=== PATIENT | female | born 1955 | race Caucasian/White ===

== ENCOUNTER 2024-01-22 11:35 | Outpatient (AMB) | payer MEDICARE, SELFPAY ==
--- NOTE | 2024-01-22 11:39 | A.OFFPC_ITS ---
Vital Signs 01/22/24 11:46 Height 5 ft 6.5 in Weight 260 lb BMI 41.3 BP 134/74 Blood Pressure Location Lt brachial Position Sitting Pulse 76 Pulse Source Pulse Oximeter Pulse Oximetry (%) 98 Oxygen Delivery Method Room Air Intake Visit Reasons: EST Care Depression Intake Note: pt is here est care, depression concerns Personnel Scheduler Required: No Accompanied by: Spouse Allergies esomeprazole [From Vimovo] Allergy (Mild, Verified 01/22/24 12:00) Headache naproxen [From Vimovo] Allergy (Mild, Verified 01/22/24 12:00) Headache codeine Adverse Reaction (Mild, Verified 01/22/24 12:00) Unknown phenobarbital Adverse Reaction (Mild, Verified 01/22/24 12:00) Unknown Medication List - Last Reconciled 01/22/24 by MADDY Schmid allopurinol 300 mg PO DAILY aspirin 81 mg PO DAILY calcium carbonate-vitamin D3 600 mg-12.5 mcg (500 unit) (Calcium 600 with Vitamin D3) caps PO CPAP As directed duloxetine (Cymbalta) 60 mg PO DAILY ferrous sulfate 325 mg PO DAILY gabapentin 300 mg PO DAILY nystatin 1 appl topical DAILY olmesartan 20 mg PO DAILY Tobacco use date assessed: 01/22/24 Fall risk assessment: No Falls in past year Last assessed Fall Risk: 01/22/24 Dental Screening Dental Screen Date: 01/22/24 Did you have a dental visit in the last 12 months?: Yes Did you have a dental problem in the last 6 months where you did not have access to dental care?: No Was dental information given to patient?: Patient has dentist HPI HPI Comments History of Present Illness Details Patient is a 68-year-old female here to establish care. Patient has a past medical history significant for anxiety and depression. She recently reached out to our community navigator to find assistance with finding a psychiatric provider in therapist. She states that she had been off her medications for several weeks and was starting to experience severe rebound anxiety and depression with vague SI/HI symptoms. The patient's is at the appointment with her today. Patient admitted at this appointment that she does have a distant history of SI attempt 50 years prior to this appointment. Patient will be sent to the emergency room for evaluation. Patient's will be driving her to the emergency room immediately. The patient is agreeable to this plan. [facility] Medical History (Updated 01/22/24 @ 12:31 by MADDY Schmid) FH: total knee replacement Chronic kidney disease Seizure Family History Father Cirrhosis Lung cancer Mother Lung cancer Social History Housing: House Alcohol intake: current Alcohol intake frequency: holidays/special occasions only Alcohol type: wine Patient Tobacco Use Status: Never used Tobacco e-Cigarette/Vaping Use: Never Used Cognitive needs: No Hearing needs: No Vision needs: No Questionnaire PHQ-9 Over the last 2 weeks, how often have you been bothered by any of the following problems? 1. Little interest or pleasure in doing things: nearly every day 2. Feeling down, depressed, or hopeless: nearly every day 3. Trouble falling or staying asleep, or sleeping too much: nearly every day 4. Feeling tired or having little energy: nearly every day 5. Poor appetite or overeating: nearly every day 6. Feeling bad about yourself - or that you are a failure or have let yourself or your family down: nearly every day 7. Trouble concentrating on things, such as reading the newspaper or watching television: more than half the days 8. Moving or speaking so slowly that other people could have noticed. Or the opposite - being so fidgety or restless that you have been moving around a lot more than usual: more than half the days 9. Thoughts that you would be better off or of hurting yourself in some wa y: nearly every day Total score: 25 Depression Screening Interpretation: Positive Depression Screening Done: Yes 41830 - PHQ-9 Billing: Yes Source: Developed by Drs. Maico Zuleta, Gertrude Titus, Hood Medrano and colleagues, with an educational jose g from [facility]. Thrive Questionnaire Date Thrive assessed: 01/22/24 I am a: Patient What is your living situation today?: I have a steady place to live Within the past 12 months, did the food you bought not last and you didn't have the money to get more?: Never true Within the past 12 months, did you worry whether your food would run out before you got money to buy more?: Never true Do you have trouble paying for medicines?: No Do you have trouble getting transportation to medical appointments?: No Do you have trouble paying your heating and electricity bill?: No Do you have trouble taking care of your child, family member or friend?: No Do you have trouble with day-to-day activities such as bathing, preparing meals, shopping, managing finances, etc.?: No Are you currently unemployed and looking for a job?: No Are you interested in more education?: No Please select the resources that you would like help with: None Currently or been in a relationship where the following occur: no concerns reported THRIVE Score: 0 JOSE-7 AMB Questionnaire JOSE-7 Date JOSE - 7 assessed: 01/22/24 Feeling nervous, anxious, or on edge: 3 = Nearly every day Not being able to stop or control worryin = Nearly every day Worrying too much about different things: 3 = Nearly every day Trouble relaxin = Nearly every day Being so restless that it is hard to sit still: 2 = More than half the days Becoming easily annoyed or irritable: 3 = Nearly every day Feeling afraid as if something awful might happen: 2 = More than half the days Total JOSE-7 score (0-4 normal; 5-9 mild; 10-14 moderate; 15-21 severe): 19 Source: Developed by Drs. Maico Zuleta, Gerturde Titus, Hood Medrano and colleagues, with an educational jose g from [facility]. JOSE-7 Assessment Billing JOSE-7 Assessment Tool: JOSE-7 Assessment 03495 Physical exam (Primary Care) Vital Signs: Last Vital Signs Pulse 76 01/22/24 11:46 BP 134/74 01/22/24 11:46 Pulse Ox 98 01/22/24 11:46 Oxygen Delivery Method Room Air 01/22/24 11:46 BMI result Body Mass Index 41.3 Tobacco/Smoking Status: Tobacco use Status Tobacco use date assessed 01/22/24 01/22/24 11:53 Patient Tobacco Use Status Never used Tobacco 01/22/24 11:54 e-Cigarette/Vaping Use Never Used 01/22/24 11:54 Depression Screening Interpretation: Positive Currently or been in a relationship where the following occur: no concerns reported Assessment and Plan Assessment & Plan (1) Persistent depressive disorder with anxious distress, currently severe: Comment: Patient is being sent [facility] Emergency Room for evaluation. And expect has been called. Patient is agreeable to this plan. will be driving via private vehicle. Code(s): F34.1 - Dysthymic disorder Plan: Will follow-up after ER evaluation. Orders: Orders Complete Blood Count Auto Diff Today Z13.0 - Encounter for screening for diseases of the blood and blood-forming organs and certain disorders involving the immune mechanism Vitamin D 25-OH (D2 and D3) Today Z13.21 - Encounter for screening for nu tritional disorder Vitamin B6 Today Z13.21 - Encounter for screening for nutritional disorder Vitamin B12 Today Z13.21 - Encounter for screening for nutritional disorder TSH reflex Free T4 Today Z13.29 - Encounter for screening for other suspected endocrine disorder MM tomosynthesis screening BI Today Z12.31 - Encounter for screening mammogram for malignant neoplasm of breast XR DEXA axial skeleton Today Z78.0 - Asymptomatic menopausal state Comprehensive Met. Panel Today Z91.89 - Other specified personal risk factors, not elsewhere classified Lipid Panel Today Z13.220 - Encounter for screening for lipoid disorders UA CC w/rflx Micro + Cult Today Z13.89 - Encounter for screening for other disorder Coding Level of Care Code New Pt Level 3 (48724) Diagnoses Persistent depressive disorder with anxious distress, currently severe F34.1 Additional Codes JOSE-7 Assessment Billing - JOSE-7 Assessment Tool: JOSE-7 Assessment 95273 ([id number]) Time Spent (min) 25
[2024-01-22 11:46] VITALS: BP 134/74; PULSE 76; O2SAT 98; BMI 41.3
== END 2024-01-22 13:34 | disposition home or self-care (01) ==
LOC: HO.HMGC 11:37
PROVIDERS: PCP Nurse Practitioner Primary Care; Visit Provider Nurse Practitioner Primary Care
DX: F34.1 Dysthymic disorder (principal)
CPT/HCPCS: 96127; 99203

== ENCOUNTER 2024-01-22 12:39 | Emergency (ER) | payer MEDICARE, SELFPAY ==
[2024-01-22 12:48] VITALS: BP 151/79; PULSE 76; RESP 18; TEMP 36.4; O2SAT 97; BMI 41.5
--- NOTE | 2024-01-22 12:50 | ED.PSYCH ---
HPI - Psych General Chief Complaint: Psychiatric Symptoms Stated Complaint: Crisis Time Seen by Provider: 01/22/24 13:34 Source: patient and family Mode of arrival: ambulatory Limitations: no limitations History of Present Illness HPI Narrative: 68 yo female with PMH of depression no prior inpatient stays [place] in [place] and didn't have a doctor or prescriber here ran out of her cymbalta and trazodone cold turkey about a month ago and then developed worsening depression and SI but no plan. She is here as her new doctor sent her given the SI MD complaint: suicidal ideation and feels depressed Onset (ago): week(s) Duration: getting worse History of same: Yes Relieving factors: none Exacerbating factors: other Context: not taking psychiatric medications and significant life stressor Associated psychiatric symptoms: depression and suicidal ideation Associated symptoms: denies other symptoms Treatments prior to arrival: none If self harm: admits thoughts of self harm Related Data Home Medications Medication Instructions Recorded Confirmed gabapentin 300 mg capsule 300 mg PO BID 01/22/24 01/22/24 nystatin 100,000 unit/gram topical topical BID-TID 01/22/24 powder olmesartan 20 mg tablet 20 mg DAILY 01/22/24 01/22/24 Allergies Allergy/AdvReac Type Severity Reaction Status Date / Time esomeprazole [From Vimovo] Allergy Mild Headache Verified 01/22/24 12:00 naproxen [From Vimovo] Allergy Mild Headache Verified 01/22/24 12:00 codeine AdvReac Mild Unknown Verified 01/22/24 12:00 phenobarbital AdvReac Mild Unknown Verified 01/22/24 12:00 Review of Systems Review of Systems: Constitutional : No Fever, No Chills ENT/Mouth : No Ear Pain, No Nasal Congestion, No sore throat Eyes: No Eye Pain, No Swelling, No Redness Cardiovascular : No Chest Pain, No SOB Respiratory : No Cough, No Sputum, No Dyspnea Gastrointestinal : No Nausea, No Vomiting, No Diarrhea, No Hematochezia, No Melena Genitourinary : No Dysuria, No Urinary Frequency, No Hematuria Musculoskeletal : No Myalgias Skin : No Skin Lesions, No rash Neuro : No Weakness, No Numbness, No Paresthesias, No Dizziness, No Headache Psych : positive Anxiety, positive Depression, positive SI no HI Heme/Lymph: No Lymphadenopathy Endocrine : No Polyuria, No Polydipsia All other systems reviewed and are negative [facility] Past Medical History Medical History FH: total knee replacement Chronic kidney disease Seizure Family History Family History Father Cirrhosis Lung cancer Mother Lung cancer Social History Social History Housing: House Alcohol intake: current Alcohol intake frequency: holidays/special occasions only Alcohol type: wine Patient Tobacco Use Status: Never used Tobacco Smoked in Last 30 Days: No e-Cigarette/Vaping Use: Never Used Use of substances other than those prescribed or required for medical reasons: No Advance Directives: No Advance Directives Information Provided: No Cognitive needs: No Hearing needs: No Vision needs: No Physical Exam Vital Signs: Vital Signs: Last Vital Signs Temp 98.2 F 01/22/24 13:36 Pulse 78 01/22/24 13:36 Resp 18 01/22/24 13:36 BP 140/80 H 01/22/24 13:36 Pulse Ox 98 01/22/24 13:36 O2 Del Method Room Air 01/22/24 13:36 BMI result Body Mass Index 41.5 Appearance: Alert. Oriented X3. No acute distress. Eyes: Pupils equal, round and reactive to light. ENT: Pharynx normal. Neck: Normal inspection. Neck supple. CVS: Normal heart rate and rhythm. Pulses normal. Respiratory: No respiratory distress. Breath sounds normal. Abdomen: Soft and nontender. Skin: Skin warm and dry. Normal skin color. Normal skin turgor. Extremities: No lower extremity edema. No calf ttp Neuro: Oriented X 3. No motor deficit. No sensory deficit. CN2-12 intact Course Course Course Narrative: This is a rapid medical exam: Additional HPI, ROS, PE not included below will be deferred to primary provider. Patient is a 68-year-old female presenting to the ED from PCP office for depression and vague suicidal statements after abruptly discontinuing her Cymbalta. Also reports episodes of angry outbursts but denies homicidal ideation. Patient admits to not taking her medications as prescribed. Plan: med clearance, CARE eval Reevaluation(s) Reevaluation #1: Physician observation started at 203pm Patient placed in physician observation because the patient needed more time for CARE team to asses the need for psych admission. At the time observation was started the patient's vitals were stable, patient is alert and oriented Neuro: nonfocal, CV RRR, Lungs clear Medical Decision Making Medical Decision Making [facility] Narrative: 68 yo female with PMH of depression off of medications for a month now with c/o depression and vague SI but no plan at this time will need basic labs and CARE team consult. Differential Diagnosis Differential Diagnoses: The differential diagnosis associated with the presentation includes depression, med issue Admission/Observation Consideration of admission/observation: Escalation of care including admission/observation considered observe until seen by CARE team Consult Healthcare Provider Management of the patient was discussed with: Behavioral Health Provider Lab Data [facility] Lab Attestation statement: I reviewed the patient's lab results. 01/22/24 13:22 01/22/24 13:22 Labs: Lab Results 01/22/24 Range/Units 13:22 WBC 12.2 H (4.8-10.8) X10*3/uL RBC 5.21 (4.20-5.50) X10*6/uL Hgb 14.3 (12.0-16.0) g/dl Hct 44.8 (37.0-47.0) % MCV 86.0 (80.0-98.0) fL MCH 27.4 (27.0-33.0) pg MCHC 31.9 (31.0-35.0) g/dl RDW 14.9 (11.0-16.0) % Plt Count 222 (160-400) X10*3/uL MPV 10.8 (9.4-12.3) fL Immature Gran % (Auto) 0.3 (0.0-0.4) % Neut % (Auto) 55.5 (45-73) % Lymph % (Auto) 34.7 (20-40) % [place] % (Auto) 6.7 (2-11) % Eos % (Auto) 2.3 (0-4) % Baso % (Auto) 0.5 (0-2) % Lymph # (Auto) 4.2 (1.2-4.9) X10*3/uL [place] # (Auto) 0.8 (0.1-1.2) X10*3/uL Eos # (Auto) 0.3 (0.0-0.4) X10*3/uL Baso # (Auto) 0.1 (0.0-0.2) X10*3/uL Abs Immat Gran (auto) 0.04 H (0.00-0.03) X10*3/uL Absolute Neuts (auto) 6.8 (2.0-8.3) x10*3/uL Absolute Nucleated RBC 0.000 (0.0-0.012) X10*3/uL Nucleated RBC % (auto) 0.0 (0.0-0.2) /100WBC Sodium 142 (135-145) mmol/L Potassium 3.8 (3.3-5.1) mmol/L Chloride 106 (96-108) mmol/L Carbon Dioxide 23 (22-29) mmol/L Anion Gap 17 (12-20) BUN 22 H (9-16) mg/dL Creatinine 1.33 (0.5-1.4) mg/dL Estim Creat Clear Calc 52.2 Estimated GFR 40 Random Glucose 115 (60-115) mg/dL Calcium 9.1 (8.4-10.2) mg/dL Total Bilirubin 0.4 (0.0-1.0) mg/dL AST 55 H (5-31) U/L ALT 30 (0-31) U/L Alkaline Phosphatase 76 (39-117) U/L Total Protein 7.9 (6.5-8.0) g/dL Albumin 4.2 (3.5-5.0) g/dL Urine Color Yellow Urine Appearance Clear Urine pH 5.0 (5.0-9.0) Ur Specific [place] 1.015 (1.005-1.025) Urine Protein Trace (Neg-Trace) mg/dL Urine Glucose (UA) Negative (Negative) mg/dL Urine Ketones Negative (Negative) mg/dL Urine Blood Negative (Negative) Urine Nitrite Negative (Negative) Ur Leukocyte Esterase Negative (Negative) Urine Opiates Screen Not Detected (Not Detect) Urine Fentanyl Screen Not Detected (Not Detect) Ur Barbiturates Screen Not Detected (Not Detect) Ur Phencyclidine Scrn Not Detected (Not Detect) Ur Amphetamines Screen Not Detected (Not Detect) U Benzodiazepines Scrn Not Detected (Not Detect) Urine Cocaine Screen Not Detected (Not Detect) U Marijuana (THC) Screen Not Detected (Not Detect) Ethyl Alcohol < 10 mg/dL COVID-19 (HONEY) Negative (Negative) COVID-19 Clin Com See Note Independent Interpretation I performed an independent interpretation of an: EKG Interpretation: Rate: 76 Rhythm: NSR [place]: left Normal P waves. Normal JOSE. Normal QRS complex. ST T wave : inverted V1-V2, no FILIBERTO qTC: normal prior studies: no acute ischemia The study has been interpreted contemporaneously by me. . Independent Historian Clinical information obtained from an independent historian. History obtained from or confirmed by: Spouse External Record Review External record reviewed: Office record Discharge Plan Discharge Clinical Impression: Depression Qualifiers: Depression Type: unspecified Qualified Code(s): F32.A - Depression, unspecified Patient Disposition: Still a Patient Prescriptions: No Action gabapentin 300 mg capsule 300 mg PO BID Rx Instructions: 1 capsule in morning 2 capsules at night nystatin 100,000 unit/gram powder TOPICAL BID-TID olmesartan 20 mg tablet 20 mg DAILY Interventions: [place]-Suicide Risk Severity Scale Last Done: 01/22/24 13:36
--- NOTE | 2024-01-22 12:53 | ECG_ITS ---
Test Reason : med clearance Blood Pressure : / mmHG Vent. Rate : 076 BPM Atrial Rate : 076 BPM P-R Int : 184 ms QRS Dur : 078 ms QT Int : 404 ms P-R-T Axes : 055 -34 049 degrees QTc Int : 454 ms Normal sinus rhythm Left axis deviation Abnormal ECG No previous ECGs available Referred By: Sonja Clark Electronically Signed By:ANTONIO RODRIGUEZ
[2024-01-22 13:36] VITALS: BP 140/80; PULSE 78; RESP 18; TEMP 36.8; O2SAT 98
[2024-01-22 13:37] LABS: MANUAL DIFF FLAG NO
[2024-01-22 13:38] LABS: Basophils Absolute Auto 0.1 X10*3/uL (0.0-0.2); Basophils Percent Auto 0.5 % (0-2); Eosinophils Absolute Auto 0.3 X10*3/uL (0.0-0.4); Eosinophils Percent Auto 2.3 % (0-4); Hematocrit 44.8 % (37.0-47.0); Hemoglobin 14.3 g/dl (12.0-16.0); Imm Gran Abs Auto 0.04 X10*3/uL (0.00-0.03); Imm Gran Pct Auto 0.3 % (0.0-0.4); Lymphocytes Absolute Auto 4.2 X10*3/uL (1.2-4.9); Lymphocytes Percent Auto 34.7 % (20-40); Mean Corpuscular HGB Conc 31.9 g/dl (31.0-35.0); Mean Corpuscular Hemoglobin 27.4 pg (27.0-33.0); Mean Platelet Volume 10.8 fL (9.4-12.3); Monocytes Absolute Auto 0.8 X10*3/uL (0.1-1.2); Monocytes Percent Auto 6.7 % (2-11); Neutrophils Absolute Auto 6.8 x10*3/uL (2.0-8.3); Neutrophils Percent Auto 55.5 % (45-73); Platelet Count 222 X10*3/uL (160-400); Red Blood Count 5.21 X10*6/uL (4.20-5.50); Red Cell Distribution Width 14.9 % (11.0-16.0); White Blood Count 12.2 X10*3/uL (4.8-10.8)
--- NOTE | 2024-01-22 13:38 | PC.NURSE ---
a&ox4. vss and up to date. pt presents to the ED w/ increased depression x 1 month. pt denies SI/HI at this time. pt also verbalizes not being able to take psychiatric medications d/t insurance purposes which has made her sx increase. pt denies pain. has no complaints. no sob/wob noted. respirations even and unlabored. labs/urine obtained/sent to lab. ekg performed by tech. pt resting comfortably in the hallway in no apparent distress. 1:1 sitter present. pt aware that the plan is to move her to the pod once medically cleared. plan of care ongoing.
[2024-01-22 13:41] LABS: Appearance Urine Clear; Color Urine Yellow; Glucose Urine UA Negative (Negative); Leukocyte Esterase Urine Negative (Negative); Nitrite Urine Negative (Negative); Specific Gravity - Urine 1.015 (1.005-1.025); Urine Blood Negative (Negative); Urine Ketones Negative (Negative); Urine Protein Trace mg/dL (Neg-Trace)
[2024-01-22 13:46] LABS: Amphetamine Screen Urine Not Detected (Not Detect); Barbiturates, Urine Not Detected (Not Detect); Benzodiazepines Screen Urine Not Detected (Not Detect); Cannabinoid Screen Urine Not Detected (Not Detect); Cocaine Screen Urine Not Detected (Not Detect); Fentanyl, urine Not Detected (Not Detect); Opiate Screen Urine Not Detected (Not Detect); Phencyclidine Screen Urine Not Detected (Not Detect)
[2024-01-22 13:51] LABS: COVID-19 Test Negative (Negative); IDNOW Serial# 08D9AD1C
[2024-01-22 13:52] LABS: Alanine Aminotransferase 30 U/L (0-31); Albumin Level 4.2 g/dL (3.5-5.0); Alkaline Phosphatase 76 U/L (39-117); Anion Gap 17 (12-20); Aspartate Amino Transferase 55 U/L (5-31); Bilirubin Total 0.4 mg/dL (0.0-1.0); Blood Urea Nitrogen 22 mg/dL (9-16); Calcium 9.1 mg/dL (8.4-10.2); Carbon Dioxide 23 mmol/L (22-29); Chloride 106 mmol/L (96-108); Creatinine Clr Calc Pharmacy 52.2; Estimated Glomerular Filt Rate 40; Ethanol < 10 mg/dL; Glucose Random 115 mg/dL (60-115); Potassium 3.8 mmol/L (3.3-5.1); Sodium 142 mmol/L (135-145); Total Protein 7.9 g/dL (6.5-8.0)
--- NOTE | 2024-01-22 17:03 | MHC.CARE ---
Patient evaluated by the CARE Team and does not require an inpatient hospitalization for symptom management, written assessment to follow. ED provider, Dr. Person, updated and in agreement with plan to discharge.
== END 2024-01-22 18:24 | disposition home or self-care (01) ==
PROVIDERS: Registered Nurse Emergency; Emergency Provider Emergency Medicine Emergency Medical Services
DX: F32.A Depression, unspecified (principal); R45.851 Suicidal ideations; F41.9 Anxiety disorder, unspecified; G47.00 Insomnia, unspecified; Z11.52 Encounter for screening for COVID-19; Z79.899 Other long term (current) drug therapy
CPT/HCPCS: 80053; 80307; 81003; 85025; 87635; 93005; 99285; S9485

== ENCOUNTER → 2024-01-22 12:53 | Outpatient (BNV) | payer MEDICARE, SELFPAY | PROVIDERS: Emergency Provider Emergency Medicine; Visit Provider Internal Medicine | DX: R94.31 Abnormal electrocardiogram [ECG] [EKG] (principal) | CPT/HCPCS: 93010 ==

== ENCOUNTER 2024-01-29 14:05 | Outpatient (AMB) | payer MEDICARE, SELFPAY ==
[2024-01-29 14:10] VITALS: BP 110/74; PULSE 82; O2SAT 99; BMI 42.0
--- NOTE | 2024-01-29 14:10 | MHC.PC.OV ---
Vital Signs 01/29/24 14:10 Height 5 ft 6.5 in Weight 264 lb BMI 42.0 BP 110/74 Blood Pressure Location Lt brachial Position Sitting Pulse 82 Pulse Source Pulse Oximeter Pulse Oximetry (%) 99 Oxygen Delivery Method Room Air Intake Visit Reasons: Mental Health/back pain Intake Note: Pt is here to follow up from the ER and also has back pain Allergies esomeprazole [From Vimovo] Allergy (Mild, Verified 01/29/24 14:43) Headache naproxen [From Vimovo] Allergy (Mild, Verified 01/29/24 14:43) Headache codeine Adverse Reaction (Mild, Verified 01/29/24 14:43) Unknown phenobarbital Adverse Reaction (Mild, Verified 01/29/24 14:43) Unknown Medication List - Last Reconciled 01/29/24 by MADDY Schmid celecoxib (Celebrex) 100 mg PO DAILY PRN duloxetine 60 mg PO DAILY gabapentin 300 mg PO BID lidocaine 4% (Salonpas (lidocaine)) 1 patch topical DAILY PRN nystatin topical BID-TID olmesartan 20 mg DAILY trazodone 50 mg PO BEDTIME PRN Tobacco use date assessed: 01/29/24 Fall risk assessment: No Falls in past year Last assessed Fall Risk: 01/29/24 Dental Screening Dental Screen Date: 01/29/24 Did you have a dental visit in the last 12 months?: No Did you have a dental problem in the last 6 months where you did not have access to dental care?: No Was dental information given to patient?: No HPI HPI Comments History of Present Illness Details Patient is a 68-year-old female in today for emergency room follow-up. She was seen in the emergency room 7 days prior due to symptoms of SI related to sudden discontinuation of her Cymbalta. Patient was evaluated by the care team and deemed not needing hospitalization. She was restarted on the Cymbalta 50 mg, and given trazodone for sleep. At today's appointment the patient does not express any SI or HI. Patient understands that it may take another 3-4 weeks for the medication to take effect. PFSH Medical History (Updated 01/29/24 @ 14:48 by MADDY Schmid) FH: total knee replacement Chronic kidney disease Seizure Family History Father Cirrhosis Lung cancer Mother Lung cancer Social History Housing: House Alcohol intake: current Alcohol intake frequency: holidays/special occasions only Alcohol type: wine Patient Tobacco Use Status: Never used Tobacco e-Cigarette/Vaping Use: Never Used Current occupational status: retired Cognitive needs: No Hearing needs: No Vision needs: No Questionnaire PHQ-9 Over the last 2 weeks, how often have you been bothered by any of the following problems? 1. Little interest or pleasure in doing things: more than half the days 2. Feeling down, depressed, or hopeless: more than half the days 3. Trouble falling or staying asleep, or sleeping too much: several days 4. Feeling tired or having little energy: several days 5. Poor appetite or overeating: more than half the days 6. Feeling bad about yourself - or that you are a failure or have let yourself or your family down: more than half the days 7. Trouble concentrating on things, such as reading the newspaper or watching television: several days 8. Moving or speaking so slowly that other people could have noticed. Or the opposite - being so fidgety or restless that you have been moving around a lot more than usual: not at all 9. Thoughts that you would be better off or of hurting yourself in some way: more than half the days Total score: 13 Depression Screening Interpretation: Positive Depression Screening Done: Yes 70485 - PHQ-9 Billing: Yes Source: Developed by Drs. Maico Zuleta, Gertrude Titus, Hood Medrano and colleagues, with an educational jose g from [employer]. Thrive Questionnaire Date Thrive assessed: 01/22/24 JOSE-7 AMB Questionnaire JOSE-7 Date JOSE - 7 assessed: 01/29/24 Feeling nervous, anxious, or on edge: 3 = Nearly every day Not being able to stop or control worryin = More than half the days Worrying too much about different things: 2 = More than half the days Trouble relaxin = More than half the days Being so restless that it is hard to sit still: 0 = Not at all Becoming easily annoyed or irritable: 2 = More than half the days Feeling afraid as if something awful might happen: 2 = More than half the days Total JOSE-7 score (0-4 normal; 5-9 mild; 10-14 moderate; 15-21 severe): 13 Source: Developed by Drs. Maico Zuleta, Gertrude Titus, Hood Medrano and colleagues, with an educational jose g from [employer]. JOSE-7 Assessment Billing JOSE-7 Assessment Tool: JOSE-7 Assessment 17740 Review of Systems Const Details: Constitutional : No Weight loss, No Fever, No Chills, Admits Fatigue, No Malaise Cardiovascular : No Chest Pain, No SOB, No Dyspnea on Exertion, No Orthopnea, No Edema, No Palpitations Respiratory : No Cough, No Sputum, No Wheezing Gastrointestinal : No Nausea, No Vomiting, No Diarrhea, No Constipation, No abdominal Pain, No Hematochezia, No Melena Genitourinary : No Dysuria, No Urinary Frequency, No Hematuria, Musculoskeletal : Admits lower back and left flank pain. Neuro : No Weakness, No Numbness, No Dizziness, No Headache Psych : Admits some Anxiety/Panic, Admits some Depression, Denies SI/HI. All other systems reviewed and are negative Physical exam (Primary Care) Vital Signs: Last Vital Signs Pulse 82 01/29/24 14:10 BP 110/74 01/29/24 14:10 Pulse Ox 99 01/29/24 14:10 Oxygen Delivery Method Room Air 01/29/24 14:10 Care Plan Goal for BP management: Patient's vital signs have been reviewed stable. BMI result Body Mass Index 42.0 Tobacco/Smoking Status: Tobacco use Status Tobacco use date assessed 01/29/24 01/29/24 14:16 Patient Tobacco Use Status Never used Tobacco 01/29/24 14:16 e-Cigarette/Vaping Use Never Used 01/29/24 14:16 Depression Screening Interpretation: Positive Thrive Assessment: Date of Thrive Assessment Date Thrive assessed 01/22/24 01/29/24 14:16 Const Other: Appearance: Alert.? Oriented X3.? No acute distress.? Head: Normocephalic, atraumatic. Neck: Normal inspection.? Neck supple.? CVS: Normal heart rate and rhythm.? Pulses normal.? Respiratory: No respiratory distress.? Breath sounds normal.? Back: No midline tenderness, no C-spine tenderness, full range of motion, + CVA tenderness left flank Neuro: Oriented X 3. CN 2-12 intact Assessment and Plan Assessment & Plan (1) Lower back pain: Comment: Will order a lumbar x-ray. Patient will be given Celebrex a reduce dosage due to creatinine clearance. Patient will be given limited amount. Patient has been instructed on the side effects of these medications. Patient will also be given Salonpas to be taken as directed. Code(s): M54.50 - Low back pain, unspecified Qualifiers: Chronicity: unspecified Back pain laterality: unspecified Sciatica presence: without sciatica Qualified Code(s): M54.50 - Low back pain, unspecified (2) Obstructive sleep apnea: Comment: Patient has previous diagnosis of obstructive sleep apnea and states that she does not have CPAP machine at home. Will refer to Sleep Medicine. Code(s): G47.33 - Obstructive sleep apnea (adult) (pediatric) (3) Left flank pain: Comment: Patient also has developed left flank pain. On physical exam patient positive for left CVA tenderness. Will order left renal ultrasound Code(s): R10.9 - Unspecified abdominal pain (4) Anxiety and depression: Comment: Patient was restarted on Cymbalta while at the emergency room. She states that she feels much better since she started taking it. Denies SI/HI. Patient instructed medication may take another 3 weeks before takes full effect. Patient also has referral out for psychiatric provider. Code(s): F41.9 - Anxiety disorder, unspecified; F32.A - Depression, unspecified Plan: Take your medications as prescribed. If you were prescribed antibiotics today, it is important that you take your medication to their entirety, do not skip any doses, do not finish them early. Follow-up with your primary care provider this week. Return to the emergency department with new or worsening symptoms. Such as fevers, chills, chest pain, shortness of breath, nausea, vomiting, dizziness, headache, vision changes, lethargy In case of emergency call 911 Plan Patient will follow-up in 4 weeks. Orders: Orders US renal LT Today R10.9 - Unspecified abdominal pain XR lumbar spine 2-3V Today M54.50 - Low back pain, unspecified Referrals Sleep Medicine Referral G47.33 - Obstructive sleep apnea (adult) (pediatric) Nephrology Referral N18.9 - Chronic kidney disease, unspecified Medications: New lidocaine 4% (Salonpas (lidocaine)) 1 patch topical DAILY PRN 15 ea 0RF pain celecoxib (Celebrex) 100 mg PO DAILY PRN 14 caps 0RF pain Coding Level of Care Code Est Pt Level 3 (15075) Diagnoses Low back pain without sciatica, unspecified back pain laterality, unspecified chronicity M54.50 Chronicity: unspecified Back pain laterality: unspecified Sciatica presence: without sciatica Obstructive sleep apnea G47.33 Left flank pain R10.9 Anxiety and depression F41.9; F32.A Additional Codes JOSE-7 Assessment Billing - JOSE-7 Assessment Tool: JOSE-7 Assessment [id number] ([id number]) Time Spent (min) 30
== END 2024-01-29 15:56 | disposition home or self-care (01) ==
PROVIDERS: Visit Provider Nurse Practitioner Primary Care
DX: M54.50 Low back pain, unspecified (principal); G47.33 Obstructive sleep apnea (adult) (pediatric); R10.9 Unspecified abdominal pain; F41.9 Anxiety disorder, unspecified; F32.A Depression, unspecified
CPT/HCPCS: 96127; 99213

== ENCOUNTER 2024-01-29 14:46 | Outpatient (REF) | payer MEDICARE, SELFPAY ==
--- NOTE | ~2024-01-29 | XR_ITS ---
EXAMINATION: XR LUMBOSACRAL SPINE CLINICAL INFORMATION: Low back pain unspecified. COMPARISON: None available. TECHNIQUE: Three views of the lumbosacral spine. FINDINGS: Mild leftward curvature of the lumbar spine. U-shaped radiopaque wire-like device just to the right of the thoracolumbar junction. Surgical clip in the pelvis. Small rounded pelvic calcifications are likely vascular. Moderate degenerative changes in the bilateral sacroiliac joints. Straightening of the normal lumbar lordosis. The bones are diffusely demineralized. Facet arthritis in the imaged lower lumbar spine. There is a possible compression deformity in a partially imaged lower thoracic vertebral body which should be evaluated with dedicated views of the thoracic spine. Moderate multilevel lumbar spondylosis with loss of disc space height at L5-S1. XR/XR lumbar spine 2-3V IMPRESSION: 1. Moderate multilevel lumbar spondylosis with loss of disc space height at L5-S1. 2. Facet arthritis in the imaged lower lumbar spine. 3. There is a possible compression deformity in a partially imaged lower thoracic vertebral body which should be evaluated with dedicated views of the thoracic spine. This study was presented today February 03, 2024 for interpretation. PSA staff will provide results to referring provider at this time.
== END 2024-01-29 14:47 | disposition home or self-care (01) ==
LOC: HO.HMGCX 14:46
PROVIDERS: PCP Nurse Practitioner Primary Care; Visit Provider Nurse Practitioner Primary Care
DX: M54.50 Low back pain, unspecified (principal)
CPT/HCPCS: 72100

== ENCOUNTER 2024-02-06 10:56 | Outpatient (AMB) | payer MEDICARE, SELFPAY ==
--- NOTE | 2024-02-06 11:07 | A.OFFVIS_ITS ---
Intake Vital Signs 02/06/24 11:16 Height 5 ft 6.5 in Weight 265 lb 6 oz BMI 42.2 BP 134/80 Blood Pressure Location Lt brachial Position Sitting Pulse 75 Pulse Source Pulse Oximeter Pulse Oximetry (%) 96 Oxygen Delivery Method Room Air Intake Visit Reasons: [id number] Intake Note: Patient presents for CECI. Allergies esomeprazole [From Vimovo] Allergy (Mild, Verified 02/06/24 11:12) Headache naproxen [From Vimovo] Allergy (Mild, Verified 02/06/24 11:12) Headache codeine Adverse Reaction (Mild, Verified 02/06/24 11:12) Unknown phenobarbital Adverse Reaction (Mild, Verified 02/06/24 11:12) Unknown HPI HPI Comments History of Present Illness Details 68 y/o female patient presents for new i n-person visit to manage sleep apnea. Pt was was diagnosed with CECI last year and tried CPAP. She used nasal mask, but she is a mouth breather, can't use it, and returned the CPAP. The PSG sleep study result reviewed. The result was significant for a moderate degree of sleep apnea with increased severity in REM sleep. The AHI was 28/hr, REM AHI was 80/hr and oxygen eleuterio was 71%. Pt continue to experiences snoring, non refreshing sleep with daytime sleepiness. Sleep questionnaire: Have you ever been diagnosed with a sleep disorder? Yes. Have you ever had a sleep study in the past? Yes. Have you ever been treated for a sleep disorder? Do you take medications for a sleep disorder? Trazodone. Do you snore? Yes. Do you wake up gasping at night? Yes. Do you have episodes of apneas? Yes. If yes, are they witnessed? Yes. Do you have episodes of nocturnal chest pain or dyspnea? No. Do you have difficulty initiating sleep? Yes. Do you have difficulty maintaining sleep? Yes, 4-5 times. Do you wake up tired? Yes. Do you have headaches upon awakening? Not usually. Do you wake up with dry mouth or throat? Yes. Do you have GERD? No. Do you have nocturia? Not usually. Do you have nocturnal leg cramps? No. Do you have symptoms of restless legs? No. Do you act out your dreams? No. Sleep hygiene questionnaire: What is your usual sleep routine? Usual bedtime is at 11 pm; Usual wake up time is at 10 am. Do you take naps? Yes, couple of hours daily. Is your sleep environment cool, dark, and quiet? Yes. Do you exercise? No. Do you take caffeine or other stimulants? Coke daily. Do you use electronics in bed? Yes. What is your work schedule? N/A. Hypersomnolence questionnaire: Do you have daytime tiredness or fatigue? Yes. Do you easily fall asleep when inactive? Yes. Have you ever had episodes of sudden weakness? No. Have you ever had episodes of sudden weakness associated with strong emotions? No. PFSH Medical History FH: total knee replacement Chronic kidney disease Seizure Family History Father Cirrhosis Lung cancer Mother Lung cancer Social History (Updated 02/06/24 @ 11:16 by Marlena Tsai CMA) Household Members: Spouse Housing: Apartment Alcohol intake: current Alcohol intake frequency: holidays/special occasions only Alcohol type: wine Patient Tobacco Use Status: Never used Tobacco e-Cigarette/Vaping Use: Never Used Current occupational status: retired Cognitive needs: No Hearing needs: No Vision needs: No Review of Systems Const All systems reviewed & are unremarkable except as noted in HPI and below Physical Exam Vital Signs: Last Vital Signs Pulse 75 02/06/24 11:16 BP 134/80 02/06/24 11:16 Pulse Ox 96 02/06/24 11:16 Oxygen Delivery Method Room Air 02/06/24 11:16 BMI result Body Mass Index 42.2 Const General: cooperative and tired appearing Nutritional Appearance: obese Orientation/consciousness: patient oriented x3 Resp Effort & Inspection: normal respiratory effort and able to speak in complete sentences Neuro General: patient oriented x3 and gait normal Cranial nerves: Yes CN's II-XII intact bilaterally Cognition (Neuro): normal cognition Gait exam (Neuro): Normal gait present Motor exam (neuro): 5/5 motor strength present throughout Psych Appearance: grossly normal Mental Status: mental status grossly normal Speech and movement: Normal speech and movement present Affect: normal affect Attitude: cooperative Assessment & Plan Assessment & Plan (1) Obstructive sleep apnea: Comment: A moderate degree of sleep apnea with increased severity in REM. The AHI was 28/hr, REM AHI was 80/hr and oxygen eleuterio was 71%. Code(s): G47.33 - Obstructive sleep apnea (adult) (pediatric) Plan Pt is advised to undergo in lab sleep study to assess for sleep apnea. Will f/u with pt after study to discuss results and appropriate treatment options. Sleep hygiene education provided. Advised patient to limit electronic use before bedtime. Wt reduction advised. Pt to call with any worsening concerns or questions. Orders: Orders RT PSG in-lab sleep study Today E66.01 - Morbid (severe) obesity due to excess calories, G47.33 - Obstructive sleep apnea (adult) (pediatric) Coding Level of Care Code New Pt Level 3 (93455) Diagnoses Obstructive sleep apnea G47.33
[2024-02-06 11:16] VITALS: BP 134/80; PULSE 75; O2SAT 96; BMI 42.2
== END 2024-02-06 11:37 | disposition home or self-care (01) ==
PROVIDERS: PCP Nurse Practitioner Primary Care; Visit Provider Nurse Practitioner Family
DX: G47.33 Obstructive sleep apnea (adult) (pediatric) (principal)
CPT/HCPCS: 99203

== ENCOUNTER → 2024-02-06 10:56 | Outpatient (BNVA) | payer MEDICARE, SELFPAY | PROVIDERS: PCP Nurse Practitioner Primary Care; Visit Provider Nurse Practitioner Family | DX: G47.33 Obstructive sleep apnea (adult) (pediatric) (principal); R06.83 Snoring; R40.0 Somnolence; G47.9 Sleep disorder, unspecified | CPT/HCPCS: 99202 ==

== ENCOUNTER 2024-02-11 11:13 | Outpatient (REF) | payer MEDICARE, SELFPAY ==
--- NOTE | ~2024-02-11 | US_ITS ---
EXAMINATION: US RETROPERITONEAL LIMITED (RENAL ONLY) CLINICAL INFORMATION: Left flank pain. COMPARISON: None available. TECHNIQUE: Real-time imaging of the left kidney. FINDINGS: LEFT KIDNEY: 11.2 x 4.5 x 5.7 cm (SAG x AP x TRV). Left kidney is normal in size but demonstrates overall increased echogenicity diffusely. Renal cortex appears well-maintained. No calculi or focal parenchymal lesions. No hydronephrosis. US/US renal LT IMPRESSION: -No renal calculi or hydronephrosis of the left kidney. -Overall increased echogenicity of the left kidney. This is a nonspecific finding but may represent underlying medical renal disease. Clinical correlation recommended.
== END 2024-02-11 11:14 | disposition home or self-care (01) ==
LOC: HO.HMGCX 11:13
PROVIDERS: PCP Nurse Practitioner Primary Care; Visit Provider Nurse Practitioner Primary Care
DX: R10.9 Unspecified abdominal pain (principal)
CPT/HCPCS: 76775

== ENCOUNTER 2024-02-17 12:37 | Outpatient (REF) | payer MEDICARE, SELFPAY ==
--- NOTE | ~2024-02-17 | MM_ITS ---
EXAMINATION: BONE DENSITOMETRY CLINICAL INDICATION: Asymptomatic menopausal state. COMPARISON: This is the patient's baseline examination. TECHNIQUE: Using a [employer] DXA System (software version: 13.1) manufactured by [employer], dual-energy x-ray absorptiometry was performed of the lumbar spine and left hip. The images are of good technical quality. Summary results are attached. FINDINGS: LEFT FEMUR, NECK: BMD 0.811 g/cm2, Z-score -0.7, T-score -1.6, osteopenia. LEFT FEMUR, TOTAL: BMD 0.821 g/cm2, Z-score -0.9, T-score -1.5, osteopenia. AP SPINE L1-L4: BMD 1.100 g/cm2, Z-score -0.2, T-score -0.7, normal. IDENTIFIED RISK FACTORS: Osteoporosis, kidney disease. Early menopause, secondary osteoporosis, anticonvulsants, hysterectomy. HISTORY OF FRACTURE: None listed. MEDICATIONS: Calcium supplements or multivitamin, vitamin D. MM/XR DEXA axial skeleton IMPRESSION: 1. DIAGNOSIS: Osteopenia based on the lowest T-score value of -1.6 in the femoral neck applying World Health Organization criteria. 2. 10-YEAR FRACTURE RISK PREDICTION, FRAX: Major osteoporotic fracture (clinical spine, forearm, hip or shoulder) 8.9%. Hip fracture 1.3%. 3. Treatment Recommendations: NOF guidelines recommend consideration for treatment in postmenopausal women and men age 50 and older presenting with the following: -A hip or vertebral (clinical or morphometric) fracture. -T-score less than or equal to -2.5 at the femoral neck or spine after appropriate evaluation to exclude secondary causes. -Low bone mass at the hip or spine and a 10-year fracture probability by FRAX of greater than or equal to 3% for hip fracture or greater than or equal to 20% for major osteoporotic fracture based on the [place] adapted WHO algorithm. 4. Other Recommendations: All treatment decisions require clinical judgment and consideration of individual patient factors, including patient preferences, comorbidities, previous drug use, risk factors not captured in the FRAX model (e.g. frailty, falls, vitamin D deficiency, increased bone turnover, interval significant decline in bone density) and possible under or overestimation of fracture risk by FRAX. Additional medical evaluation for secondary cause of low bone mineral density may be appropriate. FUTURE SCAN RECOMMENDATION: People with diagnosed cases of osteoporosis or at high risk for fracture should have regular bone mineral density tests. For patients eligible for Medicare, routine testing is allowed once every 2 years. The testing frequency can be increased to one year for patients who have rapidly progressing disease, those who are receiving or discontinuing medical therapy to restore bone mass, or have additional risk factors.
== END 2024-02-17 12:38 | disposition home or self-care (01) ==
LOC: HO.MAMMO 12:37
PROVIDERS: PCP Nurse Practitioner Primary Care; Visit Provider Nurse Practitioner Primary Care
DX: Z13.820 Encounter for screening for osteoporosis (principal); Z78.0 Asymptomatic menopausal state
CPT/HCPCS: 77080; 99202

== ENCOUNTER 2024-02-17 14:18 | Outpatient (AMB) | payer MEDICARE, SELFPAY ==
[2024-02-17 14:22] VITALS: BP 108/66; PULSE 86; O2SAT 94; BMI 41.3
--- NOTE | 2024-02-17 14:22 | HO.NEPHOV ---
HPI HPI Comments History of Present Illness Details 68-year-old woman with a history of obesity and hypertension and mild CKD with a baseline creatinine of around 1.3 mg/dL She has been intolerant to various medications. She has been referred for evaluation of hypertension. She tried lisinopril which caused cough. This has been switched to valsartan. Initially she was on 40 mg which has been increased to 80 mg a day. She is also on chlorthalidone. She complains of colicky abdominal pain in both lower quadrants. She also admits to constipation. [facility] Medical History FH: total knee replacement Chronic kidney disease Seizure Family History Father Cirrhosis Lung cancer Mother Lung cancer Social History Household Members: Spouse Housing: Apartment Alcohol intake: current Alcohol intake frequency: holidays/special occasions only Alcohol type: wine Patient Tobacco Use Status: Never used Tobacco e-Cigarette/Vaping Use: Never Used Current occupational status: retired Cognitive needs: No Hearing needs: No Vision needs: No Vital Signs 02/17/24 14:22 Height 5 ft 6.5 in Weight 260 lb BMI 41.3 BP 108/66 Blood Pressure Location Lt brachial Position Sitting Pulse 86 Pulse Source Pulse Oximeter Pulse Oximetry (%) 94 Oxygen Delivery Method Room Air Physical Exam Vital Signs: Last Vital Signs Pulse 86 02/17/24 14:22 BP 108/66 02/17/24 14:22 Pulse Ox 94 02/17/24 14:22 Oxygen Delivery Method Room Air 02/17/24 14:22 BMI result Body Mass Index 41.3 Const General: comfortable Nutritional Appearance: well nourished Orientation/consciousness: patient oriented x3 HEENT Head: No normal to inspection Mouth: moist mucous membranes Neck Neck: Yes supple and Yes no JVD Resp Auscultation: clear to auscultation bilaterally, no rales and rub present Cardio Jugular venous distension: no JVD Palpation: no palpable S3 and no palpable S4 Heart sounds: no rubs GI Palpation (GI): Soft to palpation and nontender Percussion: No Fluid wave present General: Yes no CVA tenderness Back/Spine/Pelvis Back: no CVA tenderness Skin General skin exam: no rashes or lesions noted Neuro General: patient oriented x3 Extrem General: Yes no pedal edema and No clubbing Assessment & Plan Assessment & Plan (1) Chronic kidney disease: Comment: Most likely related to hypertensive nephrosclerosis. Urine sediments are bland Code(s): N18.9 - Chronic kidney disease, unspecified Plan: Goal is to slow the progression renal disease Continue overt nephrotoxic agents including NSAIDs Maintain blood pressure less than 130/80. Discussed weight loss. (2) HTN (hypertension): Comment: Obesity might be playing a role. Underlying sleep apnea should be ruled out Code(s): I10 - Essential (primary) hypertension Plan: Discussed weight loss. Stay on low-sodium diet. Increase valsartan to 160 mg daily. We will refer for sleep evaluation. Orders: Orders Basic Metabolic Panel 02/17/24 I10 - Essential (primary) hypertension, N18.9 - Chronic kidney disease, unspecified Total Protein Urine Random 02/17/24 I10 - Essential (primary) hypertension, N18.9 - Chronic kidney disease, unspecified Creatinine Clearance Urine 02/17/24 I10 - Essential (primary) hypertension, N18.9 - Chronic kidney disease, unspecified Creatinine Urine 02/17/24 I10 - Essential (primary) hypertension, N05.9 - Unspecified nephritic syndrome with unspecified morphologic changes, N18.9 - Chronic kidney disease, unspecified Medications: New docusate sodium (Colace) 100 mg PO DAILY 10 caps 0RF Coding Level of Care Code New Pt Level 4 (61443) Diagnoses Chronic kidney disease N18.9 HTN (hypertension) I10 Results Reviewed Nephrology Results: Hgb 14.3 g/dl (12.0-16.0) 01/22/24 WBC 12.2 X10*3/uL (4.8-10.8) H 01/22/24 Plt Count 222 X10*3/uL (160-400) 01/22/24 Sodium 142 mmol/L (135-145) 01/22/24 Potassium 3.8 mmol/L (3.3-5.1) 01/22/24 Chloride 106 mmol/L (96-108) 01/22/24 Carbon Dioxide 23 mmol/L (22-29) 01/22/24 BUN 22 mg/dL (9-16) H 01/22/24 Creatinine 1.33 mg/dL (0.5-1.4) 01/22/24 Calcium 9.1 mg/dL (8.4-10.2) 01/22/24 Urine Protein Trace mg/dL (Neg-Trace) 01/22/24 Renal US 02/11/24
--- NOTE | 2024-02-18 11:25 | HO.NEPHOV_ITS ---
HPI HPI Comments History of Present Illness Details 68-year-old woman with a history of hype rtension in the obesity has been referred for chronic kidney disease. Her serum creatinine has been staying around 1.3 mg/dL L with EGFR of about 53 mL/milliliter and hence this referral. She has history of psoriasis. She denies taking NSAIDs on a chronic basis. [facility] Medical History FH: total knee replacement Chronic kidney disease Seizure Family History Father Cirrhosis Lung cancer Mother Lung cancer Social History Household Members: Spouse Housing: Apartment Alcohol intake: current Alcohol intake frequency: holidays/special occasions only Alcohol type: wine Patient Tobacco Use Status: Never used Tobacco e-Cigarette/Vaping Use: Never Used Current occupational status: retired Cognitive needs: No Hearing needs: No Vision needs: No Vital Signs 02/17/24 14:22 Height 5 ft 6.5 in Weight 260 lb BMI 41.3 BP 108/66 Blood Pressure Location Lt brachial Position Sitting Pulse 86 Pulse Source Pulse Oximeter Pulse Oximetry (%) 94 Oxygen Delivery Method Room Air Physical Exam Vital Signs: Last Vital Signs Pulse 86 02/17/24 14:22 BP 108/66 02/17/24 14:22 Pulse Ox 94 02/17/24 14:22 Oxygen Delivery Method Room Air 02/17/24 14:22 BMI result Body Mass Index 41.3 Const General: comfortable Nutritional Appearance: well nourished Orientation/consciousness: patient oriented x3 HEENT Head: No normal to inspection Mouth: moist mucous membranes Neck Neck: Yes supple and Yes no JVD Resp Auscultation: clear to auscultation bilaterally, no rales and rub present Cardio Jugular venous distension: no JVD Palpation: no palpable S3 and no palpable S4 Heart sounds: no rubs GI Palpation (GI): Soft to palpation and nontender Percussion: No Fluid wave present General: Yes no CVA tenderness Back/Spine/Pelvis Back: no CVA tenderness Skin General skin exam: no rashes or lesions noted Neuro General: patient oriented x3 Extrem General: Yes no pedal edema and No clubbing Assessment & Plan Assessment & Plan (1) Chronic kidney disease: Comment: Most likely related to hypertensive nephrosclerosis. Urine sediments are bland Code(s): N18.9 - Chronic kidney disease, unspecified Plan: Recent urine studies did not reveal any blood or protein by urinalysis. Abdominal ultrasonogram revealed normal-appearing left kidney without any hydronephrosis or mass. Right kidney was not scanned. Would obtain 24 urine collection to calculate creatinine clearance. I have initiated workup for chronic kidney disease. (2) HTN (hypertension): Comment: Obesity might be playing a role. Code(s): I10 - Essential (primary) hypertension Plan: Blood pressure better controlled. No changes were made at titrate medication. Encouraged her to stay on low- sodium diet and she needs to lose weight as well. Avoid hypotensive episodes (3) Constipation: Code(s): K59.00 - Constipation, unspecified Plan: She had colonoscopy few years ago and next colonoscopy is scheduled in 2 years. I have prescribed Colace and encouraged to follow up with GI Orders: Orders Basic Metabolic Panel 02/17/24 I10 - Essential (primary) hypertension, N18.9 - Chronic kidney disease, unspecified Total Protein Urine Random 02/17/24 I10 - Essential (primary) hypertension, N18.9 - Chronic kidney disease, unspecified Creatinine Clearance Urine 02/17/24 I10 - Essential (primary) hypertension, N18.9 - Chronic kidney disease, unspecified Creatinine Urine 02/17/24 I10 - Essential (primary) hypertension, N05.9 - Unspecified nephritic syndrome with unspecified morphologic changes, N18.9 - Chronic kidney disease, unspecified Medications: New docusate sodium (Colace) 100 mg PO DAILY 10 caps 0RF Coding Level of Care Code New Pt Level 4 (89788) Diagnoses Chronic kidney disease N18.9 HTN (hypertension) I10 Constipation K59.00 Results Reviewed Nephrology Results: Hgb 14.3 g/dl (12.0-16.0) 01/22/24 WBC 12.2 X10*3/uL (4.8-10.8) H 01/22/24 Plt Count 222 X10*3/uL (160-400) 01/22/24 Sodium 142 mmol/L (135-145) 01/22/24 Potassium 3.8 mmol/L (3.3-5.1) 01/22/24 Chloride 106 mmol/L (96-108) 01/22/24 Carbon Dioxide 23 mmol/L (22-29) 01/22/24 BUN 22 mg/dL (9-16) H 01/22/24 Creatinine 1.33 mg/dL (0.5-1.4) 01/22/24 Calcium 9.1 mg/dL (8.4-10.2) 01/22/24 Urine Protein Trace mg/dL (Neg-Trace) 01/22/24 Renal US 02/11/24
== END 2024-02-17 14:51 | disposition home or self-care (01) ==
PROVIDERS: PCP Nurse Practitioner Primary Care; Referring Provider Nurse Practitioner Primary Care; Visit Provider Internal Medicine Hypertension Specialist
DX: I12.9 Hypertensive chronic kidney disease with stage 1 through stage 4 chronic kidney disease, or unspecified chronic kidney disease (principal); N18.9 Chronic kidney disease, unspecified; K59.00 Constipation, unspecified
CPT/HCPCS: 99204

== ENCOUNTER → 2024-02-23 19:30 | Outpatient (REF) | payer MEDICARE, SELFPAY | LOC: HO.SL 19:30 | PROVIDERS: PCP Nurse Practitioner Primary Care; Visit Provider Nurse Practitioner Family | DX: G47.33 Obstructive sleep apnea (adult) (pediatric) (principal); E66.01 Morbid (severe) obesity due to excess calories | CPT/HCPCS: 95810 ==

== ENCOUNTER → 2024-02-23 23:12 | Outpatient (BNV) | payer MEDICARE, SELFPAY | PROVIDERS: PCP Nurse Practitioner Primary Care; Visit Provider Psychiatry & Neurology Neurology | DX: G47.33 Obstructive sleep apnea (adult) (pediatric) (principal) | CPT/HCPCS: 95810 ==

== ENCOUNTER 2024-03-03 11:56 | Outpatient (AMB) | payer MEDICARE, SELFPAY ==
[2024-03-03 12:19] VITALS: BP 96/58; PULSE 79; TEMP 37.2; O2SAT 92
--- NOTE | 2024-03-03 12:19 | MHC.OFFWIV ---
Intake Vital Signs 03/03/24 12:19 Height 5 ft 6.5 in BP 96/58 L Blood Pressure Location Rt brachial Position Sitting Pulse 79 Pulse Source Pulse Oximeter Temp 98.9 F Temp Source Oral Pulse Oximetry (%) 92 Oxygen Delivery Method Room Air Intake Visit Reasons: EP Cough, headache, congestion Intake Note: pt is here for headache cough and congestions and she says when she lays down she hears people talking in her lungs and this has been going on for 2 weeks Patient Tobacco Use Status: Never used Tobacco Allergies esomeprazole [From Vimovo] Allergy (Mild, Verified 03/03/24 12:22) Headache naproxen [From Vimovo] Allergy (Mild, Verified 03/03/24 12:22) Headache codeine Adverse Reaction (Mild, Verified 03/03/24 12:22) Unknown phenobarbital Adverse Reaction (Mild, Verified 03/03/24 12:22) Unknown HPI HPI Comments History of Present Illness Details She preents with for cough Cold for 2 weeks Se said + sinus pressure, ST, ear pain No phlegm with cough she said + noisy breathing No hx of asthma or smoking She has tried OtC medicine like nyquil and mucinex No fever or chills Pain in sinuses is approx 4/10 She said BP is low at baseline; She said minimal SOB No CP PFSH Medical History FH: total knee replacement Chronic kidney disease Seizure Family History Father Cirrhosis Lung cancer Mother Lung cancer Social History Household Members: Spouse Housing: Apartment Alcohol intake: current Alcohol intake frequency: holidays/special occasions only Alcohol type: wine Patient Tobacco Use Status: Never used Tobacco e-Cigarette/Vaping Use: Never Used Current occupational status: retired Cognitive needs: No Hearing needs: No Vision needs: No Review of Systems Const Denies body aches, Denies chills, Reports fatigue and Denies fever(s) Eyes Denies blurry vision ENT Denies dizziness, Reports otalgia, Reports nasal discharge, Reports sinus pressure, Reports sore throat, Denies throat swelling and Denies tongue swelling Card Denies chest pain and Reports dyspnea Resp Reports chest congestion, Reports cough, Reports dyspnea and Reports wheezing GI Denies abdominal pain Musc Denies myalgias Neuro Denies dizziness Endo Reports fatigue Aller/Immun Denies throat swelling, Denies tongue swelling and Reports wheezing Physical Exam Vital Signs: Last Vital Signs Temp 98.9 F 03/03/24 12:19 Pulse 79 03/03/24 12:19 BP 96/58 L 03/03/24 12:19 Pulse Ox 92 03/03/24 12:19 Oxygen Delivery Method Room Air 03/03/24 12:19 General: Non-toxic, NAD. Speaking full sentences. Skin: Warm dry throughout Eye: EOMI HENT: Airway patent. Uvula midline. No pharyngeal erythema or edema. No FINISHED CLOTH EXAMINER. + rhinorrhea. + sinus tenderness maxillary region Bilateral canals clear. TM non-erythematous, non-bulging. No TM perforation or hemotympanum noted. Respiratory: + rhonchi throughout. No tachypnea Cardiac: RRR. No murmur MSK: Full ROM extremities. Neurology: A/O. No aphasia or facial droop. Gait without abnormality Psych: Good mood and affect Office Procedures Nebulizer Treatment Nebulizer Treatment [id number] RX initial, or Nebulizer Subsequent Treatment Office Meds albuterol sulfate 2.5 mg/3 mL (0.083 %) solution for nebulization Performing Provider: Letty Bower PA-C Performing Location: [facility] Administered by: Shital Uribe RN on 03/03/24 12:55 Dose Route Admin Location Dispensed Lot Number Expiration Date [facility] [place] Smog Technician 2.5 mg inhalation 3 mL [id number] 12/25/24 23273-096-25 Photos I Like Assessment & Plan Assessment & Plan (1) Wheeze: Code(s): R06.2 - Wheezing Plan: Patient seen and evaluated. She has 92% room air O2 but is in no distress Will administer nebulizer in office and re-evaluate Re-evaluate and O2 was 95-97% room air Docycycline with food Prednisone; with food. Dont take too late. no alcohol or ibuprofen ER if worse F.U with PCP Patient gave verbal understanding and had no additional questions or concerns at time of discharge All questions answered Orders: Orders AMB Nebulizer Treatment Today R06.2 - Wheezing Medications: New prednisone 40 mg (2 x 20 mg) PO DAILY 8 tabs 0RF doxycycline hyclate 100 mg PO BID 14 caps 0RF Coding Level of Care Code Est Pt Level 3 (23941) Diagnoses Wheeze R06.2 CPT Codes Nebulizer Treatment - Nebulizer Treatment, initial or subsequent: [id number] RX initial, or Nebulizer Subsequent Treatment ([id number])
== END 2024-03-03 13:22 | disposition home or self-care (01) ==
PROVIDERS: PCP Nurse Practitioner Primary Care; Visit Provider Physician Assistant
DX: R06.2 Wheezing (principal)
CPT/HCPCS: 94640; 99213; J7613

== ENCOUNTER 2024-03-15 15:06 | Outpatient (AMB) | payer MEDICARE, SELFPAY ==
[2024-03-15 15:13] VITALS: BP 100/52; PULSE 79; O2SAT 95; BMI 40.4
--- NOTE | 2024-03-15 15:13 | A.OFFPC_ITS ---
Vital Signs 03/15/24 15:13 Height 5 ft 6.5 in Weight 254 lb 4 oz BMI 40.4 BP 100/52 L Blood Pressure Location Lt brachial Position Sitting Pulse 79 Pulse Source Pulse Oximeter Pulse Oximetry (%) 95 Oxygen Delivery Method Room Air Intake Visit Reasons: recheck cough Allergies esomeprazole [From Vimovo] Allergy (Mild, Verified 03/15/24 15:17) Headache naproxen [From Vimovo] Allergy (Mild, Verified 03/15/24 15:17) Headache codeine Adverse Reaction (Mild, Verified 03/15/24 15:17) Unknown phenobarbital Adverse Reaction (Mild, Verified 03/15/24 15:17) Unknown Tobacco use date assessed: 03/15/24 Fall risk assessment: No Falls in past year Last assessed Fall Risk: 03/15/24 Dental Screening Dental Screen Date: 03/15/24 Did you have a dental visit in the last 12 months?: Yes Did you have a dental problem in the last 6 months where you did not have access to dental care?: No Was dental information given to patient?: Patient has dentist HPI HPI Comments History of Present Illness Details Patient is a 68-year-old female in today for a sick visit. Patient was seen in the walk-in clinic 12 days prior for sinus tenderness and cough. Patient was given prednisone and round of doxycycline. Patient was also noted to have pulse oximetry of 92% in office, was given albuterol nebulizer treatment oxygen improved to 96%. Patient presents today currently offering complaint of cough. Patient states the cough gets worse at night. Denies hemoptysis. Denies chest pain, shortness a breath, nausea, vomiting, diarrhea. [facility] Medical History (Updated 03/15/24 @ 15:45 by MADDY Schmid) FH: total knee replacement Chronic kidney disease Seizure Family History Father Cirrhosis Lung cancer Mother Lung cancer Social History Household Members: Spouse Housing: Apartment Alcohol intake: current Alcohol intake frequency: holidays/special occasions only Alcohol type: wine Patient Tobacco Use Status: Never used Tobacco e-Cigarette/Vaping Use: Never Used service: No Current occupational status: retired Cognitive needs: No Hearing needs: No Vision needs: No Questionnaire Thrive Questionnaire Date Thrive assessed: 01/22/24 AUDIT C Alcohol Use Questionnaire (AUDIT-C) 1. How often do you have a drink containing alcohol?: Never 3. How often do you have six or more drinks on one occasion?: Never Total Score: 0 Score Reviewed/Action Taken: Yes JOSE-7 AMB Questionnaire JOSE-7 Date JOSE - 7 assessed: 01/29/24 Source: Developed by Drs. Maico Zuleta, Gertrude Titus, Hood Medrano and colleagues, with an educational jose g from [employer]. Review of Systems Const All systems reviewed & are unremarkable except as noted in HPI and below Denies fatigue, Denies fever(s) and Denies headache(s) Eyes Denies blurry vision ENT Denies headache(s) Neuro Denies headache(s) Endo Denies fatigue Physical exam (Primary Care) Vital Signs: Last Vital Signs BP 100/52 L 03/15/24 15:13 Care Plan Goal for BP management: Patient will take blood pressure measurements at home. Next steps: Patient will record blood pressure and follow-up in 2 weeks Tobacco/Smoking Status: Tobacco use Status Tobacco use date assessed 01/29/24 03/15/24 14:37 Patient Tobacco Use Status Never used Tobacco 03/15/24 14:37 e-Cigarette/Vaping Use Never Used 03/15/24 14:37 Thrive Assessment: Date of Thrive Assessment Date Thrive assessed 01/22/24 03/15/24 14:37 Const Other: Appearance: Alert.? Oriented X3.? No acute distress.? Head: Normocephalic, atraumatic. Eyes: Pupils equal, round and reactive to light.? ENT: Pharynx normal.?Cerumen impaction right TM. Left TM intact and pearly campos. Neck: Normal inspection.? Neck supple.? CVS: Normal heart rate and rhythm.? Pulses normal.? Respiratory: No respiratory distress.? Breath sounds normal.? Neuro: Oriented X 3.? No motor deficit.? No sensory deficit. CN 2-12 intact Office Procedures Cerumen Removal From which ear canal was the cerumen removed: right Removal: irrigation Notes: patient tolerated procedure well [id number] Irrigation/Lavage Assessment and Plan Assessment & Plan (1) Cough: Comment: Patient with be given benzonatate, Albuterol and Symbicort. Code(s): R05.9 - Cough, unspecified Qualifiers: Cough type: unspecified Qualified Code(s): R05.9 - Cough, unspecified Plan: Patient has follow up in 3 weeks. (2) History of seizure disorder: Comment: Patient needs established care with neurology. Wilmer refer. Code(s): Z86.69 - Personal history of other diseases of the nervous system and sense organs Orders: Orders AMB Cerumen Removal Today H61.21 - Impacted cerumen, right ear Comprehensive Met. Panel Today Z91.89 - Other specified personal risk factors, not elsewhere classified Complete Blood Count Auto Diff Today Z13.0 - Encounter for screening for diseases of the blood and blood-forming organs and certain disorders involving the immune mechanism Medications: New budesonide-formoterol 160-4.5 mcg/actuation (Symbicort) 2 inhalations inhalation ONCE 10.2 grams 0RF benzonatate 100 mg PO BID PRN 20 caps 0RF cough albuterol sulfate 90 mcg/actuation 2 puffs inhalation Q6H PRN 6.7 grams 0RF shortness of breath or wheezing Coding Level of Care Code Est Pt Level 3 (82285) Diagnoses Cough, unspecified type R05.9 Cough type: unspecified History of seizure disorder Z86.69 CPT Codes Office Procedure - CPT: 91266-Wrp Irrigation/Lavage ([id number]) Time Spent (min) 22
== END 2024-03-15 15:58 | disposition home or self-care (01) ==
LOC: HO.HMGC 15:06
PROVIDERS: PCP Nurse Practitioner Primary Care; Visit Provider Nurse Practitioner Primary Care
DX: R05.9 Cough, unspecified (principal); Z86.69 Personal history of other diseases of the nervous system and sense organs
CPT/HCPCS: 69209; 99213

== ENCOUNTER 2024-03-16 12:50 | Outpatient (REF) | payer MEDICARE, SELFPAY ==
[2024-03-16 13:23] LABS: MANUAL DIFF FLAG NO
[2024-03-16 13:46] LABS: Basophils Percent Auto 0.5 % (0-2); Eosinophils Absolute Auto 0.2 X10*3/uL (0.0-0.4); Eosinophils Percent Auto 2.7 % (0-4); Hemoglobin 14.2 g/dl (12.0-16.0); Imm Gran Abs Auto 0.03 X10*3/uL (0.00-0.03); Imm Gran Pct Auto 0.4 % (0.0-0.4); Lymphocytes Absolute Auto 2.4 X10*3/uL (1.2-4.9); Lymphocytes Percent Auto 28.3 % (20-40); Mean Corpuscular HGB Conc 31.6 g/dl (31.0-35.0); Mean Corpuscular Hemoglobin 27.5 pg (27.0-33.0); Monocytes Absolute Auto 0.7 X10*3/uL (0.1-1.2); Monocytes Percent Auto 7.7 % (2-11); Neutrophils Absolute Auto 5.1 x10*3/uL (2.0-8.3); Neutrophils Percent Auto 60.4 % (45-73); Platelet Count 205 X10*3/uL (160-400); Red Blood Count 5.17 X10*6/uL (4.20-5.50); Red Cell Distribution Width 14.7 % (11.0-16.0); White Blood Count 8.5 X10*3/uL (4.8-10.8)
[2024-03-16 14:17] LABS: Alanine Aminotransferase 25 U/L (0-31); Albumin Level 3.6 g/dL (3.5-5.0); Alkaline Phosphatase 68 U/L (39-117); Anion Gap 12 (12-20); Aspartate Amino Transferase 26 U/L (5-31); Bilirubin Total 0.4 mg/dL (0.0-1.0); Blood Urea Nitrogen 31 mg/dL (9-16); Calcium 10.4 mg/dL (8.4-10.2); Carbon Dioxide 32 mmol/L (22-29); Chloride 103 mmol/L (96-108); Cholesterol 176 mg/dL (<200); Estimated Glomerular Filt Rate 34; Glucose Random 92 mg/dL (60-115); HDL Cholesterol 36 mg/dL (>40); LDL Cholesterol Calculated 76 mg/dL (<100); Potassium 5.4 mmol/L (3.3-5.1); Sodium 142 mmol/L (135-145); Total Protein 7.4 g/dL (6.5-8.0); Triglycerides 320 mg/dL (<150)
[2024-03-16 14:32] LABS: TSH reflex Free T4 0.45 uIU/mL (0.32-4.0)
[2024-03-16 14:37] LABS: Vitamin B12 496 pg/mL (200-900)
[2024-03-20 15:22] LABS: Vitamin D 25-OH, D2 <4 ng/mL; Vitamin D 25-OH, D3 46 ng/mL; Vitamin D 25-OH, Total 46 ng/mL (30-100)
[2024-03-22 16:13] LABS: Vitamin B6 5.5 ng/mL (2.1-21.7)
== END 2024-03-16 12:51 | disposition home or self-care (01) ==
LOC: HO.LAB 12:50
PROVIDERS: PCP Nurse Practitioner Primary Care; Visit Provider Nurse Practitioner Primary Care
DX: Z13.6 Encounter for screening for cardiovascular disorders (principal); Z13.21 Encounter for screening for nutritional disorder; Z13.29 Encounter for screening for other suspected endocrine disorder; Z13.220 Encounter for screening for lipoid disorders; Z13.0 Encounter for screening for diseases of the blood and blood-forming organs and certain disorders involving the immune mechanism; Z91.89 Other specified personal risk factors, not elsewhere classified
CPT/HCPCS: 36415; 80053; 80061; 82306; 82607; 84207; 84443; 85025

== ENCOUNTER 2024-03-18 12:44 | Outpatient (REF) | payer MEDICARE, SELFPAY ==
[2024-03-18 13:57] LABS: Anion Gap 12 (12-20); Blood Urea Nitrogen 26 mg/dL (9-16); Calcium 9.5 mg/dL (8.4-10.2); Carbon Dioxide 32 mmol/L (22-29); Chloride 104 mmol/L (96-108); Estimated Glomerular Filt Rate 34; Glucose Random 115 mg/dL (60-115); Potassium 4.5 mmol/L (3.3-5.1); Sodium 143 mmol/L (135-145)
[2024-03-18 14:19] LABS: Estimated Glomerular Filt Rate 34
[2024-03-18 14:28] LABS: Creatinine Urine 86.98 mg/dL; Total Protein Urine Random 11 mg/dL (<12)
[2024-03-18 15:31] LABS: Creatinine (CrCl) 1.52 mg/dL (0.5-1.4); Creatinine Clearance 37.6 mL/min (85-125); Creatinine, 24Hr Urine 0.8 G/Day (1.0-2.0); Total Volume 24 Hour Urine 1750 mL
== END 2024-03-18 12:45 | disposition home or self-care (01) ==
LOC: HO.LAB 12:44
PROVIDERS: Absent Provider Internal Medicine Hypertension Specialist; Visit Provider Nurse Practitioner Primary Care
DX: I12.9 Hypertensive chronic kidney disease with stage 1 through stage 4 chronic kidney disease, or unspecified chronic kidney disease (principal); N18.9 Chronic kidney disease, unspecified
CPT/HCPCS: 36415; 80048; 82565; 82570; 82575; 84156

== ENCOUNTER 2024-03-20 10:47 | Outpatient (REF) | payer MEDICARE, SELFPAY ==
[2024-03-20 12:11] LABS: Anion Gap 16 (12-20); Carbon Dioxide 31 mmol/L (22-29); Chloride 103 mmol/L (96-108); Potassium 4.5 mmol/L (3.3-5.1); Sodium 145 mmol/L (135-145)
== END 2024-03-20 10:48 | disposition home or self-care (01) ==
LOC: HO.LAB 10:47
PROVIDERS: PCP Nurse Practitioner Primary Care; Visit Provider Nurse Practitioner Primary Care
DX: E87.5 Hyperkalemia (principal)
CPT/HCPCS: 36415; 80051

== ENCOUNTER 2024-03-21 10:32 | Outpatient (REF) | payer MEDICARE, SELFPAY ==
--- NOTE | ~2024-03-21 | MR_ITS ---
EXAMINATION: MR THORACIC SPINE WITHOUT CONTRAST CLINICAL INFORMATION: Rule out compression fracture. Low back pain. Possible compression deformity and a partially imaged lower thoracic vertebral body noted on lumbar spine radiographs 01/29/2024. COMPARISON: Lumbar spine radiographs 01/29/2024. TECHNIQUE: MRI of the thoracic spine was obtained using routine sequences without contrast. FINDINGS: Thoracic vertebral body height and alignment are normal in appearance. No suspicious thoracic vertebral body marrow abnormalities identified. Minimal multilevel endplate Schmorl's node deformities of the thoracic spine and minimal multilevel anterior endplate osteophytosis of the thoracic spine is visualized. The visualized aorta is normal in caliber. A 5 mm rounded T2 hyperintensity is associated with the posterior interpolar segment of the right kidney and is too small to specifically characterize but overwhelmingly is likely to represent a benign, simple cyst and warrants no additional imaging follow-up on the basis of this exam. At the level of the T10 vertebral body, 2 mm right parasagittal punctate T2 hyperintensity is present with the anterior column of the spinal cord (series 6 image 42). This finding is without associated mass effect or adjacent hydrosyrinx. The conus medullaris terminates at the level of L1-L2. T2-T3: Moderate central disc extrusion measuring 5 mm in AP extent with 5 mm subligamentous caudal midline extension resulting in mild-moderate central stenosis with focal effacement of the ventral thecal sac CSF margin associated with AP deformation of the adjacent spinal cord without associated spinal cord impingement. T4-T5: Minimal central disc protrusion. Subcutaneous T2 hyperintensity is present in the midline lumbar region extending beyond the inferior margin of the [id number]. This finding has the appearance of typical dependent subcutaneous edema which is frequently an asymptomatic incidental finding. MR/MR thoracic spine wo con IMPRESSION: *No vertebral body compression deformities or acute vertebral body fractures identified within the thoracic spine. *Minimal multilevel chronic spondylosis of the thoracic spine. No direct spinal cord impingement. No marked central or foraminal stenoses. *Indeterminate 2 mm focus of signal alteration (T2 hyperintensity) within the right anterolateral aspect of the spinal cord at the level of T10 in the approximate location of the anterior horn of the spinal cord. This finding is too small to specifically characterize and may represent a focus of chronic ischemic change. In the absence of clinical concern, this finding may not warrant additional imaging. As clinically indicated, this finding could be further evaluated with intermediate-term follow-up unenhanced and IV contrast-enhanced MRI of the thoracic spine. *Partial visualization of midline lumbar subcutaneous edema. Edema in this region is a frequently encountered asymptomatic finding related to dependent edema. This finding could correlate with soft tissue inflammatory changes that are only partially included within the imaged [id number]. In the absence of clinical concern, this finding most likely represents incidental dependent lumbar midline edema and on the basis of this examination does not specifically warrant additional imaging follow-up.
== END 2024-03-21 10:33 | disposition home or self-care (01) ==
LOC: HO.MRI 10:32
PROVIDERS: PCP Nurse Practitioner Primary Care; Visit Provider Nurse Practitioner Primary Care
DX: M54.50 Low back pain, unspecified (principal)
CPT/HCPCS: 72146

== ENCOUNTER 2024-03-23 11:36 | Outpatient (AMB) | payer MEDICARE, SELFPAY ==
[2024-03-23 11:38] VITALS: BP 124/72; PULSE 84; O2SAT 95; BMI 40.9
--- NOTE | 2024-03-23 11:38 | HO.NEPHOV ---
Vital Signs 03/23/24 11:38 Height 5 ft 6.5 in Weight 257 lb BMI 40.9 BP 124/72 Blood Pressure Location Rt brachial Position Sitting Pulse 84 Pulse Source Pulse Oximeter Pulse Oximetry (%) 95 Oxygen Delivery Method Room Air Intake Visit Reasons: CKD/ 1 MO FU/ LVM Herd Tester Required: No Accompanied by: Spouse Allergies esomeprazole [From Vimovo] Allergy (Mild, Verified 03/23/24 11:42) Headache naproxen [From Vimovo] Allergy (Mild, Verified 03/23/24 11:42) Headache codeine Adverse Reaction (Mild, Verified 03/23/24 11:42) Unknown phenobarbital Adverse Reaction (Mild, Verified 03/23/24 11:42) Unknown HPI Comments Details: 68-year-old woman with a history of hypertension in the obesity has been referred for chronic kidney disease. Her serum creatinine has been staying around 1.3 mg/dL L with EGFR of about 53 mL/milliliter and hence this referral. She has history of psoriasis. She denies taking NSAIDs on a chronic basis. 03/23/24 DEveloped hyperkalemia o f5.4 Recevied 1 dose Kayexalate BP remains low Cr up to 1.5 PFSH Medical History FH: total knee replacement Chronic kidney disease Seizure Family History Father Cirrhosis Lung cancer Mother Lung cancer Social History Household Members: Spouse Housing: Apartment Alcohol intake: current Alcohol intake frequency: holidays/special occasions only Alcohol type: wine Patient Tobacco Use Status: Never used Tobacco e-Cigarette/Vaping Use: Never Used service: No Current occupational status: retired Cognitive needs: No Hearing needs: No Vision needs: No Physical Exam Vital Signs: Last Vital Signs Pulse 84 03/23/24 11:38 BP 124/72 03/23/24 11:38 Pulse Ox 95 03/23/24 11:38 Oxygen Delivery Method Room Air 03/23/24 11:38 BMI result Body Mass Index 40.9 Const General: comfortable Nutritional Appearance: well nourished Orientation/consciousness: patient oriented x3 HEENT Head: No normal to inspection Mouth: moist mucous membranes Neck Neck: Yes supple and Yes no JVD Resp Auscultation: clear to auscultation bilaterally, no rales and rub present Cardio Jugular venous distension: no JVD Palpation: no palpable S3 and no palpable S4 Heart sounds: no rubs GI Palpation (GI): Soft to palpation and nontender Percussion: No Fluid wave present General: Yes no CVA tenderness Back/Spine/Pelvis Back: no CVA tenderness Skin General skin exam: no rashes or lesions noted Neuro General: patient oriented x3 Extrem General: Yes no pedal edema and No clubbing Results Reviewed Nephrology Results: Hgb 14.2 g/dl (12.0-16.0) 03/16/24 WBC 8.5 X10*3/uL (4.8-10.8) 03/16/24 Plt Count 205 X10*3/uL (160-400) 03/16/24 Sodium 145 mmol/L (135-145) 03/20/24 Potassium 4.5 mmol/L (3.3-5.1) 03/20/24 Chloride 103 mmol/L (96-108) 03/20/24 Carbon Dioxide 31 mmol/L (22-29) H 03/20/24 BUN 26 mg/dL (9-16) H 03/18/24 Creatinine 1.52 mg/dL (0.5-1.4) H 03/18/24 Calcium 9.5 mg/dL (8.4-10.2) 03/18/24 Urine Creatinine 86.98 mg/dL 03/18/24 Renal US 02/11/24 Assessment & Plan Assessment & Plan (1) HTN (hypertension): Comment: Obesity might be playing a role. Code(s): I10 - Essential (primary) hypertension Category: Medical Plan: Blood pressure is rather low Would stop olmesartan and watch BP IF needed, would add a calcium channel valerie instead of ARB due to hyperkalemia (2) Chronic kidney disease: Comment: Most likely related to hypertensive nephrosclerosis. Urine sediments are bland Code(s): N18.9 - Chronic kidney disease, unspecified Category: Medical Plan: Recent urine studies did not reveal any blood or protein by urinalysis. Abdominal ultrasonogram revealed normal-appearing left kidney without any hydronephrosis or mass. Right kidney was not scanned. 24 urine collection - calculate creatinine clearance of 38 ml/mt with serum cr of 1.56 Collection seems inadequate Bump in creatinine due to hypoperfusion from low BP Due to PETR and hyperkalemia, Will STOP OLMESARTAN and recheck renal panel in few weeks (3) Constipation: Code(s): K59.00 - Constipation, unspecified Category: Medical Plan: She had colonoscopy few years ago and next colonoscopy is scheduled in 2 years. OK to take Colace and encouraged to follow up with GI Orders: Orders Basic Metabolic Panel 3 Weeks I10 - Essential (primary) hypertension Medications: Discontinued sodium polystyrene sulfonate Discontinued Reason: Doctor's Order 15 grams PO DAILY 150 grams 0RF Coding Level of Care Code Est Pt Level 4 (15435) Diagnoses HTN (hypertension) I10 Chronic kidney disease N18.9 Constipation K59.00
== END 2024-03-23 12:02 | disposition home or self-care (01) ==
PROVIDERS: PCP Nurse Practitioner Primary Care; Visit Provider Internal Medicine Hypertension Specialist
DX: I12.9 Hypertensive chronic kidney disease with stage 1 through stage 4 chronic kidney disease, or unspecified chronic kidney disease (principal); N18.9 Chronic kidney disease, unspecified; K59.00 Constipation, unspecified
CPT/HCPCS: 99214

== ENCOUNTER → 2024-03-23 11:36 | Outpatient (BNVA) | payer MEDICARE, SELFPAY | PROVIDERS: PCP Nurse Practitioner Primary Care; Visit Provider Internal Medicine Hypertension Specialist | DX: K59.00 Constipation, unspecified (principal); I12.9 Hypertensive chronic kidney disease with stage 1 through stage 4 chronic kidney disease, or unspecified chronic kidney disease; N18.9 Chronic kidney disease, unspecified | CPT/HCPCS: 99212 ==

== ENCOUNTER 2024-03-25 09:15 | Outpatient (REF) | payer MEDICARE, SELFPAY ==
--- NOTE | ~2024-03-25 | US_ITS ---
EXAMINATION: MM DIAGNOSTIC DIGITAL BREAST TOMOSYNTHESIS, BILATERAL US BREAST LIMITED, RIGHT MAMMOGRAPHY: CLINICAL INFORMATION: 6 month follow-up for small mass versus complicated cyst measuring 3 x 2 x 2 mm at the 7:00 axis right breast, 1 cm from the nipple. Patient also due for bilateral screening. COMPARISON: Mammography: 01/13/2023, 07/08/2022, 06/25/2022, 01/31/2021, and dating back to 2019 ([facility] ULTRASOUND: Left 02/11/2024, 08/25/2023, 01/13/2023. ([facility]). TECHNIQUE: Digital breast tomosynthesis is performed in both the craniocaudal and mediolateral oblique views along with computer-aided detection (CAD). Synthesized 2D images are generated from the tomosynthesis. FINDINGS: There are scattered areas of fibroglandular density (ACR BI-RADS breast composition Category b). There are no suspicious masses, suspicious grouped calcifications, or areas of architectural distortion in either breast. There are bilateral vascular calcifications. Stable lymph node left breast 3:00 axis mid depth. The somewhat nodular parenchymal pattern is stable from prior exams. No skin or axillary abnormalities. ULTRASOUND: CLINICAL INFORMATION: Follow-up 3 mm complicated versus mass at the 7:00 axis right breast, 1 cm from the nipple. COMPARISON: 02/11/2024, 08/25/2023, 01/13/2023. TECHNIQUE: Targeted sonographic evaluation was performed using a high frequency linear transducer. Right breast was scanned from the 6-9 o'clock axis to include the area of concern. Selected archived documentation. FINDINGS: RIGHT BREAST: There is heterogeneously dense fibrocystic tissue present. In the 9:00 axis, 4 cm from the nipple, there is a 3 x 3 x 2 mm hypoechoic focus, appearance most likely relating to an island of dense parenchymal tissue as opposed to an actual mass. In the 7:00 axis, 1 cm from the nipple, there is a benign-appearing intramammary lymph node with prominent fatty hilum, peripheral blood flow, and normal vickie morphology measuring 4 x 4 x 3 mm. This is benign. Cortex is not thickened. This is likely the abnormality previously being followed. US/US breast RT limited IMPRESSION: -No findings suspicious for malignancy in either breast. Stable benign findings. -Somewhat nodular parenchyma likely representing fibrocystic changes. -7:00 axis right breast benign appearing lymph node measuring 4 x 4 x 3 mm. 9:00 axis right breast, 3 x 3 x 2 mm hypoechoic oval focus most likely representing island of dense lobular tissue. No further follow-up recommended. -Recommend the patient resume routine annual screening to include both breasts. OVERALL ASSESSMENT: Mammography: BI-RADS 2 - Benign Findings Ultrasound: BI-RADS 2 - Benign Findings RECOMMENDATION: 1 year F/U This patient's information was entered into a reminder system with a target due date for their next mammogram.
== END 2024-03-25 09:16 | disposition home or self-care (01) ==
LOC: HO.MAMMO 09:15
PROVIDERS: PCP Nurse Practitioner Primary Care; Visit Provider Nurse Practitioner Primary Care
DX: R92.8 Other abnormal and inconclusive findings on diagnostic imaging of breast (principal)
CPT/HCPCS: 76642; 77062; 77066

== ENCOUNTER 2024-04-01 09:49 | Outpatient (AMB) | payer MEDICARE, SELFPAY ==
--- NOTE | 2024-04-01 09:55 | A.OFFPC_ITS ---
Vital Signs 04/01/24 09:56 Height 5 ft 6.5 in Weight 261 lb BMI 41.5 BP 122/72 Blood Pressure Location Lt brachial Position Sitting Pulse 84 Pulse Source Pulse Oximeter Pulse Oximetry (%) 96 Oxygen Delivery Method Room Air Intake Visit Reasons: 2 month follow up Intake Note: Pt is here today for 2 months follow up visit. Allergies esomeprazole [From Vimovo] Allergy (Mild, Verified 04/01/24 10:07) Headache naproxen [From Vimovo] Allergy (Mild, Verified 04/01/24 10:07) Headache codeine Adverse Reaction (Mild, Verified 04/01/24 10:07) Unknown phenobarbital Adverse Reaction (Mild, Verified 04/01/24 10:07) Unknown Medication List - Last Reconciled 04/01/24 by MADDY Schmid albuterol sulfate 90 mcg/actuation 2 puffs inhalation Q6H PRN aspirin 81 mg PO DAILY budesonide-formoterol 160-4.5 mcg/actuation (Symbicort) 2 inhalations inhalation ONCE bupropion HCl XL 150 mg PO QAM duloxetine 60 mg PO DAILY ferrous sulfate (Feosol) 325 mg PO Q OTHER DAY gabapentin 300 mg PO BID nystatin topical BID-TID trazodone 50 mg PO BEDTIME PRN Tobacco use date assessed: 04/01/24 Dental Screening Dental Screen Date: 03/15/24 HPI HPI Comments History of Present Illness Details Patient is here for an 8 week follow-up after starting Cymbalta for symptoms of anxiety and depression. Patient has now establish care with psychiatrist who also started the patient on bupropion. CKD-patient currently seeing academic specialist CECI and tremors-patient has care with Sleep Medicine and Neurology. Will also order U/S THO for vague complaint of leg tremors/heaviness. Patient has denies, chest pain, shortness a breath, dizziness. Today's appointment patient states that her anxiety and depression is much better controlled. No recent panic attacks. Denies SI/HI. PFSH Medical History Hx of hiatal hernia FH: total knee replacement Chronic kidney disease Seizure Surgical History Hx of tonsillectomy Hx of shoulder surgery H/O: hysterectomy Hx of appendectomy Hx of total knee replacement Family History (Updated 04/01/24 @ 10:06 by YIN Lynn) Father Cirrhosis Lung cancer Mental health disorder Substance use disorder Mother Lung cancer Social History Household Members: Spouse Housing: Apartment Alcohol intake: current Alcohol intake frequency: holidays/special occasions only Alcohol type: wine Patient Tobacco Use Status: Never used Tobacco e-Cigarette/Vaping Use: Never Used service: No Current occupational status: retired Cognitive needs: No Hearing needs: No Vision needs: No Questionnaire PHQ-9 Over the last 2 weeks, how often have you been bothered by any of the following problems? 18348 - PHQ-9 Billing: Patient declined-do not bill Source: Developed by Drs. Maico Zuleta, Hood Malik and colleagues, with an educational jose g from [employer]. Thrive Questionnaire Date Thrive assessed: 01/22/24 JOSE-7 AMB Questionnaire JOSE-7 Date JOSE - 7 assessed: 01/29/24 Feeling nervous, anxious, or on edge: 2 = More than half the days Not being able to stop or control worryin = More than half the days Worrying too much about different things: 2 = More than half the days Trouble relaxin = Several days Being so restless that it is hard to sit still: 1 = Several days Becoming easily annoyed or irritable: 1 = Several days Feeling afraid as if something awful might happen: 0 = Not at all Total JOSE-7 score (0-4 normal; 5-9 mild; 10-14 moderate; 15-21 severe): 9 Source: Developed by Drs. Maico Zuleta, Gertrude Titus, Hood Medrano and colleagues, with an educational jose g from [employer]. JOSE-7 Assessment Billing JOSE-7 Assessment Tool: JOSE-7 Assessment 96450 (Patient feels much improved. Will continue to follow psychiatrist. ) Review of Systems Const All systems reviewed & are unremarkable except as noted in HPI and below Denies chills and Denies fever(s) ENT Denies dizziness Card Denies chest pain and Denies dyspnea Resp Denies chest congestion, Denies cough, Denies dyspnea and Denies wheezing Neuro Denies dizziness Aller/Immun Denies wheezing Physical exam (Primary Care) Care Plan Goal for BP management: blood pressure stable BMI result Body Mass Index 41.5 Tobacco/Smoking Status: Tobacco use Status Tobacco use date assessed 03/15/24 03/15/24 15:17 Patient Tobacco Use Status Never used Tobacco 03/15/24 15:17 e-Cigarette/Vaping Use Never Used 03/15/24 15:17 Thrive Assessment: Date of Thrive Assessment Date Thrive assessed 01/22/24 03/15/24 15:17 Const Other: Appearance: Alert.? Oriented X3.? No acute distress.? Head: Normocephalic, atraumatic. Neck: Normal inspection.? Neck supple.? CVS: Normal heart rate and rhythm.? Pulses normal.? Respiratory: No respiratory distress.? Breath sounds normal.? Extremities: lower extremity edema, +1 pitting edema. Neuro: Oriented X 3.? Assessment and Plan Assessment & Plan (1) Anxiety and depression: Comment: Patient currently taking Wellbutrin and duloxetine with good effect. Patient is establish psychiatrist. Code(s): F41.9 - Anxiety disorder, unspecified; F32.A - Depression, unspecified (2) Leg heaviness: Comment: Patient has vague complaint of leg heaviness/tremors. Patient has +1 pitting edema on exam. Will order BNP, echocardiogram and THO ultrasound. Code(s): R29.898 - Other symptoms and signs involving the musculoskeletal system Plan: Take your medications as prescribed. If you were prescribed antibiotics today, it is important that you take your medication to their entirety, do not skip any doses, do not finish them early. Return to the emergency department with new or worsening symptoms. Such as fe vers, chills, chest pain, shortness of breath, nausea, vomiting, dizziness, headache, vision changes, lethargy In case of emergency call 911 Plan Patient will follow-up in 2 months Orders: Orders B Type Natriuretic Peptide Today R60.0 - Localized edema CA echo transthoracic complete Today R93.1 - Abnormal findings on diagnostic imaging of heart and coronary circulation US THO complete Today R29.898 - Other symptoms and signs involving the musculoskeletal system Coding Level of Care Code Est Pt Level 4 (73357) Diagnoses Anxiety and depression F41.9; F32.A Leg heaviness R29.898 Additional Codes JOSE-7 Assessment Billing - JOSE-7 Assessment Tool: JOSE-7 Assessment 69538 ([id number]) Time Spent (min) 35
[2024-04-01 09:56] VITALS: BP 122/72; PULSE 84; O2SAT 96; BMI 41.5
== END 2024-04-01 14:42 | disposition home or self-care (01) ==
PROVIDERS: Visit Provider Nurse Practitioner Primary Care
DX: F41.9 Anxiety disorder, unspecified (principal); F32.A Depression, unspecified; R29.898 Other symptoms and signs involving the musculoskeletal system
CPT/HCPCS: 99214

== ENCOUNTER 2024-04-13 10:29 | Outpatient (REF) | payer MEDICARE, SELFPAY ==
[2024-04-13 11:50] LABS: Appearance Urine Clear; Color Urine Yellow; Glucose Urine UA Negative (Negative); Leukocyte Esterase Urine Trace (Negative); Nitrite Urine Negative (Negative); PH 5.5 (5.0-9.0); UMIC TRIGGER UACC YES; Urine Blood Negative (Negative); Urine Ketones Trace mg/dL (Negative); Urine Protein Trace mg/dL (Neg-Trace)
[2024-04-13 11:59] LABS: Bacteria Urine 1+ (None Seen); Hyaline Casts Urine 0-2 /LPF (0-2); RBC Urine 0-2 /HPF (0-2); WBC Urine 0-5 /HPF (0-5)
[2024-04-13 12:18] LABS: B Type Natriuretic Peptide 43 pg/mL (<100)
== END 2024-04-13 10:30 | disposition home or self-care (01) ==
LOC: HO.LAB 10:29
PROVIDERS: Absent Provider Internal Medicine Hypertension Specialist; PCP Nurse Practitioner Primary Care; Visit Provider Nurse Practitioner Primary Care
DX: R60.0 Localized edema (principal)
CPT/HCPCS: 36415; 81001; 83880

== ENCOUNTER → 2024-04-30 12:43 | Outpatient (REF) | payer MEDICARE, SELFPAY ==
--- NOTE | 2024-04-30 12:58 | CA_ITS ---
Transthoracic Echocardiogram Patient (Last, First, Middle): Jacqui Kasper E Gender: Female Date of : 1955 Age: 69 Procedure Date: 04/30/2024 Procedure Type: Transthoracic Echocardiogram Location: OP Height: 167.64 cm Weight: 113.4 kg BSA: 2.20 m2 Heart Rate: bpm BP: 125 / 82 mmHg Electric Organ Assembler: Referring MD: Mars CASTAÑEDA Aircraft Captain: Tarun Spear MD Symptoms: R93.1 - Abnormal findings on diagnostic imaging of heart and coronary ci... Study Quality: Fair ECG Rhythm: Sinus Conclusions: - 1. Technically limited study 2. Normal LV ejection fraction 55-60% with mild LVH with impaired relaxation filling pattern 3. Mildly dilated left atrium 4. Cardiac valvular Doppler is within normal limits 5. Upper limits of normal ascending aortic size 6. Normal RV systolic pressure Findings Left Ventricle Normal left ventricular size and systolic function. There is mildly increased left ventricular wall thickness. The visually estimated ejection fraction is between 55-60%. Regional wall motion abnormalities can not be excluded due to suboptimal endocardial definition. Spectral Doppler is indicative of an impaired relaxation filling pattern. E/E prime ratio is between 8 and 15 consistent with indeterminate filling pressures. Right Ventricle The right ventricle was not well visualized. Atria The left atrium is mildly dilated. Interatrial shunt cannot be excluded. The right atrium is normal in size. Aortic Valve The aortic valve was not well visualized. There is mild calcification of the aortic valve. There is no aortic valve stenosis. There is no aortic valve regurgitation. Mitral Valve There is mild anterior mitral leaflet thickening. There is mild mitral annular calcification. There is trace mitral valve regurgitation. There is no mitral valve stenosis. Pulmonic Valve The pulmonic valve was not well visualized. Tricuspid Valve Likely normal tricuspid valve structure and function. There is trace tricuspid valve regurgitation. The right ventricular systolic pressure is normal. The right ventricular systolic pressure is 17 mmHg. Normal right atrial pressure. There is no evidence of pulmonary hypertension. Great Vessels The aorta was not well visualized. The pulmonary artery was not well visualized. Small plaque is seen in the sino tubular ridge. Venous The inferior vena cava was not well visualized. Pericardium/Pleural The pericardium was not well visualized. Prior Study Comparison No prior study available for comparison. Measurements 2D Linear Measurements IVSd: 1.37 0.6-0.9/0.6-1.0 cm LVIDd: 4.43 3.9-5.3/4.2-5.9 cm LVIDd Index: 2.01 2.4-3.2/2.2-3.1 cm/m2 LVIDs: 2.92 2.0-3.6 cm LVPWd: 1.35 0.7-1.1 cm Ao Root: 3.00 2.1-3.5 cm LA Diam: 4.10 2.7-3.8/3.0-4.0 cm LAIDs Index: 1.86 1.5-2.3 cm/m2 LV Mass: 289.73 67-162/88-224 g LV Mass Index: 131.70 43-95/49-115 g/m2 LVOT Diam: 2.20 3.0+(-)1.3 cm 2D Systolic Function EF 4C: 59.80 >55% EF 2C: 56.40 >55% EF BiP: 58.90 >55% Mitral Valve MV Pk E: 0.72 MV PK A: 1.03 MV Decel Time: 194.00 E/A: 0.70 E'Lateral: 7.18 E'Medial: 5.55 E/E' Med: 12.90 E/E' Lat: 10.00 PHT: 57.00 MVA PHT: 3.86 Decel Larimer: 3.69 LVOT LVOT Pk Victor Manuel: 0.98 LVOT Mn Victor Manuel: 0.61 LVOT VTI: 0.26 LVOT Pk Grad: 4.00 LVOT Mn Grad: 2.00 LVOT Diam: 2.20 LVOT Area: 3.80 Diastolic Function MV Pk E: 0.72 MV Pk A: 1.03 E/A: 0.70 E'Medial: 5.55 E/E' Med: 12.90 E' Laterial: 7.18 E/E' Lat: 10.00 Right Ventricle TAPSE (mm): 26.00 TVS' Victor Manuel: 10.00 Tricuspid Valve TR Pk Victor Manuel: 1.89 TR Pk Grad: 14.00 RA Press: 3.00 RVSP: 17.00 Great Vessels Aorta Ao Root-2D: 3.00 2.0-3.7 cm Ao Asc: 3.60 2.1-3.4 cm Pulmonary Valve PV Pk Victor Manuel: 0.94 Peak PV Grad: 4.00 Updated in Other Vendor System with Status of Final Tarun Spear MD electronically signed on 04/30/2024 5:48:15 PM with status of Final
[2024-04-30 14:20] LABS: Anion Gap 12 (12-20); Blood Urea Nitrogen 23 mg/dL (9-16); Calcium 9.7 mg/dL (8.4-10.2); Carbon Dioxide 32 mmol/L (22-29); Chloride 104 mmol/L (96-108); Estimated Glomerular Filt Rate 31; Glucose Random 131 mg/dL (60-115); Potassium 4.1 mmol/L (3.3-5.1); Sodium 144 mmol/L (135-145)
== END ==
LOC: HO.CARD 12:43
PROVIDERS: Absent Provider Internal Medicine Hypertension Specialist; PCP Nurse Practitioner Primary Care; Visit Provider Nurse Practitioner Primary Care
DX: I10 Essential (primary) hypertension (principal); R93.1 Abnormal findings on diagnostic imaging of heart and coronary circulation
CPT/HCPCS: 36415; 80048; 93306

== ENCOUNTER → 2024-04-30 12:58 | Outpatient (BNV) | payer MEDICARE, SELFPAY | PROVIDERS: Absent Provider Internal Medicine Hypertension Specialist; PCP Nurse Practitioner Primary Care; Visit Provider Internal Medicine Cardiovascular Disease | DX: I34.81 Nonrheumatic mitral (valve) annulus calcification (principal); I35.8 Other nonrheumatic aortic valve disorders | CPT/HCPCS: 93306 ==

== ENCOUNTER 2024-05-03 10:55 | Outpatient (REF) | payer MEDICARE, SELFPAY ==
--- NOTE | ~2024-05-03 | US_ITS ---
EXAMINATION: Noninvasive assessment of the arteries of both lower extremities to include a single level PVR exam and ANKLE BRACHIAL INDICES (ABIs). CLINICAL INFORMATION: Peripheral vascular disease COMPARISON: None available. TECHNIQUE: The ankle/brachial indices of the distal posterior tibial and the dorsalis pedis arteries were obtained of the lower extremity arterial system bilaterally; along with pressures and pulse volume recordings at the ankle level. The study was performed at rest. FINDINGS: 1. ANKLE-BRACHIAL INDICES: RIGHT: 1.15 LEFT: 1.13 2. ANKLE PVR WAVEFORMS: RIGHT: Normal LEFT: Normal US/US THO complete IMPRESSION: Normal resting peripheral arterial testing without evidence of hemodynamically significant stenosis.
== END 2024-05-03 10:56 | disposition home or self-care (01) ==
LOC: HO.US 10:55
PROVIDERS: PCP Nurse Practitioner Primary Care; Visit Provider Nurse Practitioner Primary Care
DX: I73.9 Peripheral vascular disease, unspecified (principal); R29.898 Other symptoms and signs involving the musculoskeletal system; R25.1 Tremor, unspecified
CPT/HCPCS: 93923

== ENCOUNTER 2024-05-04 10:44 | Outpatient (AMB) | payer MEDICARE, SELFPAY ==
[2024-05-04 11:10] VITALS: BP 140/84; PULSE 75; O2SAT 89; BMI 41.5
--- NOTE | 2024-05-04 11:10 | HO.NEPHOV ---
Vital Signs 05/04/24 11:10 05/04/24 11:33 Height 5 ft 6.5 in Weight 261 lb BMI 41.5 BP 140/84 H 130/80 Blood Pressure Location Rt brachial Rt brachial Position Sitting Sitting Pulse 75 Pulse Source Pulse Oximeter Pulse Oximetry (%) 89 L Oxygen Delivery Method Room Air Intake Visit Reasons: CKD/ 6 weeks fu/ Conf Wind Up Operator Required: No Accompanied by: Spouse Allergies esomeprazole [From Vimovo] Allergy (Mild, Verified 05/04/24 11:12) Headache naproxen [From Vimovo] Allergy (Mild, Verified 05/04/24 11:12) Headache codeine Adverse Reaction (Mild, Verified 05/04/24 11:12) Unknown phenobarbital Adverse Reaction (Mild, Verified 05/04/24 11:12) Unknown HPI Comments Details: 68-year-old woman with a history of hypertension in the obesity has been referred for chronic kidney disease. Her serum creatinine has been staying around 1.3 mg/dL L with EGFR of about 53 mL/milliliter and hence this referral. She has history of psoriasis. She denies taking NSAIDs on a chronic basis. 03/23/24 Developed hyperkalemia o f5.4 Recevied 1 dose Kayexalate BP remains low Cr up to 1.5 05/04/2024. Ankle-brachial index was done results are pending. Echocardiogram was unremarkable. Olmesartan was discontinued 4 weeks ago. No new issues. No urinary symptoms. [facility] Medical History Hx of hiatal hernia FH: total knee replacement Chronic kidney disease Seizure Surgical History Hx of tonsillectomy Hx of shoulder surgery H/O: hysterectomy Hx of appendectomy Hx of total knee replacement Family History Father Cirrhosis Lung cancer Mental health disorder Substance use disorder Mother Lung cancer Social History Household Members: Spouse Housing: Apartment Alcohol intake: current Alcohol intake frequency: holidays/special occasions only Alcohol type: wine Patient Tobacco Use Status: Never used Tobacco e-Cigarette/Vaping Use: Never Used service: No Current occupational status: retired Cognitive needs: No Hearing needs: No Vision needs: No Physical Exam Vital Signs: Last Vital Signs Pulse 75 05/04/24 11:10 BP 130/80 05/04/24 11:33 Pulse Ox 89 L 05/04/24 11:10 Oxygen Delivery Method Room Air 05/04/24 11:10 BMI result Body Mass Index 41.5 Const General: comfortable Nutritional Appearance: well nourished Orientation/consciousness: patient oriented x3 HEENT Head: No normal to inspection Mouth: moist mucous membranes Neck Neck: Yes supple and Yes no JVD Resp Auscultation: clear to auscultation bilaterally and no rales Cardio Jugular venous distension: no JVD Palpation: no palpable S3 and no palpable S4 Heart sounds: no rubs GI Palpation (GI): Soft to palpation and nontender Percussion: No Fluid wave present General: Yes no CVA tenderness Back/Spine/Pelvis Back: no CVA tenderness Skin General skin exam: no rashes or lesions noted Neuro General: patient oriented x3 Extrem General: Yes no pedal edema and No clubbing Results Reviewed Nephrology Results: Hgb 14.2 g/dl (12.0-16.0) 03/16/24 WBC 8.5 X10*3/uL (4.8-10.8) 03/16/24 Plt Count 205 X10*3/uL (160-400) 03/16/24 Sodium 144 mmol/L (135-145) 04/30/24 Potassium 4.1 mmol/L (3.3-5.1) 04/30/24 Chloride 104 mmol/L (96-108) 04/30/24 Carbon Dioxide 32 mmol/L (22-29) H 04/30/24 BUN 23 mg/dL (9-16) H 04/30/24 Creatinine 1.62 mg/dL (0.5-1.4) H 04/30/24 Calcium 9.7 mg/dL (8.4-10.2) 04/30/24 Urine Protein Trace mg/dL (Neg-Trace) 04/13/24 Urine Creatinine 86.98 mg/dL 03/18/24 Assessment & Plan Assessment & Plan (1) HTN (hypertension): Comment: Obesity might be playing a role. Code(s): I10 - Essential (primary) hypertension Category: Medical Plan: Blood pressure is acceptable After discontinuing olmesartan blood pressure has stabilized. 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 Urine sediments are bland Code(s): N18.9 - Chronic kidney disease, unspecified Category: Medical Plan: Recent urine studies did not reveal any blood or protein by urinalysis. Abdominal ultrasonogram revealed normal-appearing left kidney without any hydronephrosis or mass. Right kidney was not scanned. 24 urine collection - calculate creatinine clearance of 38 ml/mt with serum cr of 1.56 Collection seems inadequate Bump in creatinine due to hypoperfusion from low BP and she is sustained some tubular injury. This may be her new baseline. Continue to avoid nephrotoxic agents. No indication for ARB at this time Continue to avoid nephrotoxic agents including NSAIDs. Okay to use allopurinol if needed for gout prophylaxis. Dose will be 100 mg a day. Encouraged her to increase her p.o. fluid intake. Orders: Orders Complete Blood Count no Diff 3 Months N18.30 - Chronic kidney disease, stage 3 unspecified Comprehensive Met. Panel 3 Months N18.30 - Chronic kidney disease, stage 3 unspecified Coding Level of Care Code Est Pt Level 4 (57541) Diagnoses HTN (hypertension) I10 Chronic kidney disease N18.9
[2024-05-04 11:33] VITALS: BP 130/80
== END 2024-05-04 11:43 | disposition home or self-care (01) ==
PROVIDERS: PCP Nurse Practitioner Primary Care; Visit Provider Internal Medicine Hypertension Specialist
DX: I12.9 Hypertensive chronic kidney disease with stage 1 through stage 4 chronic kidney disease, or unspecified chronic kidney disease (principal); N18.9 Chronic kidney disease, unspecified
CPT/HCPCS: 99214

== ENCOUNTER → 2024-05-04 10:44 | Outpatient (BNVA) | payer MEDICARE, SELFPAY | PROVIDERS: PCP Nurse Practitioner Primary Care; Visit Provider Internal Medicine Hypertension Specialist | DX: I12.9 Hypertensive chronic kidney disease with stage 1 through stage 4 chronic kidney disease, or unspecified chronic kidney disease (principal); N18.9 Chronic kidney disease, unspecified | CPT/HCPCS: 99212 ==

== ENCOUNTER 2024-06-02 08:59 | Outpatient (REF) | payer MEDICARE, SELFPAY ==
[2024-06-02 10:10] LABS: Appearance Urine Cloudy; Color Urine Yellow; Glucose Urine UA Negative (Negative); Leukocyte Esterase Urine Small (1+) (Negative); Nitrite Urine Negative (Negative); PH 5.5 (5.0-9.0); Specific Gravity - Urine 1.015 (1.005-1.025); UMIC TRIGGER UACC YES; Urine Blood Negative (Negative); Urine Ketones Negative (Negative); Urine Protein Trace mg/dL (Neg-Trace)
[2024-06-02 10:27] LABS: Bacteria Urine 2+ (None Seen); Hyaline Casts Urine 0-2 /LPF (0-2); RBC Urine 0-2 /HPF (0-2); UACC Culture Trigger YES; WBC Urine 0-5 /HPF (0-5)
== END 2024-06-02 09:00 | disposition home or self-care (01) ==
LOC: HO.HMGCLDS 08:59
PROVIDERS: PCP Nurse Practitioner Primary Care; Visit Provider Nurse Practitioner Primary Care
DX: Z13.89 Encounter for screening for other disorder (principal)
CPT/HCPCS: 81001; 87086

== ENCOUNTER 2024-06-07 11:43 | Outpatient (AMB) | payer MEDICARE, SELFPAY ==
--- NOTE | 2024-06-07 11:45 | MHC.PC.OV ---
Vital Signs 06/07/24 11:49 Height 5 ft 6.5 in Weight 259 lb BMI 41.2 BP 118/70 Blood Pressure Location Rt brachial Position Sitting Pulse 77 Pulse Source Pulse Oximeter Pulse Oximetry (%) 98 Oxygen Delivery Method Room Air Intake Visit Reasons: 3M F/U per JL Intake Note: pt is here for her 3 month follow up. Allergies esomeprazole [From Vimovo] Allergy (Mild, Verified 06/07/24 12:31) Headache naproxen [From Vimovo] Allergy (Mild, Verified 06/07/24 12:31) Headache codeine Adverse Reaction (Mild, Verified 06/07/24 12:31) Unknown phenobarbital Adverse Reaction (Mild, Verified 06/07/24 12:31) Unknown Tobacco use date assessed: 06/07/24 Fall risk assessment: No Falls in past year Last assessed Fall Risk: 06/07/24 Dental Screening Dental Screen Date: 03/15/24 HPI HPI Comments History of Present Illness Details Patient is here for 3 month follow-up with thoracic and lumbar back pain. Patient is only able to use utilize Tylenol due to chronic kidney disease. Patient will get referral to physical therapy. Denies tingling or numbness, denies saddle numbness. PFSH Medical History Hx of hiatal hernia FH: total knee replacement Chronic kidney disease Seizure Surgical History Hx of tonsillectomy Hx of shoulder surgery H/O: hysterectomy Hx of appendectomy Hx of total knee replacement Family History Father Cirrhosis Lung cancer Mental health disorder Substance use disorder Mother Lung cancer Social History Household Members: Spouse Housing: Apartment Alcohol intake: current Alcohol intake frequency: holidays/special occasions only Alcohol type: wine Patient Tobacco Use Status: Never used Tobacco e-Cigarette/Vaping Use: Never Used service: No Current occupational status: retired Cognitive needs: No Hearing needs: No Vision needs: No Questionnaire PHQ-9 Over the last 2 weeks, how often have you been bothered by any of the following problems? 1. Little interest or pleasure in doing things: several days 2. Feeling down, depressed, or hopeless: several days 3. Trouble falling or staying asleep, or sleeping too much: several days 4. Feeling tired or having little energy: several days 5. Poor appetite or overeating: more than half the days 6. Feeling bad about yourself - or that you are a failure or have let yourself or your family down: several days 7. Trouble concentrating on things, such as reading the newspaper or watching television: not at all 8. Moving or speaking so slowly that other people could have noticed. Or the opposite - being so fidgety or restless that you have been moving around a lot more than usual: not at all 9. Thoughts that you would be better off or of hurting yourself in some way: not at all Total score: 7 Depression Screening Interpretation: Negative Depression Screening Done: Yes 37295 - PHQ-9 Billing: Yes Source: Developed by Drs. Maico Zuleta, Gertrude Titus, Hood Medrano and colleagues, with an educational jose g from [employer]. Thrive Questionnaire Date Thrive assessed: 06/07/24 I am a: Patient What is your living situation today?: I have a steady place to live Within the past 12 months, did the food you bought not last and you didn't have the money to get more?: Sometimes True Within the past 12 months, did you worry whether your food would run out before you got money to buy more?: Sometimes True Do you have trouble paying for medicines?: No Do you have trouble getting transportation to medical appointments?: No Do you have trouble paying your heating and electricity bill?: No Do you have trouble taking care of your child, family member or friend?: No Do you have trouble with day-to-day activities such as bathing, preparing meals, shopping, managing finances, etc.?: No Are you currently unemployed and looking for a job?: No Are you interested in more education?: No Please select the resources that you would like help with: Housing/Long Term Currently or been in a relationship where the following occur: No concerns reported THRIVE Score: 2 AUDIT C Alcohol Use Questionnaire (AUDIT-C) 1. How often do you have a drink containing alcohol?: Never Total Score: 0 JOSE-7 AMB Questionnaire JOSE-7 Date JOSE - 7 assessed: 01/29/24 Feeling nervous, anxious, or on edge: 1 = Several days Not being able to stop or control worryin = Several days Worrying too much about different things: 1 = Several days Trouble relaxin = Not at all Being so restless that it is hard to sit still: 0 = Not at all Becoming easily annoyed or irritable: 1 = Several days Feeling afraid as if something awful might happen: 0 = Not at all Total JOSE-7 score (0-4 normal; 5-9 mild; 10-14 moderate; 15-21 severe): 4 Source: Developed by Drs. Maico Zuleta, Gertrude Titus, Hood Medrano and colleagues, with an educational jose g from [employer]. Review of Systems Const All systems reviewed & are unremarkable except as noted in HPI and below Physical exam (Primary Care) Vital Signs: Last Vital Signs Pulse 77 06/07/24 11:49 BP 118/70 06/07/24 11:49 Pulse Ox 98 06/07/24 11:49 Oxygen Delivery Method Room Air 06/07/24 11:49 Care Plan Goal for BP management: Blood pressure controlled BMI result Body Mass Index 41.2 Tobacco/Smoking Status: Tobacco use Status Tobacco use date assessed 06/07/24 06/07/24 11:54 Patient Tobacco Use Status Never used Tobacco 06/07/24 11:54 e-Cigarette/Vaping Use Never Used 06/07/24 11:54 PHQ-9: PHQ-9 Score PHQ-9: Total score 7 06/07/24 11:54 Depression Screening Interpretation: Negative Thrive Assessment: Date of Thrive Assessment Date Thrive assessed 06/07/24 06/07/24 11:54 Currently or been in a relationship where the following occur: No concerns reported Const Other: Appearance: Alert.? Oriented X3.? No acute distress.? Head: Normocephalic, atraumatic, no step-offs or deformities Eyes: Pupils equal, round and reactive to light.? CVS: Normal heart rate and rhythm.? Pulses normal.? Respiratory: No respiratory distress.? Breath sounds normal.? Abdomen: Soft and nontender.? Back: No midline tenderness, no C-spine tenderness, Limited range of motion to flexion and extension, no CVA tenderness bilaterally Neuro: Oriented X 3.? No motor deficit.? No sensory deficit. CN 2-12 intact Assessment and Plan Assessment & Plan (1) High triglycerides: Comment: Patient will start fish oil supplement today. Will redrawn 3 months patient will also utilize improve diet and exercise Code(s): E78.1 - Pure hyperglyceridemia (2) Lower back pain: Comment: Patient will get referral to physical therapy. Can continue to use Tylenol. Would also benefit from loss of weight Code(s): M54.50 - Low back pain, unspecified Qualifiers: Chronicity: unspecified Back pain laterality: unspecified Sciatica presence: without sciatica Qualified Code(s): M54.50 - Low back pain, unspecified Orders: Orders Hemoglobin A1c Today R73.09 - Other abnormal glucose PT Evaluation and Treatment Today M54.50 - Low back pain, unspecified Lipid Panel Today E78.2 - Mixed hyperlipidemia Coding Level of Care Code Est Pt Level 3 (69362) Diagnoses High triglycerides E78.1 Low back pain without sciatica, unspecified back pain laterality, unspecified chronicity M54.50 Chronicity: unspecified Back pain laterality: unspecified Sciatica presence: without sciatica Time Spent (min) 28
[2024-06-07 11:49] VITALS: BP 118/70; PULSE 77; O2SAT 98; BMI 41.2
== END 2024-06-07 13:41 | disposition home or self-care (01) ==
PROVIDERS: PCP Nurse Practitioner Primary Care; Visit Provider Nurse Practitioner Primary Care
DX: E78.1 Pure hyperglyceridemia (principal); M54.50 Low back pain, unspecified
CPT/HCPCS: 99213

== ENCOUNTER 2024-06-14 12:25 | Outpatient (AMB) | payer MEDICARE, SELFPAY ==
--- NOTE | 2024-06-14 12:38 | MHC.OFFVIS ---
Vital Signs 06/14/24 12:40 Height 5 ft 6.5 in Weight 259 lb BMI 41.2 BP 118/78 Blood Pressure Location Rt brachial Position Sitting Respiration 16 Pulse 77 Pulse Source Pulse Oximeter Pulse Oximetry (%) 97 Oxygen Delivery Method Room Air Intake Visit Reasons: Follow up CECI and Tremor, unspecified - Confirmed Intake Note: Pt presents to the office for 4 month follow up for tremors. 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 Allergies esomeprazole [From Vimovo] Allergy (Mild, Verified 06/14/24 12:40) Headache naproxen [From Vimovo] Allergy (Mild, Verified 06/14/24 12:40) Headache codeine Adverse Reaction (Mild, Verified 06/14/24 12:40) Unknown phenobarbital Adverse Reaction (Mild, Verified 06/14/24 12:40) Unknown Medication List - Last Reconciled 06/14/24 by Lenore Tay MD albuterol sulfate 90 mcg/actuation 2 puffs inhalation Q6H PRN aspirin 81 mg PO DAILY budesonide-formoterol 160-4.5 mcg/actuation (Symbicort) 2 inhalations inhalation DAILY PRN bupropion HCl XL 150 mg PO QAM calcium carbonate 600 mg PO BID cholecalciferol (vitamin D3) 25 mcg PO BID duloxetine 60 mg PO DAILY ferrous sulfate (Feosol) 325 mg PO Q OTHER DAY gabapentin 900 mg PO DAILY nystatin topical BID-TID trazodone 50 mg PO BEDTIME PRN HPI Comments Details: 69 y/o female patient presents for follow up sleep apnea. her repeat sleep study was c/w severe REM dominant sleep apnea.she is waiting for a new CPAP. SHe has leg twitches at rest.she has ho chronic back pain PFSH Medical History (Updated 06/14/24 @ 13:04 by Lenore Tay MD) Periodic limb movement Hx of hiatal hernia FH: total knee replacement Chronic kidney disease Seizure Surgical History Hx of tonsillectomy Hx of shoulder surgery H/O: hysterectomy Hx of appendectomy Hx of total knee replacement Family History Father Cirrhosis Lung cancer Mental health disorder Substance use disorder Mother Lung cancer Social History Household Members: Spouse Housing: Apartment Alcohol intake: current Alcohol intake frequency: holidays/special occasions only Alcohol type: wine Patient Tobacco Use Status: Never used Tobacco e-Cigarette/Vaping Use: Never Used service: No Current occupational status: retired Cognitive needs: No Hearing needs: No Vision needs: No Physical Exam Vital Signs: Last Vital Signs Pulse 77 06/14/24 12:40 Resp 16 06/14/24 12:40 BP 118/78 06/14/24 12:40 Pulse Ox 97 06/14/24 12:40 Oxygen Delivery Method Room Air 06/14/24 12:40 BMI result Body Mass Index 41.2 Const General: cooperative and tired appearing Nutritional Appearance: obese Orientation/consciousness: patient oriented x3 Resp Effort & Inspection: normal respiratory effort and able to speak in complete sentences Neuro General: patient oriented x3 and gait normal Cranial nerves: Yes CN's II-XII intact bilaterally Cognition (Neuro): normal cognition Gait exam (Neuro): Normal gait present Motor exam (neuro): 5/5 motor strength present throughout Assessment & Plan Assessment & Plan (1) Obstructive sleep apnea: Comment: A moderate degree of sleep apnea with increased severity in REM. The AHI was 13/hr, REM AHI was 60/hr and oxygen eleuterio was 66%. Code(s): G47.33 - Obstructive sleep apnea (adult) (pediatric) Category: Medical (2) Periodic limb movement: Code(s): G47.61 - Periodic limb movement disorder Category: Medical Plan Retrial CPAP at 5-20 If she does not respond , will consider referral for [facility]. Increase gabapentin 300 mg bid and 2 tabs hs Coding Level of Care Code Est Pt Level 4 (18558) Diagnoses Obstructive sleep apnea G47.33 Periodic limb movement G47.61
[2024-06-14 12:40] VITALS: BP 118/78; PULSE 77; RESP 16; O2SAT 97; BMI 41.2
== END 2024-06-14 13:10 | disposition home or self-care (01) ==
PROVIDERS: PCP Nurse Practitioner Primary Care; Visit Provider Psychiatry & Neurology Neurology
DX: G47.33 Obstructive sleep apnea (adult) (pediatric) (principal); G47.61 Periodic limb movement disorder
CPT/HCPCS: 99214

== ENCOUNTER → 2024-06-14 12:25 | Outpatient (BNVA) | payer MEDICARE, SELFPAY | PROVIDERS: PCP Nurse Practitioner Primary Care; Visit Provider Psychiatry & Neurology Neurology | DX: G47.33 Obstructive sleep apnea (adult) (pediatric) (principal); G47.61 Periodic limb movement disorder; M54.9 Dorsalgia, unspecified; G89.29 Other chronic pain; Z99.89 Dependence on other enabling machines and devices | CPT/HCPCS: 99212 ==

== ENCOUNTER 2024-07-22 12:16 | Outpatient (AMB) | payer MEDICARE, SELFPAY ==
--- NOTE | 2024-07-22 12:20 | MHC.PC.OV ---
Vital Signs 07/22/24 12:21 Height 5 ft 6.5 in Weight 263 lb BMI 41.8 BP 132/80 Blood Pressure Location Rt brachial Position Sitting Pulse 76 Pulse Source Pulse Oximeter Pulse Oximetry (%) 96 Intake Visit Reasons: Transfer from [facility] Intake Note: patient is here for follow up, transfer care from [facility] Inclusion Special Educator Required: No Accompanied by: Self / Same As Patient Allergies esomeprazole [From Vimovo] Allergy (Mild, Verified 07/22/24 12:22) Headache naproxen [From Vimovo] Allergy (Mild, Verified 07/22/24 12:22) Headache codeine Adverse Reaction (Mild, Verified 07/22/24 12:22) Unknown phenobarbital Adverse Reaction (Mild, Verified 07/22/24 12:22) Unknown Tobacco use date assessed: 06/07/24 Fall risk assessment: No Falls in past year Last assessed Fall Risk: 07/22/24 Dental Screening Dental Screen Date: 03/15/24 HPI Transfer from [facility] HPI Details HTN: Blood pressure is stable today. Will order labs. Denies chest pain, shortness of breath, headache, dizziness, and blurred vision. Pt has a hx of CKD, sees nephrology. Pt also has a hx of seizures. She is seeing neurology. Pt has had no seizures since age 16. Pt sees a therapist and a psychiatrist. Denies any SI or HI PFSH Medical History (Updated 07/22/24 @ 17:05 by SUZETTE Rahman) Periodic limb movement Hx of hiatal hernia FH: total knee replacement Chronic kidney disease Seizure Surgical History Hx of tonsillectomy Hx of shoulder surgery H/O: hysterectomy Hx of appendectomy Hx of total knee replacement Family History Father Cirrhosis Lung cancer Mental health disorder Substance use disorder Mother Lung cancer Social History Household Members: Spouse Housing: Apartment Alcohol intake: current Alcohol intake frequency: holidays/special occasions only Alcohol type: wine Patient Tobacco Use Status: Never used Tobacco e-Cigarette/Vaping Use: Never Used service: No Current occupational status: retired Cognitive needs: No Hearing needs: No Vision needs: No Questionnaire PHQ-9 Over the last 2 weeks, how often have you been bothered by any of the following problems? 1. Little interest or pleasure in doing things: several days 2. Feeling down, depressed, or hopeless: several days 3. Trouble falling or staying asleep, or sleeping too much: several days 4. Feeling tired or having little energy: several days 5. Poor appetite or overeating: more than half the days 6. Feeling bad about yourself - or that you are a failure or have let yourself or your family down: several days 7. Trouble concentrating on things, such as reading the newspaper or watching television: not at all 8. Moving or speaking so slowly that other people could have noticed. Or the opposite - being so fidgety or restless that you have been moving around a lot more than usual: not at all 9. Thoughts that you would be better off or of hurting yourself in some way: not at all Total score: 7 Source: Developed by Drs. Maico Zuleta, Gertrude Titus, Hood Medrano and colleagues, with an educational jose g from [employer]. Thrive Questionnaire Date Thrive assessed: 06/07/24 I am a: Patient What is your living situation today?: I have a steady place to live Within the past 12 months, did the food you bought not last and you didn't have the money to get more?: Sometimes True Within the past 12 months, did you worry whether your food would run out before you got money to buy more?: Sometimes True Do you have trouble paying for medicines?: No Do you have trouble getting transportation to medical appointments?: No Do you have trouble paying your heating and electricity bill?: No Do you have trouble taking care of your child, family member or friend?: No Do you have trouble with day-to-day activities such as bathing, preparing meals, shopping, managing finances, etc.?: No Are you currently unemployed and looking for a job?: No Are you interested in more education?: No Please select the resources that you would like help with: None Currently or been in a relationship where the following occur: No concerns reported THRIVE Score: 2 AUDIT C Alcohol Use Questionnaire (AUDIT-C) 1. How often do you have a drink containing alcohol?: Never 3. How often do you have six or more drinks on one occasion?: Never Total Score: 0 Score Reviewed/Action Taken: Yes JOSE-7 AMB Questionnaire JOSE-7 Date JOSE - 7 assessed: 07/22/24 Feeling nervous, anxious, or on edge: 1 = Several days Not being able to stop or control worryin = Several days Worrying too much about different things: 1 = Several days Trouble relaxin = Not at all Being so restless that it is hard to sit still: 0 = Not at all Becoming easily annoyed or irritable: 1 = Several days Feeling afraid as if something awful might happen: 0 = Not at all Total JOSE-7 score (0-4 normal; 5-9 mild; 10-14 moderate; 15-21 severe): 4 Source: Developed by Drs. Maico Zuleta, Gertrude Titus, Hood Medrano and colleagues, with an educational jose g from [employer]. JOSE-7 Assessment Billing JOSE-7 Assessment Tool: JOSE-7 Assessment 45274 Review of Systems Const Reports as per HPI Physical exam (Primary Care) Vital Signs: Last Vital Signs Pulse 76 07/22/24 12:21 BP 132/80 07/22/24 12:21 Pulse Ox 96 07/22/24 12:21 BMI result Body Mass Index 41.8 Tobacco/Smoking Status: Tobacco use Status Tobacco use date assessed 06/07/24 07/22/24 12:25 Patient Tobacco Use Status Never used Tobacco 07/22/24 12:25 e-Cigarette/Vaping Use Never Used 07/22/24 12:25 PHQ-9: PHQ-9 Score PHQ-9: Total score 7 07/22/24 12:53 Thrive Assessment: Date of Thrive Assessment Date Thrive assessed 06/07/24 07/22/24 12:25 Currently or been in a relationship where the following occur: No concerns reported Const General: cooperative Nutritional Appearance: obese morbidly obese Orientation/consciousness: patient oriented x3 Resp Effort & Inspection: normal respiratory effort Auscultation: clear to auscultation bilaterally Cardio Rate: regular rate Rhythm: regular rhythm Heart sounds: S1 normal heart sound present and S2 normal heart sound present Neuro General: patient oriented x3 Extrem Right lower extremity: edema Details: pitting and 1+ Left lower extremity: edema Details: pitting and 1+ Psych Appearance: grossly normal Mental Status: mental status grossly normal Speech and movement: Normal speech and movement present Affect: normal affect Attitude: cooperative Thought process: Normal thought process present Thought content: Normal thought content present Insight: Good insight present (Psych) Judgement: Good judgement present (Psych) Assessment and Plan Assessment & Plan (1) HTN (hypertension): Comment: Code(s): I10 - Essential (primary) hypertension Plan: Labs ordered (2) History of seizure disorder: Comment: Code(s): Z86.69 - Personal history of other diseases of the nervous system and sense organs Plan: sees neurology, on gabapentin (3) Chronic kidney disease: Code(s): N18.9 - Chronic kidney disease, unspecified Plan: sees nephrology Plan The patient agreed to the use of a medical language specialist for this encounter. Scribed for SUZETTE Silver by Liliana Gill medical language specialist, on 07/22/2024 at 12:50 EST. Orders: Orders Complete Blood Count Auto Diff Today I10 - Essential (primary) hypertension Comprehensive [place]. Panel Fast Today I10 - Essential (primary) hypertension TSH reflex Free T4 Today I10 - Essential (primary) hypertension UA CC w/rflx Micro + Cult Today I10 - Essential (primary) hypertension Lipid Panel Today I10 - Essential (primary) hypertension Medications: Changed From gabapentin 1 capsule in morning, 1 cap in the afternoon, 2 capsules at night 900 mg PO DAILY To gabapentin 1 capsule in morning, 1 cap in the afternoon, 2 capsules at night 1,200 mg (4 x 300 mg) PO DAILY 90 days 360 caps 0RF Coding Level of Care Code Est Pt Level 3 (58670) Diagnoses HTN (hypertension) I10 History of seizure disorder Z86.69 Chronic kidney disease N18.9 Additional Codes JOSE-7 Assessment Billing - JOSE-7 Assessment Tool: JOSE-7 Assessment 52248 ([id number])
[2024-07-22 12:21] VITALS: BP 132/80; PULSE 76; O2SAT 96; BMI 41.8
== END 2024-07-22 13:22 | disposition home or self-care (01) ==
PROVIDERS: PCP Nurse Practitioner Primary Care; Visit Provider Nurse Practitioner Family
DX: I12.9 Hypertensive chronic kidney disease with stage 1 through stage 4 chronic kidney disease, or unspecified chronic kidney disease (principal); Z86.69 Personal history of other diseases of the nervous system and sense organs; N18.9 Chronic kidney disease, unspecified
CPT/HCPCS: 99213

== ENCOUNTER 2024-08-14 08:00 | Outpatient (REF) | payer MEDICARE, SELFPAY ==
[2024-08-14 08:16] LABS: MANUAL DIFF FLAG NO
[2024-08-14 08:37] LABS: Hematocrit 40.7 % (37.0-47.0); Hemoglobin 12.6 g/dl (12.0-16.0); Mean Corpuscular Hemoglobin 26.9 pg (27.0-33.0); Mean Platelet Volume 10.4 fL (9.4-12.3); Platelet Count 196 X10*3/uL (160-400); Red Blood Count 4.68 X10*6/uL (4.20-5.50); Red Cell Distribution Width 14.7 % (11.0-16.0)
[2024-08-14 08:38] LABS: Basophils Percent Auto 0.5 % (0-2); Eosinophils Absolute Auto 0.2 X10*3/uL (0.0-0.4); Eosinophils Percent Auto 2.9 % (0-4); Hematocrit 40.7 % (37.0-47.0); Hemoglobin 12.5 g/dl (12.0-16.0); Imm Gran Abs Auto 0.02 X10*3/uL (0.00-0.03); Imm Gran Pct Auto 0.3 % (0.0-0.4); Lymphocytes Absolute Auto 2.2 X10*3/uL (1.2-4.9); Lymphocytes Percent Auto 28.2 % (20-40); Mean Corpuscular HGB Conc 30.7 g/dl (31.0-35.0); Mean Corpuscular Hemoglobin 26.7 pg (27.0-33.0); Mean Platelet Volume 10.4 fL (9.4-12.3); Monocytes Absolute Auto 0.5 X10*3/uL (0.1-1.2); Monocytes Percent Auto 6.4 % (2-11); Neutrophils Absolute Auto 4.7 x10*3/uL (2.0-8.3); Neutrophils Percent Auto 61.7 % (45-73); Platelet Count 198 X10*3/uL (160-400); Red Blood Count 4.68 X10*6/uL (4.20-5.50); Red Cell Distribution Width 14.9 % (11.0-16.0); White Blood Count 7.6 X10*3/uL (4.8-10.8)
[2024-08-14 08:54] LABS: Appearance Urine Cloudy; Color Urine Yellow; Glucose Urine UA Negative (Negative); Leukocyte Esterase Urine Moderate (2+) (Negative); Nitrite Urine Negative (Negative); Specific Gravity - Urine 1.015 (1.005-1.025); UMIC TRIGGER UACC YES; Urine Blood Negative (Negative); Urine Ketones Negative (Negative); Urine Protein 30 (1+) mg/dL (Neg-Trace)
[2024-08-14 09:05] LABS: Bacteria Urine 4+ (None Seen); Hyaline Casts Urine 0-2 /LPF (0-2); RBC Urine 0-2 /HPF (0-2); Squamous Epithelial Cell Urine >20 /HPF (0-2); UACC Culture Trigger YES; WBC Urine 21-50 /HPF (0-5)
[2024-08-14 09:24] LABS: Alanine Aminotransferase 14 U/L (0-31); Albumin Level 3.6 g/dL (3.5-5.0); Alkaline Phosphatase 99 U/L (39-117); Anion Gap 12 (12-20); Aspartate Amino Transferase 16 U/L (5-31); Bilirubin Total 0.3 mg/dL (0.0-1.0); Blood Urea Nitrogen 17 mg/dL (9-16); Carbon Dioxide 28 mmol/L (22-29); Chloride 107 mmol/L (96-108); Cholesterol 150 mg/dL (<200); Estimated Glomerular Filt Rate 40; Glucose Fasting 105 mg/dL (60-99); HDL Cholesterol 37 mg/dL (>40); LDL Cholesterol Calculated 79 mg/dL (<100); Potassium 4.1 mmol/L (3.3-5.1); Sodium 143 mmol/L (135-145); Total Protein 7.1 g/dL (6.5-8.0); Triglycerides 171 mg/dL (<150)
[2024-08-14 09:27] LABS: TSH reflex Free T4 1.54 uIU/mL (0.32-4.0)
== END 2024-08-14 08:01 | disposition home or self-care (01) ==
LOC: HO.LAB 08:00
PROVIDERS: Absent Provider Internal Medicine Hypertension Specialist; PCP Nurse Practitioner Family; Visit Provider Nurse Practitioner Family
DX: N18.30 Chronic kidney disease, stage 3 unspecified (principal); I10 Essential (primary) hypertension
CPT/HCPCS: 36415; 80053; 80061; 81001; 84443; 85025; 85027; 87086

== ENCOUNTER 2024-08-16 15:21 | Outpatient (AMB) | payer MEDICARE, SELFPAY ==
[2024-08-16 15:30] VITALS: BP 144/96; PULSE 75; O2SAT 96; BMI 42.1
--- NOTE | 2024-08-16 15:30 | HO.NEPHOV ---
Vital Signs 08/16/24 15:30 Height 5 ft 6.5 in Weight 265 lb BMI 42.1 BP 144/96 H Blood Pressure Location Rt brachial Position Sitting Pulse 75 Pulse Source Pulse Oximeter Pulse Oximetry (%) 96 Oxygen Delivery Method Room Air Intake Visit Reasons: CKD/ Conf [employer] Supervisor Required: No Accompanied by: Spouse Allergies esomeprazole [From Vimovo] Allergy (Mild, Verified 08/16/24 15:32) Headache naproxen [From Vimovo] Allergy (Mild, Verified 08/16/24 15:32) Headache codeine Adverse Reaction (Mild, Verified 08/16/24 15:32) Unknown phenobarbital Adverse Reaction (Mild, Verified 08/16/24 15:32) Unknown HPI Comments Details: 68-year-old woman with a history of hypertension in the obesity has been referred for chronic kidney disease. Her serum creatinine has been staying around 1.3 mg/dL L with EGFR of about 53 mL/milliliter and hence this referral. She has history of psoriasis. She denies taking NSAIDs on a chronic basis. 03/23/24 Developed hyperkalemia o f5.4 Recevied 1 dose Kayexalate BP remains low Cr up to 1.5 05/04/2024. Ankle-brachial index was done results are pending. Echocardiogram was unremarkable. Olmesartan was discontinued 4 weeks ago. No new issues. No urinary symptoms. 08/16/24 BP 128/76 on re-check pt reports she does not check at home no acute complaints - chronic dyspnea on exertion up stairs, also chronic trace BLE edema (pitting), reports unchanged for years saw visual merchandising coordinator Dr Garcia last year in [place] echocardiogram was unremarkable, she will request recrods she states she does not add salt to food in her diet; cooks reports she hydrates well urinating without complaints- denies blood, pain, frequency, nocturia Cr improved to 1.3 (from 1.6 in April)- she stopped olmesartan; currently not on any blood pressure medication PFSH Medical History (Updated 08/17/24 @ 16:38 by Teresa Harp, PAOLA, WEB PAGE DEVELOPER-BC) Periodic limb movement Hx of hiatal hernia FH: total knee replacement Chronic kidney disease Seizure Surgical History Hx of tonsillectomy Hx of shoulder surgery H/O: hysterectomy Hx of appendectomy Hx of total knee replacement Family History Father Cirrhosis Lung cancer Mental health disorder Substance use disorder Mother Lung cancer Social History Household Members: Spouse Housing: Apartment Alcohol intake: current Alcohol intake frequency: holidays/special occasions only Alcohol type: wine Patient Tobacco Use Status: Never used Tobacco e-Cigarette/Vaping Use: Never Used service: No Current occupational status: retired Cognitive needs: No Hearing needs: No Vision needs: No Review of Systems Const Denies anorexia, Denies fever(s), Denies headache(s) and Denies weakness ENT Denies dizziness and Denies headache(s) Card Denies no additional complaints and Reports dyspnea on exertion (reports chronic for years, unchanged) Resp Reports no additional complaints and Reports dyspnea on exertion (reports chronic for years, unchanged) GI Denies melena and Denies diarrhea Denies hematuria, Denies difficulty voiding, Denies nocturia, Denies dysuria, Denies pelvic pain and Denies flank pain Musc Denies back pain and Denies myalgias Skin/Breast Denies rash Neuro Denies dizziness, Denies headache(s) and Denies weakness Physical Exam Vital Signs: Last Vital Signs Pulse 75 08/16/24 15:30 BP 144/96 H 08/16/24 15:30 Pulse Ox 96 08/16/24 15:30 Oxygen Delivery Method Room Air 08/16/24 15:30 BMI result Body Mass Index 42.1 Const General: comfortable, no acute distress, alert and awake Orientation/consciousness: oriented to person, oriented to place and oriented to time Neck Neck: Yes normal visual inspection, No JVD and Yes no JVD Resp Auscultation: clear to auscultation bilaterally Cardio Rate: regular rate Rhythm: regular rhythm Heart sounds: S1 normal heart sound present and S2 normal heart sound present General: No CVA tenderness Back/Spine/Pelvis Back: No CVA tenderness Skin General skin exam: no rashes or lesions noted Neuro General: oriented to person, oriented to place and oriented to time Extrem General: Yes edema (trace BLE pitting edema, chronic ) Results Reviewed Nephrology Results: Hgb 12.5 g/dl (12.0-16.0) 08/14/24 WBC 7.6 X10*3/uL (4.8-10.8) 08/14/24 Plt Count 198 X10*3/uL (160-400) 08/14/24 Sodium 143 mmol/L (135-145) 08/14/24 Potassium 4.1 mmol/L (3.3-5.1) 08/14/24 Chloride 107 mmol/L (96-108) 08/14/24 Carbon Dioxide 28 mmol/L (22-29) 08/14/24 BUN 17 mg/dL (9-16) H 08/14/24 Creatinine 1.30 mg/dL (0.5-1.4) 08/14/24 Calcium 9.0 mg/dL (8.4-10.2) 08/14/24 Urine Protein 30 (1+) mg/dL (Neg-Trace) H 08/14/24 Assessment & Plan Assessment & Plan (1) HTN (hypertension): Comment: Code(s): I10 - Essential (primary) hypertension Category: Medical Qualifiers: Hypertension type: primary hypertension Qualified Code(s): I10 - Essential (primary) hypertension (2) Chronic kidney disease: Code(s): N18.9 - Chronic kidney disease, unspecified Category: Medical Plan Previous urine studies did not reveal any blood or protein by urinalysis. Abdominal ultrasonogram revealed normal-appearing left kidney without any hydronephrosis or mass. Right kidney was not scanned. she has had improvement in her creatinine back down to 1.3 since stopping olmesartan, eGFR up from 31 to 40 No indication for additional BP medication at this time given blood pressure adequately controlled advised should take BP at least twice weekly at home to monitor, call if SBP >140 Continue to avoid nephrotoxic agents including NSAIDs. Encouraged her to increase her p.o. fluid intake and minimize salt intake. Coding Level of Care Code Est Pt Level 3 (72297) Diagnoses Primary hypertension I10 Hypertension type: primary hypertension Chronic kidney disease N18.9
== END 2024-08-16 16:04 | disposition home or self-care (01) ==
PROVIDERS: PCP Nurse Practitioner Primary Care; Visit Provider Internal Medicine Hypertension Specialist
DX: I12.9 Hypertensive chronic kidney disease with stage 1 through stage 4 chronic kidney disease, or unspecified chronic kidney disease (principal); N18.9 Chronic kidney disease, unspecified
CPT/HCPCS: 99213

== ENCOUNTER → 2024-08-16 15:21 | Outpatient (BNVA) | payer MEDICARE, SELFPAY | PROVIDERS: PCP Nurse Practitioner Primary Care; Visit Provider Internal Medicine Hypertension Specialist | DX: I12.9 Hypertensive chronic kidney disease with stage 1 through stage 4 chronic kidney disease, or unspecified chronic kidney disease (principal); N18.9 Chronic kidney disease, unspecified | CPT/HCPCS: 99212 ==

== ENCOUNTER 2024-10-28 19:24 | Outpatient (REF) | payer MEDICARE, SELFPAY ==
--- OUTSIDE RECORDS SUMMARY | 2024-11-03 04:27 | XMS_ITS ---
Author Name [facility] Organization Unknown History of Medication Use Medication Directions Dispensed Refills Start Date End Date [facility] traZODone HCl - 50 MG Oral Tablet traZODone HCl - 50 MG Oral TabletTAKE 1 TABLET AT BEDTIME. Quantity: 10 Refills: Jaspreet Hanna APRN Active 09/06/2022 completed Cymbalta 60 MG Oral Capsule Delayed Release Particles Cymbalta 60 MG Oral Capsule Delayed Release ParticlesTAKE 1 CAPSULE BY MOUTH DAILY Quantity: 30 Refills: 0Active 09/06/2022 completed Calcium 600 MG TABS Calcium 600 MG TABSTake 1 tablet twice daily Quantity: 180 Refills: Jaspreet Hanna APRN Active 03/19/2023 completed Aspirin Low Dose 81 MG Oral Tablet Delayed Release Aspirin Low Dose 81 MG Oral Tablet Delayed ReleaseTAKE 1 TABLET DAILY. Quantity: 90 Refills: Obinna Bennett M.D. Start : [id number] 09/06/2022 completed Calcium 600 MG TABS Calcium 600 MG TABSTake 1 tablet twice daily Quantity: 180 Refills: Jaspreet Hanna APRN Active 03/19/2023 completed Medication Administration not documented Medication Administration not documented 09/06/2022 completed Calcium 600 MG TABS Calcium 600 MG TABSTake 1 tablet twice daily Quantity: 180 Refills: Jaspreet Hanna APRN Active 09/06/2022 completed Gabapentin 300 MG Oral Capsule Gabapentin 300 MG Oral CapsuleTAKE 1 CAPSULE IN THE MORNING AND 2 CAPSULES AT NIGHT Quantity: 270 Refills: Jaspreet Hanna APRN Start : [id number] 09/06/2022 complete d Nystatin 401234 UNIT/GM External Powder Nystatin [id number] UNIT/GM External PowderAPPLY 2 OR 3 TIMES A DAY TO AFFECTED AREA Quantity: 1 Refills: Jaspreet Cardona APRN Start : [id number] GM Bottle 09/06/2022 completed Sulfamethoxazole-Tr imethoprim 800-160 MG Oral Tablet Sulfamethoxazole-Tr imethoprim 800-160 MG Oral TabletTAKE 1 TABLET Twice daily for 5 days Quantity: 10 Refills: Cyndi BAEZ Jaspreet Eleanor Start : [id number] 03/19/2023 complete d Vitamin D3 25 MCG (1000 UT) Oral Tablet Vitamin D3 25 MCG (1000 UT) Oral TabletTAKE 2 TABLET Daily Quantity: 180 Refills: Jaspreet Hanna APRN Eleanor Active 03/20/2023 completed Allopurinol 300 MG Oral Tablet Allopurinol 300 MG Oral TabletTAKE 1 TABLET BY MOUTH EVERY DAY Quantity: 90 Refills: Cyndi Jaspreet BAEZ Start : [id number] 09/06/2022 complete d Iron 325 (65 Fe) MG Oral Tablet Iron 325 (65 Fe) MG Oral TabletTAKE 1 TABLET EVERY OTHER DAY WITH FOOD. Quantity: 90 Refills: Cyndi Jaspreet BAEZ Active 09/06/2022 completed Olmesartan Medoxomil 20 MG Oral Tablet Olmesartan Medoxomil 20 MG Oral TabletTake 1 tablet daily Quantity: 90 Refills: Bethany Jaspreet BAEZ Start : [id number] 06/06/2023 complete d Vitamin D3 25 MCG (1000 UT) Oral Tablet Vitamin D3 25 MCG (1000 UT) Oral TabletTAKE 2 TABLET Daily Quantity: 180 Refills: Cyndi Jaspreet BAEZ Active 09/06/2022 completed Allergies Allergen Reaction Severity Comment Documented Date Source Statu s VIMOVO TBEC Headache [facility] CODEINE DERIVATIVES [facility] PHENOBARBITAL TABS [facility] PHENOBARBITAL [facility] Immunizations Vaccine Date Source Lot Number Status Airstone COVID-19 Vac c 30 MCG/0.3ML Intramuscular Suspension 02/12/2021 [facility] complet ed Influenza 08/09/2015 [facility] completed Td 04/06/2015 [facility] completed Pneumococcal polysaccharide vaccine, 23 valent 11/01/2020 [facility] [id number] completed Influenza 11/25/2014 [facility] [id number] completed Flublok Quadrivalent 0.5 ML Intramuscular Solution Prefilled Syringe 01/22/2019 [facility] [id number] compl eted Fluad Quadrivalent 0.5 ML In tramuscular Prefilled Syringe 10/01/2023 [facility] [id number] completed Tdap 05/21/2007 [facility] completed Influenza 07/22/2011 [facility] [id number] completed Prevnar 13 Intramuscular Suspension 05/28/2019 [facility] [id number] completed Influenza (Split) 10/23/2006 [facility] complet ed Pfizer-BioNTech COVID-19 Vac c 30 MCG/0.3ML Intramuscular Suspension 11/07/2021 [facility] [id number] complet ed Influenza 08/13/2012 [facility] [id number] completed Td 01/21/2000 [facility] completed Fluzone High-Dose 0.5 ML Int ramuscular Suspension Prefilled Syringe 11/01/2020 [facility] [id number] com pleted Pfizer-BioNTech COVID-19 Vac c 30 MCG/0.3ML Intramuscular Suspension 03/14/2021 [facility] complet ed Fluzone High-Dose 0.5 ML Int ramuscular Suspension Prefilled Syringe 08/12/2019 [facility] [id number] com pleted Fluzone Quadrivalent 0.5 ML Intramuscular Suspension Prefilled Syringe 11/11/2017 [facility] [id number] com pleted Influenza 07/23/2016 [facility] [id number] completed Td 04/05/2015 [facility] completed Influenza A (H1N1) Monoval Vac SUSP 11/21/2009 [facility] completed Fluzone High-Dose 0.5 ML Int ramuscular Suspension Prefilled Syringe 11/07/2021 [facility] [id number] com pleted Influenza (Split) 07/20/2009 [facility] complet ed Influenza 09/20/2010 [facility] [id number] completed Influenza (Split) 09/03/2007 [facility] complet ed Influenza 08/04/2013 [facility] [id number] completed
== END 2024-10-28 19:25 | disposition home or self-care (01) ==
LOC: HO.MRI 19:24
PROVIDERS: PCP Nurse Practitioner Family; Visit Provider Nurse Practitioner Family
DX: M54.50 Low back pain, unspecified (principal)
CPT/HCPCS: 72148

== ENCOUNTER 2024-12-13 15:22 | Outpatient (AMB) | payer MEDICARE, SELFPAY ==
[2024-12-13 15:25] VITALS: BP 132/88; PULSE 79; O2SAT 98; BMI 42.3
--- NOTE | 2024-12-13 15:25 | HO.NEPHOV_ITS ---
Vital Signs 12/13/24 15:25 Height 5 ft 6.5 in Weight 266 lb BMI 42.3 BP 132/88 Blood Pressure Location Lt brachial Position Sitting Pulse 79 Pulse Source Pulse Oximeter Pulse Oximetry (%) 98 Oxygen Delivery Method Room Air Intake Visit Reasons: 4 mon follow up-[facility] Skate Boarder Required: No Accompanied by: Spouse Allergies esomeprazole [From Vimovo] Allergy (Mild, Verified 12/13/24 15:28) Headache naproxen [From Vimovo] Allergy (Mild, Verified 12/13/24 15:28) Headache codeine Adverse Reaction (Mild, Verified 12/13/24 15:28) Unknown phenobarbital Adverse Reaction (Mild, Verified 12/13/24 15:28) Unknown Medication List - Last Reconciled 12/13/24 by Sunny Tay MD aspirin 81 mg PO DAILY budesonide-formoterol 160-4.5 mcg/actuation (Symbicort) 2 inhalations inhalation DAILY PRN bupropion HCl XL 150 mg PO QAM calcium carbonate 600 mg PO BID cholecalciferol (vitamin D3) 25 mcg PO BID duloxetine 60 mg PO DAILY ferrous sulfate (Feosol) 325 mg PO Q OTHER DAY gabapentin 1,200 mg (4 x 300 mg) PO DAILY 90 days lorazepam 1 mg orally take 1 tab approx 1 hr before procedure, may repeat x 1 tab if first does not help. cannot drive while on this med; 1 day nystatin 1 appl topical BID-TID trazodone 50 mg PO BEDTIME PRN HPI Comments Details: 68-year-old woman with a history of hypertension in the obesity has been referred for chronic kidney disease. Her serum creatinine has been staying around 1.3 mg/dL L with EGFR of about 53 mL/milliliter and hence this referral. She has history of psoriasis. She denies taking NSAIDs on a chronic basis. 03/23/24 Developed hyperkalemia o f5.4 Recevied 1 dose Kayexalate BP remains low Cr up to 1.5 05/04/2024. Ankle-brachial index was done results are pending. Echocardiogram was unremarkable. Olmesartan was discontinued 4 weeks ago. No new issues. No urinary symptoms. 12/13/24: Overall doing well. No new issues [facility] Medical History (Updated 10/06/24 @ 13:11 by Obinna Joseph [facility]) Periodic limb movement Hx of hiatal hernia FH: total knee replacement Chronic kidney disease Seizure Surgical History Hx of tonsillectomy Hx of shoulder surgery H/O: hysterectomy Hx of appendectomy Hx of total knee replacement Family History Father Cirrhosis Lung cancer Mental health disorder Substance use disorder Mother Lung cancer Social History Household Members: Spouse Housing: Apartment Alcohol intake: current Alcohol intake frequency: holidays/special occasions only Alcohol type: wine Patient Tobacco Use Status: Never used Tobacco e-Cigarette/Vaping Use: Never Used service: No Current occupational status: retired Cognitive needs: No Hearing needs: No Vision needs: No Physical Exam Vital Signs: Last Vital Signs Pulse 79 12/13/24 15:25 BP 132/88 12/13/24 15:25 Pulse Ox 98 12/13/24 15:25 Oxygen Delivery Method Room Air 12/13/24 15:25 BMI result Body Mass Index 42.3 Results Reviewed Nephrology Results: Hgb 12.5 g/dl (12.0-16.0) 08/14/24 WBC 7.6 X10*3/uL (4.8-10.8) 08/14/24 Plt Count 198 X10*3/uL (160-400) 08/14/24 Sodium 143 mmol/L (135-145) 08/14/24 Potassium 4.1 mmol/L (3.3-5.1) 08/14/24 Chloride 107 mmol/L (96-108) 08/14/24 Carbon Dioxide 28 mmol/L (22-29) 08/14/24 BUN 17 mg/dL (9-16) H 08/14/24 Creatinine 1.30 mg/dL (0.5-1.4) 08/14/24 Calcium 9.0 mg/dL (8.4-10.2) 08/14/24 Urine Protein 30 (1+) mg/dL (Neg-Trace) H 08/14/24 Assessment & Plan Assessment & Plan (1) HTN (hypertension): Comment: Code(s): I10 - Essential (primary) hypertension Category: Medical Qualifiers: Hypertension type: primary hypertension Qualified Code(s): I10 - Essential (primary) hypertension Plan: Blood pressure is acceptable After discontinuing olmesartan blood pressure has stabilized. Encouraged to stay on low-sodium diet (2) Chronic kidney disease: Code(s): N18.9 - Chronic kidney disease, unspecified Category: Medical Plan: Recent urine studies did not reveal any blood or protein by urinalysis. Abdominal ultrasonogram revealed normal-appearing left kidney without any hydronephrosis or mass. Right kidney was not scanned. 24 urine collection - calculate creatinine clearance of 38 ml/mt with serum cr of 1.56 Collection seems inadequate Bump in creatinine due to hypoperfusion from low BP and she is sustained some tubular injury. Cr is back to baseline This may be her new baseline. Continue to avoid nephrotoxic agents. No indication for ARB at this time Continue to avoid nephrotoxic agents including NSAIDs. Okay to use allopurinol if needed for gout prophylaxis. Dose will be 100 mg a day. Encouraged her to increase her p.o. fluid intake. Orders: Orders Electrolytes 6 Months N18.30 - Chronic kidney disease, stage 3 unspecified Blood Urea Nitrogen 6 Months N18.30 - Chronic kidney disease, stage 3 unspecified Creatinine Urine 6 Months N18.30 - Chronic kidney disease, stage 3 unspecified Creatinine 6 Months N18.30 - Chronic kidney disease, stage 3 unspecified UA and rflx microscopic 6 Months N18.30 - Chronic kidney disease, stage 3 unspecified Total Protein Urine Random 6 Months N18.30 - Chronic kidney disease, stage 3 unspecified Coding Level of Care Code Est Pt Level 4 (02026) Diagnoses Primary hypertension I10 Hypertension type: primary hypertension Chronic kidney disease N18.9
== END 2024-12-13 15:38 | disposition home or self-care (01) ==
PROVIDERS: PCP Nurse Practitioner Primary Care; Visit Provider Internal Medicine Hypertension Specialist
DX: I12.9 Hypertensive chronic kidney disease with stage 1 through stage 4 chronic kidney disease, or unspecified chronic kidney disease (principal); N18.9 Chronic kidney disease, unspecified
CPT/HCPCS: 99214

== ENCOUNTER → 2024-12-13 15:22 | Outpatient (BNVA) | payer MEDICARE, SELFPAY | PROVIDERS: PCP Nurse Practitioner Primary Care; Visit Provider Internal Medicine Hypertension Specialist | DX: I12.9 Hypertensive chronic kidney disease with stage 1 through stage 4 chronic kidney disease, or unspecified chronic kidney disease (principal); N18.9 Chronic kidney disease, unspecified | CPT/HCPCS: 99212 ==

== ENCOUNTER 2025-01-26 15:44 | Outpatient (AMB) | payer MEDICARE, SELFPAY ==
[2025-01-26 15:45] VITALS: BP 120/74; PULSE 87; RESP 18; TEMP 37.1; O2SAT 95; BMI 40.4
--- NOTE | 2025-01-26 15:45 | MHC.PC.OV ---
Vital Signs 01/26/25 15:45 Height 5 ft 6.5 in Weight 254 lb BMI 40.4 BP 120/74 Blood Pressure Location Lt brachial Position Sitting Respiration 18 Pulse 87 Pulse Source Pulse Oximeter Temp 98.8 F Temp Source Oral Pulse Oximetry (%) 95 Oxygen Delivery Method Room Air Intake Visit Reasons: Follow missed 01/20 Allergies esomeprazole [From Vimovo] Allergy (Mild, Verified 12/13/24 15:28) Headache naproxen [From Vimovo] Allergy (Mild, Verified 12/13/24 15:28) Headache codeine Adverse Reaction (Mild, Verified 12/13/24 15:28) Unknown phenobarbital Adverse Reaction (Mild, Verified 12/13/24 15:28) Unknown Medication List - Last Reconciled 01/26/25 by SUZETTE Rahman aspirin 81 mg PO DAILY bupropion HCl XL 150 mg PO QAM calcium carbonate 600 mg PO BID cholecalciferol (vitamin D3) 25 mcg PO BID duloxetine 60 mg PO DAILY ferrous sulfate (Feosol) 325 mg PO Q OTHER DAY gabapentin 1,200 mg (4 x 300 mg) PO DAILY 90 days ketoconazole 2% 1 appl topical DAILY nystatin 1 appl topical BID-TID trazodone 50 mg PO BEDTIME PRN Tobacco use date assessed: 01/26/25 Fall risk assessment: 2 + Falls in past year Last assessed Fall Risk: 01/26/25 Dental Screening Dental Screen Date: 01/26/25 Did you have a dental visit in the last 12 months?: Yes Did you have a dental problem in the last 6 months where you did not have access to dental care?: No Was dental information given to patient?: Patient has dentist HPI Follow missed 01/20 HPI Details Chief Complaint The patient presents with ongoing discomfort after a fracture and fungal infection under the breasts. History of Present Illness The patient is a 69-year-old female presenting with a follow-up for a right humerus fracture, associated discomfort, and a fungal infection under the breasts. Following her injury on December 20, 2024, she has been treated by an orthopedist and is currently wearing a sling. Pain management includes the introduction of low-dose tramadol, with strict adherence to prescribed usage. The sling may have contributed to the development of a fungal infection; thus, a treatment shift from nystatin to ketoconazole is underway for better efficacy. The patient also experiences neuropathic symptoms and tremors in her bilateral lower extremities, multilevel degenerative spondyloarthropathy, confirmed by MRI results. Sensation is diminished in the feet, vascular and reflexive function appear intact. She is to undergo EMG studies to further assess her neurological status. Social History Health Maintenance Review of Systems - Neurological: Reports neuropathic sensations and occasional tremors in bilateral feet and legs. -denies any cp, sob, n/v, syncope, FITCH Physical Exam General: Cooperative, healthy appearing, comfortable, no acute distress and well developed, morbidly obese Orientation: Patient oriented x3 Limitations: No limitations Head: Normal to inspection Ears: Hearing grossly normal bilaterally Nose: Normal external nose present Face and sinus: Normal facial exam Eyes: Appearance normal, both eyes and all related structures Neck: Normal visual inspection and Yes full ROM Respiratory: Normal respiratory effort and able to speak in complete sentences. Clear to auscultation bilaterally Cardiovascular: Regular rate and rhythm. Normal S1 and S2 GI: Normal to inspection. Soft to palpation and nontender Skin: Fungus underneath breasts, likely due to sling use Neuro: Reports neuropathy type feelings and tremors in bilateral feet and legs. Very little to no sensation in bilateral feet (monofilament). Positive dorsalis pedis pulses. Positive patellar reflexes. Positive Achilles reflex Extremities: Normal to inspection, except for right humerus fracture in a sling. Good radial pulse on the right side. Solid hand grasp. Good CMS. Results - Previous MRI shows multilevel degenerative spondyloarthropathy, no spinal canal stenosis or nerve root compression. - Monofilament testing: Very little to no sensation bilateral feet. Plan The management of the right humerus fracture involves the continued use of a sling and pain relief through low-dose tramadol, with specific guidelines for use. For her fungal infection, treatment has progressed to ketoconazole. Neuropathy and tremors in her legs are further investigated through impending EMG testing. Previous MRI results provide a benign outlook regarding spinal compression issues. Discussion Notes I discussed with the patient her ongoing treatment for the right humerus fracture, including the need for a sling and tramadol for pain control. I explained the necessity of adhering strictly to prescribed dosages and usage guidelines of tramadol. I addressed her concerns about the fungal infection, detailing why ketoconazole has replaced nystatin and the need to maintain dryness of the affected area. We talked about the plan for EMG testing related to her neuropathic symptoms and reviewed her MRI findings, noting the absence of serious spinal canal issues that might otherwise require surgical intervention. Patient Instructions - Continue wearing the sling as directed. - Take tramadol only as prescribed by me; do not share and avoid driving while on the medication. - Apply ketoconazole cream to the affected fungal area and keep the area as dry as possible. - Prepare for EMG testing as advised for further evaluation of leg symptoms. [facility] Medical History Periodic limb movement Hx of hiatal hernia FH: total knee replacement Chronic kidney disease Seizure Surgical History Hx of tonsillectomy Hx of shoulder surgery H/O: hysterectomy Hx of appendectomy Hx of total knee replacement Family History Father Cirrhosis Lung cancer Mental health disorder Substance use disorder Mother Lung cancer Social History Household Members: Spouse Housing: Apartment Alcohol intake: current Alcohol intake frequency: holidays/special occasions only Alcohol type: wine Patient Tobacco Use Status: Never used Tobacco e-Cigarette/Vaping Use: Never Used service: No Current occupational status: retired Cognitive needs: No Hearing needs: No Vision needs: No Questionnaire PHQ-9 Over the last 2 weeks, how often have you been bothered by any of the following problems? 1. Little interest or pleasure in doing things: several days 2. Feeling down, depressed, or hopeless: several days 3. Trouble falling or staying asleep, or sleeping too much: several days 4. Feeling tired or having little energy: several days 5. Poor appetite or overeating: more than half the days 6. Feeling bad about yourself - or that you are a failure or have let yourself or your family down: several days 7. Trouble concentrating on things, such as reading the newspaper or watching television: not at all 8. Moving or speaking so slowly that other people could have noticed. Or the opposite - being so fidgety or restless that you have been moving around a lot more than usual: not at all 9. Thoughts that you would be better off or of hurting yourself in some way: not at all Total score: 7 Depression Screening Interpretation: Negative Depression Screening Done: Yes 65660 - PHQ-9 Billing: Yes Source: Developed by Drs. Maico Zuleta, Gertrude Titus, Hood Medrano and colleagues, with an educational jose g from [employer]. Thrive Questionnaire Date Thrive assessed: 01/26/25 I am a: Patient What is your living situation today?: I have a steady place to live Within the past 12 months, did the food you bought not last and you didn't have the money to get more?: Sometimes True Within the past 12 months, did you worry whether your food would run out before you got money to buy more?: Sometimes True Do you have trouble paying for medicines?: No Do you have trouble getting transportation to medical appointments?: No Do you have trouble paying your heating and electricity bill?: No Do you have trouble taking care of your child, family member or friend?: No Do you have trouble with day-to-day activities such as bathing, preparing meals, shopping, managing finances, etc.?: No Are you currently unemployed and looking for a job?: No Are you interested in more education?: No Please select the resources that you would like help with: None Currently or been in a relationship where the following occur: No concerns reported THRIVE Score: 2 JOSE-7 AMB Questionnaire JOSE-7 Date JOSE - 7 assessed: 01/26/25 Feeling nervous, anxious, or on edge: 1 = Several days Not being able to stop or control worryin = Several days Worrying too much about different things: 1 = Several days Trouble relaxin = Not at all Being so restless that it is hard to sit still: 0 = Not at all Becoming easily annoyed or irritable: 1 = Several days Feeling afraid as if something awful might happen: 0 = Not at all Total JOSE-7 score (0-4 normal; 5-9 mild; 10-14 moderate; 15-21 severe): 4 Source: Developed by Drs. Maico Zuleta, Gertrude Titus, Hood Medrano and colleagues, with an educational jose g from [employer]. JOSE-7 Assessment Billing JOSE-7 Assessment Tool: JOSE-7 Assessment 96548 Physical exam (Primary Care) Vital Signs: Last Vital Signs Temp 98.8 F 01/26/25 15:45 Pulse 87 01/26/25 15:45 Resp 18 01/26/25 15:45 BP 120/74 01/26/25 15:45 Pulse Ox 95 01/26/25 15:45 Oxygen Delivery Method Room Air 01/26/25 15:45 BMI result Body Mass Index 40.4 Tobacco/Smoking Status: Tobacco use Status Tobacco use date assessed 01/26/25 01/26/25 15:53 Patient Tobacco Use Status Never used Tobacco 01/26/25 15:53 e-Cigarette/Vaping Use Never Used 01/26/25 15:46 PHQ-9: PHQ-9 Score PHQ-9: Total score 7 01/26/25 16:39 Depression Screening Interpretation: Negative Thrive Assessment: Date of Thrive Assessment Date Thrive assessed 01/26/25 01/26/25 15:53 Currently or been in a relationship where the following occur: No concerns reported Coding Level of Care Code Est Pt Level 4 (96443) Diagnoses Lower extremity weakness R29.898 Fall W19.XXXA Humerus fracture S42.309A Tinea B35.9 Neuropathy G62.9 Additional Codes JOSE-7 Assessment Billing - JOSE-7 Assessment Tool: JOSE-7 Assessment 39830 ([id number]) PHQ-9 - 73203 - PHQ-9 Billing: Yes ([id number]) Assessment & Plan Assessment & Plan (1) Lower extremity weakness: Code(s): R29.898 - Other symptoms and signs involving the musculoskeletal system Category: Medical (2) Fall: Code(s): W19.XXXA - Unspecified fall, initial encounter Category: Medical (3) Humerus fracture: Code(s): S42.309A - Unspecified fracture of shaft of humerus, unspecified arm, initial encounter for closed fracture Category: Medical (4) Tinea: Code(s): B35.9 - Dermatophytosis, unspecified Category: Medical Plan: . (5) Neuropathy: Code(s): G62.9 - Polyneuropathy, unspecified Category: Medical Plan . Orders: Orders NE electromyogram (EMG) Today R29.898 - Other symptoms and signs involving the musculoskeletal system NE nerve conduction velocity Today R29.898 - Other symptoms and signs involving the musculoskeletal system Medications: New ketoconazole 2% 1 appl topical DAILY 30 grams 0RF tramadol 50 mg PO BID PRN 40 tabs 0RF pain 20 days
--- OUTSIDE RECORDS SUMMARY | 2025-01-26 18:55 | XMS_ITS | Encounter Summary ---
Author Organization [facility] Address [address] [place] [address] Care Team Providers Care Electrical Accessories Assembler Name Role Phone Shelley Beard MD Primary Care Provider + Encounter Details Date Type Department Care Team (Late st Contact Info) Description 12/29/2024 Lab Requisition [facility] - Main Lab [address] [place] [address] Shelley Beard MD [address] [phone] Weakness Social History Tobacco Use Types Packs/Day Years Used Date Smoking Tobacco: Never Smokeless Tobacco: Never Alcohol Use Standard Drinks/Week Comments No 0 (1 standard drink = 0.6 oz pur e alcohol) Comments Unknown Sex and Gender Information Value Date Recorded Sex Assigned at Not on file Legal Sex Female 12:04 PM EST Gender Identity Not on file Sexual Orientation Not on file documented as of this encounter Plan of Treatment Not on file documented as of this encounter Procedures Procedure Name Priority Date/Time Associated Diagnosis Comments COMPLETE BLOOD COUNT Routine 12/30/2024 6:50 AM EST Weakness BASIC METABOLIC PANEL Routine 12/30/2024 6:50 AM EST Weakness documented in this encounter Results * (ABNORMAL) Basic metabolic panel (12/30/2024 6:50 AM EST) Sodium 141 133 - 145 mmol/L LAB CHEMISTRY METHOD 12/30/2024 11:37 AM EST [facility] Potassium 4.5 3.5 - 5.5 mmol/L LAB CHEMISTRY METHOD 12/30/2024 11:37 AM [facility] Chloride 103 96 - 110 mmol/L LAB CHEMISTRY METHOD 12/30/2024 11:37 AM [facility] CO2 31 21 - 32 mmol/L LAB CHEMISTRY METHOD 12/30/2024 11:37 AM [facility] Anion Gap 7 3 - 11 LAB CHEMISTRY METHOD 12/30/2024 11:37 AM [facility] Glucose 99 70 - 100 mg/dL LAB CHEMISTRY METHOD 12/30/2024 11:37 AM [facility] BUN 26(H) 5 - 25 mg/dL LAB CHEMISTRY METHOD 12/30/2024 11:37 AM [facility] Creatinine 1.33(H) 0.50 - 1.10 mg/dL LAB CHEMISTRY METHOD 12/30/2024 11:37 AM [facility] eGFR 43(L) >=60 mL/min/1. 73m2 LAB CHEMISTRY METHOD 12/30/2024 11:37 AM [facility] Comment:Calculation based on the??Chronic Kidney Disease Epidemiology Collaboration (CKD-EPI) equation refit??without adjustment for race. BUN/Creatinine Ratio 19.5 LAB CHEMISTRY METHOD 12/30/2024 11:37 AM [facility] Calcium 9.2 8.5 - 10.5 mg/dL LAB CHEMISTRY METHOD 12/30/2024 11:37 AM [facility] Blood Venous blood specimen / Unknown Venipuncture / Unknown 12/30/2024 6:50 AM EST 12/30/2024 10:45 AM EST us Shelley Beard MD LAB BLOOD ORDERABLES Fin al Result [facility] [address] [place] [address], * (ABNORMAL) Complete blood count (12/30/2024 6:50 AM EST) [facility] WBC 7.8 4.8 - 10.8 K/mcL LAB HEMETOLOGY METHOD 12/30/2024 11:35 AM [facility] RBC 4.40 3.80 - 4.80 M/mcL LAB HEMETOLOGY METHOD 12/30/2024 11:35 AM [facility] Hemoglobin 11.3(L) 11.5 - 16.0 g/dL LAB HEMETOLOGY METHOD 12/30/2024 11:35 AM [facility] Hematocrit 37.4 35.0 - 47.0 % LAB HEMETOLOGY METHOD 12/30/2024 11:35 AM [facility] MCV 85.6 79.0 - 98.0 FL LAB HEMETOLOGY METHOD 12/30/2024 11:35 AM [facility] MCH 25.9(L) 27.0 - 32.0 pcg LAB HEMETOLOGY METHOD 12/30/2024 11:35 AM [facility] MCHC 30.2(L) 32.0 - 37.0 g/dL LAB HEMETOLOGY METHOD 12/30/2024 11:35 AM [facility] RDW 15.5(H) 11.0 - 15.0 % LAB HEMETOLOGY METHOD 12/30/2024 11:35 AM [facility] Platelets 308 130 - 400 K/mcL LAB HEMETOLOGY METHOD 12/30/2024 11:35 AM [facility] MPV 10.9 7.0 - 11.0 FL LAB HEMETOLOGY METHOD 12/30/2024 11:35 AM [facility] NRBC 0.0 <1.0 % LAB HEMETOLOGY METHOD 12/30/2024 11:35 AM [facility] NRBC Absolute 0.00 <0.10 K/mcL LAB HEMETOLOGY METHOD 12/30/2024 11:35 AM EST [facility] Blood Venous blood specimen / Unknown Venipuncture / Unknown 12/30/2024 6:50 AM EST 12/30/2024 10:46 AM EST us Shelley Beard MD LAB BLOOD ORDERABLES Fin al Result [facility] [address] [place] [address], documented in this encounter Visit Diagnoses Diagnosis Weakness Other malaise and fatigue documented in this encounter Care Teams Electrical Accessories Assembler Relationship Specialty Start Date End Date Shelley Beard MD [address] [place] [id number] PCP - General Family Medicine 12/31/24 documented as of this encounter
--- OUTSIDE RECORDS SUMMARY | 2025-01-26 18:55 | XMS_ITS | Encounter Summary ---
Author Organization [facility] Address [address] [place] [address] Care Team Providers Care Registered Nurse Nursery Name Role Phone Shelley Beard MD Primary Care Provider + Encounter Details Date Type Department Care Team (Late st Contact Info) Description 12/26/2024 Lab Requisition [facility] - Main Lab [address] [place] [address] Shelley Beard MD [address] [phone] Weakness Social History Tobacco Use Types Packs/Day [...] Associated Diagnosis Comments COMPLETE BLOOD COUNT Routine 12/27/2024 7:29 AM EST Weakness BASIC METABOLIC PANEL Routine 12/27/2024 7:29 AM EST Weakness documented in this encounter Results * (ABNORMAL) Basic metabolic panel (12/27/2024 7:29 AM EST) Sodium 137 133 - 145 mmol/L LAB CHEMISTRY METHOD 12/27/2024 1:11 PM EST [facility] Potassium 4.6 3.5 - 5.5 mmol/L LAB CHEMISTRY METHOD 12/27/2024 1:11 PM [facility] Chloride 98 96 - 110 mmol/L LAB CHEMISTRY METHOD 12/27/2024 1:11 PM [facility] CO2 32 21 - 32 mmol/L LAB CHEMISTRY METHOD 12/27/2024 1:11 PM [facility] Anion Gap 7 3 - 11 LAB CHEMISTRY METHOD 12/27/2024 1:11 PM [facility] Glucose 89 70 - 100 mg/dL LAB CHEMISTRY METHOD 12/27/2024 1:11 PM [facility] BUN 26(H) 5 - 25 mg/dL LAB CHEMISTRY METHOD 12/27/2024 1:11 PM [facility] Creatinine 1.53(H) 0.50 - 1.10 mg/dL LAB CHEMISTRY METHOD 12/27/2024 1:11 PM [facility] eGFR 36(L) >=60 mL/min/1. 73m2 LAB CHEMISTRY METHOD 12/27/2024 1:11 PM [facility] Comment:Calculation based on the??Chronic Kidney Disease Epidemiology Collaboration (CKD-EPI) equation refit??without adjustment for race. BUN/Creatinine Ratio 17.0 LAB CHEMISTRY METHOD 12/27/2024 1:11 PM [facility] Calcium 9.3 8.5 - 10.5 mg/dL LAB CHEMISTRY METHOD 12/27/2024 1:11 PM [facility] Blood Venous blood specimen / Unknown Venipuncture / Unknown 12/27/2024 7:29 AM EST 12/27/2024 11:09 AM EST us Shelley Beard MD LAB BLOOD ORDERABLES Fin al Result [facility] [address] [place] [address], * (ABNORMAL) Complete blood count (12/27/2024 7:29 AM EST) [facility] WBC 10.4 4.8 - 10.8 K/mcL LAB HEMETOLOGY METHOD 12/27/2024 11:35 AM [facility] RBC 4.60 3.80 - 4.80 M/mcL LAB HEMETOLOGY METHOD 12/27/2024 11:35 AM [facility] Hemoglobin 12.0 11.5 - 16.0 g/dL LAB HEMETOLOGY METHOD 12/27/2024 11:35 AM [facility] Hematocrit 39.2 35.0 - 47.0 % LAB HEMETOLOGY METHOD 12/27/2024 11:35 AM [facility] MCV 84.5 79.0 - 98.0 FL LAB HEMETOLOGY METHOD 12/27/2024 11:35 AM [facility] MCH 25.9(L) 27.0 - 32.0 pcg LAB HEMETOLOGY METHOD 12/27/2024 11:35 AM [facility] MCHC 30.6(L) 32.0 - 37.0 g/dL LAB HEMETOLOGY METHOD 12/27/2024 11:35 AM [facility] RDW 15.6(H) 11.0 - 15.0 % LAB HEMETOLOGY METHOD 12/27/2024 11:35 AM [facility] Platelets 294 130 - 400 K/mcL LAB HEMETOLOGY METHOD 12/27/2024 11:35 AM [facility] MPV 11.1(H) 7.0 - 11.0 FL LAB HEMETOLOGY METHOD 12/27/2024 11:35 AM [facility] NRBC 0.0 <1.0 % LAB HEMETOLOGY METHOD 12/27/2024 11:35 AM [facility] NRBC Absolute 0.00 <0.10 K/mcL LAB HEMETOLOGY METHOD 12/27/2024 11:35 AM EST [facility] Blood Venous blood specimen / Unknown Venipuncture / Unknown 12/27/2024 7:29 AM EST 12/27/2024 11:08 AM EST us Shelley Beard MD LAB BLOOD ORDERABLES Fin al Result [facility] [address] [place] [address], documented in this encounter Visit Diagnoses Diagnosis Weakness Other malaise and fatigue documented in this encounter Care Teams Registered Nurse Nursery Relationship Specialty Start Date End Date Shelley Beard MD [address] [place] [id number] PCP - General Family Medicine 12/31/24 documented as of this encounter
--- OUTSIDE RECORDS SUMMARY | 2025-01-26 18:55 | XMS_ITS | Encounter Summary ---
Author Organization [facility] Address [address] [place] [address] Care Team Providers Care Java Web User Interface Developer Name Role Phone Shelley Beard MD Primary Care Provider + Encounter Details Date Type Department Care Team (Late st Contact Info) Description 12/24/2024 Lab Requisition [facility] - Main Lab [address] [facility] [place] [address] Shelley Beard MD [address] [facility] [address] [place], [place] [id number] Unspecified fall, subsequent encounter; Weakness Social History Tobacco Use Types Packs/Day [...] Procedure Name Priority Date/Time Associated Diagnosis Comments THYROID STIMULATING HORMONE WITH REFLEX TO FREE T4 AND FREE T3 Routine 12/24/2024 5:48 AM EST Unspecified fall, subsequent encounter Weakness COMPLETE BLOOD COUNT Routine 12/24/2024 5:48 AM EST Unspecified fall, subsequent encounter Weakness FOLATE Routine 12/24/2024 5:48 AM EST Unspecified fall, subsequent encounter Weakness VITAMIN B12 Routine 12/24/2024 5:48 AM EST Unspecified fall, subsequent encounter Weakness COMPREHENSIVE METABOLIC PANEL Routine 12/24/2024 5:48 AM EST Unspecified fall, subsequent encounter Weakness documented in this encounter Results * Folate (12/24/2024 5:48 AM EST) Pathologist [facility] Folate 3.9 2.8 - 17.0 ng/ml LAB CHEMISTRY METHOD 12/24/2024 11:09 AM EST [facility] Blood Venous blood specimen / Unknown Venipuncture / Unknown 12/24/2024 5:48 AM EST 12/24/2024 8:47 AM EST Shelley Beard MD LAB BLOOD ORDERABLES Fin al Result Performing Organization Address City/[facility]/ZIP Co de Phone Number [facility] [address] [place] [address], [place] [phone] * Vitamin B12 (12/24/2024 5:48 AM EST) [facility] Vitamin B-12 289 250 - 900 pcg/mL LAB CHEMISTRY METHOD 12/24/2024 11:09 AM EST [facility] Blood Venous blood specimen / Unknown Venipuncture / Unknown 12/24/2024 5:48 AM EST 12/24/2024 8:47 AM EST Shelley Baerd MD LAB BLOOD ORDERABLES Fin al Result [facility] [address] [place] [address], [place] [phone] * Thyroid stimulating hormone with reflex to free t4 and free t3 (12/24/2024 5:48 AM EST) [facility] TSH 1.63 0.40 - 4.00 mcIU/mL LAB CHEMISTRY METHOD 12/24/2024 10:54 AM EST [facility] Blood Venous blood specimen / Unknown Venipuncture / Unknown 12/24/2024 5:48 AM EST 12/24/2024 8:47 AM EST Shelley Beard MD LAB BLOOD ORDERABLES Fin al Result [facility] [address] [place] [address], [place] [phone] * (ABNORMAL) Comprehensive metabolic panel (12/24/2024 5:48 AM EST) Pathologist [facility] Sodium 139 133 - 145 mmol/L LAB CHEMISTRY METHOD 12/24/2024 10:46 AM [facility] Potassium 4.6 3.5 - 5.5 mmol/L LAB CHEMISTRY METHOD 12/24/2024 10:46 AM [facility] Chloride 101 96 - 110 mmol/L LAB CHEMISTRY METHOD 12/24/2024 10:46 AM [facility] CO2 33(H) 21 - 32 mmol/L LAB CHEMISTRY METHOD 12/24/2024 10:46 AM [facility] Anion Gap 5 3 - 11 LAB CHEMISTRY METHOD 12/24/2024 10:46 AM [facility] Glucose 93 70 - 100 mg/dL LAB CHEMISTRY METHOD 12/24/2024 10:46 AM [facility] BUN 18 5 - 25 mg/dL LAB CHEMISTRY METHOD 12/24/2024 10:46 AM [facility] Creatinine 1.30(H) 0.50 - 1.10 mg/dL LAB CHEMISTRY METHOD 12/24/2024 10:46 AM [facility] eGFR 44(L) >=60 mL/min/1. 73m2 LAB CHEMISTRY METHOD 12/24/2024 10:46 AM [facility] Comment:Calculation based on the??Chronic Kidney Disease Epidemiology Collaboration (CKD-EPI) equation refit??without adjustment for race. BUN/Creatinine Ratio 13.8 LAB CHEMISTRY METHOD 12/24/2024 10:46 AM [facility] Calcium 9.1 8.5 - 10.5 mg/dL LAB CHEMISTRY METHOD 12/24/2024 10:46 AM [facility] AST (SGOT) 41 10 - 42 unit/L LAB CHEMISTRY METHOD 12/24/2024 10:46 AM [facility] ALT (SGPT) 25 10 - 60 unit/L LAB CHEMISTRY METHOD 12/24/2024 10:46 AM [facility] Alkaline Phosphatase 81 42 - 121 unit/L LAB CHEMISTRY METHOD 12/24/2024 10:46 AM [facility] Total Protein 6.2 6.0 - 8.0 g/dL LAB CHEMISTRY METHOD 12/24/2024 10:46 AM [facility] Albumin 2.7(L) 3.2 - 5.0 g/dL LAB CHEMISTRY METHOD 12/24/2024 10:46 AM [facility] Total Bilirubin 0.5 0.0 - 1.4 mg/dL LAB CHEMISTRY METHOD 12/24/2024 10:46 AM [facility] Blood Venous blood specimen / Unknown Venipuncture / Unknown 12/24/2024 5:48 AM EST 12/24/2024 8:47 AM EST us Shelley Beard MD LAB BLOOD ORDERABLES Fin al Result [facility] [address] [place] [address], * (ABNORMAL) Complete blood count (12/24/2024 5:48 AM EST) WBC 8.8 4.8 - 10.8 K/mcL LAB HEMETOLOGY METHOD 12/24/2024 10:13 AM [facility] RBC 4.20 3.80 - 4.80 M/mcL LAB HEMETOLOGY METHOD 12/24/2024 10:13 AM [facility] Hemoglobin 10.9(L) 11.5 - 16.0 g/dL LAB HEMETOLOGY METHOD 12/24/2024 10:13 AM [facility] Hematocrit 36.3 35.0 - 47.0 % LAB HEMETOLOGY METHOD 12/24/2024 10:13 AM [facility] MCV 85.8 79.0 - 98.0 FL LAB HEMETOLOGY METHOD 12/24/2024 10:13 AM [facility] MCH 25.8(L) 27.0 - 32.0 pcg LAB HEMETOLOGY METHOD 12/24/2024 10:13 AM [facility] MCHC 30.0(L) 32.0 - 37.0 g/dL LAB HEMETOLOGY METHOD 12/24/2024 10:13 AM [facility] RDW 15.2(H) 11.0 - 15.0 % LAB HEMETOLOGY METHOD 12/24/2024 10:13 AM [facility] Platelets 204 130 - 400 K/mcL LAB HEMETOLOGY METHOD 12/24/2024 10:13 AM [facility] MPV 11.5(H) 7.0 - 11.0 FL LAB HEMETOLOGY METHOD 12/24/2024 10:13 AM [facility] NRBC 0.0 <1.0 % LAB HEMETOLOGY METHOD 12/24/2024 10:13 AM [facility] NRBC Absolute 0.00 <0.10 K/mcL LAB HEMETOLOGY METHOD 12/24/2024 10:13 AM [facility] Blood Venous blood specimen / Unknown Venipuncture / Unknown 12/24/2024 5:48 AM EST 12/24/2024 8:47 AM EST Shelley Beard MD LAB BLOOD ORDERABLES Fin al Result [facility] [address] [place] [address], documented in this encounter Visit Diagnoses Diagnosis Unspecified fall, subsequent encounter Weakness Other malaise and fatigue documented in this encounter Care Teams Java Web User Interface Developer Relationship Specialty Start Date End Date Shelley Beard MD [address] [place] [address] PCP - General Family Medicine 12/31/24 documented as of this encounter
--- OUTSIDE RECORDS SUMMARY | 2025-01-26 18:55 | XMS_ITS | Clinical Summary ---
Author Organization [facility] Address [address] [place] [id number] Care Team Providers Care Tallier Name Role Phone Arminda Arita MD Unavailable Obinna Gannon MD Primary Care Provider [phone] Octavio Alejandre MD Unavailable [phone] Breezy Crisostomo MD Unavailable [phone] Allergies Active Allergy Reactions Criticality Noted Date Comments Codeine Unknown/Patient and Family Unable to Define,Anxiety,GI Intolerance/Nausea/Vomiti ng High 08/24/2018 Naproxen-Esomeprazole Mg Unknown/Patient and Family Unable to Define,GI Intolerance/Nausea/Vomiti ng Medium 08/24/2018 headaches Phenobarbital Unknown/Patient and Family Unable to Define,Anxiety,GI Intolerance/Nausea/Vomiti ng High 08/24/2018 Medications Medication Sig Dispensed Refills Start Date End Date Status DULoxetine (CYMBALTA) 60 MG capsule Take 60 mg by mouth nightly. Take the night before surgery 03/29/2019 Active traZODone (DESYREL) 50 MG tablet Take 25 mg by mouth nightly. Take the night before surgery 05/21/2019 Active ferrous sulfate 325 (65 FE) MG tablet Take 325 mg by mouth every morning. Take 2 hours before or 4 hours after acid reducers. Do not take day of surgery Active gabapentin (NEURONTIN) 300 MG capsule Take 300 mg by mouth daily. Take day of surgery, twice a day per pt, 1 tab in the morning and 2 tabs in the evening Active cholecalciferol (VITAMIN D3) 1000 units tablet Take 1,000 Units by mouth every morning. Stop on 08/19/19 Active gabapentin (NEURONTIN) 600 MG tablet Take 600 mg by mouth nightly. Take the night before surgery Active aspirin enteric coated (ECOTRIN LOW STRENGTH) 81 MG EC tabletIndications:S/P total knee replacement, right Take 1 tablet (81 mg total) by mouth nightly. Start on 09/10 and take twice daily x 4 weeks, then resume daily dosing 60 tablet 08/27/2019 Active Active Problems Problem Noted Date Diagnosed Date Chronic pain of left knee 04/16/2021 History of left knee replacement 04/16/2021 Difficulty walking 09/14/2019 Orthopedic aftercare 09/14/2019 Osteoarthritis of right knee 08/26/2019 Fatty liver 08/09/2019 Sleep apnea 08/09/2019 Hypertension 08/09/2019 Overview (08/09/2019): history - resolved per patient CKD (chronic kidney disease), stage III 08/09/20 Depression 08/09/2019 Epilepsy undetermined as to focal or generalized 05/26/2019 Episodic lightheadedness 05/26/2019 Dizziness 01/06/2019 Family History Medical History Relation Name Comments Cancer Brother Arthritis Daughter 1 Migraines Daughter 2 Cancer Father Cancer Mother Breast cancer Sister Relation Name Status Comments Brother Daughter 1 Alive Daughter 2 Alive Father Mother Sister Alive Son Alive Social History Tobacco Use Types Packs/Day Years Used Date Smoking Tobacco: Never Smokeless Tobacco: Never Alcohol Use Standard Drinks/Week Comments Yes 0 (1 standard drink = 0.6 oz pur e alcohol) once a month or less Sex and Gender Information Value Date Recorded Sex Assigned at Not on file Gender Identity Not on file Sexual Orientation Not on file Last Filed Vital Signs Vital Sign Reading Time Taken Comments Blood Pressure 118/74 09/10/2019 11:23 AM EDT Pulse 74 05/23/2021 5:52 PM EDT Temperature 36.6 ??C (97.8 ??F) 05/23/2021 5:52 PM ED T Respiratory Rate 18 09/05/2019 2:54 PM EDT Oxygen Saturation 95% 05/23/2021 5:52 PM EDT Inhaled Oxygen Concentration - - Weight 109 kg (240 lb) 05/23/2021 5:52 PM EDT Height 167.6 cm (5' 6 ) 05/23/2021 5:52 PM EDT Body Mass Index 38.74 05/23/2021 5:52 PM EDT Plan of Treatment Health Maintenance Due Date Last Done Comments Hepatitis C Virus Screening 1954 DTaP/Tdap/Td Vaccines (1 - Tdap) 1973 Mammogram 1994 Colonoscopy 1999 Pneumococcal Vaccines 50+ (1 of 1 - PCV) 2004 Zoster (Shingles) Vaccine (1 of 2) 2004 DXA Bone Density (Females,Ages 65 and older) 2019 Influenza Vaccine 06/24/2024 11/11/2017, , 09/03/2007, Additional history exists COVID-19 Vaccine ( season) 2024 11/07/2021, 03/22/2021, 02/12/2021 RSV Vaccine 60 years and older and Patients (1 - 1-dose 75+ series) 2029 Hepatitis B Vaccines Aged Out No long er eligible based on patient's age to complete this topic Medical Devices Implanted Type Area Educational Consultant Device Identifier Shelf Expiration Date Model / Serial / Lot 5531-G-309 Insert Tibial 3 9mm Knee X3 Cndrl Stab Trthln - [id number] Implanted:Qty : 1 on 08/26/2019 by Garfield Coyne MD at [facility] Joint Prosthesis Right: Knee [employer] [id number] 10/26/2023 5531-G-3 09 / / [id number] 5517-F-302 Component Femoral 3 Knee Right Crcte Rtn Bead Trthln Pa - [id number] Implanted:Qty : 1 on 08/26/2019 by Garfield Coyne MD at [facility] Joint Prosthesis Right: Knee [employer] ASH [id number] 06/11/2024 5517-F-3 02 / / [id number] 5536-B-300 Baseplate Tibial Triathalon Tritanium 3 L44 Mm L67 Mm Steril - [id number] Implanted:Qty : 1 on 08/26/2019 by Garfield Coyne MD at [facility] Joint Prosthesis Right: Knee [employer] [id number] 06/09/2024 5536-B-3 00 / / [id number] Advance Directives * Full Code (Latest Code Status on File) Date Activated Date Inactivated Comments 08/26/2019 3:14 PM * Full Code Date Activated Date Inactivated Comments 08/26/2019 7:28 AM 08/26/2019 3:14 PM Care Teams Tallier Relationship Specialty Start Date End Date Obinna Gannon MD [address] [phone] PCP - General Internal Medicine 07/15/19 Arminda Arita MD [address] [place] [id number] Referring Provider Cardiovascular Disease 05/26/19 Octavio Alejandre MD [address] [place] [address] Neurology 08/05/19 Breezy Crisostomo MD [address] [place] [address] Physician Nephrology 08/09/19
--- OUTSIDE RECORDS SUMMARY | 2025-01-26 18:55 | XMS_ITS | Clinical Summary ---
Author Organization [address] Address [address] [place] [address] Phone Care Team Providers Care Rate Setter Name Role Phone Shelley Beard MD Primary Care Provider + Encounters Date Type Department Care Team Description 01/16/2025 Lab Requisition [facility] - Main Lab [address] [place] [phone] Shelley Beard MD Weakness 01/12/2025 Lab Requisition [facility] - Main Lab [address] [place] [address] Shelley Beard MD Weakness 01/07/2025 Lab Requisition [facility] - Main Lab [address] [place] [address] Shelley Beard MD Weakness 01/05/2025 Lab Requisition [facility] - Main Lab [address] [place] [address] Shelley Beard MD Weakness 12/31/2024 Lab Requisition [facility] - Main Lab [address] [place] [address] Shelley Beard MD Weakness 12/29/2024 Lab Requisition [facility] - Main Lab [address] [place] [address] Shelley Beard MD Weakness 12/26/2024 Lab Requisition [facility] - Main Lab [address] [place] [address] Shelley Beard MD Weakness 12/24/2024 Lab Requisition [facility] - Main Lab [address] [place] [address] Shelley Beard MD Unspecified fall, subsequent encounter; Weakness from Last 3 Months Surgical History Surgery Date Site/Laterality Comments APPENDECTOMY PROCEDURE:APPENDECTOMY TONSILLECTOMY ADENOIDECTOMY, BILATERAL MYRINGOTOMY AND TUBES PROCEDURE:TONSILECTOMY, ADENOIDECTOMY, BILATERAL MYRINGOTOMY AND TUBES HYSTERECTOMY PROCEDURE:HYSTERECTOMY CHOLECYSTECTOMY PROCEDURE:CHOLECYSTECTOMY OTHER SURGICAL HISTORY PROCEDURE:shoulder spur HERNIA REPAIR PROCEDURE:HERNIA REPAIR TOTAL KNEE ARTHROPLASTY PROCEDURE:REPLACEMENT TOTAL KNEE Medical History Medical History Date Comments Liver disease DX:Liver disease Epilepsy (CMS/HCC) DX:Epilepsy ( HCC) Depression DX:Depression Anxiety DX:Anxiety High blood pressure DX:High bloo d pressure Anemia DX:Anemia Family History Medical History Relation Name Comments Alcohol abuse Father Relation Name Status Comments Father Mother Social History Tobacco Use Types Packs/Day Years Used Date Smoking Tobacco: Never Smokeless Tobacco: Never Alcohol Use Standard Drinks/Week Comments No 0 (1 standard drink = 0.6 oz pur e alcohol) Comments Unknown Sex and Gender Information Value Date Recorded Sex Assigned at Not on file Legal Sex Female 12:04 PM EST Gender Identity Not on file Sexual Orientation Not on file Obstetrics History Plan of Treatment Health Maintenance Due Date Last Done Comments Breast Cancer Screening 1955 DTaP,Tdap,and Td Vaccines (1 - Tdap) 1973 Hepatitis A Vaccines (1 of 2 - Risk 2-dose series) 1973 Pneumococcal Vaccine: 50+ Years (1 of 1 - PCV) 2004 Zoster Vaccines (1 of 2) 2004 Hepatitis B Vaccines (1 of 3 - Risk 3-dose series) 2014 RSV Immunization Patients 60+ Years Old (1 - Risk 60-74 years 1-dose series) 2014 Cholesterol Screening (Lipid Panel) 10/22/2022 Colorectal Cancer Screening: Colonoscopy 10/22/2022 Depression Screening 10/22/2022 Falls Risk Assessment 10/22/2022 Hepatitis C Screening 10/22/2022 Medicare Annual Wellness Visit 10/22/2022 Osteoporosis Screening (Bone Density Screening) 10/22/2022 Social Influencers of Health Screening 10/22/2022 COVID-19 Vaccine ( season) 2024 02/12/2021 Influenza Vaccine (#1) 2024 Hypertension/CHF/CAD Annual BMP Blood Test 01/13/2026 01/13/2025, 01/10/2025, 01/06/2025, Additional history exists HIB Vaccines Aged Out No longer eligi ble based on patient's age to complete this topic HPV Vaccines Aged Out No longer eligi ble based on patient's age to complete this topic IPV Vaccines Aged Out No longer eligi ble based on patient's age to complete this topic MMR Vaccines Aged Out No longer eligi ble based on patient's age to complete this topic Meningococcal ACWY Vaccine Aged Out N o longer eligible based on patient's age to complete this topic Meningococcal B Vacine Aged Out No lo nger eligible based on patient's age to complete this topic RSV Immunization Patients Under 20 months Aged Out No longer eligible based on patient's age to complete this topic Varicella Vaccines Aged Out No longer eligible based on patient's age to complete this topic Procedures Procedure Name Priority Date/Time Associated Diagnosis Comments BASIC METABOLIC PANEL Routine 01/13/2025 7:06 AM EST Weakness COMPLETE BLOOD COUNT Routine 01/13/2025 7:06 AM EST Weakness BASIC METABOLIC PANEL Routine 01/10/2025 7:21 AM EST Weakness COMPLETE BLOOD COUNT Routine 01/10/2025 7:21 AM EST Weakness BASIC METABOLIC PANEL Routine 01/06/2025 6:09 AM EST Weakness COMPLETE BLOOD COUNT Routine 01/06/2025 6:09 AM EST Weakness BASIC METABOLIC PANEL Routine 01/03/2025 7:12 AM EST Weakness COMPLETE BLOOD COUNT Routine 01/03/2025 7:12 AM EST Weakness BASIC METABOLIC PANEL Routine 12/30/2024 6:50 AM EST Weakness COMPLETE BLOOD COUNT Routine 12/30/2024 6:50 AM EST Weakness BASIC METABOLIC PANEL Routine 12/27/2024 7:29 AM EST Weakness COMPLETE BLOOD COUNT Routine 12/27/2024 7:29 AM EST Weakness FOLATE Routine 12/24/2024 5:48 AM EST Unspecified fall, subsequent encounter Weakness VITAMIN B12 Routine 12/24/2024 5:48 AM EST Unspecified fall, subsequent encounter Weakness THYROID STIMULATING HORMONE WITH REFLEX TO FREE T4 AND FREE T3 Routine 12/24/2024 5:48 AM EST Unspecified fall, subsequent encounter Weakness COMPREHENSIVE METABOLIC PANEL Routine 12/24/2024 5:48 AM EST Unspecified fall, subsequent encounter Weakness COMPLETE BLOOD COUNT Routine 12/24/2024 5:48 AM EST Unspecified fall, subsequent encounter Weakness from Last 3 Months Results * (ABNORMAL) Complete blood count (01/13/2025 7:06 AM EST) Only the most recent of7 resultswithin the time period is included. WBC 8.0 4.8 - 10.8 K/mcL LAB HEMETOLOGY METHOD 01/13/2025 12:56 PM [facility] RBC 4.40 3.80 - 4.80 M/mcL LAB HEMETOLOGY METHOD 01/13/2025 12:56 PM [facility] Hemoglobin 11.3(L) 11.5 - 16.0 g/dL LAB HEMETOLOGY METHOD 01/13/2025 12:56 PM [facility] Hematocrit 38.3 35.0 - 47.0 % LAB HEMETOLOGY METHOD 01/13/2025 12:56 PM [facility] MCV 86.7 79.0 - 98.0 FL LAB HEMETOLOGY METHOD 01/13/2025 12:56 PM EST [facility] MCH 25.6(L) 27.0 - 32.0 pcg LAB HEMETOLOGY METHOD 01/13/2025 12:56 PM [facility] MCHC 29.5(L) 32.0 - 37.0 g/dL LAB HEMETOLOGY METHOD 01/13/2025 12:56 PM EST [facility] RDW 15.9(H) 11.0 - 15.0 % LAB HEMETOLOGY METHOD 01/13/2025 12:56 PM [facility] Platelets 242 130 - 400 K/mcL LAB HEMETOLOGY METHOD 01/13/2025 12:56 PM [facility] MPV 11.2(H) 7.0 - 11.0 FL LAB HEMETOLOGY METHOD 01/13/2025 12:56 PM [facility] NRBC 0.0 <1.0 % LAB HEMETOLOGY METHOD 01/13/2025 12:56 PM [facility] NRBC Absolute 0.00 <0.10 K/mcL LAB HEMETOLOGY METHOD 01/13/2025 12:56 PM [facility] Blood Venous blood specimen / Unknown Venipuncture / Unknown 01/13/2025 7:06 AM EST 01/13/2025 11:23 AM EST us Shelley Beard MD LAB BLOOD ORDERABLES Fin al Result [facility] [address] [place] [address], * (ABNORMAL) Basic metabolic panel (01/13/2025 7:06 AM EST) Only the most recent of6 resultswithin the time period is included. [facility] Signature Sodium 140 133 - 145 mmol/L LAB CHEMISTRY METHOD 01/13/2025 12:36 PM [facility] Potassium 4.7 3.5 - 5.5 mmol/L LAB CHEMISTRY METHOD 01/13/2025 12:36 PM [facility] Chloride 103 96 - 110 mmol/L LAB CHEMISTRY METHOD 01/13/2025 12:36 PM [facility] CO2 31 21 - 32 mmol/L LAB CHEMISTRY METHOD 01/13/2025 12:36 PM [facility] Anion Gap 6 3 - 11 LAB CHEMISTRY METHOD 01/13/2025 12:36 PM [facility] Glucose 88 70 - 100 mg/dL LAB CHEMISTRY METHOD 01/13/2025 12:36 PM [facility] BUN 28(H) 5 - 25 mg/dL LAB CHEMISTRY METHOD 01/13/2025 12:36 PM [facility] Creatinine 1.32(H) 0.50 - 1.10 mg/dL LAB CHEMISTRY METHOD 01/13/2025 12:36 PM [facility] eGFR 44(L) >=60 mL/min/1. 73m2 LAB CHEMISTRY METHOD 01/13/2025 12:36 PM [facility] Comment:Calculation based on the??Chronic Kidney Disease Epidemiology Collaboration (CKD-EPI) equation refit??without adjustment for race. BUN/Creatinine Ratio 21.2 LAB CHEMISTRY METHOD 01/13/2025 12:36 PM [facility] Calcium 9.0 8.5 - 10.5 mg/dL LAB CHEMISTRY METHOD 01/13/2025 12:36 PM [facility] Blood Venous blood specimen / Unknown Venipuncture / Unknown 01/13/2025 7:06 AM EST 01/13/2025 11:21 AM EST us Shelley Beard MD LAB BLOOD ORDERABLES Fin al Result [facility] [address] [place] [address], [place] [phone] * Thyroid stimulating hormone with reflex to free t4 and free t3 (12/24/2024 5:48 AM EST) Pathologist [facility] TSH 1.63 0.40 - 4.00 mcIU/mL LAB CHEMISTRY METHOD 12/24/2024 10:54 AM EST [facility] Blood Venous blood specimen / Unknown Venipuncture / Unknown 12/24/2024 5:48 AM EST 12/24/2024 8:47 AM EST Shelley Beard MD LAB BLOOD ORDERABLES Fin al Result [facility] [address] [place] [address], [place] [phone] * Folate (12/24/2024 5:48 AM EST) [facility] Folate 3.9 2.8 - 17.0 ng/ml LAB CHEMISTRY METHOD 12/24/2024 11:09 AM EST [facility] Blood Venous blood specimen / Unknown Venipuncture / Unknown 12/24/2024 5:48 AM EST 12/24/2024 8:47 AM EST Shelley Beard MD LAB BLOOD ORDERABLES Fin al Result [facility] [address] [place] [address], [place] [phone] * Vitamin B12 (12/24/2024 5:48 AM EST) Pathologist [facility] Vitamin B-12 289 250 - 900 pcg/mL LAB CHEMISTRY METHOD 12/24/2024 11:09 AM EST [facility] Blood Venous blood specimen / Unknown Venipuncture / Unknown 12/24/2024 5:48 AM EST 12/24/2024 8:47 AM EST us Shelley Beard MD LAB BLOOD ORDERABLES Fin al Result [facility] [address] [place] [address], * (ABNORMAL) Comprehensive metabolic panel (12/24/2024 5:48 AM EST) Sodium 139 133 - 145 mmol/L LAB CHEMISTRY METHOD 12/24/2024 10:46 AM [facility] Potassium 4.6 3.5 - 5.5 mmol/L LAB CHEMISTRY METHOD 12/24/2024 10:46 AM [facility] Chloride 101 96 - 110 mmol/L LAB CHEMISTRY METHOD 12/24/2024 10:46 AM [facility] CO2 33(H) 21 - 32 mmol/L LAB CHEMISTRY METHOD 12/24/2024 10:46 AM [facility] Anion Gap 5 3 - 11 LAB CHEMISTRY METHOD 12/24/2024 10:46 AM [facility] Glucose 93 70 - 100 mg/dL LAB CHEMISTRY METHOD 12/24/2024 10:46 AM [facility] BUN 18 5 - 25 mg/dL LAB CHEMISTRY METHOD 12/24/2024 10:46 AM [facility] Creatinine 1.30(H) 0.50 - 1.10 mg/dL LAB CHEMISTRY METHOD 12/24/2024 10:46 AM [facility] eGFR 44(L) >=60 mL/min/1. 73m2 LAB CHEMISTRY METHOD 12/24/2024 10:46 AM [facility] Comment:Calculation based on the??Chronic Kidney Disease Epidemiology Collaboration (CKD-EPI) equation refit??without adjustment for race. BUN/Creatinine Ratio 13.8 LAB CHEMISTRY METHOD 12/24/2024 10:46 AM [facility] Calcium 9.1 8.5 - 10.5 mg/dL LAB CHEMISTRY METHOD 12/24/2024 10:46 AM [facility] AST (SGOT) 41 10 - 42 unit/L LAB CHEMISTRY METHOD 12/24/2024 10:46 AM [facility] ALT (SGPT) 25 10 - 60 unit/L LAB CHEMISTRY METHOD 12/24/2024 10:46 AM [facility] Alkaline Phosphatase 81 42 - 121 unit/L LAB CHEMISTRY METHOD 12/24/2024 10:46 AM [facility] Total Protein 6.2 6.0 - 8.0 g/dL LAB CHEMISTRY METHOD 12/24/2024 10:46 AM [facility] Albumin 2.7(L) 3.2 - 5.0 g/dL LAB CHEMISTRY METHOD 12/24/2024 10:46 AM [facility] Total Bilirubin 0.5 0.0 - 1.4 mg/dL LAB CHEMISTRY METHOD 12/24/2024 10:46 AM [facility] Blood Venous blood specimen / Unknown Venipuncture / Unknown 12/24/2024 5:48 AM EST 12/24/2024 8:47 AM EST Shelley Beard MD LAB BLOOD ORDERABLES Fin al Result [facility] [address] [place] [address], from Last 3 Months Insurance [employer] MEDICARE [employer]VANT[place] Care Teams Rate Setter Relationship Specialty Start Date End Date Shelley Beard MD [address] [address] PCP - General Family Medicine 12/31/24
--- OUTSIDE RECORDS SUMMARY | 2025-01-26 18:55 | XMS_ITS | Encounter Summary ---
Author Organization [facility] Address [address] [place] [address] Care Team Providers Care Securities Sales Associate Name Role Phone Shelley Beard MD Primary Care Provider + Encounter Details Date Type Department Care Team (Late st Contact Info) Description 01/12/2025 Lab Requisition [facility] - Main Lab [address] [place] [address] Shelley Beard MD [address] [id number] Weakness Social History Tobacco Use Types Packs/Day [...] Associated Diagnosis Comments COMPLETE BLOOD COUNT Routine 01/13/2025 7:06 AM EST Weakness BASIC METABOLIC PANEL Routine 01/13/2025 7:06 AM EST Weakness documented in this encounter Results * (ABNORMAL) Basic metabolic panel (01/13/2025 7:06 AM EST) Sodium 140 133 - 145 mmol/L LAB CHEMISTRY METHOD 01/13/2025 12:36 PM EST [facility] Potassium 4.7 3.5 - 5.5 mmol/L LAB CHEMISTRY METHOD 01/13/2025 12:36 PM [facility] Chloride 103 96 - 110 mmol/L LAB CHEMISTRY METHOD 01/13/2025 12:36 PM [facility] CO2 31 21 - 32 mmol/L LAB CHEMISTRY METHOD 01/13/2025 12:36 PM [facility] Anion Gap 6 3 - 11 LAB CHEMISTRY METHOD 01/13/2025 12:36 PM [facility] Glucose 88 70 - 100 mg/dL LAB CHEMISTRY METHOD 01/13/2025 12:36 PM [facility] BUN 28(H) 5 - 25 mg/dL LAB CHEMISTRY METHOD 01/13/2025 12:36 PM [facility] Creatinine 1.32(H) 0.50 - 1.10 mg/dL LAB CHEMISTRY METHOD 01/13/2025 12:36 PM [facility] eGFR 44(L) >=60 mL/min/1. 73m2 LAB CHEMISTRY METHOD 01/13/2025 12:36 PM [facility] Comment:Calculation based on the??Chronic Kidney Disease Epidemiology Collaboration (CKD-EPI) equation refit??without adjustment for race. BUN/Creatinine Ratio 21.2 LAB CHEMISTRY METHOD 01/13/2025 12:36 PM [facility] Calcium 9.0 8.5 - 10.5 mg/dL LAB CHEMISTRY METHOD 01/13/2025 12:36 PM [facility] Blood Venous blood specimen / Unknown Venipuncture / Unknown 01/13/2025 7:06 AM EST 01/13/2025 11:21 AM EST us Shelley Beard MD LAB BLOOD ORDERABLES Fin al Result [facility] [address] [place] [address], * (ABNORMAL) Complete blood count (01/13/2025 7:06 AM EST) [facility] WBC 8.0 4.8 - 10.8 K/mcL LAB HEMETOLOGY METHOD 01/13/2025 12:56 PM [facility] RBC 4.40 3.80 - 4.80 M/mcL LAB HEMETOLOGY METHOD 01/13/2025 12:56 PM [facility] Hemoglobin 11.3(L) 11.5 - 16.0 g/dL LAB HEMETOLOGY METHOD 01/13/2025 12:56 PM [facility] Hematocrit 38.3 35.0 - 47.0 % LAB HEMETOLOGY METHOD 01/13/2025 12:56 PM [facility] MCV 86.7 79.0 - 98.0 FL LAB HEMETOLOGY METHOD 01/13/2025 12:56 PM [facility] MCH 25.6(L) 27.0 - 32.0 pcg LAB HEMETOLOGY METHOD 01/13/2025 12:56 PM [facility] MCHC 29.5(L) 32.0 - 37.0 g/dL LAB HEMETOLOGY METHOD 01/13/2025 12:56 PM [facility] RDW 15.9(H) 11.0 - 15.0 % LAB HEMETOLOGY METHOD 01/13/2025 12:56 PM [facility] Platelets 242 130 - 400 K/mcL LAB HEMETOLOGY METHOD 01/13/2025 12:56 PM [facility] MPV 11.2(H) 7.0 - 11.0 FL LAB HEMETOLOGY METHOD 01/13/2025 12:56 PM [facility] NRBC 0.0 <1.0 % LAB HEMETOLOGY METHOD 01/13/2025 12:56 PM [facility] NRBC Absolute 0.00 <0.10 K/[facility] LAB HEMETOLOGY METHOD 01/13/2025 12:56 PM EST [facility] Blood Venous blood specimen / Unknown Venipuncture / Unknown 01/13/2025 7:06 AM EST 01/13/2025 11:23 AM EST us Shelley Beard MD LAB BLOOD ORDERABLES Fin al Result [facility] [address] [place] [address], documented in this encounter Visit Diagnoses Diagnosis Weakness Other malaise and fatigue documented in this encounter Care Teams Securities Sales Associate Relationship Specialty Start Date End Date Shelley Beard MD [address] [place] [id number] PCP - General Family Medicine 12/31/24 documented as of this encounter
--- OUTSIDE RECORDS SUMMARY | 2025-01-26 18:55 | XMS_ITS | Clinical Summary ---
Author Organization [facility] Address [address] [place] [address] Care Team Providers Care Pharmacy Services Director Name Role Phone Obinna Gannon MD Primary Care Provider [phone] Allergies Active Allergy Reactions Criticality Noted Date Comments Codeine Anxiety,Nausea And Vomiting,Other (See Comments) High 08/24/2018 Naproxen-Esomeprazole Mg Nausea And Vomiting,Other (See Comments) Medium 08/24/2018 headaches headaches Phenobarbital Anxiety,Nausea And Vomiting,Other (See Comments) High 08/24/2018 Medications Medication Sig Dispensed Refills Start Date End Date Status vitamin D3 (VITAMIN D3) 25 MCG (1000 UT) tablet Take 1,000 Units by mouth. 0 Active DULoxetine (CYMBALTA) DR capsule 60 mg Take 60 mg by mouth. 0 03/29/2019 Active Fe-Succ Ac-B Fzwan-X-Wd-FA (IROSPAN 17/05) MISC Take by mouth. 0 A ctive gabapentin (NEURONTIN) 300 MG capsule TAKE 1 CAPSULE IN THE MORNING AND 2 CAPSULES AT NIGHT 0 12/22/2019 Active traZODone (DESYREL) 50 MG tablet Take 25 mg by mouth. 0 05/21/2019 Active allopurinol (ZYLOPRIM) 300 MG tablet Take 300 mg by mouth daily. 0 03/31/2020 Active aspirin (ASPIRIN 81) 81 MG EC tablet Take 81 mg by mouth daily. 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 05/14/2020 Pes cavus 05/14/2020 Abnormal immunological finding in serum 01/05/20 20 Thumb tendonitis 01/05/2020 Flat foot 01/05/2020 Chronic renal insufficiency, stage 3 (moderate) 01/05/2020 Foot pain, left 01/05/2020 Immunizations Name Administration Dates Next Due Covid-19 (Pfizer) Dilution Required 02/12/2021 Family History Medical History Relation Name Comments Alcohol abuse Father Relation Name Status Comments Father Mother Social History Tobacco Use Types Packs/Day Years Used Date Smoking Tobacco: Never Smokeless Tobacco: Never Alcohol Use Standard Drinks/Week Comments No 0 (1 standard drink = 0.6 oz pur e alcohol) Sex and Gender Information Value Date Recorded Sex Assigned at Female 02/12/2021 1:17 PM EDT Gender Identity Not on file Sexual Orientation Not on file Last Filed Vital Signs Vital Sign Reading Time Taken Comments Blood Pressure 112/72 01/30/2021 12:57 PM EST Pulse 64 01/30/2021 12:57 PM EST Temperature - - Respiratory Rate - - Oxygen Saturation - - Inhaled Oxygen Concentration - - Weight 99.8 kg (220 lb) 01/30/2021 12:57 PM EST Height 168.3 cm (5' 6.25 ) 01/30/2021 12:[address] Body Mass Index 35.24 01/30/2021 12:57 PM EST Plan of Treatment Health Maintenance Due Date Last Done Comments Hepatitis C Screening 1954 Depression Screening 1966 Preventative Health Evaluation 1972 DTap / Tdap / Td (1 - Tdap) 1973 Colon Cancer Screening (Colonoscopy) 1999 Breast Cancer Screening (Mammogram) 2004 Shingrix-Zoster Vaccine (1 of 2) 2004 Fall Risk Assessment 2019 Osteoporosis Screening (DEXA Scan) 2019 Pneumococcal Vaccine (1 of 1 - PCV) 2019 BMI Counseling 09/01/2021 09/01/2020, 06/07/2020, 04/07/2020, Additional history exists COVID-19 Vaccine (2 - season) 2024 02/12/2021 Influenza Vaccine (#1) 2024 RSV Adult > 60+ Yrs or (1 - 1-dose 75+ series) 2029 Hepatitis B Vaccines Aged Out No long er eligible based on patient's age to complete this topic RSV Ped < 20 months Aged Out No longe r eligible based on patient's age to complete this topic Care Teams Pharmacy Services Director Relationship Specialty Start Date End Date Obinna Gannon MD [address] [facility] [place] [address] PCP - General Family Medicine 01/06/20
--- OUTSIDE RECORDS SUMMARY | 2025-01-26 18:55 | XMS_ITS | Encounter Summary ---
Author Organization [facility] Address [address] [place] [address] Care Team Providers Care Office Clerk Assistant Name Role Phone Jaspreet Fortune APRN Primary Care Provider [phone] Arminda Arita MD Unavailable Obinna Gannon MD Primary Care Provider [phone] Octavio Alejandre MD Unavailable [phone] Breezy Crisostomo MD Unavailable [phone] Encounter Details Date Type Department Care Team (Late st Contact Info) Description 03/02/2019 Scanned Document [facility] [address] [place] [id number] Octavio Alejandre MD Needs valid address Social History Tobacco Use Types Packs/Day Years Used Date Smoking Tobacco: Never Smokeless Tobacco: Never Sex and Gender Information Value Date Recorded Sex Assigned at Not on file Gender Identity Not on file Sexual Orientation Not on file documented as of this encounter Plan of Treatment Not on file documented as of this encounter Visit Diagnoses Not on filedocumented in this encounter Care Teams Office Clerk Assistant Relationship Specialty Start Date End Date Jaspreet Fortune APRN [address] [place] [address] PCP - General Internal Medicine 02/04/19 07/14/19 Obinna Gannon MD [address] [place] [address] PCP - General Internal Medicine 07/15/19 Arminda Arita MD [address] [place] [phone] Referring Provider Cardiovascular Disease 05/26/19 Octavio Alejandre MD [address] [place] [address] Neurology 08/05/19 Breezy Crisostomo MD [address] [facility] [address] [place] [phone] Physician Nephrology 08/09/19 documented as of this encounter
--- OUTSIDE RECORDS SUMMARY | 2025-01-26 18:55 | XMS_ITS | Encounter Summary ---
Author Organization [facility] Address [address] [place] [address] Care Team Providers Care Silica Mixer Operator Name Role Phone Shelley Beard MD Primary Care Provider + Encounter Details Date Type Department Care Team (Late st Contact Info) Description 01/05/2025 Lab Requisition [facility] - Main Lab [address] [place] [address] Shelley Beard MD [address] [phone] Weakness Social History Tobacco Use Types Packs/Day [...] Associated Diagnosis Comments COMPLETE BLOOD COUNT Routine 01/06/2025 6:09 AM EST Weakness BASIC METABOLIC PANEL Routine 01/06/2025 6:09 AM EST Weakness documented in this encounter Results * (ABNORMAL) Basic metabolic panel (01/06/2025 6:09 AM EST) Sodium 139 133 - 145 mmol/L LAB CHEMISTRY METHOD 01/06/2025 10:[address] [facility] Potassium 4.3 3.5 - 5.5 mmol/L LAB CHEMISTRY METHOD 01/06/2025 10:09 AM [facility] Chloride 102 96 - 110 mmol/L LAB CHEMISTRY METHOD 01/06/2025 10:09 AM [facility] CO2 34(H) 21 - 32 mmol/L LAB CHEMISTRY METHOD 01/06/2025 10:09 AM [facility] Anion Gap 3 3 - 11 LAB CHEMISTRY METHOD 01/06/2025 10:09 AM [facility] Glucose 92 70 - 100 mg/dL LAB CHEMISTRY METHOD 01/06/2025 10:09 AM [facility] BUN 25 5 - 25 mg/dL LAB CHEMISTRY METHOD 01/06/2025 10:09 AM [facility] Creatinine 1.30(H) 0.50 - 1.10 mg/dL LAB CHEMISTRY METHOD 01/06/2025 10:09 AM [facility] eGFR 44(L) >=60 mL/min/1. 73m2 LAB CHEMISTRY METHOD 01/06/2025 10:09 AM [facility] Comment:Calculation based on the??Chronic Kidney Disease Epidemiology Collaboration (CKD-EPI) equation refit??without adjustment for race. BUN/Creatinine Ratio 19.2 LAB CHEMISTRY METHOD 01/06/2025 10:09 AM [facility] Calcium 9.1 8.5 - 10.5 mg/dL LAB CHEMISTRY METHOD 01/06/2025 10:09 AM [facility] Blood Venous blood specimen / Unknown Venipuncture / Unknown 01/06/2025 6:09 AM EST 01/06/2025 9:20 AM EST us Shelley Beard MD LAB BLOOD ORDERABLES Fin al Result [facility] [address] [place] [address], * (ABNORMAL) Complete blood count (01/06/2025 6:09 AM EST) [facility] WBC 6.9 4.8 - 10.8 K/mcL LAB HEMETOLOGY METHOD 01/06/2025 9:45 AM [facility] RBC 4.20 3.80 - 4.80 M/mcL LAB HEMETOLOGY METHOD 01/06/2025 9:45 AM [facility] Hemoglobin 10.9(L) 11.5 - 16.0 g/dL LAB HEMETOLOGY METHOD 01/06/2025 9:45 AM [facility] Hematocrit 36.3 35.0 - 47.0 % LAB HEMETOLOGY METHOD 01/06/2025 9:45 AM [facility] MCV 87.1 79.0 - 98.0 FL LAB HEMETOLOGY METHOD 01/06/2025 9:45 AM [facility] MCH 26.1(L) 27.0 - 32.0 pcg LAB HEMETOLOGY METHOD 01/06/2025 9:45 AM [facility] MCHC 30.0(L) 32.0 - 37.0 g/dL LAB HEMETOLOGY METHOD 01/06/2025 9:45 AM [facility] RDW 16.0(H) 11.0 - 15.0 % LAB HEMETOLOGY METHOD 01/06/2025 9:45 AM [facility] Platelets 252 130 - 400 K/mcL LAB HEMETOLOGY METHOD 01/06/2025 9:45 AM [facility] MPV 10.6 7.0 - 11.0 FL LAB HEMETOLOGY METHOD 01/06/2025 9:45 AM [facility] NRBC 0.0 <1.0 % LAB HEMETOLOGY METHOD 01/06/2025 9:45 AM [facility] NRBC Absolute 0.00 <0.10 K/mcL LAB HEMETOLOGY METHOD 01/06/2025 9:[address] [facility] Blood Venous blood specimen / Unknown Venipuncture / Unknown 01/06/2025 6:09 AM EST 01/06/2025 9:20 AM EST us Shelley Beard MD LAB BLOOD ORDERABLES Fin al Result [facility] [address] [place] [address], documented in this encounter Visit Diagnoses Diagnosis Weakness Other malaise and fatigue documented in this encounter Care Teams Silica Mixer Operator Relationship Specialty Start Date End Date Shelley Beard MD [address] [place] [id number] PCP - General Family Medicine 12/31/24 documented as of this encounter
--- OUTSIDE RECORDS SUMMARY | 2025-01-26 18:55 | XMS_ITS | Encounter Summary ---
Author Organization [facility] Address [address] [place] [address] Care Team Providers Care Academy Education Director Name Role Phone Arminda Arita MD Unavailable Obinna Gannon MD Primary Care Provider [phone] Octavio Alejandre MD Unavailable [phone] Breezy Crisostomo MD Unavailable [phone] Encounter Details Date Type Department Care Team (Late st Contact Info) Description 08/31/2019 Scanned Document [facility] [address] [place] [address] 8[address] [place] [address] [place] [address] [place] [address] [address] [place] [address] Social History Tobacco Use Types Packs/Day Years [...] on filedocumented in this encounter Care Teams Academy Education Director Relationship Specialty Start Date End Date Obinna Gannon MD [address] [place] [address] PCP - General Internal Medicine 07/15/19 Arminad Arita MD [address] [place] [phone] Referring Provider Cardiovascular Disease 05/26/19 Octavio Alejandre MD [address] [place] [address] Neurology 08/05/19 Breezy Crisostomo MD 281 [facility] [address] [place] [address] Physician Nephrology 08/09/19 documented as of this encounter
--- OUTSIDE RECORDS SUMMARY | 2025-01-26 18:55 | XMS_ITS | Encounter Summary ---
Author Organization [facility] Address [address] [place] [address] Care Team Providers Care Ice Maker Name Role Phone Shelley Beard MD Primary Care Provider + Encounter Details Date Type Department Care Team (Late st Contact Info) Description 01/16/2025 Lab Requisition [facility] - Main Lab 299 [facility] [place] [address] Shelley Beard MD [address] [place] [address] Weakness Social History Tobacco Use Types Packs/Day [...] documented as of this encounter Visit Diagnoses Diagnosis Weakness Other malaise and fatigue documented in this encounter Care Teams Ice Maker Relationship Specialty Start Date End Date Shelley Beard MD [address] [phone] PCP - General Family Medicine 12/31/24 documented as of this encounter
--- OUTSIDE RECORDS SUMMARY | 2025-01-26 18:55 | XMS_ITS | Clinical Summary ---
Author Organization [facility] Address [address] [place] [address] Care Team Providers Care Computed Tomography Technician Name Role Phone NehaAntionette munroe Mariah Primary Care Provider [phone] Allergies Active Allergy Reactions Criticality Noted Date Comments Codeine Anxiety High 08/24/2018 Phenobarbital Anxiety High 08/24/2018 Naproxen-Esomeprazole 08/24/2018 headaches Medications gabapentin (NEURONTIN) 300 mg capsule 08/10/2018 Active sertraline (ZOLOFT) 100 mg tablet 08/10/2018 Active hydroCHLOROthiaz tamara (HYDRODIURIL) 12.5 mg tablet 06/04/2018 Acti ve lisinopril (PRINIVIL,ZESTRI L) 2.5 mg tablet Take 2.5 mg by mouth daily. Active aspirin 81 mg EC tablet Take 81 mg by mouth daily. Active VENTOLIN HFA 90 mcg/actuation inhaler 05/28/2018 Active cholecalciferol, vitamin D3, (VITAMIN D3) 1,000 unit capsule Take 1,000 Units by mouth daily. Active iron bisgly,ps-FA-B-C #12-succ 65 mg-65 mg -1,000 mcg (24) tablet Take by mouth. Active Active Problems Problem Noted Date Diagnosed Date Bilateral hip pain 01/12/2019 Trochanteric bursitis of both hips 01/12/2019 Assessment & Plan (01/12/2019 3:40 PM EST): I have discussed her x-rays taken today in detail as well as her clinical exam. We have discussed trochanteric bursitis in detail as well as treatment options. She is willing to start some physical therapy as directed she is going to think about corticosteroid injections. She is not sure that she wants to undergo injections. Should she need or want corticosteroid injections to her trochanteric bursa I am happy to order it if she calls in. She states understanding agreement with the plan of care. Bilateral primary osteoarthritis of knee 018 Assessment & Plan (12/08/2018 4:27 PM EST): She will continue with and start exercising as much as possible. She will return for the knee pain should it return. She states understanding agreement with the plan of care. Assessment & Plan (08/24/2018 2:53 PM EDT): I have counseled her regarding her x-rays taken today in detail as well as her clinical exam. I have discussed the bilateral joint space narrowing in her knees as well as treatment options. She will start physical therapy as directed. I have counseled her regarding the risk, benefits, possible side effects of corticosteroid injections and she wishes to proceed. There are no contra indications at this time. She tolerated the injections very well today. She will follow-up in 3 months for reevaluation. She states understanding and agreement with the plan of care. Family History Medical History Relation Comments Brain cancer Brother Lung cancer Father Lung cancer Mother Breast cancer Sister Relation Status Comments Brother Father Mother Sister Social History Tobacco Use Types Packs/Day Years Used Date Smoking Tobacco: Never Smokeless Tobacco: Never Alcohol Use Standard Drinks/Week Comments No 0 (1 standard drink = 0.6 oz pur e alcohol) Comments Unknown Sex and Gender Information Value Date Recorded Sex Assigned at Not on file Legal Sex Female 2:27 PM EDT Gender Identity Not on file Sexual Orientation Not on file Last Filed Vital Signs Vital Sign Reading Time Taken Comments Blood Pressure 135/82 08/24/2018 1:35 PM EDT Pulse 71 08/24/2018 1:35 PM EDT Temperature - - Respiratory Rate - - Oxygen Saturation - - Inhaled Oxygen Concentration - - Weight 116 kg (255 lb) 08/24/2018 1:35 PM EDT Height 167.6 cm (5' 6 ) 08/24/2018 1:35 PM EDT Body Mass Index 41.16 08/24/2018 1:35 PM EDT Plan of Treatment Health Maintenance Due Date Last Done Comments Bone Density Screening 1954 Breast Cancer Screening 1954 CT Colonography 1954 Colonoscopy 1954 Colorectal Cancer Screening 1954 FIT-DNA (Cologuard) 1954 FIT 1954 FOBT 1954 Flex Sigmoidoscopy - 5y 1954 HIV Screening 1954 DTaP,Tdap,and Td Vaccines (1 - Tdap) 1972 Zoster Vaccines (1 of 2) 2004 Pneumococcal Vaccine, 65+ Ye ars (1 of 1 - PCV) 2019 COVID-19 Vaccine ( - 2023-2 5 season) 2024 Influenza Vaccine (#1) 2024 HPV Vaccines Aged Out No longer eligi ble based on patient's age to complete this topic Hepatitis A Vaccines Aged Out No long er eligible based on patient's age to complete this topic Meningococcal Vaccine Aged Out No matt nickie eligible based on patient's age to complete this topic Insurance MEDICAID [place]USKY D Care Teams Computed Tomography Technician Relationship Specialty Start Date End Date Antionette Payne [address] [place] [address] PCP - General 07/31/18
--- OUTSIDE RECORDS SUMMARY | 2025-01-26 18:55 | XMS_ITS | Encounter Summary ---
Author Organization [facility] Address [address] [place] [address] Care Team Providers Care Hoist Operator Name Role Phone Shelley Beard MD Primary Care Provider + Encounter Details Date Type Department Care Team (Late st Contact Info) Description 01/07/2025 Lab Requisition [facility] - Main Lab [address] [place] [address] Shelley Beard MD [address] [phone] Weakness Social History Tobacco Use Types Packs/Day [...] Associated Diagnosis Comments COMPLETE BLOOD COUNT Routine 01/10/2025 7:21 AM EST Weakness BASIC METABOLIC PANEL Routine 01/10/2025 7:21 AM EST Weakness documented in this encounter Results * (ABNORMAL) Basic metabolic panel (01/10/2025 7:21 AM EST) Sodium 141 133 - 145 mmol/L LAB CHEMISTRY METHOD 01/10/2025 12:55 PM EST [facility] Potassium 4.6 3.5 - 5.5 mmol/L LAB CHEMISTRY METHOD 01/10/2025 12:55 PM [facility] Chloride 104 96 - 110 mmol/L LAB CHEMISTRY METHOD 01/10/2025 12:55 PM [facility] CO2 30 21 - 32 mmol/L LAB CHEMISTRY METHOD 01/10/2025 12:55 PM [facility] Anion Gap 7 3 - 11 LAB CHEMISTRY METHOD 01/10/2025 12:55 PM [facility] Glucose 90 70 - 100 mg/dL LAB CHEMISTRY METHOD 01/10/2025 12:55 PM [facility] BUN 23 5 - 25 mg/dL LAB CHEMISTRY METHOD 01/10/2025 12:55 PM [facility] Creatinine 1.37(H) 0.50 - 1.10 mg/dL LAB CHEMISTRY METHOD 01/10/2025 12:55 PM [facility] eGFR 42(L) >=60 mL/min/1. 73m2 LAB CHEMISTRY METHOD 01/10/2025 12:55 PM [facility] Comment:Calculation based on the??Chronic Kidney Disease Epidemiology Collaboration (CKD-EPI) equation refit??without adjustment for race. BUN/Creatinine Ratio 16.8 LAB CHEMISTRY METHOD 01/10/2025 12:55 PM [facility] Calcium 9.1 8.5 - 10.5 mg/dL LAB CHEMISTRY METHOD 01/10/2025 12:55 PM [facility] Blood Venous blood specimen / Unknown Venipuncture / Unknown 01/10/2025 7:21 AM EST 01/10/2025 11:46 AM EST us Shelley Beard MD LAB BLOOD ORDERABLES Fin al Result [facility] [address] [place] [address], * (ABNORMAL) Complete blood count (01/10/2025 7:21 AM EST) [facility] WBC 6.6 4.8 - 10.8 K/mcL LAB HEMETOLOGY METHOD 01/10/2025 1:00 PM [facility] RBC 4.40 3.80 - 4.80 M/mcL LAB HEMETOLOGY METHOD 01/10/2025 1:00 PM [facility] Hemoglobin 11.3(L) 11.5 - 16.0 g/dL LAB HEMETOLOGY METHOD 01/10/2025 1:00 PM [facility] Hematocrit 37.9 35.0 - 47.0 % LAB HEMETOLOGY METHOD 01/10/2025 1:00 PM [facility] MCV 86.9 79.0 - 98.0 FL LAB HEMETOLOGY METHOD 01/10/2025 1:00 PM [facility] MCH 25.9(L) 27.0 - 32.0 pcg LAB HEMETOLOGY METHOD 01/10/2025 1:00 PM [facility] MCHC 29.8(L) 32.0 - 37.0 g/dL LAB HEMETOLOGY METHOD 01/10/2025 1:00 PM [facility] RDW 15.9(H) 11.0 - 15.0 % LAB HEMETOLOGY METHOD 01/10/2025 1:00 PM [facility] Platelets 238 130 - 400 K/mcL LAB HEMETOLOGY METHOD 01/10/2025 1:00 PM [facility] MPV 11.1(H) 7.0 - 11.0 FL LAB HEMETOLOGY METHOD 01/10/2025 1:00 PM [facility] NRBC 0.0 <1.0 % LAB HEMETOLOGY METHOD 01/10/2025 1:00 PM [facility] NRBC Absolute 0.00 <0.10 K/mcL LAB HEMETOLOGY METHOD 01/10/2025 1:00 PM EST [facility] Blood Venous blood specimen / Unknown Venipuncture / Unknown 01/10/2025 7:21 AM EST 01/10/2025 11:46 AM EST us Shelley Beard MD LAB BLOOD ORDERABLES Fin al Result [facility] [address] [place] [address], documented in this encounter Visit Diagnoses Diagnosis Weakness Other malaise and fatigue documented in this encounter Care Teams Hoist Operator Relationship Specialty Start Date End Date Shelley Beard MD [address] [place] [address] PCP - General Family Medicine 12/31/24 documented as of this encounter
--- OUTSIDE RECORDS SUMMARY | 2025-01-26 18:55 | XMS_ITS | Encounter Summary ---
Author Organization [facility] Address [address] [place] [address] Care Team Providers Care Television Newscast Director Name Role Phone Unknown Primary Care Provider [phone] Jaspreet Fortune APRN Primary Care Provider [phone] Arminda Arita MD Unavailable Obinna Gannon MD Primary Care Provider [phone] Octavio Alejandre MD Unavailable [phone] Breezy Crisostomo MD Unavailable [phone] Encounter Details Date Type Department Care Team (Late st Contact Info) Description 06/19/2018 Scanned Document [facility] 85 [facility] 815 [place] [address] [place] [address] [address] Social History Tobacco Use Types Packs/Day Years Used Date Smoking Tobacco: Never Assessed Sex and Gender Information Value Date Recorded Sex Assigned at Not on file Gender Identity Not on file Sexual Orientation Not on file documented as of this encounter Plan of Treatment Not on file documented as of this encounter Visit Diagnoses Not on filedocumented in this encounter Care Teams Television Newscast Director Relationship Specialty Start Date End Date Unknown Unknow Provider Address PCP - General 12/30/18 02/03/19 Jaspreet Fortune APRN [address] [place] [address] PCP - General Internal Medicine 02/04/19 07/14/19 Obinna Gannon MD [address] [place] [phone] PCP - General Internal Medicine 07/15/19 Arminda Arita MD [address] [place] [phone] Referring Provider Cardiovascular Disease 05/26/19 Octavio Alejandre MD [address] [place] [address] Neurology 08/05/19 Breezy Crisostomo MD [address] [address] Physician Nephrology 08/09/19 documented as of this encounter
--- OUTSIDE RECORDS SUMMARY | 2025-01-26 18:55 | XMS_ITS | Encounter Summary ---
Author Organization [facility] Address [address] [place] [address] Care Team Providers Care Shop Blacksmith Name Role Phone Shelley Beard MD Primary Care Provider + Encounter Details Date Type Department Care Team (Late st Contact Info) Description 12/31/2024 Lab Requisition [facility] - Main Lab [address] [place] [address] Shelley Beard MD [address] [phone] Weakness Social History Tobacco Use Types Packs/Day [...] Associated Diagnosis Comments COMPLETE BLOOD COUNT Routine 01/03/2025 7:12 AM EST Weakness BASIC METABOLIC PANEL Routine 01/03/2025 7:12 AM EST Weakness documented in this encounter Results * (ABNORMAL) Basic metabolic panel (01/03/2025 7:12 AM EST) Sodium 142 133 - 145 mmol/L LAB CHEMISTRY METHOD 01/03/2025 10:55 AM EST [facility] Potassium 4.4 3.5 - 5.5 mmol/L LAB CHEMISTRY METHOD 01/03/2025 10:55 AM [facility] Chloride 104 96 - 110 mmol/L LAB CHEMISTRY METHOD 01/03/2025 10:55 AM [facility] CO2 32 21 - 32 mmol/L LAB CHEMISTRY METHOD 01/03/2025 10:55 AM [facility] Anion Gap 6 3 - 11 LAB CHEMISTRY METHOD 01/03/2025 10:55 AM [facility] Glucose 93 70 - 100 mg/dL LAB CHEMISTRY METHOD 01/03/2025 10:55 AM [facility] BUN 26(H) 5 - 25 mg/dL LAB CHEMISTRY METHOD 01/03/2025 10:55 AM [facility] Creatinine 1.38(H) 0.50 - 1.10 mg/dL LAB CHEMISTRY METHOD 01/03/2025 10:55 AM [facility] eGFR 41(L) >=60 mL/min/1. 73m2 LAB CHEMISTRY METHOD 01/03/2025 10:55 AM [facility] Comment:Calculation based on the??Chronic Kidney Disease Epidemiology Collaboration (CKD-EPI) equation refit??without adjustment for race. BUN/Creatinine Ratio 18.8 LAB CHEMISTRY METHOD 01/03/2025 10:55 AM [facility] Calcium 8.9 8.5 - 10.5 mg/dL LAB CHEMISTRY METHOD 01/03/2025 10:55 AM [facility] Blood Venous blood specimen / Unknown Venipuncture / Unknown 01/03/2025 7:12 AM EST 01/03/2025 10:06 AM EST us Shelley Beard MD LAB BLOOD ORDERABLES Fin al Result [facility] [address] [place] [address], * (ABNORMAL) Complete blood count (01/03/2025 7:12 AM EST) [facility] WBC 7.6 4.8 - 10.8 K/mcL LAB HEMETOLOGY METHOD 01/03/2025 10:31 AM [facility] RBC 4.30 3.80 - 4.80 M/mcL LAB HEMETOLOGY METHOD 01/03/2025 10:31 AM [facility] Hemoglobin 10.8(L) 11.5 - 16.0 g/dL LAB HEMETOLOGY METHOD 01/03/2025 10:31 AM [facility] Hematocrit 37.7 35.0 - 47.0 % LAB HEMETOLOGY METHOD 01/03/2025 10:31 AM [facility] MCV 87.5 79.0 - 98.0 FL LAB HEMETOLOGY METHOD 01/03/2025 10:31 AM [facility] MCH 25.1(L) 27.0 - 32.0 pcg LAB HEMETOLOGY METHOD 01/03/2025 10:31 AM [facility] MCHC 28.6(L) 32.0 - 37.0 g/dL LAB HEMETOLOGY METHOD 01/03/2025 10:31 AM [facility] RDW 15.7(H) 11.0 - 15.0 % LAB HEMETOLOGY METHOD 01/03/2025 10:31 AM [facility] Platelets 279 130 - 400 K/mcL LAB HEMETOLOGY METHOD 01/03/2025 10:31 AM [facility] MPV 10.7 7.0 - 11.0 FL LAB HEMETOLOGY METHOD 01/03/2025 10:31 AM [facility] NRBC 0.0 <1.0 % LAB HEMETOLOGY METHOD 01/03/2025 10:31 AM [facility] NRBC Absolute 0.00 <0.10 K/mcL LAB HEMETOLOGY METHOD 01/03/2025 10:31 AM EST [facility] Blood Venous blood specimen / Unknown Venipuncture / Unknown 01/03/2025 7:12 AM EST 01/03/2025 10:07 AM EST us Shelley Beard MD LAB BLOOD ORDERABLES Fin al Result [facility] [address] [place] [address], documented in this encounter Visit Diagnoses Diagnosis Weakness Other malaise and fatigue documented in this encounter Care Teams Shop Blacksmith Relationship Specialty Start Date End Date Shelley Beard MD [address] [place] [address] PCP - General Family Medicine 12/31/24 documented as of this encounter
== END 2025-01-26 16:38 | disposition home or self-care (01) ==
PROVIDERS: Visit Provider Nurse Practitioner Family
DX: R29.898 Other symptoms and signs involving the musculoskeletal system (principal); W19.XXXA Unspecified fall, initial encounter; S42.309A Unspecified fracture of shaft of humerus, unspecified arm, initial encounter for closed fracture; B35.9 Dermatophytosis, unspecified; G62.9 Polyneuropathy, unspecified

== ENCOUNTER → 2025-01-26 15:44 | Outpatient (BNVA) | payer MEDICARE, SELFPAY | PROVIDERS: Visit Provider Nurse Practitioner Family | DX: R29.898 Other symptoms and signs involving the musculoskeletal system (principal); G62.9 Polyneuropathy, unspecified; S42.301D Unspecified fracture of shaft of humerus, right arm, subsequent encounter for fracture with routine healing; Z91.81 History of falling | CPT/HCPCS: 96127; 99212 ==

== ENCOUNTER 2025-02-15 09:16 | Outpatient (REF) | payer MEDICARE, SELFPAY ==
--- NOTE | 2025-02-15 09:18 | EMG_ITS ---
Bilateral tibial and peroneal motor studies were performed. Bilateral superficial peroneal and sural sensory studies were performed tibial H reflexes were obtained and paraspinal muscles were tested with a needle. IMPRESSION: Severe axonal sensory motor peripheral neuropathy. MD LAURA Lanza/BERNARDO / [id number]
--- OUTSIDE RECORDS SUMMARY | 2025-02-15 10:16 | XMS_ITS | Encounter Summary ---
Author Organization [facility] Address [address] [place] [address] Care Team Providers Care Light Rail Transit Operator Name Role Phone Arminda Arita MD Unavailable Obinna Gannon MD Primary Care Provider [phone] Octavio Alejandre MD Unavailable [phone] Breezy Crisostomo MD Unavailable [phone] Encounter Details Date Type Department Care Team (Late st Contact Info) Description 08/31/2019 Scanned Document [facility] [address] [place] [address] 8[address] [place] [address] [place] [address] [place] [address] [address] [place] [address] Social History Tobacco Use Types Packs/Day Years [...] on filedocumented in this encounter Care Teams Light Rail Transit Operator Relationship Specialty Start Date End Date Obinna Gannon MD [address] [place] [address] PCP - General Internal Medicine 07/15/19 Arminda Arita MD [address] [place] [phone] Referring Provider Cardiovascular Disease 05/26/19 Octavio Alejandre MD [address] [place] [address] Neurology 08/05/19 Breezy Crisostomo MD 281 [facility] 210 [place] [address] Physician Nephrology 08/09/19 documented as of this encounter
--- OUTSIDE RECORDS SUMMARY | 2025-02-15 10:16 | XMS_ITS | Encounter Summary ---
Author Organization [facility] Address [address] [place] [address] Care Team Providers Care Case Management Manager Name Role Phone Unknown Primary Care Provider [phone] Jaspreet Fortune APRN Primary Care Provider [phone] Arminda Arita MD Unavailable Obinna Gannon MD Primary Care Provider [phone] Octavio Alejandre MD Unavailable [phone] Breezy Crisostomo MD Unavailable [phone] Encounter Details Date Type Department Care Team (Late st Contact Info) Description 06/19/2018 Scanned Document [facility] 85 [facility] 815 [place] [address] Derick GuerraGREGORY, [place] [address] [address] Social History Tobacco Use Types Packs/Day Years Used Date Smoking Tobacco: Never Assessed Sex and Gender Information Value Date Recorded Sex Assigned at Not on file Gender Identity Not on file Sexual Orientation Not on file documented as of this encounter Plan of Treatment Not on file documented as of this encounter Visit Diagnoses Not on filedocumented in this encounter Care Teams Case Management Manager Relationship Specialty Start Date End Date Unknown Unknow Provider Address PCP - General 12/30/18 02/03/19 Jaspreet Fortune APRN [address] [place] [address] PCP - General Internal Medicine 02/04/19 07/14/19 Obinna Gannon MD [address] [phone] PCP - General Internal Medicine 07/15/19 Arminda Arita MD [address] [place] [phone] Referring Provider Cardiovascular Disease 05/26/19 Octavio Alejandre MD [address] [place] [address] Neurology 08/05/19 Breezy Crisostomo MD [address] [address] Physician Nephrology 08/09/19 documented as of this encounter
--- OUTSIDE RECORDS SUMMARY | 2025-02-15 10:16 | XMS_ITS | Continuity of Care Document ---
Author Organization [facility] Address [address] [place] [address] [address] [place] [address]- Care Team Providers Care Media Professional Name Role Phone Opal RAMOS, Obinna Mckeon Primary Care Physician [phone] Encounter [facility] Date(s): 01/05/25 - 02/04/[address] [place] [address]- Attending Physician: Angela Parks Admitting Physician: Angela Parks Referring Physician: AdmtrAngela Encounter Type: Triage Allergies, Adverse Reactions, Alerts Substance Criticality Severity Reaction Reaction Severity Status codeine Phenobarbital Active naproxen Active PHENobarbital Active Immunizations Given and Recorded Vaccine Date Status Refusal Reason tetanus/diphtheria/pertussis, acel(Tdap) 12/20/24 Given Medications acetaminophen 325 mg oral tablet 975 mg, By Mouth, Every 6 hours, Refills 0, Maintenance, 12/23/24 10:22:00 AM EST, Partial fill uponpatient request if the prescription is for a schedule II opioid drug. Start Date: 12/23/24 Status: Ordered Repeat number: 1 aspirin 81 mg oral delayed release tablet 1 tablet = 81 mg, By Mouth, Daily, # 30 tablet, 0 Refills, Maintenance, 12/21/24 3:36:00 AM EST, CR Tablet, Partial fill upon patient request if the prescription is for a schedule II opioid drug. Start Date: 12/21/24 Status: Ordered Quantity: 30.0 Unit: tablet Repeat number: 1 buPROPion 100 mg oral tablet = 150 mg, By Mouth, Daily in AM, # 180 tablet, 0 Refills, Maintenance, 12/21/24 3:37:00 AM EST, Tablet, Partial fill upon patient request if the prescription is for a schedule II opioid drug. Start Date: 12/21/24 Status: Ordered Quantity: 180.0 Unit: tablet Repeat number: 1 calcium carbonate 650 mg oral tablet 2, tablet, By Mouth, Daily, # 180 tablet, Refills 0, Maintenance, 12/21/24 3:38:00 AM EST, Partial fill upon patient request if the prescription is for a schedule II opioid drug. Start Date: 12/21/24 Status: Ordered Quantity: 180.0 Unit: tablet Repeat number: 1 Cymbalta 60 mg oral enteric coated capsule 1 capsule = 60 mg, By Mouth, Daily at bedtime, # 90 capsule, 0 Refills, Maintenance, 12/21/24 3:38:00 AM EST, EC Capsule, Partial fill upon patient request if the prescription is for a schedule II opioid drug. Start Date: 12/21/24 Status: Ordered Quantity: 90.0 Unit: capsule Repeat number: 1 ferrous sulfate 324 mg (65 mg elemental iron) oral delayed release tablet 1 tablet = 324 mg, By Mouth, Every other day, # 100 tablet, 0 Refills, Maintenance, 12/21/24 3:40:00AM EST, CR Tablet, Partial fill upon patient request if the prescription is for a schedule II opioid drug. Start Date: 12/21/24 Status: Ordered Quantity: 100.0 Unit: tablet Repeat number: 1 gabapentin 300 mg oral capsule Take 1 capsule by mouth every morning, 1 capsule every afternoon and 2 capsules at bedtime, Refills5, Maintenance, 12/21/24 3:39:00 AM EST, Partial fill upon patient request if the prescription is for a schedule II opioid drug. Start Date: 12/21/24 Status: Ordered Repeat number: 1 hydrOXYzine hydrochloride 25 mg oral tablet 1 tablet = 25 mg, By Mouth, 3 times a day, PRN for anxiety, # 40 tablet, 0 Refills, Maintenance, 12/21/24 9:34:00 PM EST, Tablet, Partial fill upon patient request if the prescription is for a schedule II opioid drug. Start Date: 12/21/24 Status: Ordered Quantity: 40.0 Unit: tablet Repeat number: 1 traZODone 50 mg oral tablet 50 mg, 1, tablet, By Mouth, Daily at bedtime, # 90 tablet, Refills 0, Maintenance, 12/21/24 3:39:00 AM EST, Partial fill upon patient request if the prescription is for a schedule II opioid drug. Start Date: 12/21/24 Status: Ordered Quantity: 90.0 Unit: tablet Repeat number: 1 Problem List Condition Confirmation Course Effective Dates Status Health St atus Informant Severe obesity Confirmed Active Patient Care team information Care Team Personnel Name: Opal RAMOS , Obinna Mckeon Position: Reference Physician Member Role: PCP Address: [address] [place] [address] Telecom: Name: Gabriella Dos Santos RN Position: [facility] RN Member Role: Primary Care Nurse Care Team Related Persons Name: ABBI BRAGG Insurance Providers Guarantor name: [employer] Plan Information #: 1 Payer: [employer] MEDICARE ADV HMO Member Number: NA Policy Number: NA Group Number: [id number]
--- OUTSIDE RECORDS SUMMARY | 2025-02-15 10:16 | XMS_ITS | Continuity of Care Document ---
Author Organization [facility] Address [address] [place] [address] ve [address] [place] [address]- Care Team Providers Care Dump Truck Operator Name Role Phone Opal RAMOS, Obinna Mckeon Primary Care Physician Encounter [facility] Date(s): 01/10/25 - 02/09/[address] [place] [address]- Encounter Type: Triage Allergies, Adverse Reactions, Alerts [...] Care team information Care Team Personnel Name: Obinna Joseph NP Position: Reference Physician Member Role: PCP Address: [address] [place] [address] Telecom: Name: Gabriella Dos Santos RN Position: S RN Member Role: Primary Care Nurse Care Team Related Persons Name: ABBI BRAGG Insurance Providers Guarantor name: [employer] Health Plan Information #: 1 Payer: AET[employer] MEDICARE ADV HMO Member Number: NA Policy Number: NA Group Number: NA
--- OUTSIDE RECORDS SUMMARY | 2025-02-15 10:17 | XMS_ITS | Encounter Summary ---
Author Organization [facility] [address] Address [address] [place] [address] Care Team Providers Care Publishing Editor Name Role Phone Shelley Beard MD Primary Care Provider + Encounter Details Date Type Department Care Team (Late st Contact Info) Description 01/12/2025 Lab Requisition [facility] - Main Lab [address] [place] [address] Shelley Beard MD [address] [phone] Weakness Social History Tobacco Use Types Packs/Day [...] LAB CHEMISTRY METHOD 01/13/2025 12:36 PM EST [facility] Potassium 4.7 3.5 - 5.5 mmol/L LAB CHEMISTRY METHOD 01/13/2025 12:36 PM [facility] Chloride 103 96 - 110 mmol/L LAB CHEMISTRY METHOD 01/13/2025 12:36 PM [facility] CO2 31 21 - 32 mmol/L LAB CHEMISTRY METHOD 01/13/2025 12:36 PM [facility] Anion Gap 6 3 - 11 LAB CHEMISTRY METHOD 01/13/2025 12:36 PM [facility] Glucose 88 70 - 100 mg/dL LAB CHEMISTRY METHOD 01/13/2025 12:36 PM [facility] BUN 28(H) 5 - 25 mg/dL LAB CHEMISTRY METHOD 01/13/2025 12:36 PM [facility] Creatinine 1.32(H) 0.50 - 1.10 mg/dL LAB CHEMISTRY METHOD 01/13/2025 12:36 PM [facility] eGFR 44(L) >=60 mL/min/1. 73m2 LAB CHEMISTRY METHOD 01/13/2025 12:36 PM [facility] Comment:Calculation based on the??Chronic Kidney Disease Epidemiology Collaboration (CKD-EPI) equation refit??without adjustment for race. BUN/Creatinine Ratio 21.2 LAB CHEMISTRY METHOD 01/13/2025 12:36 PM [facility] Calcium 9.0 8.5 - 10.5 mg/dL LAB CHEMISTRY METHOD 01/13/2025 12:36 PM [facility] Blood Venous blood specimen / Unknown Venipuncture / Unknown 01/13/2025 7:06 AM EST 01/13/2025 11:21 AM EST us Shelley Beard MD LAB BLOOD ORDERABLES Fin al Result [facility] [address] [place] [address], * (ABNORMAL) Complete blood count (01/13/2025 7:06 AM EST) [facility] WBC 8.0 4.8 - 10.8 K/mcL LAB HEMETOLOGY METHOD 01/13/2025 12:56 PM [facility] RBC 4.40 3.80 - 4.80 M/mcL LAB HEMETOLOGY METHOD 01/13/2025 12:56 PM [facility] Hemoglobin 11.3(L) 11.5 - 16.0 g/dL LAB HEMETOLOGY METHOD 01/13/2025 12:56 PM [facility] Hematocrit 38.3 35.0 - 47.0 % LAB HEMETOLOGY METHOD 01/13/2025 12:56 PM [facility] MCV 86.7 79.0 - 98.0 FL LAB HEMETOLOGY METHOD 01/13/2025 12:56 PM [facility] MCH 25.6(L) 27.0 - 32.0 pcg LAB HEMETOLOGY METHOD 01/13/2025 12:56 PM [facility] MCHC 29.5(L) 32.0 - 37.0 g/dL LAB HEMETOLOGY METHOD 01/13/2025 12:56 PM [facility] RDW 15.9(H) 11.0 - 15.0 % LAB HEMETOLOGY METHOD 01/13/2025 12:56 PM [facility] Platelets 242 130 - 400 K/mcL LAB HEMETOLOGY METHOD 01/13/2025 12:56 PM [facility] MPV 11.2(H) 7.0 - 11.0 FL LAB HEMETOLOGY METHOD 01/13/2025 12:56 PM [facility] NRBC 0.0 <1.0 % LAB HEMETOLOGY METHOD 01/13/2025 12:56 PM [facility] NRBC Absolute 0.00 <0.10 K/[facility] LAB HEMETOLOGY METHOD 01/13/2025 12:56 PM EST [facility] Blood Venous blood specimen / Unknown Venipuncture / Unknown 01/13/2025 7:06 AM EST 01/13/2025 11:23 AM EST us Shelley Beard MD LAB BLOOD ORDERABLES Fin al Result [facility] [address] [place] [address], documented in this encounter Visit Diagnoses Diagnosis Weakness Other malaise and fatigue documented in this encounter Care Teams Publishing Editor Relationship Specialty Start Date End Date Shelley Beard MD [address] [place] [address] PCP - General Family Medicine 12/31/24 documented as of this encounter
--- OUTSIDE RECORDS SUMMARY | 2025-02-15 10:17 | XMS_ITS | Encounter Summary ---
Author Organization [facility] Address [address] [place] [address] Care Team Providers Care Conductor Sleeping Car Name Role Phone Jaspreet Fortune APRN Primary Care Provider [phone] Arminda Arita MD Unavailable Obinna Gannon MD Primary Care Provider [phone] Octavio Alejandre MD Unavailable [phone] Breezy Crisostomo MD Unavailable [phone] Encounter Details Date Type Department Care Team (Late st Contact Info) Description 03/02/2019 Scanned Document [facility] [address] [place] [phone] Octavio Alejandre MD Needs valid address [...] on filedocumented in this encounter Care Teams Conductor Sleeping Car Relationship Specialty Start Date End Date Jaspreet Fortune APRN [address] [place] [address] PCP - General Internal Medicine 02/04/19 07/14/19 Obinna Gannon MD [address] [place] [address] PCP - General Internal Medicine 07/15/19 Arminda Arita MD [address] [place] [phone] Referring Provider Cardiovascular Disease 05/26/19 Octavio Alejandre MD [address] [place] [address] Neurology 08/05/19 Breezy Crisostomo MD 281 [facility] [address] [phone] Physician Nephrology 08/09/19 documented as of this encounter
--- OUTSIDE RECORDS SUMMARY | 2025-02-15 10:17 | XMS_ITS | Patient Health Record ---
Author Organization [employer] Address [address] [facility] [id number] [place] [address] Care Team Providers Care Diesel Engine Mechanic Name Role Phone Amanda Foley Primary Care Provider ALLERGIES Allergen (clinical drug ingredient) Drug/Non Drug Allergy documented on EMR Reaction Allergy Type Onset Date Status Codeine Phosphate Unknown Drug Allergy Active phenobarbital Phenobarbital Unknown Drug Allergy Active esomeprazole / naproxen Vimovo Unknown Drug Allergy Active NSAIDS Unknown Drug Allergy Active REASON FOR REFERRAL No Information MEDICATIONS Medication SIG (Take, Route, Frequency, Duration) Notes Start Date End Date Status Sertraline HCl 100 mg 1 tablet Orally Tw ice a day Active Keflex 500 mg 1 capsule Orally luna ry 12 hrs for 10 day(s) Active hydroCHLOROthiazide 12.5 MG 1 tablet in the morning Orally Once a day Active Aspirin 81 81 MG 1 tablet Orally Once a day Active Vitamin D 1000 UNIT 1 tablet Orally Once a day Active Iron 325 (65 Fe) MG 1 tablet Orally Once a day Active Lisinopril 2.5 MG 1 tablet Orally Once a day Active PROBLEMS Problem Type ICD Code Onset Dates Problem Status W/U Status Risk SNOMED Code Notes Problem Sliver (T14.8XXA) Active confirmed [id number] PLAN OF TREATMENT No Information Insurance Providers Payer Name Payer Address Payer Phone Subscriber Number Group Number Insured Name Patient Relationship to Insured Coverage Start Date Coverage End Date JUD [address]ANG [address] [place] [address] [id number] Jacqui Kasper Self - patient is the insured MEDICAL (GENERAL) HISTORY Medical History History ICD Code neuropathy seizure disorder (last seizure 45 years ago) HTN depression low back pain (5 % disability) venous insuffiency right leg stage 3 kidney disease hx of DVT right leg November 2016
--- OUTSIDE RECORDS SUMMARY | 2025-02-15 10:17 | XMS_ITS | Encounter Summary ---
Author Organization [facility] Address [address] [place] [address] Care Team Providers Care Call Center Representative Name Role Phone Shelley Beard MD Primary Care Provider + Encounter Details Date Type Department Care Team (Late st Contact Info) Description 01/07/2025 Lab Requisition [facility] - Main Lab [address] [place] [address] Shelley Beard MD [address] [phone] Weakness Social History Tobacco Use Types Packs/Day [...] LAB CHEMISTRY METHOD 01/10/2025 12:55 PM EST [facility] Potassium 4.6 3.5 - 5.5 mmol/L LAB CHEMISTRY METHOD 01/10/2025 12:55 PM [facility] Chloride 104 96 - 110 mmol/L LAB CHEMISTRY METHOD 01/10/2025 12:55 PM [facility] CO2 30 21 - 32 mmol/L LAB CHEMISTRY METHOD 01/10/2025 12:55 PM [facility] Anion Gap 7 3 - 11 LAB CHEMISTRY METHOD 01/10/2025 12:55 PM [facility] Glucose 90 70 - 100 mg/dL LAB CHEMISTRY METHOD 01/10/2025 12:55 PM [facility] BUN 23 5 - 25 mg/dL LAB CHEMISTRY METHOD 01/10/2025 12:55 PM [facility] Creatinine 1.37(H) 0.50 - 1.10 mg/dL LAB CHEMISTRY METHOD 01/10/2025 12:55 PM [facility] eGFR 42(L) >=60 mL/min/1. 73m2 LAB CHEMISTRY METHOD 01/10/2025 12:55 PM [facility] Comment:Calculation based on the??Chronic Kidney Disease Epidemiology Collaboration (CKD-EPI) equation refit??without adjustment for race. BUN/Creatinine Ratio 16.8 LAB CHEMISTRY METHOD 01/10/2025 12:55 PM [facility] Calcium 9.1 8.5 - 10.5 mg/dL LAB CHEMISTRY METHOD 01/10/2025 12:55 PM [facility] Blood Venous blood specimen / Unknown Venipuncture / Unknown 01/10/2025 7:21 AM EST 01/10/2025 11:46 AM EST us Shelley Beard MD LAB BLOOD ORDERABLES Fin al Result [facility] [address] [place] [address], * (ABNORMAL) Complete blood count (01/10/2025 7:21 AM EST) [facility] WBC 6.6 4.8 - 10.8 K/mcL LAB HEMETOLOGY METHOD 01/10/2025 1:00 PM [facility] RBC 4.40 3.80 - 4.80 M/mcL LAB HEMETOLOGY METHOD 01/10/2025 1:00 PM [facility] Hemoglobin 11.3(L) 11.5 - 16.0 g/dL LAB HEMETOLOGY METHOD 01/10/2025 1:00 PM [facility] Hematocrit 37.9 35.0 - 47.0 % LAB HEMETOLOGY METHOD 01/10/2025 1:00 PM [facility] MCV 86.9 79.0 - 98.0 FL LAB HEMETOLOGY METHOD 01/10/2025 1:00 PM [facility] MCH 25.9(L) 27.0 - 32.0 pcg LAB HEMETOLOGY METHOD 01/10/2025 1:00 PM [facility] MCHC 29.8(L) 32.0 - 37.0 g/dL LAB HEMETOLOGY METHOD 01/10/2025 1:00 PM [facility] RDW 15.9(H) 11.0 - 15.0 % LAB HEMETOLOGY METHOD 01/10/2025 1:00 PM [facility] Platelets 238 130 - 400 K/mcL LAB HEMETOLOGY METHOD 01/10/2025 1:00 PM [facility] MPV 11.1(H) 7.0 - 11.0 FL LAB HEMETOLOGY METHOD 01/10/2025 1:00 PM [facility] NRBC 0.0 <1.0 % LAB HEMETOLOGY METHOD 01/10/2025 1:00 PM [facility] NRBC Absolute 0.00 <0.10 K/mcL LAB HEMETOLOGY METHOD 01/10/2025 1:00 PM EST [facility] Blood Venous blood specimen / Unknown Venipuncture / Unknown 01/10/2025 7:21 AM EST 01/10/2025 11:46 AM EST us Shelley Beard MD LAB BLOOD ORDERABLES Fin al Result [facility] [address] [place] [address], documented in this encounter Visit Diagnoses Diagnosis Weakness Other malaise and fatigue documented in this encounter Care Teams Call Center Representative Relationship Specialty Start Date End Date Shelley Beard MD [address] [place] [address] PCP - General Family Medicine 12/31/24 documented as of this encounter
--- OUTSIDE RECORDS SUMMARY | 2025-02-15 10:17 | XMS_ITS | Clinical Summary ---
Author Organization [facility] Address [address] [place] [address] Care Team Providers Care Report Manager Name Role Phone Arminda Arita MD Unavailable Obinna Gannon MD Primary Care Provider [phone] Octavio Alejandre MD Unavailable [phone] Breezy Crisostomo MD Unavailable [phone] Allergies Active Allergy Reactions Criticality Noted Date [...] this topic Medical Devices Implanted Type Area Drug Safety Physician Device Identifier Shelf Expiration Date Model / Serial / Lot 5531-G-309 Insert Tibial 3 9mm Knee X3 Cndrl Stab Trthln - [id number] Implanted:Qty : 1 on 08/26/2019 by Garfield Coyne MD at [facility] Joint Prosthesis Right: Knee [employer] - DIV STR [id number] 10/26/2023 5531-G-3 09 / / [id number] 5517-F-[id number] Component Femoral 3 Knee Right Crcte Rtn Bead Trthln Pa - [id number] Implanted:Qty : 1 on 08/26/2019 by Garfield Coyne MD at [facility] Joint Prosthesis Right: Knee [employer] ASH [id number] 06/11/2024 5517-F-3 02 / / [id number] 5536-B-300 Baseplate Tibial Tri[employer] Tritanium 3 L44 Mm L67 Mm Steril - [id number] Implanted:Qty : 1 on 08/26/2019 by Garfield Coyne MD at [facility] Joint Prosthesis Right: Knee [employer] - DIV STR [id number] 06/09/2024 5536-B-3 / / [id number] Advance Directives * Full Code (Latest Code Status on File) Date Activated Date Inactivated Comments 08/26/2019 3:14 PM * Full Code Date Activated Date Inactivated Comments 08/26/2019 7:28 AM 08/26/2019 3:14 PM Care Teams Report Manager Relationship Specialty Start Date End Date Obinna Gannon MD [address] [phone] PCP - General Internal Medicine 07/15/19 Arminda Arita MD [address] [place] [phone] Referring Provider Cardiovascular Disease 05/26/19 Octavio Alejandre MD 206 [place] [address] Neurology 08/05/19 Breezy Crisostomo MD [address] [place] [address] [place] [address] Physician Nephrology 08/09/19
--- OUTSIDE RECORDS SUMMARY | 2025-02-15 10:17 | XMS_ITS | Encounter Summary ---
Author Organization [facility] Address [address] [place] [address] Care Team Providers Care Mid Level Game Designer Name Role Phone Shelley Beard MD Primary Care Provider + Encounter Details Date Type Department Care Team (Late st Contact Info) Description 12/26/2024 Lab Requisition [facility] - Main Lab [address] [place] [address] Shelley eBard MD [address] [phone] Weakness Social History Tobacco Use Types Packs/Day [...] LAB CHEMISTRY METHOD 12/27/2024 1:11 PM EST [facility] Potassium 4.6 3.5 - 5.5 mmol/L LAB CHEMISTRY METHOD 12/27/2024 1:11 PM [facility] Chloride 98 96 - 110 mmol/L LAB CHEMISTRY METHOD 12/27/2024 1:11 PM [facility] CO2 32 21 - 32 mmol/L LAB CHEMISTRY METHOD 12/27/2024 1:11 PM [facility] Anion Gap 7 3 - 11 LAB CHEMISTRY METHOD 12/27/2024 1:11 PM [facility] Glucose 89 70 - 100 mg/dL LAB CHEMISTRY METHOD 12/27/2024 1:11 PM [facility] BUN 26(H) 5 - 25 mg/dL LAB CHEMISTRY METHOD 12/27/2024 1:11 PM [facility] Creatinine 1.53(H) 0.50 - 1.10 mg/dL LAB CHEMISTRY METHOD 12/27/2024 1:11 PM [facility] eGFR 36(L) >=60 mL/min/1. 73m2 LAB CHEMISTRY METHOD 12/27/2024 1:11 PM [facility] Comment:Calculation based on the??Chronic Kidney Disease Epidemiology Collaboration (CKD-EPI) equation refit??without adjustment for race. BUN/Creatinine Ratio 17.0 LAB CHEMISTRY METHOD 12/27/2024 1:11 PM [facility] Calcium 9.3 8.5 - 10.5 mg/dL LAB CHEMISTRY METHOD 12/27/2024 1:11 PM [facility] Blood Venous blood specimen / Unknown Venipuncture / Unknown 12/27/2024 7:29 AM EST 12/27/2024 11:09 AM EST us Shelley Beard MD LAB BLOOD ORDERABLES Fin al Result [facility] [address] [place] [address], * (ABNORMAL) Complete blood count (12/27/2024 7:29 AM EST) [facility] WBC 10.4 4.8 - 10.8 K/mcL LAB HEMETOLOGY METHOD 12/27/2024 11:35 AM [facility] RBC 4.60 3.80 - 4.80 M/mcL LAB HEMETOLOGY METHOD 12/27/2024 11:35 AM [facility] Hemoglobin 12.0 11.5 - 16.0 g/dL LAB HEMETOLOGY METHOD 12/27/2024 11:35 AM [facility] Hematocrit 39.2 35.0 - 47.0 % LAB HEMETOLOGY METHOD 12/27/2024 11:35 AM [facility] MCV 84.5 79.0 - 98.0 FL LAB HEMETOLOGY METHOD 12/27/2024 11:35 AM [facility] MCH 25.9(L) 27.0 - 32.0 pcg LAB HEMETOLOGY METHOD 12/27/2024 11:35 AM [facility] MCHC 30.6(L) 32.0 - 37.0 g/dL LAB HEMETOLOGY METHOD 12/27/2024 11:35 AM [facility] RDW 15.6(H) 11.0 - 15.0 % LAB HEMETOLOGY METHOD 12/27/2024 11:35 AM [facility] Platelets 294 130 - 400 K/mcL LAB HEMETOLOGY METHOD 12/27/2024 11:35 AM [facility] MPV 11.1(H) 7.0 - 11.0 FL LAB HEMETOLOGY METHOD 12/27/2024 11:35 AM [facility] NRBC 0.0 <1.0 % LAB HEMETOLOGY METHOD 12/27/2024 11:35 AM [facility] NRBC Absolute 0.00 <0.10 K/mcL LAB HEMETOLOGY METHOD 12/27/2024 11:35 AM EST [facility] Blood Venous blood specimen / Unknown Venipuncture / Unknown 12/27/2024 7:29 AM EST 12/27/2024 11:08 AM EST us Shelley Beard MD LAB BLOOD ORDERABLES Fin al Result [facility] [address] [place] [address], documented in this encounter Visit Diagnoses Diagnosis Weakness Other malaise and fatigue documented in this encounter Care Teams Mid Level Game Designer Relationship Specialty Start Date End Date Shelley Beard MD [address] [place] [address] PCP - General Family Medicine 12/31/24 documented as of this encounter
--- OUTSIDE RECORDS SUMMARY | 2025-02-15 10:17 | XMS_ITS | Encounter Summary ---
Author Organization [facility] Address [address] [place] [address] Care Team Providers Care Corporate Scheduler Name Role Phone Shelley Beard MD Primary Care Provider + Encounter Details Date Type Department Care Team (Late st Contact Info) Description 12/31/2024 Lab Requisition [facility] - Main Lab [address] [place] [address] Shelley Beard MD [address] [phone] Weakness Social History Tobacco Use Types Packs/Day [...] LAB CHEMISTRY METHOD 01/03/2025 10:55 AM EST [facility] Potassium 4.4 3.5 - 5.5 mmol/L [...] LAB BLOOD ORDERABLES Fin al Result [facility] [address] [place] [address], * (ABNORMAL) Complete blood count (01/03/2025 7:12 AM EST) [facility] WBC 7.6 4.8 - 10.8 K/mcL LAB [...] LAB HEMETOLOGY METHOD 01/03/2025 10:31 AM EST [facility] Blood Venous blood specimen / Unknown Venipuncture / Unknown 01/03/2025 7:12 AM EST 01/03/2025 10:07 AM EST us Shelley Beard MD LAB BLOOD ORDERABLES Fin al Result [facility] [address] [place] [address], documented in this encounter Visit Diagnoses Diagnosis Weakness Other malaise and fatigue documented in this encounter Care Teams Corporate Scheduler Relationship Specialty Start Date End Date Shelley Beard MD [address] [place] [id number] PCP - General Family Medicine 12/31/24 documented as of this encounter
--- OUTSIDE RECORDS SUMMARY | 2025-02-15 10:17 | XMS_ITS | Encounter Summary ---
Author Organization [facility] [address] Address [address] [place] [address] Care Team Providers Care Front Desk Assistant Name Role Phone Shelley Beard MD Primary Care Provider + Encounter Details Date Type Department Care Team (Late st Contact Info) Description 12/29/2024 Lab Requisition [facility] - Main Lab [address] [place] [address] Shelley Beard MD [address] [phone] Weakness Social History Tobacco Use Types Packs/Day [...] mmol/L LAB CHEMISTRY METHOD 12/30/2024 11:37 AM [facility] Chloride 103 96 - 110 mmol/L LAB CHEMISTRY METHOD 12/30/2024 11:37 AM [facility] CO2 31 21 - 32 mmol/L LAB CHEMISTRY METHOD 12/30/2024 11:37 AM [facility] Anion Gap 7 3 - 11 LAB CHEMISTRY METHOD 12/30/2024 11:37 AM [facility] Glucose 99 70 - 100 mg/dL LAB CHEMISTRY METHOD 12/30/2024 11:37 AM [facility] BUN 26(H) 5 - 25 mg/dL LAB CHEMISTRY METHOD 12/30/2024 11:37 AM [facility] Creatinine 1.33(H) 0.50 - 1.10 mg/dL LAB CHEMISTRY METHOD 12/30/2024 11:37 AM [facility] eGFR 43(L) >=60 mL/min/1. 73m2 LAB CHEMISTRY METHOD 12/30/2024 11:37 AM [facility] Comment:Calculation based on the??Chronic Kidney Disease Epidemiology Collaboration (CKD-EPI) equation refit??without adjustment for race. BUN/Creatinine Ratio 19.5 LAB CHEMISTRY METHOD 12/30/2024 11:37 AM [facility] Calcium 9.2 8.5 - 10.5 mg/dL LAB CHEMISTRY METHOD 12/30/2024 11:37 AM [facility] Blood Venous blood specimen / Unknown Venipuncture / Unknown 12/30/2024 6:50 AM EST 12/30/2024 10:45 AM EST us Shelley Beard MD LAB BLOOD ORDERABLES Fin al Result [facility] [address] [place] [address], * (ABNORMAL) Complete blood count (12/30/2024 6:50 AM EST) [facility] WBC 7.8 4.8 - 10.8 K/mcL LAB HEMETOLOGY METHOD 12/30/2024 11:35 AM [facility] RBC 4.40 3.80 - 4.80 M/mcL LAB HEMETOLOGY METHOD 12/30/2024 11:35 AM [facility] Hemoglobin 11.3(L) 11.5 - 16.0 g/dL LAB HEMETOLOGY METHOD 12/30/2024 11:35 AM [facility] Hematocrit 37.4 35.0 - 47.0 % LAB HEMETOLOGY METHOD 12/30/2024 11:35 AM [facility] MCV 85.6 79.0 - 98.0 FL LAB HEMETOLOGY METHOD 12/30/2024 11:35 AM [facility] MCH 25.9(L) 27.0 - 32.0 pcg LAB HEMETOLOGY METHOD 12/30/2024 11:35 AM [facility] MCHC 30.2(L) 32.0 - 37.0 g/dL LAB HEMETOLOGY METHOD 12/30/2024 11:35 AM [facility] RDW 15.5(H) 11.0 - 15.0 % LAB HEMETOLOGY METHOD 12/30/2024 11:35 AM [facility] Platelets 308 130 - 400 K/mcL LAB HEMETOLOGY METHOD 12/30/2024 11:35 AM [facility] MPV 10.9 7.0 - 11.0 FL LAB HEMETOLOGY METHOD 12/30/2024 11:35 AM [facility] NRBC 0.0 <1.0 % LAB HEMETOLOGY METHOD 12/30/2024 11:35 AM [facility] NRBC Absolute 0.00 <0.10 K/mcL LAB HEMETOLOGY METHOD 12/30/2024 11:35 AM EST [facility] Blood Venous blood specimen / Unknown Venipuncture / Unknown 12/30/2024 6:50 AM EST 12/30/2024 10:46 AM EST us Shelley Beard MD LAB BLOOD ORDERABLES Fin al Result [facility] [address] [place] [address], documented in this encounter Visit Diagnoses Diagnosis Weakness Other malaise and fatigue documented in this encounter Care Teams Front Desk Assistant Relationship Specialty Start Date End Date Shelley Beard MD [address] [place] [address] PCP - General Family Medicine 12/31/24 documented as of this encounter
--- OUTSIDE RECORDS SUMMARY | 2025-02-15 10:17 | XMS_ITS | Clinical Summary ---
Author Organization [facility] Address [address] [place] [address] Care Team Providers Care Timber Sizer Operator Name Role Phone Obinna Gannon MD Primary Care Provider [phone] Allergies Active Allergy Reactions Criticality Noted Date [...] by mouth. 0 03/29/2019 Active Fe-Succ Ac-B Cwofu-A-Lg-FA (IROSPAN 17/05) MISC Take by mouth. 0 [...] age to complete this topic Care Teams Timber Sizer Operator Relationship Specialty Start Date End Date Obinna Gannon MD [address] [facility] [place] [address] PCP - General Family Medicine 01/06/20
--- OUTSIDE RECORDS SUMMARY | 2025-02-15 10:17 | XMS_ITS | Encounter Summary ---
Author Organization [facility] Address [address] [place] [address] Care Team Providers Care Hydraulic Assembler Name Role Phone Shelley Beard MD Primary Care Provider + Encounter Details Date Type Department Care Team (Late st Contact Info) Description 01/16/2025 Lab Requisition [facility] - Main Lab [address] [facility] [email or web address] [address] Shelley Beard MD [address] [place] [phone] Weakness Social History Tobacco Use Types Packs/Day [...] fatigue documented in this encounter Care Teams Hydraulic Assembler Relationship Specialty Start Date End Date Shelley Beard MD [address] [phone] PCP - General Family Medicine 12/31/24 documented as of this encounter
--- OUTSIDE RECORDS SUMMARY | 2025-02-15 10:17 | XMS_ITS | Encounter Summary ---
Author Organization [facility] Address [address] [place] [address] Care Team Providers Care Special Education Secretary Name Role Phone Shelley Beard MD Primary Care Provider + Encounter Details Date Type Department Care Team (Late st Contact Info) Description 01/05/2025 Lab Requisition [facility] - Main Lab [address] [place] [address] Shelley Beard MD [address] [phone] Weakness Social History Tobacco Use Types Packs/Day [...] LAB CHEMISTRY METHOD 01/06/2025 10:09 AM EST [facility] Potassium 4.3 3.5 - 5.5 mmol/L LAB CHEMISTRY METHOD 01/06/2025 10:09 AM [facility] Chloride 102 96 - 110 mmol/L LAB CHEMISTRY METHOD 01/06/2025 10:09 AM [facility] CO2 34(H) 21 - 32 mmol/L LAB CHEMISTRY METHOD 01/06/2025 10:09 AM [facility] Anion Gap 3 3 - 11 LAB CHEMISTRY METHOD 01/06/2025 10:09 AM [facility] Glucose 92 70 - 100 mg/dL LAB CHEMISTRY METHOD 01/06/2025 10:09 AM [facility] BUN 25 5 - 25 mg/dL LAB CHEMISTRY METHOD 01/06/2025 10:09 AM [facility] Creatinine 1.30(H) 0.50 - 1.10 mg/dL LAB CHEMISTRY METHOD 01/06/2025 10:09 AM [facility] eGFR 44(L) >=60 mL/min/1. 73m2 LAB CHEMISTRY METHOD 01/06/2025 10:09 AM [facility] Comment:Calculation based on the??Chronic Kidney Disease Epidemiology Collaboration (CKD-EPI) equation refit??without adjustment for race. BUN/Creatinine Ratio 19.2 LAB CHEMISTRY METHOD 01/06/2025 10:09 AM [facility] Calcium 9.1 8.5 - 10.5 mg/dL LAB CHEMISTRY METHOD 01/06/2025 10:09 AM [facility] Blood Venous blood specimen / Unknown Venipuncture / Unknown 01/06/2025 6:09 AM EST 01/06/2025 9:20 AM EST us Shelley Beard MD LAB BLOOD ORDERABLES Fin al Result [facility] [address] [place] [address], * (ABNORMAL) Complete blood count (01/06/2025 6:09 AM EST) [facility] WBC 6.9 4.8 - 10.8 K/mcL LAB HEMETOLOGY METHOD 01/06/2025 9:45 AM [facility] RBC 4.20 3.80 - 4.80 M/mcL LAB HEMETOLOGY METHOD 01/06/2025 9:45 AM [facility] Hemoglobin 10.9(L) 11.5 - 16.0 g/dL LAB HEMETOLOGY METHOD 01/06/2025 9:45 AM [facility] Hematocrit 36.3 35.0 - 47.0 % LAB HEMETOLOGY METHOD 01/06/2025 9:45 AM [facility] MCV 87.1 79.0 - 98.0 FL LAB HEMETOLOGY METHOD 01/06/2025 9:45 AM [facility] MCH 26.1(L) 27.0 - 32.0 pcg LAB HEMETOLOGY METHOD 01/06/2025 9:45 AM [facility] MCHC 30.0(L) 32.0 - 37.0 g/dL LAB HEMETOLOGY METHOD 01/06/2025 9:45 AM [facility] RDW 16.0(H) 11.0 - 15.0 % LAB HEMETOLOGY METHOD 01/06/2025 9:45 AM [facility] Platelets 252 130 - 400 K/mcL LAB HEMETOLOGY METHOD 01/06/2025 9:45 AM [facility] MPV 10.6 7.0 - 11.0 FL LAB HEMETOLOGY METHOD 01/06/2025 9:45 AM [facility] NRBC 0.0 <1.0 % LAB HEMETOLOGY METHOD 01/06/2025 9:45 AM [facility] NRBC Absolute 0.00 <0.10 K/mcL LAB HEMETOLOGY METHOD 01/06/2025 9:45 AM EST [facility] Blood Venous blood specimen / Unknown Venipuncture / Unknown 01/06/2025 6:09 AM EST 01/06/2025 9:20 AM EST us Shelley Beard MD LAB BLOOD ORDERABLES Fin al Result [facility] [address] [place] [address], documented in this encounter Visit Diagnoses Diagnosis Weakness Other malaise and fatigue documented in this encounter Care Teams Special Education Secretary Relationship Specialty Start Date End Date Shelley Beard MD [address] [place] [phone] PCP - General Family Medicine 12/31/24 documented as of this encounter
--- OUTSIDE RECORDS SUMMARY | 2025-02-15 10:17 | XMS_ITS | Clinical Summary ---
Author Organization [facility] Address [address] [place] [address] Care Team Providers Care Irrigation Equipment Mechanic Name Role Phone NehaAntionette munroe Mariah Primary Care Provider [phone] Allergies Active Allergy Reactions Criticality Noted Date [...] DTaP,Tdap,and Td Vaccines (1 - Tdap) 1972 Pneumococcal Vaccine, 50+ Ye ars (1 of 1 - PCV) 2004 Zoster Vaccines (1 of 2) 2004 COVID-19 Vaccine ( - 2023-2 5 season) [...] topic Insurance MEDICAID HUSKY D Care Teams Irrigation Equipment Mechanic Relationship Specialty Start Date End Date Antionette Payne [address] [place] [id number] PCP - General 07/31/18
--- OUTSIDE RECORDS SUMMARY | 2025-02-15 10:17 | XMS_ITS | Encounter Summary ---
Author Organization [facility] Address [address] [place] [address] Care Team Providers Care Intellectual Property Lawyer Name Role Phone Shelley Beard MD Primary Care Provider + Encounter Details Date Type Department Care Team (Late st Contact Info) Description 12/24/2024 Lab Requisition [facility] - Main Lab [address] [facility] [place] [address] Shelley Beard MD 819 [facility] [address] [place], [place] [phone] Unspecified fall, subsequent encounter; Weakness Social History [...] * Folate (12/24/2024 5:48 AM EST) Pathologist [facility] Folate 3.9 2.8 - 17.0 ng/ml LAB CHEMISTRY METHOD 12/24/2024 11:09 AM EST [facility] Blood Venous blood specimen / Unknown Venipuncture / Unknown 12/24/2024 5:48 AM EST 12/24/2024 8:47 AM EST Shelley Beard MD LAB BLOOD ORDERABLES Fin al Result Performing Organization Address City/[facility]/ZIP Co de Phone Number [facility] [address] [place] [address], [place] [phone] * Vitamin B12 (12/24/2024 5:48 AM EST) [facility] Vitamin B-12 289 250 - 900 pcg/mL LAB CHEMISTRY METHOD 12/24/2024 11:09 AM EST [facility] Blood Venous blood specimen / Unknown Venipuncture / Unknown 12/24/2024 5:48 AM EST 12/24/2024 8:47 AM EST Shelley Beard MD LAB BLOOD ORDERABLES Fin al Result [facility] [address] [place] [address], [place] [phone] * Thyroid stimulating hormone with reflex to free t4 and free t3 (12/24/2024 5:48 AM EST) [facility] TSH 1.63 0.40 - 4.00 mcIU/mL LAB CHEMISTRY METHOD 12/24/2024 10:54 AM EST [facility] Blood Venous blood specimen / Unknown Venipuncture / Unknown 12/24/2024 5:48 AM EST 12/24/2024 8:47 AM EST Shelley Beard MD LAB BLOOD ORDERABLES Fin al Result [facility] [address] [place] [address], [place] [phone] * (ABNORMAL) Comprehensive metabolic panel (12/24/2024 5:48 AM EST) Pathologist [facility] Sodium 139 133 - 145 mmol/L LAB CHEMISTRY METHOD 12/24/2024 10:46 AM [facility] Potassium 4.6 3.5 - 5.5 mmol/L LAB CHEMISTRY METHOD 12/24/2024 10:46 AM [facility] Chloride 101 96 - 110 mmol/L LAB CHEMISTRY METHOD 12/24/2024 10:46 AM [facility] CO2 33(H) 21 - 32 mmol/L LAB CHEMISTRY METHOD 12/24/2024 10:46 AM [facility] Anion Gap 5 3 - 11 LAB CHEMISTRY METHOD 12/24/2024 10:46 AM [facility] Glucose 93 70 - 100 mg/dL LAB CHEMISTRY METHOD 12/24/2024 10:46 AM [facility] BUN 18 5 - 25 mg/dL LAB CHEMISTRY METHOD 12/24/2024 10:46 AM [facility] Creatinine 1.30(H) 0.50 - 1.10 mg/dL LAB CHEMISTRY METHOD 12/24/2024 10:46 AM [facility] eGFR 44(L) >=60 mL/min/1. 73m2 LAB CHEMISTRY METHOD 12/24/2024 10:46 AM [facility] Comment:Calculation based on the??Chronic Kidney Disease Epidemiology Collaboration (CKD-EPI) equation refit??without adjustment for race. BUN/Creatinine Ratio 13.8 LAB CHEMISTRY METHOD 12/24/2024 10:46 AM [facility] Calcium 9.1 8.5 - 10.5 mg/dL LAB CHEMISTRY METHOD 12/24/2024 10:46 AM [facility] AST (SGOT) 41 10 - 42 unit/L LAB CHEMISTRY METHOD 12/24/2024 10:46 AM [facility] ALT (SGPT) 25 10 - 60 unit/L LAB CHEMISTRY METHOD 12/24/2024 10:46 AM [facility] Alkaline Phosphatase 81 42 - 121 unit/L LAB CHEMISTRY METHOD 12/24/2024 10:46 AM [facility] Total Protein 6.2 6.0 - 8.0 g/dL LAB CHEMISTRY METHOD 12/24/2024 10:46 AM [facility] Albumin 2.7(L) 3.2 - 5.0 g/dL LAB CHEMISTRY METHOD 12/24/2024 10:46 AM [facility] Total Bilirubin 0.5 0.0 - 1.4 mg/dL LAB CHEMISTRY METHOD 12/24/2024 10:46 AM [facility] Blood Venous blood specimen / Unknown Venipuncture / Unknown 12/24/2024 5:48 AM EST 12/24/2024 8:47 AM EST us Shelley Beard MD LAB BLOOD ORDERABLES Fin al Result [facility] [address] [place] [address], * (ABNORMAL) Complete blood count (12/24/2024 5:48 AM EST) WBC 8.8 4.8 - 10.8 K/mcL LAB HEMETOLOGY METHOD 12/24/2024 10:13 AM [facility] RBC 4.20 3.80 - 4.80 M/mcL LAB HEMETOLOGY METHOD 12/24/2024 10:13 AM [facility] Hemoglobin 10.9(L) 11.5 - 16.0 g/dL LAB HEMETOLOGY METHOD 12/24/2024 10:13 AM [facility] Hematocrit 36.3 35.0 - 47.0 % LAB HEMETOLOGY METHOD 12/24/2024 10:13 AM [facility] MCV 85.8 79.0 - 98.0 FL LAB HEMETOLOGY METHOD 12/24/2024 10:13 AM [facility] MCH 25.8(L) 27.0 - 32.0 pcg LAB HEMETOLOGY METHOD 12/24/2024 10:13 AM [facility] MCHC 30.0(L) 32.0 - 37.0 g/dL LAB HEMETOLOGY METHOD 12/24/2024 10:13 AM [facility] RDW 15.2(H) 11.0 - 15.0 % LAB HEMETOLOGY METHOD 12/24/2024 10:13 AM [facility] Platelets 204 130 - 400 K/mcL LAB HEMETOLOGY METHOD 12/24/2024 10:13 AM [facility] MPV 11.5(H) 7.0 - 11.0 FL LAB HEMETOLOGY METHOD 12/24/2024 10:13 AM [facility] NRBC 0.0 <1.0 % LAB HEMETOLOGY METHOD 12/24/2024 10:13 AM [facility] NRBC Absolute 0.00 <0.10 K/mcL LAB HEMETOLOGY METHOD 12/24/2024 10:13 AM [facility] Blood Venous blood specimen / Unknown Venipuncture / Unknown 12/24/2024 5:48 AM EST 12/24/2024 8:47 AM EST Shelley Beard MD LAB BLOOD ORDERABLES Fin al Result [facility] [address] [place] [address], documented in this encounter Visit Diagnoses Diagnosis Unspecified fall, subsequent encounter Weakness Other malaise and fatigue documented in this encounter Care Teams Intellectual Property Lawyer Relationship Specialty Start Date End Date Shelley Beard MD [address] [place] [address] PCP - General Family Medicine 12/31/24 documented as of this encounter
--- OUTSIDE RECORDS SUMMARY | 2025-02-15 10:17 | XMS_ITS | Clinical Summary ---
Author Organization [address] Address [address] [place] [address] Phone Care Team Providers Care Strategic Planning Consultant Name Role Phone Shelley Beard MD Primary Care Provider + Encounters Date Type Department Care Team Description 01/16/2025 Lab Requisition [facility] - Main Lab [address] [place] [phone] Shelley Beard MD Weakness 01/12/2025 Lab Requisition [facility] - Main Lab [address] [place] [address] Shelley Beard MD Weakness 01/07/2025 Lab Requisition [facility] - Main Lab [address] [place] [address] Shelley Beard MD Weakness 01/05/2025 Lab Requisition [facility] - Main Lab [address] [place] [address] Shelley Beard MD Weakness 12/31/2024 Lab Requisition [facility] - Main Lab [address] [place] [address] Shelley Beard MD Weakness 12/29/2024 Lab Requisition [facility] - Main Lab [address] [place] [address] Shelley Beard MD Weakness 12/26/2024 Lab Requisition [facility] - Main Lab [address] [place] [address] Shelley Beard MD Weakness 12/24/2024 Lab Requisition [facility] - Main Lab [address] [place] [address] Shelley Beard MD Unspecified fall, [...] Date Comments Liver disease DX:Liver disease Epilepsy DX:Epilepsy (HCC ) Depression DX:Depression Anxiety DX:Anxiety High blood pressure [...] of7 resultswithin the time period is included. Pathologist [facility] WBC 8.0 4.8 - 10.8 K/mcL LAB HEMETOLOGY METHOD 01/13/2025 12:56 PM [facility] RBC 4.40 3.80 - 4.80 M/[facility] LAB HEMETOLOGY METHOD 01/13/2025 12:56 PM [facility] Hemoglobin 11.3(L) 11.5 - 16.0 g/dL LAB HEMETOLOGY METHOD 01/13/2025 12:56 PM [facility] Hematocrit 38.3 35.0 - 47.0 % LAB HEMETOLOGY METHOD 01/13/2025 12:56 PM [facility] MCV 86.7 79.0 - 98.0 FL LAB HEMETOLOGY METHOD 01/13/2025 12:56 PM EST [facility] MCH 25.6(L) 27.0 - 32.0 pcg LAB HEMETOLOGY METHOD 01/13/2025 12:56 PM [facility] MCHC 29.5(L) 32.0 - 37.0 g/dL LAB HEMETOLOGY METHOD 01/13/2025 12:56 PM EST [facility] RDW 15.9(H) 11.0 - 15.0 % [...] MD LAB BLOOD ORDERABLES Fin al Result [facility] [address] [place] [address], * (ABNORMAL) Basic metabolic panel (01/13/2025 7:06 AM EST) Only the most recent of6 resultswithin the time period is included. Sodium 140 133 - 145 mmol/L LAB CHEMISTRY METHOD 01/13/2025 12:36 PM EST [facility] Potassium 4.7 3.5 - [...] MD LAB BLOOD ORDERABLES Fin al Result [facility] [address] [place] [address], * Thyroid stimulating hormone with reflex to free t4 and free t3 (12/24/2024 5:48 AM EST) Pathologist [facility] TSH 1.63 0.40 - 4.00 mcIU/mL LAB CHEMISTRY METHOD 12/24/2024 10:54 AM EST [facility] Blood Venous blood specimen / Unknown Venipuncture / Unknown 12/24/2024 5:48 AM EST 12/24/2024 8:47 AM EST Shelley Beard MD LAB BLOOD ORDERABLES Fin al Result [facility] [address] [place] [address], * Folate (12/24/2024 5:48 AM EST) [facility] Folate 3.9 2.8 - 17.0 ng/ml LAB CHEMISTRY METHOD 12/24/2024 11:09 AM EST [facility] Blood Venous blood specimen / Unknown Venipuncture / Unknown 12/24/2024 5:48 AM EST 12/24/2024 8:47 AM EST Shelley Beard MD LAB BLOOD ORDERABLES Fin al Result [facility] [address] [place] [address], * Vitamin B12 (12/24/2024 5:48 AM EST) Pathologist [facility] Vitamin B-12 289 250 - 900 pcg/mL LAB CHEMISTRY METHOD 12/24/2024 11:09 AM EST [facility] Blood Venous blood specimen / Unknown Venipuncture / Unknown 12/24/2024 5:48 AM EST 12/24/2024 8:47 AM EST us Shelley Beard MD LAB BLOOD ORDERABLES Fin al Result [facility] [address] [place] [address], * (ABNORMAL) Comprehensive metabolic panel (12/24/2024 5:48 [...] MD LAB BLOOD ORDERABLES Fin al Result [facility] [address] [place] [address], from Last 3 Months Insurance [employer] MED[employer]ARE [employer]VANTAGE [place]ICA[place] - [place] Care Teams Strategic Planning Consultant Relationship Specialty Start Date End Date Shelley Beard MD [address] [address] PCP - General Family Medicine 12/31/24
== END 2025-02-15 09:17 | disposition home or self-care (01) ==
LOC: HO.NEURO 09:16
PROVIDERS: PCP Nurse Practitioner Family; Visit Provider Nurse Practitioner Family
DX: R29.898 Other symptoms and signs involving the musculoskeletal system (principal)
CPT/HCPCS: 95886; 95911

== ENCOUNTER 2025-03-23 14:29 | Outpatient (AMB) | payer MEDICARE, SELFPAY ==
--- NOTE | 2025-03-23 14:34 | MHC.OFFWIV ---
Intake Vital Signs 03/23/25 14:37 Height 5 ft 6.5 in Weight 259 lb BMI 41.2 BP 122/70 Blood Pressure Location Lt radial Position Sitting Respiration 16 Pulse 79 Pulse Source Pulse Oximeter Temp 97.5 F Temp Source Oral Pulse Oximetry (%) 97 Oxygen Delivery Method Room Air Intake Visit Reasons: EP Dizzy, cough, stuffy nose Intake Note: Pt is here today c/o vertigo,cough and nasal congestion x1wk Patient Tobacco Use Status: Never used Tobacco Allergies esomeprazole [From Vimovo] Allergy (Mild, Verified 03/23/25 14:40) Headache naproxen [From Vimovo] Allergy (Mild, Verified 03/23/25 14:40) Headache codeine Adverse Reaction (Mild, Verified 03/23/25 14:40) Unknown phenobarbital Adverse Reaction (Mild, Verified 03/23/25 14:40) Unknown HPI HPI Comments History of Present Illness Details - Patient is a 69-year-old female with a past medical history of neuropathy, high triglycerides, bilateral leg edema, CKD 3 seizure disorder hypertension morbid obesity anxiety, depression and CECI who is here complaining of dizziness and upper respiratory symptoms, including a stuffy nose and sore throat for a week, and agitated dizziness lasting three days. - The dizziness becomes more pronounced when the patient turns her head to the left, feels like she is off balance. - She admits a history of ear infections, but currently, she denies ear pain or fever. She acknowledges a cough but no wheezing or shortness of breath. - Medication history includes recent use of NyQuil with noted temporary relief and habitual nightly intake of 250 mg of magnesium supplements, now discontinued as they may exacerbate her condition. Physical Exam General: Cooperative, healthy appearing, comfortable, no acute distress and well developed Orientation: Patient oriented x3 Limitations: Patient reports inability to walk due to dizziness Head: Normal to inspection Ears: Hearing grossly normal bilaterally, TMs with some fluid bilaterally Nose: Stuffy nose present Face and sinus: Normal facial exam Eyes: Appearance normal, both eyes and all related structures, Neck: Normal visual inspection and Yes full ROM Respiratory: Normal respiratory effort and able to speak in complete sentences. Clear to auscultation bilaterally Cardiovascular: Regular rate and rhythm. Normal S1 and S2 Skin: No rashes or lesions noted Neuro: Patient oriented x3, Extremities: Normal to inspection COUNT INCLUDES THE [facility] Medical History Periodic limb movement Hx of hiatal hernia FH: total knee replacement Chronic kidney disease Seizure Surgical History Hx of tonsillectomy Hx of shoulder surgery H/O: hysterectomy Hx of appendectomy Hx of total knee replacement Family History Father Cirrhosis Lung cancer Mental health disorder Substance use disorder Mother Lung cancer Social History Household Members: Spouse Housing: Apartment Alcohol intake: current Alcohol intake frequency: holidays/special occasions only Alcohol type: wine Patient Tobacco Use Status: Never used Tobacco e-Cigarette/Vaping Use: Never Used service: No Current occupational status: retired Cognitive needs: No Hearing needs: No Vision needs: No Review of Systems Const All systems reviewed & are unremarkable except as noted in HPI and below Physical Exam Vital Signs: BMI result Body Mass Index 41.2 Assessment & Plan Assessment & Plan (1) Acute viral syndrome: Code(s): B34.9 - Viral infection, unspecified Plan: VSS, pt well appearing and PE unremarkable. Flu, covid and RSV testing was sent. Management of this patient?s complaints included advising her to halt magnesium supplement intake, given association with dizziness, and to use Flonase for congestion and Benadryl at night. The home-based Adiel maneuver was recommended to address potential benign paroxysmal positional vertigo, contributing to her dizziness as ear exam revealed some fluid. Management of the suspected viral upper respiratory tract infection was oriented towards symptomatic relief, including the possible use of decongestants. Monitoring for any exacerbation of symptoms or failure to improve should prompt further evaluation with her primary care provider. Patient was informed and verbally consented to the use of an ambient scribe for clinic note documentation during this visit. Orders: Orders SARS-CoV2/FLU/RSV Today R09.89 - Other specified symptoms and signs involving the circulatory and respiratory systems Coding Level of Care Code Est Pt Level 3 (49975) Diagnoses Acute viral syndrome B34.9
[2025-03-23 14:37] VITALS: BP 122/70; PULSE 79; RESP 16; TEMP 36.4; O2SAT 97; BMI 41.2
--- OUTSIDE RECORDS SUMMARY | 2025-03-23 15:46 | XMS_ITS | Data Portability ---
Author Organization [facility], SHIVAEleanor Joylow PT Address [address] [place] [address] Assessment Encounter Date Assessment Date Assessment LastModified by Organization Details LastModified Time 01/19/2025 01/19/2025 SUBJECTIVE Chief Complaint Shoulder fracture right. History of Present Illness 69-year-old female had a slip and fall accident at home approximately four months ago. She had a complex medical presentation requiring hospital stay and inpatient rehab, from which she was discharged about one week ago. She has been at home with help from family since discharge. She was diagnosed with a right shoulder fracture at the time of her fall, managed with sling immobilization. She complains of right arm pain and has been maintaining the extremity in a sling. Occupational therapy was arranged upon discharge from rehab and will commence later this week. Past Medical History Includes rib fracture injury and obesity. Social History Prior to this injury, she lived at home with family. OBJECTIVE Examination The patient is well-appearing, in no distress, and accompanied by a family member. She is ambulatory without an assistive device. Right upper extremity shows arm bruising, with shoulder motion that is very guarded and limited. Elbow motion is guarded. Sensation is intact to touch on the lateral arm. Fingers, hand, and forearm show no edema. The left upper extremity shows no external sign of injury. Imaging X-rays of the right shoulder, three views, were ordered, obtained, and reviewed by me today at [facility]. The images show a fracture through the surgical neck of the proximal humerus. The fracture pattern extends from the neck to the metadiaphysis with translation about 30 to 50 percent. Subperiosteal ectopic callus is present. Other Data Review of [facility] emergency department notes from December 21, 2024, hospital admission note from December 21, 2024, and hospital discharge summary from December 23, 2024, was conducted. ASSESSMENT Right proximal humerus fracture, surgical neck pattern extending to the metadiaphysial shaft with acceptable alignments and early radiographic healing, four weeks post-injury with immobilization in a sling. PLAN Continue non-operative treatment Begin therapy PT/Sandeep supervise upper extremity rehab (ROM, strength, wean sling, WBAT) Recheck in four to six weeks with X-rays of the right shoulder, four views. [email or web address] Not available 01/19/2025 13:00:39 03/01/2025 03/01/2025 CHIEF COMPLAINT Follow up Right proximal humerus fracture DOI approximately August 2024 HISTORY OF PRESENT ILLNESS Patient reports some soreness through her right upper arm, but recovery of shoulder motion and use of the extremity. She has participated in the physical therapy program. She takes ultram once or twice a day for management of pain symptoms. She wishes she had zero pain, but she's otherwise satisfied with her recovery. OBJECTIVE EXAMINATION Right upper extremity arm appearance normal Shoulder motion active includes: - Forward flexion to at least 110? ? ? - External rotation arm at side at least 40? ? ? - Full elbow, wrist and finger motion IMAGING X-rays ordered obtained and reviewed by me today at [facility] X-rays of the right shoulder four views show fracture from the proximal humeral shaft extending towards the surgical neck of the humerus with mild angulation and abundant callous bridging fracture line blurring even trabecularization of the bridging bone. ASSESSMENT Right proximal humerus fracture extending from the surgical neck to the metadiaphyseal shaft with progressive healing by X-ray. Recovery is progressing well, including range of motion, and she still has some soreness through the arm. PLAN 1. Continue progressive use of the extremity 2. Confirmed that she needs no prescriptions for tramadol 3. Recommended additional modalities such as heat for the arm 4. Follow-up in about two months to recheck complaints 5. X-rays of the right humerus two views to be obtained at next visit [email or web address] Not available 03/01/2025 20:24:42 Plan of Treatment Reminders Order Date Submit Date Provider Last Modified By Organization Details Last Modified Time Details Appointments RECHECK 15 2024 11:30A M Елена Jones MD Not available Not available Not available Lab None recorded. Referral physical therapist referral - in- home P.T/O.Tri ght proximal humerus fx, healing x4 weeksWean sling, ROM elbow/wri st/finger s allShould er AA/A/P Strengthe ningWBAT RUE 2x a week for 4-6 weeks 2024 025 [email or web address] Not available 01/19/2025 16:40:01 Procedures None recorded. Surgeries None recorded. Imaging XR, shoulder, 2 or more view - 314 right shoulder 4v recheck 2024 025 [email or web address] [address], [address], [place], [address], 03/15/2025 13:18:18 XR, shoulder, 2 or more view - 315- rt shoulder 4v new pt 2024 025 [email or web address] [facility], [address], [address], [place], [address], 01/19/2025 16:40:01 Medication Orders None recorded. Patient TargetsNo targets recorded. Patient InstructionsNo instructions recorded. Reason for Referral Physical Therapist Referral for Closed fracture of right shoulder in- home P.T/O.Tright proximal humerus fx, healing x4 weeksWean sling, ROM elbow/wrist/fingers allShoulder AA/A/P StrengtheningWBAT RUE 2x a week for 4-6 weeks Referring Physician: Елена Jones, Orthopedic Surgery, Encounter Date: 01/19/2025 Results Created Date Observation Date Name Description Value Unit Range Abnormal Flag Note LastModifiedBy Organization Detail LastModifiedTime 01/19/2001/19/2025 XR, shoul mateus, 2 or more view [email or web address] ?Encry pted=s hAaTro YD8dLq bEUv6g %2BXZw aYqtaq 0bqfl% 2Fg9IQ a4ajBk vP9nXo QUaueC m3YtLR FvZlgJ JJ8mAn HZtai3 [id number] AC0Kqb XmBUKq uKiQtr MwF INTERFACE [facility] [address], [place], [address], 01/19/2025 11:23:39 01/19/20 25 01/19/2025 XR, lissette mateus, 2 or more view [email or web address] ?Encry pted=s hAaTro YD8dLq bEUv6g %2BXZw aYqtaq 0bqfl% 2Fg9IQ a4ajBk vP9nXo QUaueC m3YtLR FvZl J8Logan HZtai3 0n2881 AC0Kqb XmBUKq uKiQtr MwF INTERFACE [facility] [address], [place], [address], 01/19/2025 11:23:41 03/01/20 25 03/01/2025 XR, lsisette ignacio, 2 or more view [email or web address] ?Encry pted=s hAaTro YD8dLq bEUv6g %2BXZw aYqtaq 0bqfl% 2Fg9IQ a4ajBk vP9nXo QUaueC m3YtLR FvZl JJ8Logan HZtai3 6x8695 AC0KqY 36NVKq kKiQtr MwF INTERFACE [facility] [address], [place], [address], 03/01/2025 14:51:24 03/01/20 25 03/01/2025 XR, lissette ignacio, 2 or more view [email or web address] ?Encry pted=s hAaTro YD8dLq bEUv6g %2BXZw aYqtaq 0bqfl% 2Fg9IQ a4ajBk vP9nXo QUaueC m3YtLR FvZlgJ JJ8mAn HZtai3 8z3966 AC0KqY 36NVKq kKiQtr MwF INTERFACE [facility] [address], [place], [address], 03/01/2025 14:51:26 Result Notes None recorded. Procedures Surgical History None recorded. Imaging Results Imaging Date Name Status LastModified by Organiz ation Details LastModified Time 01/19/2025 XR, shoulder, 2 or more view completed INTERFACE [facility] [address], [place], [address], 01/19/2025 11:23:39 01/19/2025 XR, shoulder, 2 or more view completed INTERFACE [facility] [address], [place], [address], 01/19/2025 11:23:41 03/01/2025 XR, shoulder, 2 or more view completed INTERFACE [facility] [address], [place], [address], 03/01/2025 14:51:24 03/01/2025 XR, shoulder, 2 or more view completed INTERFACE [facility] [address], [place], [address], 03/01/2025 14:51:26 Procedure Notes None recorded. Medical Equipment None Reported. Allergies Allergen ID Allergen Name Allergen Category Reaction Reaction Severity Criticality Documentation Date Start Date Code Code System Note Provider Name and Address Organization Details Recorded Time 121782 codeine medicatio n Not available Not available Not available 01/19/2025 2670 RxNorm JANIYA LILLIAN [facility] 5 11:40:10 229188 naproxen medicatio n Not available Not available Not available 01/19/2025 7258 RxNorm JANIYA LILLIAN [facility] 5 11:40:15 315094 phenobarb ital medicatio n Not available Not available Not available 01/19/2025 8134 RxNorm JANIYA HERBERTYMOUR [facility] 11:40:20 Medications Name Sig Start Date Stop Date Status Note LastModified by Organization Details LastModified Time doxycycline hyclate 100 mg capsule TAKE 1 CAPSULE BY MOUTH TWICE A DAY 01/19 completed Not Available Not Available Not Available trazodone 50 mg tablet TAKE 1 TABLET BY MOUTH EVERY DAY NEEDED FOR SLEEP active Not Available Not Available No t Available prednisone 20 mg tablet TAKE 2 TABLETS BY MOUTH EVERY DAY 01/19 completed Not Available Not Available Not Available tramadol 50 mg tablet TAKE 1 TABLET ORALLY 2 TIMES A DAY NEEDED FOR PAIN FOR 20 DAYS active Not Available Not Available No t Available diazepam 2 mg tablet TAKE 1 TABLET ORALLY DAILY NEEDED FOR ANXIETY 01/19 completed Not Available Not Available Not Available benzonatate 100 mg capsule TAKE 1 CAPSULE ORALLY 2 TIMES A DAY NEEDED FOR COUGH 01/19 completed Not Available Not Available Not Available docusate sodium 100 mg capsule TAKE 1 CAPSULE BY MOUTH EVERY DAY 01/19 completed Not Available Not Available Not Available gabapentin 300 mg capsule TAKE 1 CAPSULE IN MORNING, 1 CAP IN THE AFTERNOON , 2 CAPSULES AT NIGHT active Not Available Not Available No t Available nystatin 100,000 unit/gram topical powder APPLY 1 APPLICATI ON TOPICALLY 2 TO 3 TIMES A DAY active Not Available Not Available No t Available lorazepam 1 mg tablet PLEASE SEE ATTACHED FOR DETAILED DIRECTION S 01/19 completed Not Available Not Available Not Available albuterol sulfate HFA 90 mcg/actuati on aerosol inhaler INHALE 2 PUFFS EVERY 6 HOURS NEEDED FOR SHORTNESS OF BREATH OR WHEEZING 01/19 completed Not Available Not Available Not Available sodium polystyrene sulfonate oral powder DISSOLVE 15 GRAMS IN WATER AND TAKE BY MOUTH ONCE DAILY 01/19 completed Not Available Not Available Not Available celecoxib 100 mg capsule TAKE 1 CAPSULE BY MOUTH EVERY DAY NEEDED FOR PAIN 01/19 completed Not Available Not Available Not Available ketoconazol e 2 % topical cream APPLY TOPICALLY ONCE DAILY 03/01 completed Not Available Not Available Not Available ondansetron 4 mg disintegrat ing tablet TAKE 1 TABLET BY MOUTH EVERY 8 HOURS NEEDED FOR NAUSEA AND VOMITING 01/19 completed Not Available Not Available Not Available hydroxyzine pamoate 25 mg capsule TAKE 1 CAPSULE BY MOUTH TWICE A DAY NEEDED active Not Available Not Available No t Available olmesartan 20 mg tablet TAKE 1 TABLET BY MOUTH EVERY DAY 01/19 completed Not Available Not Available Not Available bupropion HCl XL 150 mg 24 hr tablet, extended release TAKE 1 TABLET BY MOUTH EVERY DAY IN THE MORNING active Not Available Not Available No t Available duloxetine 60 mg capsule,del ayed release TAKE 1 CAPSULE BY MOUTH EVERY DAY active Not Available Not Available No t Available iron active Not Available Not Availa ble Not Available lisinopril active Not Available Not Av ailable Not Available budesonide- formoterol HFA 160 mcg-4.5 mcg/actuati on aerosol inhaler TAKE 2 PUFFS BY MOUTH ONCE A DAY 01/19 completed Not Available Not Available Not Available D3 DOTS active Not Available Not Avail able Not Available aspirin 81 mg capsule Take 1 capsule every day by oral route. active Not Available Not Available No t Available Vitals Date Recorded Body height Body mass index (BMI) Body weight Provider Name and Address Organization Details Last Updated DateTime 01/19/2025 152.4 cm 51.2 kg/m2 825996.2 g [facility] 01/19/2025 11:39:43 Date Recorded Body height Body mass index (BMI) Body weight Provider Name and Address Organization Details Last Updated DateTime 03/01/2025 152.4 cm 51.2 kg/m2 803490.2 g [facility] 03/01/2025 14:45:12 Social History None recorded. Functional Status None recorded. Mental Status None recorded. Family History Nothing Reported. Medical History Condition Response Allergies/Hayfever N Coronary Artery Disease N Breathing or lung disorders N Anxiety/Depression Y Emphysema N Nerve Disorders N Thyroid Problems N COPD N Pacemaker N Anemia Y Kidney/Bladder Problems Y Vascular Disease N Heart Trouble N Heart Attack ([place]) N Gastrointestinal Disease N Cholesterol N Diabetes N Autoimmune disease N Bleeding Disorder N Inflammatory Joint disease N Orthotics N Arthritis Y Seizures/Epilepsy N Blood Clot N AIDS/HIV N Congestive Heart Failure (CHF) N Acid Reflux (GERD) N Cancer N Stroke N Asthma N Circulation Problems N Peripheral Vascular Disease N Sleep Apnea Y Hepatitis N Heart Disease N Rheumatoid Arthritis N Arrhythmia N Pulmonary Embolism N Headaches Y Fibromyalgia N Hypertension Y Osteoporosis N Gynecological HistoryNo gynecological history recorded. Obstetrics History GPAL:G 0 P 0 0 0 0 Past Encounters Encounter ID Performer Location Encounter Start Date Encounter Closed Date Diagnosis/Indication Diagnosis SNOMED-CT Code Diagnosis ICD10 Code Diagnosis Note [id number] MD SHIVA Kendall [address] [place] [address] 01/19/2025 11:05:45 01/19/2025 13:02:02 Closed fracture of right shoulder [id number] S42.91XA [id number] MD SHIVA [facility] [place] [address] [place], [place] [address] 03/01/2025 14:41:41 03/15/2025 13:18:18 Closed fracture of right shoulder [id number] S42.91XA Health Concerns Section Related Observation LastModified by Organization Detai ls LastModified Time None Recorded Concern Status LastModified by Organization Details LastModified Time None Recorded Advance Directives Directive None Recorded Payers Encounter Date Sequence Insurance Name Policy Number Policy Soto Covered Member ID Soto Member ID Guarantor Name 01/19/2025 1 [employer] (MEDICARE REPLACEMENT PPO) [id number] Jacqui Kasper [id number] Jacqui Kasper 03/01/2025 1 [employer] (MEDICARE REPLACEMENT PPO) [id number] Jacqui Kasper [id number] Jacqui Kasper OBGyn Episode No OBEpisode recorded.
--- OUTSIDE RECORDS SUMMARY | 2025-03-23 15:46 | XMS_ITS | Clinical Summary ---
Author Organization [facility] Address [address] [place] [address] Care Team Providers Care Manager Shift Name Role Phone NheaAntionette munroe Mariah Primary Care Provider [phone] Allergies Active Allergy Reactions Criticality Noted Date [...] - 2023-2 5 season) 2024 Influenza Vaccine (Season Ended) 2025 HPV Vaccines Aged Out No longer eligi ble based on patient's age to complete this topic Hepatitis A Vaccines Aged Out No long er eligible based on patient's age to complete this topic Meningococcal Vaccine Aged Out No matt nickie eligible based on patient's age to complete this topic Insurance MEDICAID HUSKY D Care Teams Manager Shift Relationship Specialty Start Date End Date Antionette Payne [address] [place] [phone] PCP - General 07/31/18
--- OUTSIDE RECORDS SUMMARY | 2025-03-23 15:46 | XMS_ITS | Clinical Summary ---
Author Organization [facility] Address [address] [place] [address] Care Team Providers Care Mechanical Product Engineer Name Role Phone Obinna Gannon MD Primary Care Provider [phone] Allergies Active Allergy Reactions Criticality Noted Date [...] by mouth. 0 03/29/2019 Active Fe-Succ Ac-B Dtcin-R-Vp-FA (IROSPAN 17/05) MISC Take by mouth. 0 [...] age to complete this topic Care Teams Mechanical Product Engineer Relationship Specialty Start Date End Date Obinna Gannon MD [address] [facility] [place] [address] PCP - General Family Medicine 01/06/20
--- OUTSIDE RECORDS SUMMARY | 2025-03-23 15:46 | XMS_ITS | Encounter Summary ---
Author Organization [facility] Address [address] [place] [address] Care Team Providers Care Vat Operator Name Role Phone Shelley Beard MD Primary Care Provider + Encounter Details Date Type Department Care Team (Late st Contact Info) Description 01/07/2025 Lab Requisition [facility] - Main Lab [address] [place] [address] Shelley Beard MD [address] [phone] Weakness Social History Tobacco Use Types Packs/Day [...] LAB CHEMISTRY METHOD 01/10/2025 12:55 PM EST [facility] Potassium 4.6 3.5 - 5.5 mmol/L LAB CHEMISTRY METHOD 01/10/2025 12:55 PM [facility] Chloride 104 96 - 110 mmol/L LAB CHEMISTRY METHOD 01/10/2025 12:55 PM [facility] CO2 30 21 - 32 mmol/L LAB CHEMISTRY METHOD 01/10/2025 12:55 PM [facility] Anion Gap 7 3 - 11 LAB CHEMISTRY METHOD 01/10/2025 12:55 PM [facility] Glucose 90 70 - 100 mg/dL LAB CHEMISTRY METHOD 01/10/2025 12:55 PM [facility] BUN 23 5 - 25 mg/dL LAB CHEMISTRY METHOD 01/10/2025 12:55 PM [facility] Creatinine 1.37(H) 0.50 - 1.10 mg/dL LAB CHEMISTRY METHOD 01/10/2025 12:55 PM [facility] eGFR 42(L) >=60 mL/min/1. 73m2 LAB CHEMISTRY METHOD 01/10/2025 12:55 PM [facility] Comment:Calculation based on the??Chronic Kidney Disease Epidemiology Collaboration (CKD-EPI) equation refit??without adjustment for race. BUN/Creatinine Ratio 16.8 LAB CHEMISTRY METHOD 01/10/2025 12:55 PM [facility] Calcium 9.1 8.5 - 10.5 mg/dL LAB CHEMISTRY METHOD 01/10/2025 12:55 PM [facility] Blood Venous blood specimen / Unknown Venipuncture / Unknown 01/10/2025 7:21 AM EST 01/10/2025 11:46 AM EST us Shelley Beard MD LAB BLOOD ORDERABLES Fin al Result [facility] [address] [place] [address], * (ABNORMAL) Complete blood count (01/10/2025 7:21 AM EST) [facility] WBC 6.6 4.8 - 10.8 K/mcL LAB HEMETOLOGY METHOD 01/10/2025 1:00 PM [facility] RBC 4.40 3.80 - 4.80 M/mcL LAB HEMETOLOGY METHOD 01/10/2025 1:00 PM [facility] Hemoglobin 11.3(L) 11.5 - 16.0 g/dL LAB HEMETOLOGY METHOD 01/10/2025 1:00 PM [facility] Hematocrit 37.9 35.0 - 47.0 % LAB HEMETOLOGY METHOD 01/10/2025 1:00 PM [facility] MCV 86.9 79.0 - 98.0 FL LAB HEMETOLOGY METHOD 01/10/2025 1:00 PM [facility] MCH 25.9(L) 27.0 - 32.0 pcg LAB HEMETOLOGY METHOD 01/10/2025 1:00 PM [facility] MCHC 29.8(L) 32.0 - 37.0 g/dL LAB HEMETOLOGY METHOD 01/10/2025 1:00 PM [facility] RDW 15.9(H) 11.0 - 15.0 % LAB HEMETOLOGY METHOD 01/10/2025 1:00 PM [facility] Platelets 238 130 - 400 K/mcL LAB HEMETOLOGY METHOD 01/10/2025 1:00 PM [facility] MPV 11.1(H) 7.0 - 11.0 FL LAB HEMETOLOGY METHOD 01/10/2025 1:00 PM [facility] NRBC 0.0 <1.0 % LAB HEMETOLOGY METHOD 01/10/2025 1:00 PM [facility] NRBC Absolute 0.00 <0.10 K/mcL LAB HEMETOLOGY METHOD 01/10/2025 1:00 PM EST [facility] Blood Venous blood specimen / Unknown Venipuncture / Unknown 01/10/2025 7:21 AM EST 01/10/2025 11:46 AM EST us Shelley Beard MD LAB BLOOD ORDERABLES Fin al Result [facility] [address] [place] [address], documented in this encounter Visit Diagnoses Diagnosis Weakness Other malaise and fatigue documented in this encounter Care Teams Vat Operator Relationship Specialty Start Date End Date Shelley Beard MD [address] [place] [address] PCP - General Family Medicine 12/31/24 documented as of this encounter
--- OUTSIDE RECORDS SUMMARY | 2025-03-23 15:46 | XMS_ITS | Encounter Summary ---
Author Organization [facility] Address [address] [place] [address] Care Team Providers Care Service Delivery Consultant Name Role Phone Arminda Arita MD Unavailable Obinna Gannon MD Primary Care Provider [phone] Octavio Alejandre MD Unavailable Unavailable Breezy Crisostomo MD Unavailable [phone] Encounter Details Date Type Department Care Team (Late st Contact Info) Description 08/31/2019 Scanned Document [facility] [address] [facility] [address] [place] [address] Irvin Thakkar PA [address] [address] Social History Tobacco Use Types Packs/Day Years Used Date Smoking Tobacco: Never Smokeless Tobacco: Never Alcohol Use Standard Drinks/Week Comments Yes 0 (1 standard drink = 0.6 oz pur e alcohol) once a month or less Comments Unknown Sex and Gender Information Value Date Recorded Sex Assigned at Not on file Legal Sex Female 5:12 PM EST Gender Identity Not on file Sexual Orientation Not on file documented as of this encounter Plan of Treatment Not on file documented as of this encounter Visit Diagnoses Not on filedocumented in this encounter Care Teams Service Delivery Consultant Relationship Specialty Start Date End Date Obinna Gannon MD [address] [place] [address] PCP - General Internal Medicine 07/15/19 Arminda Arita MD [address] [place] [address] Referring Provider Cardiovascular Disease 05/26/19 Octavio Alejandre MD [address] [place] [address] Neurology 08/05/19 Breezy Crisostomo MD 281 [facility] 210 [place] [address] Physician Nephrology 08/09/19 documented as of this encounter
--- OUTSIDE RECORDS SUMMARY | 2025-03-23 15:46 | XMS_ITS | Encounter Summary ---
Author Organization [facility] Address [address] [place] [address] Care Team Providers Care Umbrella Tipper Hand Name Role Phone Shelley Beard MD Primary Care Provider + Encounter Details Date Type Department Care Team (Late st Contact Info) Description 12/24/2024 Lab Requisition [facility] - Main Lab 299 [facility] [place] [address] Shelley Beard MD 819 [facility] 1 [place], [place] [phone] Unspecified fall, subsequent encounter; Weakness Social History [...] Folate (12/24/2024 5:48 AM EST) Pathologist [facility] Folate 3.9 2.8 - 17.0 ng/ml LAB CHEMISTRY METHOD 12/24/2024 11:09 AM EST [facility] Blood Venous blood specimen / Unknown Venipuncture / Unknown 12/24/2024 5:48 AM EST 12/24/2024 8:47 AM EST Shelley Beard MD LAB BLOOD ORDERABLES Fin al Result Performing Organization Address City/[facility]/ZIP Co de Phone Number [facility] [address] [place] [address], [place] [phone] * Vitamin B12 (12/24/2024 5:48 AM EST) [facility] Vitamin B-12 289 250 - 900 pcg/mL LAB CHEMISTRY METHOD 12/24/2024 11:09 AM EST [facility] Blood Venous blood specimen / Unknown Venipuncture / Unknown 12/24/2024 5:48 AM EST 12/24/2024 8:47 AM EST Shelley Beard MD LAB BLOOD ORDERABLES Fin al Result [facility] [address] [place] [address], [place] [phone] * Thyroid stimulating hormone with reflex to free t4 and free t3 (12/24/2024 5:48 AM EST) [facility] TSH 1.63 0.40 - 4.00 mcIU/mL LAB CHEMISTRY METHOD 12/24/2024 10:54 AM EST [facility] Blood Venous blood specimen / Unknown Venipuncture / Unknown 12/24/2024 5:48 AM EST 12/24/2024 8:47 AM EST Shelley Beard MD LAB BLOOD ORDERABLES Fin al Result [facility] [address] [place] [address], [place] [phone] * (ABNORMAL) Comprehensive metabolic panel (12/24/2024 5:48 AM EST) Pathologist [facility] Sodium 139 133 - 145 mmol/L LAB CHEMISTRY METHOD 12/24/2024 10:46 AM [facility] Potassium 4.6 3.5 - 5.5 mmol/L LAB CHEMISTRY METHOD 12/24/2024 10:46 AM [facility] Chloride 101 96 - 110 mmol/L LAB CHEMISTRY METHOD 12/24/2024 10:46 AM [facility] CO2 33(H) 21 - 32 mmol/L LAB CHEMISTRY METHOD 12/24/2024 10:46 AM [facility] Anion Gap 5 3 - 11 LAB CHEMISTRY METHOD 12/24/2024 10:46 AM [facility] Glucose 93 70 - 100 mg/dL LAB CHEMISTRY METHOD 12/24/2024 10:46 AM [facility] BUN 18 5 - 25 mg/dL LAB CHEMISTRY METHOD 12/24/2024 10:46 AM [facility] Creatinine 1.30(H) 0.50 - 1.10 mg/dL LAB CHEMISTRY METHOD 12/24/2024 10:46 AM [facility] eGFR 44(L) >=60 mL/min/1. 73m2 LAB CHEMISTRY METHOD 12/24/2024 10:46 AM [facility] Comment:Calculation based on the??Chronic Kidney Disease Epidemiology Collaboration (CKD-EPI) equation refit??without adjustment for race. BUN/Creatinine Ratio 13.8 LAB CHEMISTRY METHOD 12/24/2024 10:46 AM [facility] Calcium 9.1 8.5 - 10.5 mg/dL LAB CHEMISTRY METHOD 12/24/2024 10:46 AM [facility] AST (SGOT) 41 10 - 42 unit/L LAB CHEMISTRY METHOD 12/24/2024 10:46 AM [facility] ALT (SGPT) 25 10 - 60 unit/L LAB CHEMISTRY METHOD 12/24/2024 10:46 AM [facility] Alkaline Phosphatase 81 42 - 121 unit/L LAB CHEMISTRY METHOD 12/24/2024 10:46 AM [facility] Total Protein 6.2 6.0 - 8.0 g/dL LAB CHEMISTRY METHOD 12/24/2024 10:46 AM [facility] Albumin 2.7(L) 3.2 - 5.0 g/dL LAB CHEMISTRY METHOD 12/24/2024 10:46 AM [facility] Total Bilirubin 0.5 0.0 - 1.4 mg/dL LAB CHEMISTRY METHOD 12/24/2024 10:46 AM [facility] Blood Venous blood specimen / Unknown Venipuncture / Unknown 12/24/2024 5:48 AM EST 12/24/2024 8:47 AM EST us Shelley Beard MD LAB BLOOD ORDERABLES Fin al Result [facility] [address] [place] [address], * (ABNORMAL) Complete blood count (12/24/2024 5:48 AM EST) WBC 8.8 4.8 - 10.8 K/mcL LAB HEMETOLOGY METHOD 12/24/2024 10:13 AM [facility] RBC 4.20 3.80 - 4.80 M/mcL LAB HEMETOLOGY METHOD 12/24/2024 10:13 AM [facility] Hemoglobin 10.9(L) 11.5 - 16.0 g/dL LAB HEMETOLOGY METHOD 12/24/2024 10:13 AM [facility] Hematocrit 36.3 35.0 - 47.0 % LAB HEMETOLOGY METHOD 12/24/2024 10:13 AM [facility] MCV 85.8 79.0 - 98.0 FL LAB HEMETOLOGY METHOD 12/24/2024 10:13 AM [facility] MCH 25.8(L) 27.0 - 32.0 pcg LAB HEMETOLOGY METHOD 12/24/2024 10:13 AM [facility] MCHC 30.0(L) 32.0 - 37.0 g/dL LAB HEMETOLOGY METHOD 12/24/2024 10:13 AM [facility] RDW 15.2(H) 11.0 - 15.0 % LAB HEMETOLOGY METHOD 12/24/2024 10:13 AM [facility] Platelets 204 130 - 400 K/mcL LAB HEMETOLOGY METHOD 12/24/2024 10:13 AM [facility] MPV 11.5(H) 7.0 - 11.0 FL LAB HEMETOLOGY METHOD 12/24/2024 10:13 AM [facility] NRBC 0.0 <1.0 % LAB HEMETOLOGY METHOD 12/24/2024 10:13 AM [facility] NRBC Absolute 0.00 <0.10 K/mcL LAB HEMETOLOGY METHOD 12/24/2024 10:13 AM [facility] Blood Venous blood specimen / Unknown Venipuncture / Unknown 12/24/2024 5:48 AM EST 12/24/2024 8:47 AM EST Shelley Beard MD LAB BLOOD ORDERABLES Fin al Result [facility] [address] [place] [address], documented in this encounter Visit Diagnoses Diagnosis Unspecified fall, subsequent encounter Weakness Other malaise and fatigue documented in this encounter Care Teams Umbrella Tipper Hand Relationship Specialty Start Date End Date Shelley Beard MD [address] [place] [address] PCP - General Family Medicine 12/31/24 documented as of this encounter
--- OUTSIDE RECORDS SUMMARY | 2025-03-23 15:46 | XMS_ITS | Encounter Summary ---
Author Organization [facility] Address [address] [place] [address] Care Team Providers Care Retail Event Coordinator Name Role Phone Unknown Primary Care Provider [phone] Jaspreet Fortune APRN Primary Care Provider Arminda Arita MD Unavailable Obinna Gannon MD Primary Care Provider [phone] Octavio Alejandre MD Unavailable Unavailable Breezy Crisostomo MD Unavailable [phone] Encounter Details Date Type Department Care Team (Late st Contact Info) Description 06/19/2018 Scanned Document [facility] [address] [place] [address] Derick Guerra, [place] [address] [address] Social History Tobacco Use Types Packs/Day Years Used Date Smoking Tobacco: Never Assessed Comments Unknown Sex and Gender Information Value Date Recorded Sex Assigned at Not on file Legal Sex Female 5:12 PM EST Gender Identity Not on file Sexual Orientation Not on file documented as of this encounter Plan of Treatment Not on file documented as of this encounter Visit Diagnoses Not on filedocumented in this encounter Care Teams Retail Event Coordinator Relationship Specialty Start Date End Date Unknown Unknow Provider Address PCP - General 12/30/18 02/03/19 Jaspreet Fortune APRN 206 [facility] [place] [address] PCP - General Internal Medicine 02/04/19 07/14/19 Obinna Gannon MD [address] [place] [address] PCP - General Internal Medicine 07/15/19 Arminda Arita MD [address] [place] [address] Referring Provider Cardiovascular Disease 05/26/19 Octavio Alejandre MD [address] [place] [address] Neurology 08/05/19 Breezy Crisostomo MD 281 [facility] 210 [place] [address] Physician Nephrology 08/09/19 documented as of this encounter
--- OUTSIDE RECORDS SUMMARY | 2025-03-23 15:46 | XMS_ITS | Encounter Summary ---
Author Organization [facility] Address [address] [place] [address] Care Team Providers Care Ice Resurfacing Machine Operators Name Role Phone Shelley Beard MD Primary Care Provider + Encounter Details Date Type Department Care Team (Late st Contact Info) Description 01/05/[address] [facility] - Main Lab [address] [place] [address] Shelley Beard MD [address] [phone] Weakness Social History Tobacco Use Types Packs/Day [...] LAB CHEMISTRY METHOD 01/06/2025 10:09 AM EST [facility] Potassium 4.3 3.5 - 5.5 mmol/L LAB CHEMISTRY METHOD 01/06/2025 10:09 AM [facility] Chloride 102 96 - 110 mmol/L LAB CHEMISTRY METHOD 01/06/2025 10:09 AM [facility] CO2 34(H) 21 - 32 mmol/L LAB CHEMISTRY METHOD 01/06/2025 10:09 AM [facility] Anion Gap 3 3 - 11 LAB CHEMISTRY METHOD 01/06/2025 10:09 AM [facility] Glucose 92 70 - 100 mg/dL LAB CHEMISTRY METHOD 01/06/2025 10:09 AM [facility] BUN 25 5 - 25 mg/dL LAB CHEMISTRY METHOD 01/06/2025 10:09 AM [facility] Creatinine 1.30(H) 0.50 - 1.10 mg/dL LAB CHEMISTRY METHOD 01/06/2025 10:09 AM [facility] eGFR 44(L) >=60 mL/min/1. 73m2 LAB CHEMISTRY METHOD 01/06/2025 10:09 AM [facility] Comment:Calculation based on the??Chronic Kidney Disease Epidemiology Collaboration (CKD-EPI) equation refit??without adjustment for race. BUN/Creatinine Ratio 19.2 LAB CHEMISTRY METHOD 01/06/2025 10:09 AM [facility] Calcium 9.1 8.5 - 10.5 mg/dL LAB CHEMISTRY METHOD 01/06/2025 10:09 AM [facility] Blood Venous blood specimen / Unknown Venipuncture / Unknown 01/06/2025 6:09 AM EST 01/06/2025 9:20 AM EST us Shelley Beard MD LAB BLOOD ORDERABLES Fin al Result [facility] [address] [place] [address], * (ABNORMAL) Complete blood count (01/06/2025 6:09 AM EST) [facility] WBC 6.9 4.8 - 10.8 K/mcL LAB HEMETOLOGY METHOD 01/06/2025 9:45 AM [facility] RBC 4.20 3.80 - 4.80 M/mcL LAB HEMETOLOGY METHOD 01/06/2025 9:45 AM [facility] Hemoglobin 10.9(L) 11.5 - 16.0 g/dL LAB HEMETOLOGY METHOD 01/06/2025 9:45 AM [facility] Hematocrit 36.3 35.0 - 47.0 % LAB HEMETOLOGY METHOD 01/06/2025 9:45 AM [facility] MCV 87.1 79.0 - 98.0 FL LAB HEMETOLOGY METHOD 01/06/2025 9:45 AM [facility] MCH 26.1(L) 27.0 - 32.0 pcg LAB HEMETOLOGY METHOD 01/06/2025 9:45 AM [facility] MCHC 30.0(L) 32.0 - 37.0 g/dL LAB HEMETOLOGY METHOD 01/06/2025 9:45 AM [facility] RDW 16.0(H) 11.0 - 15.0 % LAB HEMETOLOGY METHOD 01/06/2025 9:45 AM [facility] Platelets 252 130 - 400 K/mcL LAB HEMETOLOGY METHOD 01/06/2025 9:45 AM [facility] MPV 10.6 7.0 - 11.0 FL LAB HEMETOLOGY METHOD 01/06/2025 9:45 AM [facility] NRBC 0.0 <1.0 % LAB HEMETOLOGY METHOD 01/06/2025 9:45 AM [facility] NRBC Absolute 0.00 <0.10 K/mcL LAB HEMETOLOGY METHOD 01/06/2025 9:45 AM EST [facility] Blood Venous blood specimen / Unknown Venipuncture / Unknown 01/06/2025 6:09 AM EST 01/06/2025 9:20 AM EST us Shelley Beard MD LAB BLOOD ORDERABLES Fin al Result [facility] [address] [place] [address], documented in this encounter Visit Diagnoses Diagnosis Weakness Other malaise and fatigue documented in this encounter Care Teams Ice Resurfacing Machine Operators Relationship Specialty Start Date End Date Shelley Beard MD [address] [place] [address] PCP - General Family Medicine 12/31/24 documented as of this encounter
--- OUTSIDE RECORDS SUMMARY | 2025-03-23 15:46 | XMS_ITS | Encounter Summary ---
Author Organization [facility] Address [address] [place] [address] Care Team Providers Care Hose Seamer Name Role Phone Jaspreet Fortune APRN Primary Care Provider [phone] Arminda Arita MD Unavailable Obinna Gannon MD Primary Care Provider [phone] Octavio Alejandre MD Unavailable Unavailable Breezy Crisostomo MD Unavailable [phone] Encounter Details Date Type Department Care Team (Late st Contact Info) Description 03/02/2019 Scanned Document [facility] 85 [facility] [address] [place] [phone] Octavio Alejandre MD Social History Tobacco Use Types Packs/Day Years Used Date Smoking Tobacco: Never Smokeless Tobacco: Never Comments Unknown Sex and Gender Information Value Date Recorded Sex Assigned at Not on file Legal Sex Female 5:12 PM EST Gender Identity Not on file Sexual Orientation Not on file documented as of this encounter Plan of Treatment Not on file documented as of this encounter Visit Diagnoses Not on filedocumented in this encounter Care Teams Hose Seamer Relationship Specialty Start Date End Date Jaspreet Fortune APRN [address] [place] [address] PCP - General Internal Medicine 02/04/19 07/14/19 Obinna Gannon MD [address] [place] [phone] PCP - General Internal Medicine 07/15/19 Arminda Arita MD [address] [place] [phone] Referring Provider Cardiovascular Disease 05/26/19 Octavio Alejandre MD [address] [place] [address] Neurology 08/05/19 Breezy Crisostomo MD 281 [facility] 210 [place], [place] [address] Physician Nephrology 08/09/19 documented as of this encounter
--- OUTSIDE RECORDS SUMMARY | 2025-03-23 15:46 | XMS_ITS | Encounter Summary ---
Author Organization [facility] Address [address] [place] [address] Care Team Providers Care Production Engine Repairer Name Role Phone Shelley Beard MD Primary Care Provider + Encounter Details Date Type Department Care Team (Late st Contact Info) Description 12/31/2024 Lab Requisition [facility] - Main Lab [address] [place] [address] Shelley Beard MD [address] [phone] Weakness Social History Tobacco Use Types Packs/Day [...] LAB CHEMISTRY METHOD 01/03/2025 10:55 AM EST [facility] Potassium 4.4 3.5 - 5.5 mmol/L LAB CHEMISTRY METHOD 01/03/2025 10:55 AM [facility] Chloride 104 96 - 110 mmol/L LAB CHEMISTRY METHOD 01/03/2025 10:55 AM [facility] CO2 32 21 - 32 mmol/L LAB CHEMISTRY METHOD 01/03/2025 10:55 AM [facility] Anion Gap 6 3 - 11 LAB CHEMISTRY METHOD 01/03/2025 10:55 AM [facility] Glucose 93 70 - 100 mg/dL LAB CHEMISTRY METHOD 01/03/2025 10:55 AM [facility] BUN 26(H) 5 - 25 mg/dL LAB CHEMISTRY METHOD 01/03/2025 10:55 AM [facility] Creatinine 1.38(H) 0.50 - 1.10 mg/dL LAB CHEMISTRY METHOD 01/03/2025 10:55 AM [facility] eGFR 41(L) >=60 mL/min/1. 73m2 LAB CHEMISTRY METHOD 01/03/2025 10:55 AM [facility] Comment:Calculation based on the??Chronic Kidney Disease Epidemiology Collaboration (CKD-EPI) equation refit??without adjustment for race. BUN/Creatinine Ratio 18.8 LAB CHEMISTRY METHOD 01/03/2025 10:55 AM [facility] Calcium 8.9 8.5 - 10.5 mg/dL LAB CHEMISTRY METHOD 01/03/2025 10:55 AM [facility] Blood Venous blood specimen / Unknown Venipuncture / Unknown 01/03/2025 7:12 AM EST 01/03/2025 10:06 AM EST us Shelley Beard MD LAB BLOOD ORDERABLES Fin al Result [facility] [address] [place] [address], * (ABNORMAL) Complete blood count (01/03/2025 7:12 AM EST) [facility] WBC 7.6 4.8 - 10.8 K/mcL LAB HEMETOLOGY METHOD 01/03/2025 10:31 AM [facility] RBC 4.30 3.80 - 4.80 M/mcL LAB HEMETOLOGY METHOD 01/03/2025 10:31 AM [facility] Hemoglobin 10.8(L) 11.5 - 16.0 g/dL LAB HEMETOLOGY METHOD 01/03/2025 10:31 AM [facility] Hematocrit 37.7 35.0 - 47.0 % LAB HEMETOLOGY METHOD 01/03/2025 10:31 AM [facility] MCV 87.5 79.0 - 98.0 FL LAB HEMETOLOGY METHOD 01/03/2025 10:31 AM [facility] MCH 25.1(L) 27.0 - 32.0 pcg LAB HEMETOLOGY METHOD 01/03/2025 10:31 AM [facility] MCHC 28.6(L) 32.0 - 37.0 g/dL LAB HEMETOLOGY METHOD 01/03/2025 10:31 AM [facility] RDW 15.7(H) 11.0 - 15.0 % LAB HEMETOLOGY METHOD 01/03/2025 10:31 AM [facility] Platelets 279 130 - 400 K/mcL LAB HEMETOLOGY METHOD 01/03/2025 10:31 AM [facility] MPV 10.7 7.0 - 11.0 FL LAB HEMETOLOGY METHOD 01/03/2025 10:31 AM [facility] NRBC 0.0 <1.0 % LAB HEMETOLOGY METHOD 01/03/2025 10:31 AM [facility] NRBC Absolute 0.00 <0.10 K/mcL LAB HEMETOLOGY METHOD 01/03/2025 10:31 AM EST [facility] Blood Venous blood specimen / Unknown Venipuncture / Unknown 01/03/2025 7:12 AM EST 01/03/2025 10:07 AM EST us Shelley Beard MD LAB BLOOD ORDERABLES Fin al Result [facility] [address] [place] [address], documented in this encounter Visit Diagnoses Diagnosis Weakness Other malaise and fatigue documented in this encounter Care Teams Production Engine Repairer Relationship Specialty Start Date End Date Shelley Beard MD [address] [place] [address] PCP - General Family Medicine 12/31/24 documented as of this encounter
--- OUTSIDE RECORDS SUMMARY | 2025-03-23 15:46 | XMS_ITS | Encounter Summary ---
Author Organization [facility] Address [address] [place] [address] Care Team Providers Care Oven Unloader Name Role Phone Shelley Beard MD Primary Care Provider + Encounter Details Date Type Department Care Team (Late st Contact Info) Description 12/29/2024 Lab Requisition [facility] - Main Lab [address] [place] [address] Shelley Beard MD [address] [phone] Weakness Social History Tobacco Use Types Packs/Day [...] LAB CHEMISTRY METHOD 12/30/2024 11:37 AM EST [facility] Potassium 4.5 3.5 - 5.5 mmol/L LAB CHEMISTRY METHOD 12/30/2024 11:37 AM [facility] Chloride 103 96 - 110 mmol/L LAB CHEMISTRY METHOD 12/30/2024 11:37 AM [facility] CO2 31 21 - 32 mmol/L LAB CHEMISTRY METHOD 12/30/2024 11:37 AM [facility] Anion Gap 7 3 - 11 LAB CHEMISTRY METHOD 12/30/2024 11:37 AM [facility] Glucose 99 70 - 100 mg/dL LAB CHEMISTRY METHOD 12/30/2024 11:37 AM [facility] BUN 26(H) 5 - 25 mg/dL LAB CHEMISTRY METHOD 12/30/2024 11:37 AM [facility] Creatinine 1.33(H) 0.50 - 1.10 mg/dL LAB CHEMISTRY METHOD 12/30/2024 11:37 AM [facility] eGFR 43(L) >=60 mL/min/1. 73m2 LAB CHEMISTRY METHOD 12/30/2024 11:37 AM [facility] Comment:Calculation based on the??Chronic Kidney Disease Epidemiology Collaboration (CKD-EPI) equation refit??without adjustment for race. BUN/Creatinine Ratio 19.5 LAB CHEMISTRY METHOD 12/30/2024 11:37 AM [facility] Calcium 9.2 8.5 - 10.5 mg/dL LAB CHEMISTRY METHOD 12/30/2024 11:37 AM [facility] Blood Venous blood specimen / Unknown Venipuncture / Unknown 12/30/2024 6:50 AM EST 12/30/2024 10:45 AM EST us Shelley Beard MD LAB BLOOD ORDERABLES Fin al Result [facility] [address] [place] [address], * (ABNORMAL) Complete blood count (12/30/2024 6:50 AM EST) [facility] WBC 7.8 4.8 - 10.8 K/mcL LAB HEMETOLOGY METHOD 12/30/2024 11:35 AM [facility] RBC 4.40 3.80 - 4.80 M/mcL LAB HEMETOLOGY METHOD 12/30/2024 11:35 AM [facility] Hemoglobin 11.3(L) 11.5 - 16.0 g/dL LAB HEMETOLOGY METHOD 12/30/2024 11:35 AM [facility] Hematocrit 37.4 35.0 - 47.0 % LAB HEMETOLOGY METHOD 12/30/2024 11:35 AM [facility] MCV 85.6 79.0 - 98.0 FL LAB HEMETOLOGY METHOD 12/30/2024 11:35 AM [facility] MCH 25.9(L) 27.0 - 32.0 pcg LAB HEMETOLOGY METHOD 12/30/2024 11:35 AM [facility] MCHC 30.2(L) 32.0 - 37.0 g/dL LAB HEMETOLOGY METHOD 12/30/2024 11:35 AM [facility] RDW 15.5(H) 11.0 - 15.0 % LAB HEMETOLOGY METHOD 12/30/2024 11:35 AM [facility] Platelets 308 130 - 400 K/mcL LAB HEMETOLOGY METHOD 12/30/2024 11:35 AM [facility] MPV 10.9 7.0 - 11.0 FL LAB HEMETOLOGY METHOD 12/30/2024 11:35 AM [facility] NRBC 0.0 <1.0 % LAB HEMETOLOGY METHOD 12/30/2024 11:35 AM [facility] NRBC Absolute 0.00 <0.10 K/mcL LAB HEMETOLOGY METHOD 12/30/2024 11:35 AM EST [facility] Blood Venous blood specimen / Unknown Venipuncture / Unknown 12/30/2024 6:50 AM EST 12/30/2024 10:46 AM EST us Shelley Beard MD LAB BLOOD ORDERABLES Fin al Result [facility] [address] [place] [address], documented in this encounter Visit Diagnoses Diagnosis Weakness Other malaise and fatigue documented in this encounter Care Teams Oven Unloader Relationship Specialty Start Date End Date Shelley Beard MD [address] [place] [phone] PCP - General Family Medicine 12/31/24 documented as of this encounter
--- OUTSIDE RECORDS SUMMARY | 2025-03-23 15:46 | XMS_ITS | Encounter Summary ---
Author Organization [facility] Address [address] [place] [address] Care Team Providers Care Locksmith Apprentice Name Role Phone Shelley Beard MD Primary Care Provider + Encounter Details Date Type Department Care Team (Late st Contact Info) Description 01/16/2025 Lab Requisition [facility] - Main Lab [address] [facility] [place] [address] Shelley Beard MD [address] [place] [phone] Weakness Social History Tobacco Use Types Packs/Day [...] fatigue documented in this encounter Care Teams Locksmith Apprentice Relationship Specialty Start Date End Date Shelley Beard MD [address] [phone] PCP - General Family Medicine 12/31/24 documented as of this encounter
--- OUTSIDE RECORDS SUMMARY | 2025-03-23 15:46 | XMS_ITS | Encounter Summary ---
Author Organization [facility] Address [address] [place] [address] Care Team Providers Care Experimental Assembler Name Role Phone Shelley Beard MD Primary Care Provider + Encounter Details Date Type Department Care Team (Late st Contact Info) Description 12/26/2024 Lab Requisition [facility] - Main Lab [address] [place] [address] Shelley Beard MD [address] [phone] Weakness Social History Tobacco Use Types Packs/Day [...] LAB CHEMISTRY METHOD 12/27/2024 1:11 PM EST [facility] Potassium 4.6 3.5 - 5.5 mmol/L LAB CHEMISTRY METHOD 12/27/2024 1:11 PM [facility] Chloride 98 96 - 110 mmol/L LAB CHEMISTRY METHOD 12/27/2024 1:11 PM [facility] CO2 32 21 - 32 mmol/L LAB CHEMISTRY METHOD 12/27/2024 1:11 PM [facility] Anion Gap 7 3 - 11 LAB CHEMISTRY METHOD 12/27/2024 1:11 PM [facility] Glucose 89 70 - 100 mg/dL LAB CHEMISTRY METHOD 12/27/2024 1:11 PM [facility] BUN 26(H) 5 - 25 mg/dL LAB CHEMISTRY METHOD 12/27/2024 1:11 PM [facility] Creatinine 1.53(H) 0.50 - 1.10 mg/dL LAB CHEMISTRY METHOD 12/27/2024 1:11 PM [facility] eGFR 36(L) >=60 mL/min/1. 73m2 LAB CHEMISTRY METHOD 12/27/2024 1:11 PM [facility] Comment:Calculation based on the??Chronic Kidney Disease Epidemiology Collaboration (CKD-EPI) equation refit??without adjustment for race. BUN/Creatinine Ratio 17.0 LAB CHEMISTRY METHOD 12/27/2024 1:11 PM [facility] Calcium 9.3 8.5 - 10.5 mg/dL LAB CHEMISTRY METHOD 12/27/2024 1:11 PM [facility] Blood Venous blood specimen / Unknown Venipuncture / Unknown 12/27/2024 7:29 AM EST 12/27/2024 11:09 AM EST us Shelley Beard MD LAB BLOOD ORDERABLES Fin al Result [facility] [address] [place] [address], * (ABNORMAL) Complete blood count (12/27/2024 7:29 AM EST) [facility] WBC 10.4 4.8 - 10.8 K/mcL LAB HEMETOLOGY METHOD 12/27/2024 11:35 AM [facility] RBC 4.60 3.80 - 4.80 M/mcL LAB HEMETOLOGY METHOD 12/27/2024 11:35 AM [facility] Hemoglobin 12.0 11.5 - 16.0 g/dL LAB HEMETOLOGY METHOD 12/27/2024 11:35 AM [facility] Hematocrit 39.2 35.0 - 47.0 % LAB HEMETOLOGY METHOD 12/27/2024 11:35 AM [facility] MCV 84.5 79.0 - 98.0 FL LAB HEMETOLOGY METHOD 12/27/2024 11:35 AM [facility] MCH 25.9(L) 27.0 - 32.0 pcg LAB HEMETOLOGY METHOD 12/27/2024 11:35 AM [facility] MCHC 30.6(L) 32.0 - 37.0 g/dL LAB HEMETOLOGY METHOD 12/27/2024 11:35 AM [facility] RDW 15.6(H) 11.0 - 15.0 % LAB HEMETOLOGY METHOD 12/27/2024 11:35 AM [facility] Platelets 294 130 - 400 K/mcL LAB HEMETOLOGY METHOD 12/27/2024 11:35 AM [facility] MPV 11.1(H) 7.0 - 11.0 FL LAB HEMETOLOGY METHOD 12/27/2024 11:35 AM [facility] NRBC 0.0 <1.0 % LAB HEMETOLOGY METHOD 12/27/2024 11:35 AM [facility] NRBC Absolute 0.00 <0.10 K/mcL LAB HEMETOLOGY METHOD 12/27/2024 11:35 AM EST [facility] Blood Venous blood specimen / Unknown Venipuncture / Unknown 12/27/2024 7:29 AM EST 12/27/2024 11:08 AM EST us Shelley Beard MD LAB BLOOD ORDERABLES Fin al Result [facility] [address] [place] [address], documented in this encounter Visit Diagnoses Diagnosis Weakness Other malaise and fatigue documented in this encounter Care Teams Experimental Assembler Relationship Specialty Start Date End Date Shelley Beard MD [address] [place] [phone] PCP - General Family Medicine 12/31/24 documented as of this encounter
--- OUTSIDE RECORDS SUMMARY | 2025-03-23 15:46 | XMS_ITS | Clinical Summary ---
Author Organization [facility] Address [address] [place] [address] Care Team Providers Care Automotive Leasing Sales Representative Name Role Phone Arminda Arita MD Unavailable Obinna Gannon MD Primary Care Provider [phone] Octavio Alejandre MD Unavailable Unavailable Breezy Crisostomo MD Unavailable [phone] Allergies Active Allergy Reactions Criticality Noted Date Comments Codeine Unknown/Patient and Family Unable to Define,Anxiety,GI Intolerance/Nausea/Vomiti ng High 08/24/2018 Naproxen-Esomeprazole Mg Unknown/Patient and Family Unable to Define,GI Intolerance/Nausea/Vomiti ng Medium 08/24/2018 headaches Phenobarbital Unknown/Patient and Family Unable to Define,Anxiety,GI Intolerance/Nausea/Vomiti ng High 08/24/2018 Medications DULoxetine (CYMBALTA) 60 MG capsule Take 60 [...] coated (ECOTRIN LOW STRENGTH) 81 MG EC tabletIndicatio ns:S/P total knee replacement, right Take 1 tablet [...] this topic Medical Devices Implanted Type Area Supervisor Assembly And Packing Device Identifier Shelf Expiration Date Model / Serial / Lot 5531-G-309 Insert Tibial 3 9mm Knee X3 Cndrl Stab Trthln - [id number] Implanted:Qty : 1 on 08/26/2019 by Garfield Coyne MD at [facility] Joint Prosthesis Right: Knee [employer] - DIV STR [id number] 10/26/2023 5531-G-3 09 / / [id number] 5517-F-302 Component Femoral 3 Knee Right Crcte Rtn Bead Trthln Pa - [id number] Implanted:Qty : 1 on 08/26/2019 by Garfield Coyne MD at [facility] Joint Prosthesis Right: Knee [employer] ASH [id number] 06/11/2024 5517-F-3 02 / / [id number] 5536-B-300 Baseplate Tibial [employer] Tritanium 3 L44 Mm L67 Mm Steril - [id number] Implanted:Qty : 1 on 08/26/2019 by Garfield Coyne MD at [facility] Joint Prosthesis Right: Knee [employer] - DIV STR [id number] 06/09/2024 5536-B-3 00 / / [id number] [facility] Advance Directives * Full Code (Latest Code Status on File) Date Activated Date Inactivated Comments 08/26/2019 3:14 PM * Full Code Date Activated Date Inactivated Comments 08/26/2019 7:28 AM 08/26/2019 3:14 PM Care Teams Automotive Leasing Sales Representative Relationship Specialty Start Date End Date Obinna Gannon MD [address] [place] [address] PCP - General Internal Medicine 07/15/19 Arminda Arita MD [address] [place] [address] Referring Provider Cardiovascular Disease 05/26/19 Octavio Alejandre MD [address] [place] [address] Neurology 08/05/19 Breezy Crisostomo MD [address] [address] Physician Nephrology 08/09/19
--- OUTSIDE RECORDS SUMMARY | 2025-03-23 15:46 | XMS_ITS | Encounter Summary ---
Author Organization [facility] Address [address] [place] [address] Care Team Providers Care 1 Year Olds Preschool Teacher Name Role Phone Shelley Beard MD Primary Care Provider + Encounter Details Date Type Department Care Team (Late st Contact Info) Description 01/12/2025 Lab Requisition [facility] - Main Lab [address] [place] [address] Shelley Beard MD [address] [phone] Weakness Social History Tobacco Use Types Packs/Day [...] LAB CHEMISTRY METHOD 01/13/2025 12:36 PM EST [facility] Potassium 4.7 3.5 - 5.5 mmol/L LAB CHEMISTRY METHOD 01/13/2025 12:[address] [facility] Chloride 103 96 - 110 mmol/L LAB CHEMISTRY METHOD 01/13/2025 12:[address] [facility] CO2 31 21 - 32 mmol/L LAB CHEMISTRY METHOD 01/13/2025 12:[address] [facility] Anion Gap 6 3 - 11 LAB CHEMISTRY METHOD 01/13/2025 12:[address] [facility] Glucose 88 70 - 100 mg/dL LAB CHEMISTRY METHOD 01/13/2025 12:[address] [facility] BUN 28(H) 5 - 25 mg/dL LAB CHEMISTRY METHOD 01/13/2025 12:[address] [facility] Creatinine 1.32(H) 0.50 - 1.10 mg/dL LAB CHEMISTRY METHOD 01/13/2025 12:[address] [facility] eGFR 44(L) >=60 mL/min/1. 73m2 LAB CHEMISTRY METHOD 01/13/2025 12:[address] [facility] Comment:Calculation based on the??Chronic Kidney Disease Epidemiology Collaboration (CKD-EPI) equation refit??without adjustment for race. BUN/Creatinine Ratio 21.2 LAB CHEMISTRY METHOD 01/13/2025 12:[address] [facility] Calcium 9.0 8.5 - 10.5 mg/dL LAB CHEMISTRY METHOD 01/13/2025 12:[address] [facility] Blood Venous blood specimen / Unknown Venipuncture / Unknown 01/13/2025 7:06 AM EST 01/13/2025 11:21 AM EST us Shelley Beard MD LAB BLOOD ORDERABLES Fin al Result [facility] [address] [place] [address], * (ABNORMAL) Complete blood count (01/13/2025 7:06 AM EST) [facility] WBC 8.0 4.8 - 10.8 K/mcL LAB HEMETOLOGY METHOD 01/13/2025 12:[address] [facility] RBC 4.40 3.80 - 4.80 M/mcL LAB HEMETOLOGY METHOD 01/13/2025 12:[address] [facility] Hemoglobin 11.3(L) 11.5 - 16.0 g/dL LAB HEMETOLOGY METHOD 01/13/2025 12:[address] [facility] Hematocrit 38.3 35.0 - 47.0 % LAB HEMETOLOGY METHOD 01/13/2025 12:[address] [facility] MCV 86.7 79.0 - 98.0 FL LAB HEMETOLOGY METHOD 01/13/2025 12:[address] [facility] MCH 25.6(L) 27.0 - 32.0 pcg LAB HEMETOLOGY METHOD 01/13/2025 12:[address] [facility] MCHC 29.5(L) 32.0 - 37.0 g/dL LAB HEMETOLOGY METHOD 01/13/2025 12:[address] [facility] RDW 15.9(H) 11.0 - 15.0 % LAB HEMETOLOGY METHOD 01/13/2025 12:[address] [facility] Platelets 242 130 - 400 K/mcL LAB HEMETOLOGY METHOD 01/13/2025 12:[address] [facility] MPV 11.2(H) 7.0 - 11.0 FL LAB HEMETOLOGY METHOD 01/13/2025 12:[address] [facility] NRBC 0.0 <1.0 % LAB HEMETOLOGY METHOD 01/13/2025 12:[address] [facility] NRBC Absolute 0.00 <0.10 K/[facility] LAB HEMETOLOGY METHOD 01/13/2025 12:56 PM EST [facility] Blood Venous blood specimen / Unknown Venipuncture / Unknown 01/13/2025 7:06 AM EST 01/13/2025 11:23 AM EST us Shelley eBard MD LAB BLOOD ORDERABLES Fin al Result [facility] [address] [place] [address], documented in this encounter Visit Diagnoses Diagnosis Weakness Other malaise and fatigue documented in this encounter Care Teams 1 Year Olds Preschool Teacher Relationship Specialty Start Date End Date Shelley Beard MD [address] [place] [phone] PCP - General Family Medicine 12/31/24 documented as of this encounter
--- OUTSIDE RECORDS SUMMARY | 2025-03-23 15:47 | XMS_ITS | Clinical Summary ---
Author Organization [address] Address [address] [place] [address] Phone Care Team Providers Care Regulatory Affairs Consultant Name Role Phone Shelley Beard MD Primary Care Provider + Encounters Date Type Department Care Team Description 01/16/2025 Lab Requisition [facility] - Main Lab [address] [place] [phone] Shelley Beard MD Weakness 01/12/2025 Lab Requisition [facility] - Main Lab [address] [place] [address] Shelley Beard MD Weakness 01/07/2025 Lab Requisition [facility] - Main Lab [address] [place] [address] Shelley Beard MD Weakness 01/05/2025 Lab Requisition [facility] - Main Lab [address] [place] [address] Shelley Beard MD Weakness 12/31/2024 Lab Requisition [facility] - Main Lab [address] [place] [address] Shelley Beard MD Weakness 12/29/2024 Lab Requisition [facility] - Main Lab [address] [place] [address] Shelley Beard MD Weakness 12/26/2024 Lab Requisition [facility] - Main Lab [address] [place] [address] Shelley Beard MD Weakness 12/24/2024 Lab Requisition [facility] - Main Lab [address] [place] [address] Shelley Beard MD Unspecified fall, [...] Date Comments Liver disease DX:Liver disease Epilepsy (CMS/HCC V24, CMS/HCC V28) DX:Epilepsy (HCC) Depression DX:Depression Anxiety DX:Anxiety High blood pressure [...] - Risk 3-dose series) 2014 RSV Immunization Adult Patients (1 - Risk 60-74 years 1-dose series) 2014 Cholesterol Screening (Lipid Panel) 10/22/2022 Colorectal Cancer Screening: Colonoscopy 10/22/2022 Depression Screening 10/22/2022 Falls Risk Assessment 10/22/2022 Hepatitis C Screening 10/22/2022 Medicare Annual Wellness Visit 10/22/2022 Osteoporosis Screening (Bone Density Screening) 10/22/2022 Social Influencers of Health Screening 10/22/2022 COVID-19 Vaccine ( season) 2024 02/12/2021 Influenza Vaccine (Season Ended) 2025 Hypertension/CHF/CAD Annual BMP Blood Test 01/13/2026 01/13/2025, [...] age to complete this topic Meningococcal B Vaccine Aged Out No l onger eligible based on patient's age to complete [...] of7 resultswithin the time period is included. [facility] WBC 8.0 4.8 - 10.8 K/mcL LAB HEMETOLOGY METHOD 01/13/2025 12:56 PM [facility] RBC 4.40 3.80 - 4.80 M/mcL LAB HEMETOLOGY METHOD 01/13/2025 12:56 PM [facility] Hemoglobin 11.3(L) 11.5 - 16.0 g/dL LAB HEMETOLOGY METHOD 01/13/2025 12:56 PM [facility] Hematocrit 38.3 35.0 - 47.0 % LAB HEMETOLOGY METHOD 01/13/2025 12:56 PM [facility] MCV 86.7 79.0 - 98.0 FL LAB HEMETOLOGY METHOD 01/13/2025 12:56 PM EST [facility] MCH 25.6(L) 27.0 - 32.0 pcg LAB HEMETOLOGY METHOD 01/13/2025 12:56 PM EST [facility] MCHC 29.5(L) 32.0 - 37.0 g/dL LAB HEMETOLOGY METHOD 01/13/2025 12:56 PM EST [facility] RDW 15.9(H) 11.0 - 15.0 % LAB HEMETOLOGY METHOD 01/13/2025 12:56 PM EST [facility] Platelets 242 130 - 400 K/mcL LAB HEMETOLOGY METHOD 01/13/2025 12:56 PM EST [facility] MPV 11.2(H) 7.0 - 11.0 FL LAB HEMETOLOGY METHOD 01/13/2025 12:56 PM EST [facility] NRBC 0.0 <1.0 % LAB HEMETOLOGY METHOD 01/13/2025 12:56 PM [facility] NRBC Absolute 0.00 <0.10 K/mcL LAB HEMETOLOGY METHOD 01/13/2025 12:56 PM EST [facility] Blood Venous blood specimen / Unknown Venipuncture / Unknown 01/13/2025 7:06 AM EST 01/13/2025 11:23 AM EST us Shelley Beard MD LAB BLOOD ORDERABLES Fin al Result [facility] [address] [place] [address], * (ABNORMAL) Basic metabolic panel (01/13/2025 7:06 AM EST) Only the most recent of6 resultswithin the time period is included. [facility] Signature Sodium 140 133 - 145 mmol/L LAB CHEMISTRY METHOD 01/13/2025 12:36 PM [facility] Potassium 4.7 3.5 - 5.5 mmol/L LAB CHEMISTRY METHOD 01/13/2025 12:36 PM [facility] Chloride 103 96 - 110 mmol/L LAB CHEMISTRY METHOD 01/13/2025 12:36 PM [facility] CO2 31 21 - 32 mmol/L LAB CHEMISTRY METHOD 01/13/2025 12:36 PM [facility] Anion Gap 6 3 - 11 LAB CHEMISTRY METHOD 01/13/2025 12:36 PM [facility] Glucose 88 70 - 100 mg/dL LAB CHEMISTRY METHOD 01/13/2025 12:36 PM [facility] BUN 28(H) 5 - 25 mg/dL LAB CHEMISTRY METHOD 01/13/2025 12:36 PM [facility] Creatinine 1.32(H) 0.50 - 1.10 mg/dL LAB CHEMISTRY METHOD 01/13/2025 12:36 PM [facility] eGFR 44(L) >=60 mL/min/1. 73m2 LAB CHEMISTRY METHOD 01/13/2025 12:36 PM [facility] Comment:Calculation based on the??Chronic Kidney Disease Epidemiology Collaboration (CKD-EPI) equation refit??without adjustment for race. BUN/Creatinine Ratio 21.2 LAB CHEMISTRY METHOD 01/13/2025 12:36 PM [facility] Calcium 9.0 8.5 - 10.5 mg/dL LAB CHEMISTRY METHOD 01/13/2025 12:36 PM [facility] Blood Venous blood specimen / Unknown Venipuncture / Unknown 01/13/2025 7:06 AM EST 01/13/2025 11:21 AM EST us Shelley Beard MD LAB BLOOD ORDERABLES Fin al Result [facility] [address] [place] [address], [place] [phone] * Thyroid stimulating hormone with reflex to free t4 and free t3 (12/24/2024 5:48 AM EST) [facility] TSH 1.63 0.40 - 4.00 mcIU/mL LAB CHEMISTRY METHOD 12/24/2024 10:54 AM EST [facility] Blood Venous blood specimen / Unknown Venipuncture / Unknown 12/24/2024 5:48 AM EST 12/24/2024 8:47 AM EST Shelley Beard MD LAB BLOOD ORDERABLES Fin al Result Performing Organization Address City/[facility]/ZIP Co de Phone Number [facility] [address] [place] [address], [place] [phone] * Folate (12/24/2024 5:48 AM EST) [facility] Folate 3.9 2.8 - 17.0 ng/ml LAB CHEMISTRY METHOD 12/24/2024 11:09 AM EST [facility] Blood Venous blood specimen / Unknown Venipuncture / Unknown 12/24/2024 5:48 AM EST 12/24/2024 8:47 AM EST Shelley Beard MD LAB BLOOD ORDERABLES Fin al Result [facility] [address] [place] [address], [place] [phone] * Vitamin B12 (12/24/2024 5:48 AM EST) [facility] Vitamin B-12 289 250 - 900 pcg/mL LAB CHEMISTRY METHOD 12/24/2024 11:09 AM EST [facility] Blood Venous blood specimen / Unknown Venipuncture / Unknown 12/24/2024 5:48 AM EST 12/24/2024 8:47 AM EST us Shelley Beard MD LAB BLOOD ORDERABLES Fin al Result [facility] [address] [place] [address], * (ABNORMAL) Comprehensive metabolic panel (12/24/2024 5:48 AM EST) Sodium 139 133 - 145 mmol/L LAB CHEMISTRY METHOD 12/24/2024 10:46 AM [facility] Potassium 4.6 3.5 - 5.5 mmol/L LAB CHEMISTRY METHOD 12/24/2024 10:46 AM [facility] Chloride 101 96 - 110 mmol/L LAB CHEMISTRY METHOD 12/24/2024 10:46 AM [facility] CO2 33(H) 21 - 32 mmol/L LAB CHEMISTRY METHOD 12/24/2024 10:46 AM [facility] Anion Gap 5 3 - 11 LAB CHEMISTRY METHOD 12/24/2024 10:46 AM [facility] Glucose 93 70 - 100 mg/dL LAB CHEMISTRY METHOD 12/24/2024 10:46 AM [facility] BUN 18 5 - 25 mg/dL LAB CHEMISTRY METHOD 12/24/2024 10:46 AM [facility] Creatinine 1.30(H) 0.50 - 1.10 mg/dL LAB CHEMISTRY METHOD 12/24/2024 10:46 AM [facility] eGFR 44(L) >=60 mL/min/1. 73m2 LAB CHEMISTRY METHOD 12/24/2024 10:46 AM [facility] Comment:Calculation based on the??Chronic Kidney Disease Epidemiology Collaboration (CKD-EPI) equation refit??without adjustment for race. BUN/Creatinine Ratio 13.8 LAB CHEMISTRY METHOD 12/24/2024 10:46 AM [facility] Calcium 9.1 8.5 - 10.5 mg/dL LAB CHEMISTRY METHOD 12/24/2024 10:46 AM [facility] AST (SGOT) 41 10 - 42 unit/L LAB CHEMISTRY METHOD 12/24/2024 10:46 AM [facility] ALT (SGPT) 25 10 - 60 unit/L LAB CHEMISTRY METHOD 12/24/2024 10:46 AM [facility] Alkaline Phosphatase 81 42 - 121 unit/L LAB CHEMISTRY METHOD 12/24/2024 10:46 AM [facility] Total Protein 6.2 6.0 - 8.0 g/dL LAB CHEMISTRY METHOD 12/24/2024 10:46 AM [facility] Albumin 2.7(L) 3.2 - 5.0 g/dL LAB CHEMISTRY METHOD 12/24/2024 10:46 AM [facility] Total Bilirubin 0.5 0.0 - 1.4 mg/dL LAB CHEMISTRY METHOD 12/24/2024 10:46 AM [facility] Blood Venous blood specimen / Unknown Venipuncture / Unknown 12/24/2024 5:48 AM EST 12/24/2024 8:47 AM EST us Shelley Beard MD LAB BLOOD ORDERABLES Fin al Result [facility] [address] [place] [address], from Last 3 Months Insurance [employer] MEDICARE ADVANTAGE [place] Care Teams Regulatory Affairs Consultant Relationship Specialty Start Date End Date Shelley Beard MD [address] [place] [id number] PCP - General Family Medicine 12/31/24
== END 2025-03-23 15:06 | disposition home or self-care (01) ==
PROVIDERS: PCP Nurse Practitioner Family; Visit Provider Physician Assistant
DX: B34.9 Viral infection, unspecified (principal)

== ENCOUNTER 2025-03-23 14:29 | Outpatient (REF) | payer MEDICARE, SELFPAY ==
[2025-03-23 17:53] LABS: Influenza A PCR NEGATIVE (Negative); Influenza B PCR NEGATIVE (Negative); Resp Syncy Virus RNA Qual PCR NEGATIVE (Negative); SARS COV2 PCR INHOUSE NEGATIVE (Negative)
== END 2025-03-23 14:30 | disposition home or self-care (01) ==
LOC: HO.LAB 14:29
PROVIDERS: Physician Assistant; PCP Nurse Practitioner Family
DX: B34.9 Viral infection, unspecified (principal); R09.89 Other specified symptoms and signs involving the circulatory and respiratory systems; R05.9 Cough, unspecified
CPT/HCPCS: 0241U; 99212

== ENCOUNTER 2025-05-11 09:58 | Outpatient (AMB) | payer MEDICARE, SELFPAY ==
--- NOTE | 2025-05-11 10:01 | A.OFFVIS_ITS ---
Vital Signs 05/11/25 10:02 Height 5 ft 6.5 in Weight 255 lb BMI 40.5 BP 124/78 Blood Pressure Location Rt brachial Position Sitting Pulse 69 Pulse Source Pulse Oximeter Pulse Oximetry (%) 95 Oxygen Delivery Method Room Air Intake Visit Reasons: INP-Polyneuropathy Intake Note: Patient referred in house By Dr. Joseph for peripheral motor neuropathy EMG done 02/15/25 Allergies esomeprazole (From Vimovo) Allergy (Mild, Verified 05/11/25 10:04) Headache naproxen (From Vimovo) Allergy (Mild, Verified 05/11/25 10:04) Headache codeine Adverse Reaction (Mild, Verified 05/11/25 10:04) Unknown phenobarbital Adverse Reaction (Mild, Verified 05/11/25 10:04) Unknown Medication List - Last Reconciled 05/11/25 by Lenore Tay MD aspirin 81 mg PO DAILY bupropion HCl XL 150 mg PO QAM calcium carbonate 600 mg PO BID cholecalciferol (vitamin D3) 25 mcg PO BID duloxetine 60 mg PO DAILY ferrous sulfate (Feosol) 325 mg PO Q OTHER DAY gabapentin 1,200 mg (4 x 300 mg) PO DAILY 90 days ketoconazole 2% 1 appl topical DAILY nystatin 1 appl topical BID-TID tramadol 50 mg PO BID PRN 20 days trazodone 50 mg PO BEDTIME PRN HPI Comments Details: 70y/o female with multiple medical issues comes for further management of neuropathy.she was diagnosed with neuropathy 15-20 years ago - Neurologist from [place]. She has h/o seizure ( last seizure was at age 16) and was treated with primidone and was on Dilantin for many years. She started having numbness and tingling in LE - had EMG showed neuropathy and was told it was due to chronic dilantin use. Dilantin was switched to gabapentin 15 years ago. she still has numbness and tingling in her feet and lower leg. she denies pain. she has some weakness in her feet and has trouble with activities like putting on shoes because of numbness. she denies any restless legs like symptoms. she has chronic back pain. she describes gen tremors or shaking when she stands up lasting few seconds or 1min. she was diagnosed with sleep apnea- could not use CPAP. No h/o diabetes , no alcohol use, no exposure to heavy metals or chemicals. COUNTS INCLUDE 234 BEDS AT [facility] Medical History (Updated 05/11/25 @ 10:47 by Lenore Tay MD) Axonal sensorimotor neuropathy Periodic limb movement Hx of hiatal hernia FH: total knee replacement Chronic kidney disease Seizure Surgical History Hx of tonsillectomy Hx of shoulder surgery H/O: hysterectomy Hx of appendectomy Hx of total knee replacement Family History Father Cirrhosis Lung cancer Mental health disorder Substance use disorder Mother Lung cancer Social History Household Members: Spouse Housing: Apartment Alcohol intake: current Alcohol intake frequency: holidays/special occasions only Alcohol type: wine Patient Tobacco Use Status: Never used Tobacco e-Cigarette/Vaping Use: Never Used service: No Current occupational status: retired Cognitive needs: No Hearing needs: No Vision needs: No Physical Exam Vital Signs: Last Vital Signs Pulse 69 05/11/25 10:02 BP 124/78 05/11/25 10:02 Pulse Ox 95 05/11/25 10:02 Oxygen Delivery Method Room Air 05/11/25 10:02 BMI result Body Mass Index 40.5 Const General: cooperative, comfortable and no acute distress Nutritional Appearance: obese Orientation/consciousness: patient oriented x3 Eyes Pupils: Equal, round and reactive pupils present Neuro Other: mild dysconjugate gaze - left eye deviated up - since childhood Decreased light touch , PIN prick in yariel LE upto below knee General: patient oriented x3, moves all extremities and no focal motor deficits Cranial nerves: Yes Facial sensation intact/muscles of mastication intact, Yes Equal, round and reactive pupils present, Yes Bilaterally intact EOM present, Yes Nystagmus not present, Yes Normal facial strength present and Yes Midline tongue present Cognition (Neuro): normal cognition Gait exam (Neuro): Antalgic gait present Motor exam (neuro): 5/5 motor strength present throughout and Normal motor muscle tone present throughout Deep tendon reflexes (DTR's): Right triceps reflex intensity grade: 1+, Left triceps reflex intensity grade: 1+, Rt Biceps (C5, C6): 1+, Left biceps reflex intensity grade: 1+, Right brachioradialis reflex intensity grade: 1+, Left brachioradialis reflex intensity grade: 1+, Right patellar reflex intensity grade: 1+ and Left patellar reflex intensity grade: 1+ Coordination: [id number] test normal Results Reviewed Results Reviewed: EMG 01/2025 Severe axonal sensory motor peripheral neuropathy. Assessment & Plan Assessment & Plan (1) Axonal sensorimotor neuropathy: Comment: Suyapa related to chronic exposure to phenytoin Code(s): G6.89 - Other specified polyneuropathies Category: Medical Plan I will review her records from [place] I will check her Vit B12 D TSH CBC CMP ESR JUSTUS to r/o revrsible causes will refer to PT for gait and leg strenthening Patient does not want to restart CPAP Orders: Orders Vitamin B12 and Folate Today G62.9 - Polyneuropathy, unspecified Vitamin D 25-OH (D2 and D3) Today G62.9 - Polyneuropathy, unspecified Complete Blood Count Auto Diff Today G6.9 - Polyneuropathy, unspecified Erythrocyte Sedimentation Rate Today G62.9 - Polyneuropathy, unspecified PT Evaluation and Treatment Today - Other specified polyneuropathies Comprehensive Met. Panel Today G62.9 - Polyneuropathy, unspecified JUSTUS Reflex Titer and Pattern Today G62.9 - Polyneuropathy, unspecified TSH reflex Free T4 Today G62.9 - Polyneuropathy, unspecified Coding Level of Care Code New Pt Level 4 (95226) Diagnoses Axonal sensorimotor neuropathy
[2025-05-11 10:02] VITALS: BP 124/78; PULSE 69; O2SAT 95; BMI 40.5
--- NOTE | 2025-05-11 10:15 | MHC.OFFVIS ---
Vital Signs 05/11/25 10:02 Height 5 ft 6.5 in Weight 255 lb BMI 40.5 BP 124/78 Blood Pressure Location Rt brachial Position Sitting Pulse 69 Pulse Source Pulse Oximeter Pulse Oximetry (%) 95 Oxygen Delivery Method Room Air Intake Visit Reasons: INP-Polyneuropathy Allergies esomeprazole (From Vimovo) Allergy (Mild, Verified 05/11/25 10:04) Headache naproxen (From Vimovo) Allergy (Mild, Verified 05/11/25 10:04) Headache codeine Adverse Reaction (Mild, Verified 05/11/25 10:04) Unknown phenobarbital Adverse Reaction (Mild, Verified 05/11/25 10:04) Unknown PFSH Medical History Periodic limb movement Hx of hiatal hernia FH: total knee replacement Chronic kidney disease Seizure Surgical History Hx of tonsillectomy Hx of shoulder surgery H/O: hysterectomy Hx of appendectomy Hx of total knee replacement Family History Father Cirrhosis Lung cancer Mental health disorder Substance use disorder Mother Lung cancer Social History Household Members: Spouse Housing: Apartment Alcohol intake: current Alcohol intake frequency: holidays/special occasions only Alcohol type: wine Patient Tobacco Use Status: Never used Tobacco e-Cigarette/Vaping Use: Never Used service: No Current occupational status: retired Cognitive needs: No Hearing needs: No Vision needs: No Physical Exam Vital Signs: Last Vital Signs Pulse 69 05/11/25 10:02 BP 124/78 05/11/25 10:02 Pulse Ox 95 05/11/25 10:02 Oxygen Delivery Method Room Air 05/11/25 10:02 BMI result Body Mass Index 40.5 Coding
--- OUTSIDE RECORDS SUMMARY | 2025-05-11 11:09 | XMS_ITS | Clinical Summary ---
Author Organization [facility] Address [address] [place] [address] Care Team Providers Care It Training Specialist Name Role Phone NehaAntionette munroe Mariah Primary Care Provider [phone] Allergies Active Allergy Reactions Criticality Noted Date [...] topic Insurance MEDICAID HUSKY D Care Teams It Training Specialist Relationship Specialty Start Date End Date Antionette Payne [address] [place] [id number] PCP - General 07/31/18
== END 2025-05-11 10:38 | disposition home or self-care (01) ==
LOC: HO.HSMS 09:59
PROVIDERS: PCP Nurse Practitioner Family; Visit Provider Psychiatry & Neurology Neurology
DX: G62.89 Other specified polyneuropathies (principal)
CPT/HCPCS: 99214

== ENCOUNTER 2025-05-11 09:58 | Outpatient (REF) | payer MEDICARE, SELFPAY ==
[2025-05-11 17:55] LABS: MANUAL DIFF FLAG NO
[2025-05-11 18:15] LABS: Basophils Absolute Auto 0.1 X10*3/uL (0.0-0.2); Basophils Percent Auto 0.9 % (0-2); Eosinophils Absolute Auto 0.3 X10*3/uL (0.0-0.4); Eosinophils Percent Auto 5.7 % (0-4); Hematocrit 41.6 % (37.0-47.0); Hemoglobin 12.3 g/dl (12.0-16.0); Imm Gran Abs Auto 0.02 X10*3/uL (0.00-0.03); Imm Gran Pct Auto 0.3 % (0.0-0.4); Lymphocytes Percent Auto 33.7 % (20-40); Mean Corpuscular HGB Conc 29.6 g/dl (31.0-35.0); Mean Corpuscular Hemoglobin 25.4 pg (27.0-33.0); Mean Platelet Volume 10.8 fL (9.4-12.3); Monocytes Absolute Auto 0.4 X10*3/uL (0.1-1.2); Monocytes Percent Auto 6.7 % (2-11); Neutrophils Percent Auto 52.7 % (45-73); Platelet Count 232 X10*3/uL (160-400); Red Blood Count 4.84 X10*6/uL (4.20-5.50); White Blood Count 5.8 X10*3/uL (4.8-10.8)
[2025-05-11 18:28] LABS: Alanine Aminotransferase 15 U/L (0-31); Albumin Level 3.7 g/dL (3.5-5.0); Alkaline Phosphatase 88 U/L (39-117); Anion Gap 13 (12-20); Aspartate Amino Transferase 35 U/L (5-31); Bilirubin Total 0.4 mg/dL (0.0-1.0); Blood Urea Nitrogen 15 mg/dL (9-16); Calcium 9.1 mg/dL (8.4-10.2); Carbon Dioxide 29 mmol/L (22-29); Chloride 105 mmol/L (96-108); Estimated Glomerular Filt Rate 39; Glucose Random 93 mg/dL (60-115); Potassium 4.5 mmol/L (3.3-5.1); Sodium 142 mmol/L (135-145); Total Protein 7.1 g/dL (6.5-8.0)
[2025-05-11 18:44] LABS: TSH reflex Free T4 1.57 uIU/mL (0.32-4.0)
[2025-05-11 18:52] LABS: Folate 3.2 ng/mL (> or = 4.0); Vitamin B12 350 pg/mL (200-900)
[2025-05-11 19:00] LABS: Erythrocyte Sedimentation Rate 38 MM/HR (0-20)
[2025-05-13 11:04] LABS: Anti Nuclear Antibody Screen NEGATIVE (NEGATIVE)
[2025-05-18 18:33] LABS: Vitamin D 25-OH, D2 <4 ng/mL; Vitamin D 25-OH, D3 39 ng/mL; Vitamin D 25-OH, Total 39 ng/mL (30-100)
== END 2025-05-11 09:59 | disposition home or self-care (01) ==
LOC: HO.HKASLDS 09:58
PROVIDERS: PCP Nurse Practitioner Family; Visit Provider Psychiatry & Neurology Neurology
DX: G62.89 Other specified polyneuropathies (principal)
CPT/HCPCS: 36415; 80053; 82306; 82607; 82746; 84443; 85025; 85652; 86038; 99212

== ENCOUNTER 2025-05-23 09:43 | Outpatient (REF) | payer MEDICARE, SELFPAY ==
--- OUTSIDE RECORDS SUMMARY | 2025-05-23 10:10 | XMS_ITS | Encounter Summary ---
Author Organization [facility] Address [address] [place] [address] Care Team Providers Care In Mold Coater Name Role Phone Shelley Beard MD Primary Care Provider + Encounter Details Date Type Department Care Team (Late st Contact Info) Description 12/24/2024 Lab Requisition [facility] - Main Lab [address] [facility] [place] [address] Shelley Beard MD [address] [facility] [address] [place], [place] [id number] Unspecified fall, subsequent encounter; Weakness Social History [...] LAB CHEMISTRY METHOD 12/24/2024 11:09 AM EST [facility] Blood Venous blood specimen / Unknown Venipuncture / Unknown 12/24/2024 5:48 AM EST 12/24/2024 8:47 AM EST Shelley Beard MD LAB BLOOD ORDERABLES Fin al Result Performing Organization Address City/[facility]/ZIP Co de Phone Number [facility] [address] [place] [address], [place] [phone] * Vitamin B12 (12/24/2024 5:48 AM EST) [facility] Vitamin B-12 289 250 - 900 pcg/mL LAB CHEMISTRY METHOD 12/24/2024 11:09 AM EST [facility] Blood Venous blood specimen / Unknown Venipuncture / Unknown 12/24/2024 5:48 AM EST 12/24/2024 8:47 AM EST Shelley Beard MD LAB BLOOD ORDERABLES Fin al Result [facility] [address] [place] [address], [place] [phone] * Thyroid stimulating hormone with reflex to free t4 and free t3 (12/24/2024 5:48 AM EST) [facility] TSH 1.63 0.40 - 4.00 mcIU/mL LAB CHEMISTRY METHOD 12/24/2024 10:54 AM EST [facility] Blood Venous blood specimen / Unknown Venipuncture / Unknown 12/24/2024 5:48 AM EST 12/24/2024 8:47 AM EST Shelley Beard MD LAB BLOOD ORDERABLES Fin al Result [facility] [address] [place] [address], [place] [phone] * (ABNORMAL) Comprehensive metabolic panel (12/24/2024 5:48 [...] [facility] Comment:Calculation based on the Chronic Kidney Disease Epidemiology Collaboration (CKD-EPI) equation refit without adjustment for race. BUN/Creatinine Ratio 13.8 LAB CHEMISTRY METHOD 12/24/2024 10:46 AM EST [facility] Calcium 9.1 [...] Result [facility] [address] [place] [address], * (ABNORMAL) Complete blood count (12/24/2024 5:48 [...] LAB BLOOD ORDERABLES Fin al Result [facility] [address] [place] [address], documented in this encounter Visit Diagnoses Diagnosis Unspecified fall, subsequent encounter Weakness Other malaise and fatigue documented in this encounter Care Teams In Mold Coater Relationship Specialty Start Date End Date Shelley Beard MD [address] [address] PCP - General Family Medicine 12/31/24 documented as of this encounter
[2025-05-23 11:15] LABS: Anion Gap 14 (12-20); Blood Urea Nitrogen 19 mg/dL (9-16); Carbon Dioxide 29 mmol/L (22-29); Chloride 104 mmol/L (96-108); Estimated Glomerular Filt Rate 41; Sodium 142 mmol/L (135-145)
[2025-05-24 10:42] LABS: Appearance Urine Cloudy; Color Urine Yellow; Glucose Urine UA Negative (Negative); Leukocyte Esterase Urine Moderate (2+) (Negative); Nitrite Urine Positive (Negative); UMIC TRIGGER UA YES; Urine Blood Negative (Negative); Urine Ketones Negative (Negative); Urine Protein 30 (1+) mg/dL (Neg-Trace)
[2025-05-24 10:49] LABS: Bacteria Urine 4+ (None Seen); Hyaline Casts Urine 0-2 /LPF (0-2); RBC Urine 0-2 /HPF (0-2); Squamous Epithelial Cell Urine 0-2 /HPF (0-2); WBC Urine >50 /HPF (0-5)
[2025-05-24 11:29] LABS: Creatinine Urine 59.76 mg/dL; Total Protein Urine Random 40 mg/dL (<12)
== END 2025-05-23 09:44 | disposition home or self-care (01) ==
LOC: HO.LAB 09:43
PROVIDERS: Absent Provider Internal Medicine Hypertension Specialist; PCP Nurse Practitioner Family; Visit Provider Nurse Practitioner Family
DX: N18.30 Chronic kidney disease, stage 3 unspecified (principal)
CPT/HCPCS: 36415; 80051; 81001; 81003; 82565; 82570; 84156; 84520

== ENCOUNTER 2025-05-26 15:35 | Outpatient (AMB) | payer MEDICARE, SELFPAY ==
--- OUTSIDE RECORDS SUMMARY | 2025-05-26 15:38 | XMS_ITS | Clinical Summary ---
Author Organization [facility] Address [address] [place] [address] Care Team Providers Care Material Control Associate Name Role Phone NehaAntionette munroe Mariah Primary Care Provider [phone] Allergies Active Allergy Reactions Criticality Noted Date [...] Vaccines (1 of 2) 2004 COVID-19 Vaccine (1 - 2023-2 5 season) 2024 Influenza Vaccine (#1) 2025 HPV Vaccines Aged Out No longer eligi ble based on patient's age to complete this topic Hepatitis A Vaccines Aged Out No long er eligible based on patient's age to complete this topic Meningococcal Vaccine Aged Out No matt nickie eligible based on patient's age to complete this topic Insurance MEDICAID HUSKY D Care Teams Material Control Associate Relationship Specialty Start Date End Date Antionette Payne [address] [place] [id number] PCP - General 07/31/18
--- OUTSIDE RECORDS SUMMARY | 2025-05-26 15:38 | XMS_ITS | Patient Health Record ---
Author Organization [employer] Address [address] [facility] [id number] [place] [address] Care Team Providers Care Custom Motorcycle Painter Name Role Phone Amanda Foley Primary Care [...] Code Notes Problem Sliver (T14.8XXA) Active confirmed [id number] PLAN OF TREATMENT No Information Insurance Providers Payer Name Payer Address Payer Phone Subscriber Number Group Number Insured Name Patient Relationship to Insured Coverage Start Date Coverage End Date JUD [employer] [address] [place] [address] [id number] Jacqui Kasper Self - patient is the insured MEDICAL (GENERAL) HISTORY Medical History History ICD Code neuropathy seizure disorder (last seizure 45 years ago) HTN depression low back pain (5 % disability) venous insuffiency right leg stage 3 kidney disease hx of DVT right leg November 2016
--- OUTSIDE RECORDS SUMMARY | 2025-05-26 15:38 | XMS_ITS | Encounter Summary ---
Author Organization [facility] Address [address] [place] [address] Care Team Providers Care Athletic Gear Custodian Name Role Phone Shelley Beard MD Primary Care Provider + Encounter Details Date Type Department Care Team (Late st Contact Info) Description 12/24/2024 Lab Requisition [facility] - Main Lab [address] [facility] [place] [address] Shelley Beard MD [address] [facility] [address] [place], [place] [id number] Unspecified fall, subsequent encounter; Weakness Social History [...] * Folate (12/24/2024 5:48 AM EST) Pathologist [facility] Folate 3.9 2.8 - 17.0 ng/ml LAB CHEMISTRY METHOD 12/24/2024 11:09 AM EST [facility] Blood Venous blood specimen / Unknown Venipuncture / Unknown 12/24/2024 5:48 AM EST 12/24/2024 8:47 AM EST Shelley Beard MD LAB BLOOD ORDERABLES Fin al Result Performing Organization Address City/[facility]/ZIP Co de Phone Number [facility] [address] [place] [address], [place] [phone] * Vitamin B12 (12/24/2024 5:48 AM EST) [facility] Vitamin B-12 289 250 - 900 pcg/mL LAB CHEMISTRY METHOD 12/24/2024 11:09 AM EST [facility] Blood Venous blood specimen / Unknown Venipuncture / Unknown 12/24/2024 5:48 AM EST 12/24/2024 8:47 AM EST Shelley Beard MD LAB BLOOD ORDERABLES Fin al Result [facility] [address] [place] [address], [place] [phone] * Thyroid stimulating hormone with reflex to free t4 and free t3 (12/24/2024 5:48 AM EST) [facility] TSH 1.63 0.40 - 4.00 mcIU/mL LAB CHEMISTRY METHOD 12/24/2024 10:54 AM EST [facility] Blood Venous blood specimen / Unknown Venipuncture / Unknown 12/24/2024 5:48 AM EST 12/24/2024 8:47 AM EST Shelley Beard MD LAB BLOOD ORDERABLES Fin al Result [facility] [address] [place] [address], [place] [phone] * (ABNORMAL) Comprehensive metabolic panel (12/24/2024 5:48 AM EST) Pathologist [facility] Sodium 139 133 - 145 mmol/L LAB CHEMISTRY METHOD 12/24/2024 10:46 AM [facility] Potassium 4.6 3.5 - 5.5 mmol/L LAB CHEMISTRY METHOD 12/24/2024 10:46 AM [facility] Chloride 101 96 - 110 mmol/L LAB CHEMISTRY METHOD 12/24/2024 10:46 AM [facility] CO2 33(H) 21 - 32 mmol/L LAB CHEMISTRY METHOD 12/24/2024 10:46 AM [facility] Anion Gap 5 3 - 11 LAB CHEMISTRY METHOD 12/24/2024 10:46 AM [facility] Glucose 93 70 - 100 mg/dL LAB CHEMISTRY METHOD 12/24/2024 10:46 AM [facility] BUN 18 5 - 25 mg/dL LAB CHEMISTRY METHOD 12/24/2024 10:46 AM [facility] Creatinine 1.30(H) 0.50 - 1.10 mg/dL LAB CHEMISTRY METHOD 12/24/2024 10:46 AM [facility] eGFR 44(L) >=60 mL/min/1. 73m2 LAB CHEMISTRY METHOD 12/24/2024 10:46 AM [facility] Comment:Calculation based on the Chronic Kidney Disease Epidemiology Collaboration (CKD-EPI) equation refit without adjustment for race. BUN/Creatinine Ratio 13.8 LAB CHEMISTRY METHOD 12/24/2024 10:46 AM EST [facility] Calcium 9.1 8.5 - 10.5 mg/dL LAB CHEMISTRY METHOD 12/24/2024 10:46 AM [facility] AST (SGOT) 41 10 - 42 unit/L LAB CHEMISTRY METHOD 12/24/2024 10:46 AM [facility] ALT (SGPT) 25 10 - 60 unit/L LAB CHEMISTRY METHOD 12/24/2024 10:46 AM [facility] Alkaline Phosphatase 81 42 - 121 unit/L LAB CHEMISTRY METHOD 12/24/2024 10:46 AM [facility] Total Protein 6.2 6.0 - 8.0 g/dL LAB CHEMISTRY METHOD 12/24/2024 10:46 AM [facility] Albumin 2.7(L) 3.2 - 5.0 g/dL LAB CHEMISTRY METHOD 12/24/2024 10:46 AM [facility] Total Bilirubin 0.5 0.0 - 1.4 mg/dL LAB CHEMISTRY METHOD 12/24/2024 10:46 AM [facility] Blood Venous blood specimen / Unknown Venipuncture / Unknown 12/24/2024 5:48 AM EST 12/24/2024 8:47 AM EST us Shelley Beard MD LAB BLOOD ORDERABLES Fin al Result [facility] [address] [place] [address], * (ABNORMAL) Complete blood count (12/24/2024 5:48 AM EST) WBC 8.8 4.8 - 10.8 K/mcL LAB HEMETOLOGY METHOD 12/24/2024 10:13 AM [facility] RBC 4.20 3.80 - 4.80 M/mcL LAB HEMETOLOGY METHOD 12/24/2024 10:13 AM [facility] Hemoglobin 10.9(L) 11.5 - 16.0 g/dL LAB HEMETOLOGY METHOD 12/24/2024 10:13 AM [facility] Hematocrit 36.3 35.0 - 47.0 % LAB HEMETOLOGY METHOD 12/24/2024 10:13 AM [facility] MCV 85.8 79.0 - 98.0 FL LAB HEMETOLOGY METHOD 12/24/2024 10:13 AM [facility] MCH 25.8(L) 27.0 - 32.0 pcg LAB HEMETOLOGY METHOD 12/24/2024 10:13 AM [facility] MCHC 30.0(L) 32.0 - 37.0 g/dL LAB HEMETOLOGY METHOD 12/24/2024 10:13 AM [facility] RDW 15.2(H) 11.0 - 15.0 % LAB HEMETOLOGY METHOD 12/24/2024 10:13 AM [facility] Platelets 204 130 - 400 K/mcL LAB HEMETOLOGY METHOD 12/24/2024 10:13 AM [facility] MPV 11.5(H) 7.0 - 11.0 FL LAB HEMETOLOGY METHOD 12/24/2024 10:13 AM [facility] NRBC 0.0 <1.0 % LAB HEMETOLOGY METHOD 12/24/2024 10:13 AM [facility] NRBC Absolute 0.00 <0.10 K/mcL LAB HEMETOLOGY METHOD 12/24/2024 10:13 AM [facility] Blood Venous blood specimen / Unknown Venipuncture / Unknown 12/24/2024 5:48 AM EST 12/24/2024 8:47 AM EST Shelley Beard MD LAB BLOOD ORDERABLES Fin al Result [facility] [address] [place] [address], documented in this encounter Visit Diagnoses Diagnosis Unspecified fall, subsequent encounter Weakness Other malaise and fatigue documented in this encounter Care Teams Athletic Gear Custodian Relationship Specialty Start Date End Date Shelley Beard MD [address] [address] PCP - General Family Medicine 12/31/24 documented as of this encounter
--- OUTSIDE RECORDS SUMMARY | 2025-05-26 15:38 | XMS_ITS | Encounter Summary ---
Author Organization [facility] Address [address] [place] [address] Care Team Providers Care Manager Bank Name Role Phone Unknown Primary Care Provider [phone] Jaspreet Fortune APRN Primary Care Provider [phone] Arminda Arita MD Unavailable Obinna Gannon MD Primary Care Provider [phone] Octavio Alejandre MD Unavailable Unavailable Breezy Crisostomo MD Unavailable [phone] Encounter Details Date Type Department Care Team (Late st Contact Info) Description 06/19/2018 Scanned Document [facility] [address] [place] [id number] Derick Guerra, [place] [address] [address] Social History Tobacco Use Types Packs/Day Years [...] on filedocumented in this encounter Care Teams Manager Bank Relationship Specialty Start Date End Date Unknown Unknow Provider Address PCP - General 12/30/18 02/03/19 Jaspreet Fortune APRN [address] [facility] [place] [address] PCP - General Internal Medicine 02/04/19 07/14/19 Obinna Gannon MD [address] [place] [address] PCP - General Internal Medicine 07/15/19 Arminda Arita MD [address] [place] [address] Referring Provider Cardiovascular Disease 05/26/19 Octavio Alejandre MD [address] [place] [address] Neurology 08/05/19 Breezy Crisostomo MD [address] [facility] [address] [place] [address] Physician Nephrology 08/09/19 documented as of this encounter
--- OUTSIDE RECORDS SUMMARY | 2025-05-26 15:38 | XMS_ITS ---
Author Name [facility] Organization Unknown History of Medication Use Medication Directions Dispensed Refills Start Date End Date Stat Sulfamethoxazole- Trimethoprim 800-160 MG Oral Tablet Sulfamethoxazole-Tri methoprim 800-160 MG Oral TabletTAKE 1 TABLET Twice daily for 5 days Quantity: 10 Refills: Sebastian Hanna APRN Start : 75-Ohl-9050Eatepf 01/16/2023 complete d Nystatin 367427 UNIT/GM External Powder Nystatin 697012 UNIT/GM External PowderAPPLY 2-3 TIMES DAILY TO AFFECTED AREA(S). Quantity: 1 Refills: 4Sebastian Carrasco APRN Start : 13-Lch-2267Ennmbv35 GM Bottle 07/04/2021 completed Aspirin Low Dose 81 MG Oral Tablet Delayed Release Aspirin Low Dose 81 MG Oral Tablet Delayed ReleaseTAKE 1 TABLET DAILY. Quantity: 90 Refills: Felisa Bennett M.D. Start : 5-Ggt-0771Idalwr 08/27/2019 completed CPAP AYAN 99 CPAP AYAN 99ResMed [id number] Auto FOR HER: 16 - 18 cm H2O, EPR 3 ALL NEC SUPPLIES, Heated humidifier&hose. Mask; Pt. pref. G47.33, AYAN:99 months; QTY 1 X Each Quantity: 1 Refills: Franklin Jurado M.D. Start : 53-Hms-5435Gvsoao 02/26/2019 completed Calcium 600 MG TABS Calcium 600 MG TABSTake 1 tablet twice daily Quantity: 180 Refills: Sebastian Hanna APRN Active complet ed Cymbalta 60 MG Oral Capsule Delayed Release Particles Cymbalta 60 MG Oral Capsule Delayed Release ParticlesTAKE 1 CAPSULE BY MOUTH DAILY Quantity: 30 Refills: 0Active completed traZODone HCl - 50 MG Oral Tablet traZODone HCl - 50 MG Oral TabletTAKE 1 TABLET AT BEDTIME. Quantity: 10 Refills: Sebastian Hanna APRN Active complet ed Allergies Allergen Reaction Severity Comment Documented Date Source Statu s CODEINE DERIVATIVES OTHER [facility] PHENOBARBITAL [facility] PHENOBARBITAL TABS OTHER [facility] VIMOVO TBEC HEADACHE [facility] Immunizations Vaccine Date Source Lot Number Status Fluad Quadrivalent 0.5 ML In tramuscular Prefilled Syringe 10/01/2023 [facility] [id number] completed Fluzone High-Dose 0.5 ML Int ramuscular Suspension Prefilled Syringe 11/07/2021 [facility] [id number] com pleted Pfizer-BioNTech COVID-19 Vac c 30 MCG/0.3ML Intramuscular Suspension 11/07/2021 [facility] [id number] complet ed Pfizer-BioNTech COVID-19 Vac c 30 MCG/0.3ML Intramuscular Suspension 03/14/2021 [facility] complet ed Pfizer-BioNTech COVID-19 Vac c 30 MCG/0.3ML Intramuscular Suspension 02/12/2021 [facility] complet ed Fluzone High-Dose 0.5 ML Int ramuscular Suspension Prefilled Syringe 11/01/2020 [facility] [id number] com pleted Pneumococcal polysaccharide vaccine, 23 valent 11/01/2020 [facility] [id number] completed Fluzone High-Dose 0.5 ML Int ramuscular Suspension Prefilled Syringe 08/12/2019 [facility] [id number] com pleted Prevnar 13 Intramuscular Suspension 05/28/2019 [facility] [id number] completed Flublok Quadrivalent 0.5 ML Intramuscular Solution Prefilled Syringe 01/22/2019 [facility] [id number] compl eted Fluzone Quadrivalent 0.5 ML Intramuscular Suspension Prefilled Syringe 11/11/2017 [facility] [id number] com pleted Influenza 07/23/2016 [facility] [id number] completed Influenza 08/09/2015 [facility] completed Td 04/06/2015 [facility] completed Td 04/05/2015 [facility] completed Influenza 11/25/2014 [facility] [id number] completed Influenza 08/04/2013 [facility] [id number] completed Influenza 08/13/2012 [facility] [id number] completed Influenza 07/22/2011 [facility] [id number] completed Influenza 09/20/2010 [facility] [id number] completed Influenza A (H1N1) Monoval Vac SUSP 11/21/2009 [facility] completed Influenza (Split) 07/20/2009 [facility] complet ed Influenza (Split) 09/03/2007 [facility] complet ed Tdap 05/21/2007 [facility] completed Influenza (Split) 10/23/2006 [facility] complet ed Td 01/21/2000 [facility] completed Encounters Encounter Type Encounter Reason Primary Diagnosis Location Date Ambulatory [facility] 09/03/2024 Ambulatory [facility] 05/21/2023 Ambulatory ASSYMETRY, 6 MONTH F/U [facility], 6 MONTH F/U [facility] 01/13/2023 Ambulatory CECI CECI [facility] 12/24/2022 Ambulatory SCREEN COLON SCREEN COLON [facility] 12/17/2022 Ambulatory [facility] 12/26 Care Team Organization Name Specialty Phone Email Start Date End [facility] Operator (EC[facility]) Trey [facility] 03/23/2025 [facility] 03/19/2025 [facility] SEBASTIAN CARRASCO, Primary Care 08/24/2024 [facility] Sebastian Carrasco Primary Care 08/16/2024 [facility] 07/27/2024 [facility] 01/27/2024 04/25/2024 [facility] ADT FELISA SEVILLA Primary Care 09/30/2023 [facility] CCDA FELISA SEVILLA Primary Care 07/04/2023 [facility] LUNA CORTES Billet Inspector 04/17/2023 07/29/2024 [facility] Felisa Primary Care 12/25/2022 [facility] FELISA SEVILLA Primary Care 12/24/2022 [facility] LUNA CORTES Billet Inspector 12/17/2022 07/12/2024 [facility] SEBASTIAN CARRASCO, Primary Care 12/17/20222022 [facility] Jagdeep Yeboah Primary Care 01/19/202203/2024 [facility] FELISA SEVILLA Primary Care 10/13/2021 [facility] Primary Care 08/16/2021 07/12/20
--- OUTSIDE RECORDS SUMMARY | 2025-05-26 15:38 | XMS_ITS | Clinical Summary ---
Author Organization [facility] Address [address] [place] [address] Care Team Providers Care Small Products Ii Assembler Name Role Phone Obinna Gannon MD Primary Care Provider [phone] Allergies Active Allergy Reactions Criticality Noted Date [...] by mouth. 0 03/29/2019 Active Fe-Succ Ac-B Thhsg-A-Vg-FA (IROSPAN 17/05) MISC Take by mouth. 0 [...] (2 - season) 2024 02/12/2021 Influenza Vaccine (Season Ended) 2025 RSV Adult > 60+ Yrs or (1 - 1-dose 75+ series) 2029 Hepatitis B Vaccines Aged Out No long er eligible based on patient's age to complete this topic RSV Ped < 20 months Aged Out No longe r eligible based on patient's age to complete this topic Care Teams Small Products Ii Assembler Relationship Specialty Start Date End Date Obinna Gannon MD [address] [facility] [place] [address] PCP - General Family Medicine 01/06/20
--- NOTE | 2025-05-26 15:39 | HO.NEPHOV ---
Vital Signs 05/26/25 15:42 05/26/25 15:48 Height 5 ft 6.5 in Weight 257 lb BMI 40.9 BP 146/90 H 120/70 Blood Pressure Location Lt brachial Lt brachial Position Sitting Sitting Pulse 76 Pulse Source Pulse Oximeter Pulse Oximetry (%) 95 Oxygen Delivery Method Room Air Intake Visit Reasons: CKD-LVM Bear Keeper Required: No Accompanied by: Spouse Allergies esomeprazole (From Vimovo) Allergy (Mild, Verified 05/26/25 15:41) Headache naproxen (From Vimovo) Allergy (Mild, Verified 05/26/25 15:41) Headache codeine Adverse Reaction (Mild, Verified 05/26/25 15:41) Unknown phenobarbital Adverse Reaction (Mild, Verified 05/26/25 15:41) Unknown Medication List - Last Reviewed 05/26/25 by Ratna Pelaez [place] aspirin 81 mg PO DAILY bupropion HCl XL 150 mg PO QAM calcium carbonate 600 mg PO BID cholecalciferol (vitamin D3) 25 mcg PO BID duloxetine 60 mg PO DAILY ferrous sulfate (Feosol) 325 mg PO Q OTHER DAY gabapentin 1,200 mg (4 x 300 mg) PO DAILY 90 days hydroxyzine pamoate 25 mg PO BID PRN ketoconazole 2% 1 appl topical DAILY nystatin 1 appl topical BID-TID trazodone 50 mg PO BEDTIME PRN HPI Comments Details: Middle agedwoman with a history of hypertension in the obesity has been referred for chronic kidney disease. Her serum creatinine has been staying around 1.3 mg/dL L with EGFR of about 53 mL/milliliter and hence this referral. She has history of psoriasis. She denies taking NSAIDs on a chronic basis. 03/23/24 Developed hyperkalemia o f5.4 Recevied 1 dose Kayexalate BP remains low Cr up to 1.5 05/04/2024. Ankle-brachial index was done results are pending. Echocardiogram was unremarkable. Olmesartan was discontinued 4 weeks ago. No new issues. No urinary symptoms. 12/13/24: Overall doing well. No new issues 05/26/25 The patient is a 70-year-old female presenting for a follow-up on her chronic kidney disease The patient reports severe neuropathy, for which she has been referred to physical therapy. She has been experiencing significant discomfort in her legs due to this condition. Her chronic kidney disease has shown improvement, with kidney function increasing from 31-34% last year to 41% currently. This improvement suggests a positive trend, reducing the need for frequent nephrology visits. A recent urine test indicated proteinuria with approximately 600 mg of protein, which was not present in previous tests. This finding will be monitored with repeat testing to determine if it persists. The patient also reports elevated blood pressure, attributed to anxiety during the visit, which normalized upon rechecking. [facility] Medical History (Updated 05/11/25 @ 10:47 by Lenore Tay MD) Axonal sensorimotor neuropathy Periodic limb movement Hx of hiatal hernia FH: total knee replacement Chronic kidney disease Seizure Surgical History Hx of tonsillectomy Hx of shoulder surgery H/O: hysterectomy Hx of appendectomy Hx of total knee replacement Family History Father Cirrhosis Lung cancer Mental health disorder Substance use disorder Mother Lung cancer Social History Household Members: Spouse Housing: Apartment Alcohol intake: current Alcohol intake frequency: holidays/special occasions only Alcohol type: wine Patient Tobacco Use Status: Never used Tobacco e-Cigarette/Vaping Use: Never Used service: No Current occupational status: retired Cognitive needs: No Hearing needs: No Vision needs: No Physical Exam Vital Signs: Last Vital Signs Pulse 76 05/26/25 15:42 BP 146/90 H 05/26/25 15:42 Pulse Ox 95 05/26/25 15:42 Oxygen Delivery Method Room Air 05/26/25 15:42 BMI result Body Mass Index 40.9 Const General: comfortable Nutritional Appearance: well nourished Orientation/consciousness: patient oriented x3 HEENT Head: No normal to inspection Mouth: moist mucous membranes Neck Neck: Yes supple and Yes no JVD Resp Auscultation: clear to auscultation bilaterally and no rales Cardio Jugular venous distension: no JVD Palpation: no palpable S3 and no palpable S4 Heart sounds: no rubs GI Palpation (GI): Soft to palpation and nontender Percussion: No Fluid wave present General: Yes no CVA tenderness Back/Spine/Pelvis Back: no CVA tenderness Skin General skin exam: no rashes or lesions noted Neuro General: patient oriented x3 Extrem General: Yes no pedal edema and No clubbing Results Reviewed Nephrology Results: Hgb, (12.0-16.0) 12.3 g/dl 05/11/25 WBC, (4.8-10.8) 5.8 X10*3/uL 05/11/25 Plt Count, (160-400) 232 X10*3/uL 05/11/25 Sodium, (135-145) 142 mmol/L 05/23/25 Potassium, (3.3-5.1) 5.0 mmol/L 05/23/25 Chloride, (96-108) 104 mmol/L 05/23/25 Carbon Dioxide, (22-29) 29 mmol/L 05/23/25 BUN, (9-16) 19 mg/dL H 05/23/25 Creatinine, (0.5-1.4) 1.28 mg/dL 05/23/25 Calcium, (8.4-10.2) 9.1 mg/dL 05/11/25 Urine Protein, (Neg-Trace) 30 (1+) mg/dL H 05/23/25 Urine Creatinine 59.76 mg/dL 05/23/25 Renal US 02/11/24 Assessment & Plan Assessment & Plan (1) HTN (hypertension): Comment: Code(s): I10 - Essential (primary) hypertension Category: Medical Qualifiers: Hypertension type: primary hypertension Qualified Code(s): I10 - Essential (primary) hypertension Plan: Blood pressure is acceptable After discontinuing olmesartan blood pressure has stabilized. Encouraged to stay on low-sodium diet (2) Chronic kidney disease: Code(s): N18.9 - Chronic kidney disease, unspecified Category: Medical Plan: Recent urine studies did not reveal any blood or protein by urinalysis. Abdominal ultrasonogram revealed normal-appearing left kidney without any hydronephrosis or mass. Right kidney was not scanned. 24 urine collection - calculate creatinine clearance of 38 ml/mt with serum cr of 1.56 Collection seems inadequate Bump in creatinine due to hypoperfusion from low BP and she is sustained some tubular injury. Cr is back to baseline This may be her new baseline. Continue to avoid nephrotoxic agents. No indication for ARB at this time Continue to avoid nephrotoxic agents including NSAIDs. Okay to use allopurinol if needed for gout prophylaxis. Dose will be 100 mg a day. Encouraged her to increase her p.o. fluid intake. Repeat urine protein: Creatinine ratio and reassess the need for YOLANDA inhibition Orders: Orders Total Protein Urine Random 6 Months I10 - Essential (primary) hypertension Basic Metabolic Panel 6 Months I10 - Essential (primary) hypertension Creatinine Urine 6 Months I10 - Essential (primary) hypertension UA and rflx microscopic 6 Months I10 - Essential (primary) hypertension Coding Level of Care Code Est Pt Level 4 (27484) Diagnoses Primary hypertension I10 Hypertension type: primary hypertension Chronic kidney disease N18.9
[2025-05-26 15:42] VITALS: BP 146/90; PULSE 76; O2SAT 95; BMI 40.9
[2025-05-26 15:48] VITALS: BP 120/70
== END 2025-05-26 15:51 | disposition home or self-care (01) ==
LOC: HO.HKA 15:36
PROVIDERS: Visit Provider Internal Medicine Hypertension Specialist
DX: I12.9 Hypertensive chronic kidney disease with stage 1 through stage 4 chronic kidney disease, or unspecified chronic kidney disease (principal); N18.9 Chronic kidney disease, unspecified
CPT/HCPCS: 99214

== ENCOUNTER → 2025-05-26 15:35 | Outpatient (BNVA) | payer MEDICARE, SELFPAY | PROVIDERS: Visit Provider Internal Medicine Hypertension Specialist | DX: I10 Essential (primary) hypertension (principal); N18.9 Chronic kidney disease, unspecified; E66.9 Obesity, unspecified; L40.9 Psoriasis, unspecified | CPT/HCPCS: 99212 ==

== ENCOUNTER 2025-05-30 15:35 | Outpatient (AMB) | payer MEDICARE, SELFPAY ==
--- NOTE | 2025-05-30 15:42 | A.OFFPC_ITS ---
Vital Signs 05/30/25 15:44 Height 5 ft 6.5 in Weight 257 lb BMI 40.9 BP 132/72 Blood Pressure Location Lt brachial Position Sitting Pulse 89 Pulse Source Pulse Oximeter Pulse Oximetry (%) 94 Oxygen Delivery Method Room Air Intake Visit Reasons: 4m follow up Allergies esomeprazole (From Vimovo) Allergy (Mild, Verified 05/26/25 15:41) Headache naproxen (From Vimovo) Allergy (Mild, Verified 05/26/25 15:41) Headache codeine Adverse Reaction (Mild, Verified 05/26/25 15:41) Unknown phenobarbital Adverse Reaction (Mild, Verified 05/26/25 15:41) Unknown Tobacco use date assessed: 01/26/25 Fall risk assessment: 2 + Falls in past year Last assessed Fall Risk: 05/30/25 Dental Screening Dental Screen Date: 01/26/25 HPI 4m follow up HPI Details Chief Complaint The patient presents for follow-up of high triglycerides and urinary tract infection management. History of Present Illness The patient is a 70-year-old female presenting with follow-up for hypertriglyceridemia and urinary tract infection management. She has been diagnosed with hypertriglyceridemia, and a repeat lipid panel is planned in the near future to monitor her condition. The patient was found to have a urinary tract infection on a recent urinalysis conducted by another provider, although she denies any current symptoms associated with a urinary tract infection. A repeat urinalysis is planned, and treatment will be adjusted based on the results. She reports severe peripheral neuropathy affecting her bilateral extremities, with minimal sensation noted from the upper leg to the knee, and worse in the feet. She is currently under the care of a neurologist for this condition and has not experienced any recent falls. The patient has a history of epilepsy but has not had any seizures since the age of 16. Overall, she reports doing well and remains in good spirits. Social History Health Maintenance Review of Systems - General: Denies recent urinary tract i nfection symptoms, reports doing well overall - Cardiovascular: Denies chest pain - Respiratory: Denies increased shortnes s of breath - Neurological: Reports severe periphera l neuropathy in bilateral extremities, denies dizziness, blurred vision, or recent falls Physical Exam General: Cooperative, healthy appearing, comfortable, no acute distress and well developed, morbidly obese Orientation: Patient oriented x3 Limitations: No limitations Head: Normal to inspection Ears: Hearing grossly normal bilaterally Nose: Normal external nose present Face and sinus: Normal facial exam Eyes: Appearance normal, both eyes and all related structures Neck: Normal visual inspection and Yes full ROM, no carotid bruits Respiratory: Normal respiratory effort and able to speak in complete sentences. Clear to auscultation bilaterally Cardiovascular: Regular rate and rhythm. Normal S1 and S2 GI: Normal to inspection. Soft to palpation and nontender Skin: No rashes or lesions noted Neuro: Patient oriented x3, severe bilateral extremities neuropathy with minimal sensation, especially worse in the feet Extremities: Normal to inspection, severe bilateral extremities neuropathy with minimal sensation, especially worse in the feet Results Plan The plan includes repeating the lipid panel to monitor the patient's hypertriglyceridemia and adjusting treatment as necessary based on the results. A repeat urinalysis will be conducted to confirm the presence of a urinary tract infection, and treatment will be provided accordingly. The patient will continue to follow up with her neurologist for management of her peripheral neuropathy, and no recent falls have been reported. She will be seen again in approximately six months for further evaluation and management. Discussion Notes I discussed with the patient the need to repeat her lipid panel to monitor her hypertriglyceridemia and the importance of managing her urinary tract infection based on the repeat urinalysis results. We also talked about her ongoing care with the neurologist for her peripheral neuropathy and the plan to follow up in six months for further evaluation. Patient Instructions - Schedule a repeat lipid panel test lisa n. - Follow up with a repeat urinalysis as advised. - Continue seeing your neurologist for n europathy management. - Return for follow-up in six months. [facility] Medical History Axonal sensorimotor neuropathy Periodic limb movement Hx of hiatal hernia FH: total knee replacement Chronic kidney disease Seizure Surgical History Hx of tonsillectomy Hx of shoulder surgery H/O: hysterectomy Hx of appendectomy Hx of total knee replacement Family History Father Cirrhosis Lung cancer Mental health disorder Substance use disorder Mother Lung cancer Social History Household Members: Spouse Housing: Apartment Alcohol intake: current Alcohol intake frequency: holidays/special occasions only Alcohol type: wine Patient Tobacco Use Status: Never used Tobacco e-Cigarette/Vaping Use: Never Used service: No Current occupational status: retired Cognitive needs: No Hearing needs: No Vision needs: No Questionnaire Thrive Questionnaire Date Thrive assessed: 01/26/25 I am a: Patient What is your living situation today?: I have a steady place to live Within the past 12 months, did the food you bought not last and you didn't have the money to get more?: Never true Within the past 12 months, did you worry whether your food would run out before you got money to buy more?: Sometimes True Do you have trouble paying for medicines?: No Do you have trouble getting transportation to medical appointments?: No Do you have trouble paying your heating and electricity bill?: No Do you have trouble taking care of your child, family member or friend?: No Do you have trouble with day-to-day activities such as bathing, preparing meals, shopping, managing finances, etc.?: No Are you currently unemployed and looking for a job?: No Are you interested in more education?: No Please select the resources that you would like help with: None Currently or been in a relationship where the following occur: No concerns reported THRIVE Score: 1 JOSE-7 AMB Questionnaire JOSE-7 Date JOSE - 7 assessed: 01/26/25 Source: Developed by Drs. Maico Zuleta, Gertrude Titus, Hood Medrano and colleagues, with an educational jose g from [employer]. Physical exam (Primary Care) Vital Signs: Last Vital Signs Pulse 89 05/30/25 15:44 BP 132/72 05/30/25 15:44 Pulse Ox 94 05/30/25 15:44 Oxygen Delivery Method Room Air 05/30/25 15:44 BMI result Body Mass Index 40.9 Tobacco/Smoking Status: Tobacco use Status Tobacco use date assessed 01/26/25 05/30/25 15:46 Patient Tobacco Use Status Never used Tobacco 05/30/25 15:46 e-Cigarette/Vaping Use Never Used 05/30/25 15:46 Thrive Assessment: Date of Thrive Assessment Date Thrive assessed 01/26/25 05/30/25 15:46 Currently or been in a relationship where the following occur: No concerns reported Coding Level of Care Code Est Pt Level 3 (17907) Diagnoses High triglycerides E78.1 Peripheral motor neuropathy G62.89 Axonal sensorimotor neuropathy G62.89 Assessment & Plan Assessment & Plan (1) High triglycerides: Code(s): E78.1 - Pure hyperglyceridemia Category: Medical (2) Peripheral motor neuropathy: Code(s): G62.89 - Other specified polyneuropathies Category: Medical (3) Axonal sensorimotor neuropathy: Comment: Suyapa related to chronic exposure to phenytoin Code(s): G62.89 - Other specified polyneuropathies Category: Medical Plan . Orders: Orders Lipid Panel Today E78.1 - Pure hyperglyceridemia MM screening mammo BI Today Z12.31 - Encounter for screening mammogram for malignant neoplasm of breast
[2025-05-30 15:44] VITALS: BP 132/72; PULSE 89; O2SAT 94; BMI 40.9
--- OUTSIDE RECORDS SUMMARY | 2025-05-30 15:47 | XMS_ITS | Encounter Summary ---
Author Organization [facility] Address [address] [place] [address] Care Team Providers Care Anvilsmith Name Role Phone Shelley Beard MD Primary Care Provider + Encounter Details Date Type Department Care Team (Late st Contact Info) Description 12/24/2024 Lab Requisition [facility] Main Lab [address] [facility] [place] [address] Shelley Beard MD [address] [facility] 1 [place], [place] [id number] Unspecified fall, subsequent encounter; Weakness Social History [...] * Folate (12/24/2024 5:48 AM EST) Pathologist [facility] Folate 3.9 2.8 - 17.0 ng/ml LAB CHEMISTRY METHOD 12/24/2024 11:09 AM EST [facility] Blood Venous blood specimen / Unknown Venipuncture / Unknown 12/24/2024 5:48 AM EST 12/24/2024 8:47 AM EST Shelley Beard MD LAB BLOOD ORDERABLES Fin al Result Performing Organization Address City/[facility]/ZIP Co de Phone Number [facility] [address] [place] [address], [place] [phone] * Vitamin B12 (12/24/2024 5:48 AM EST) [facility] Vitamin B-12 289 250 - 900 pcg/mL LAB CHEMISTRY METHOD 12/24/2024 11:09 AM EST [facility] Blood Venous blood specimen / Unknown Venipuncture / Unknown 12/24/2024 5:48 AM EST 12/24/2024 8:47 AM EST Shelley Beard MD LAB BLOOD ORDERABLES Fin al Result [facility] [address] [place] [address], [place] [phone] * Thyroid stimulating hormone with reflex to free t4 and free t3 (12/24/2024 5:48 AM EST) [facility] TSH 1.63 0.40 - 4.00 mcIU/mL LAB CHEMISTRY METHOD 12/24/2024 10:54 AM EST [facility] Blood Venous blood specimen / Unknown Venipuncture / Unknown 12/24/2024 5:48 AM EST 12/24/2024 8:47 AM EST Shelley Beard MD LAB BLOOD ORDERABLES Fin al Result [facility] [address] [place] [address], [place] [phone] * (ABNORMAL) Comprehensive metabolic panel (12/24/2024 5:48 AM EST) Pathologist [facility] Sodium 139 133 - 145 mmol/L LAB [...] LAB CHEMISTRY METHOD 12/24/2024 10:46 AM EST [facility] Calcium 9.1 8.5 - [...] MD LAB BLOOD ORDERABLES Fin al Result [facility] [address] [place] [address], * (ABNORMAL) Complete blood count (12/24/2024 5:48 [...] ORDERABLES Fin al Result [facility] [address] [place] [address], documented in this encounter Visit Diagnoses Diagnosis Unspecified fall, subsequent encounter Weakness Other malaise and fatigue documented in this encounter Care Teams Anvilsmith Relationship Specialty Start Date End Date Shelley Beard MD [address] [address] PCP - General Family Medicine 12/31/24 documented as of this encounter
--- OUTSIDE RECORDS SUMMARY | 2025-05-30 15:47 | XMS_ITS | Patient Health Record ---
Author Organization [facility] Address [address] [facility] [id number] [place] [address] Care Team Providers Care Polisher Eyeglass Frames Name Role Phone Amanda Foley Primary Care [...] Code Notes Problem Sliver (T14.8XXA) Active confirmed [id number] PLAN OF TREATMENT No Information Insurance Providers Payer Name Payer Address Payer Phone Subscriber Number Group Number Insured Name Patient Relationship to Insured Coverage Start Date Coverage End Date JUD [address] [address] [place] [address] [id number] Jacqui Kasper Self - patient is the insured MEDICAL (GENERAL) HISTORY Medical History History ICD Code neuropathy seizure disorder (last seizure 45 years ago) HTN depression low back pain (5 % disability) venous insuffiency right leg stage 3 kidney disease hx of DVT right leg November 2016
--- OUTSIDE RECORDS SUMMARY | 2025-05-30 15:47 | XMS_ITS | Clinical Summary ---
Author Organization [facility] Address [address] [place] [address] Care Team Providers Care Income Tax Administrator Name Role Phone Obinna Gannon MD Primary Care Provider [phone] Allergies Active Allergy Reactions Criticality Noted Date [...] by mouth. 0 03/29/2019 Active Fe-Succ Ac-B [id number]-FA (IROSPAN 17/05) MISC Take by mouth. 0 [...] - season) 2024 02/12/2021 Influenza Vaccine (#1) 2025 RSV Adult > 60+ Yrs or (1 - 1-dose 75+ series) 2029 Hepatitis B Vaccines Aged Out No long er eligible based on patient's age to complete this topic RSV Ped < 20 months Aged Out No longe r eligible based on patient's age to complete this topic Care Teams Income Tax Administrator Relationship Specialty Start Date End Date Obinna Gannon MD [address] [facility] [place] [address] PCP - General Family Medicine 01/06/20
--- OUTSIDE RECORDS SUMMARY | 2025-05-30 15:47 | XMS_ITS | Encounter Summary ---
Author Organization [facility] Address [address] [place] [address] Care Team Providers Care Renewable Energy Division Manager Name Role Phone Unknown Primary Care Provider [phone] Jaspreet Fortune APRN Primary Care Provider [phone] Arminda Arita MD Unavailable Obinna Gannon MD Primary Care Provider [phone] Octavio Alejandre MD Unavailable Unavailable Breezy Crisostomo MD Unavailable [phone] Encounter Details Date Type Department Care Team (Late st Contact Info) Description 06/19/2018 Scanned Document [facility] [address] [place] [id number] Derick [place], [place] [address] [address] Social History Tobacco Use Types Packs/Day Years [...] on filedocumented in this encounter Care Teams Renewable Energy Division Manager Relationship Specialty Start Date End Date Unknown Unknow Provider Address PCP - General 12/30/18 02/03/19 Jaspreet Fortune APRN [address] [place] [address] PCP - General Internal Medicine 02/04/19 07/14/19 Obinna Gannon MD [address] [place] [address] PCP - General Internal Medicine 07/15/19 Arminda Arita MD [address] [place] [address] Referring Provider Cardiovascular Disease 05/26/19 Octavio Alejandre MD [address] [place] [address] Neurology 08/05/19 Breezy Crisostomo MD [address] [facility] [address] [place] [address] Physician Nephrology 08/09/19 documented as of this encounter
--- OUTSIDE RECORDS SUMMARY | 2025-05-30 15:47 | XMS_ITS | Clinical Summary ---
Author Organization [facility] Address [address] [place] [address] Care Team Providers Care Small Boat Engineer Name Role Phone NehaAntionette munroe Mariah Primary Care Provider [phone] Allergies Active Allergy Reactions Criticality Noted Date [...] topic Insurance MEDICAID HUSKY D Care Teams Small Boat Engineer Relationship Specialty Start Date End Date Antionette Payne [address] [place] [address] PCP - General 07/31/18
== END 2025-05-30 16:49 | disposition home or self-care (01) ==
LOC: HO.HMCC 15:37
PROVIDERS: Visit Provider Nurse Practitioner Family
DX: E78.1 Pure hyperglyceridemia (principal); G62.89 Other specified polyneuropathies

== ENCOUNTER → 2025-05-30 15:35 | Outpatient (BNVA) | payer MEDICARE, SELFPAY | PROVIDERS: Visit Provider Nurse Practitioner Family | DX: E78.1 Pure hyperglyceridemia (principal); G62.89 Other specified polyneuropathies | CPT/HCPCS: 99212 ==

== ENCOUNTER → 2025-06-13 09:00 | Outpatient (BNV) | payer MEDICARE, SELFPAY | PROVIDERS: PCP Nurse Practitioner Family; Visit Provider Radiology Body Imaging | DX: Z12.31 Encounter for screening mammogram for malignant neoplasm of breast (principal) | CPT/HCPCS: 77063; 77067 ==

== ENCOUNTER 2025-06-13 09:05 | Outpatient (REF) | payer MEDICARE, SELFPAY ==
--- NOTE | ~2025-06-13 | MM_ITS ---
EXAMINATION: MM SCREENING DIGITAL BREAST TOMOSYNTHESIS, BILATERAL CLINICAL INFORMATION: Screening. Asymptomatic. COMPARISON: Comparison made to multiple prior, most recent March 25, 2024, and most remote October 18, 2019. TECHNIQUE: Digital breast tomosynthesis is performed in both the craniocaudal and mediolateral oblique views along with computer-aided detection (CAD). Synthesized 2D images are generated from the tomosynthesis. FINDINGS: BREAST COMPOSITION: The breasts are heterogeneously dense, which may obscure small masses (ACR BI-RADS breast composition Category c). BILATERAL BREASTS: No significant masses, suspicious calcifications or other abnormalities are seen in either breast. MM/MM tomosynthesis screening BI IMPRESSION: BILATERAL BREASTS: Negative, no mammographic evidence of malignancy. Normal interval follow-up is recommended in 12 months. ASSESSMENT: BI-RADS 1 - Negative RECOMMENDATION: Routine annual mammography screening. FOLLOW-UP: 1 year F/U This examination should not preclude the clinical evaluation of a suspicious palpable abnormality. This patient's information was entered into a reminder system with a target due date for their next mammogram. Electronically signed by: Danette Cruz MD 06/21/2025 09:41 AM EDT
--- OUTSIDE RECORDS SUMMARY | 2025-06-13 09:19 | XMS_ITS | Encounter Summary ---
Author Organization [facility] Address [address] [place] [address] Care Team Providers Care Radiologist Physician Name Role Phone Unknown Primary Care Provider [phone] Jaspreet Fortune APRN Primary Care Provider Arminda Arita MD Unavailable Obinna Gannon MD Primary Care Provider [phone] Octavio Alejandre MD Unavailable Unavailable Breezy Crisostomo MD Unavailable [phone] Encounter Details Date Type Department Care Team (Late st Contact Info) Description 06/19/2018 Scanned Document [facility] [address] [place] [id number] Derick [place], [place] [address] [address] Social History Tobacco Use Types Packs/Day Years [...] on filedocumented in this encounter Care Teams Radiologist Physician Relationship Specialty Start Date End Date Unknown Unknow Provider Address PCP - General 12/30/18 02/03/19 Jaspreet Fortune APRN [address] [facility] [place] [address] PCP - General Internal Medicine 02/04/19 07/14/19 Obinna Gannon MD [address] [place] [address] PCP - General Internal Medicine 07/15/19 Arminda Arita MD [address] [place] [address] Referring Provider Cardiovascular Disease 05/26/19 Octavio Alejandre MD [address] [place] [address] Neurology 08/05/19 Breezy Crisostomo MD 281 [facility] 210 [place] [address] Physician Nephrology 08/09/19 documented as of this encounter
--- OUTSIDE RECORDS SUMMARY | 2025-06-13 09:20 | XMS_ITS | Encounter Summary ---
Author Organization [facility] Address [address] [place] [address] Care Team Providers Care Compressor Station Chief Engineer Name Role Phone Shelley Beard MD Primary Care Provider + Encounter Details Date Type Department Care Team (Late st Contact Info) Description 12/24/2024 Lab Requisition [facility] - Main Lab [address] [facility] [place] [address] Shelley Beard MD 8[address] [facility] 1 [place], [place] [id number] Unspecified fall, subsequent encounter; Weakness Social History [...] LAB CHEMISTRY METHOD 12/24/2024 11:09 AM EST [facility] Blood Venous blood specimen / Unknown Venipuncture / Unknown 12/24/2024 5:48 AM EST 12/24/2024 8:47 AM EST Shelley Beard MD LAB BLOOD ORDERABLES Fin al Result Performing Organization Address City/[facility]/ZIP Co de Phone Number [facility] [address] [place] [address], [place] [phone] * Vitamin B12 (12/24/2024 5:48 AM EST) [facility] Vitamin B-12 289 250 - 900 pcg/mL LAB CHEMISTRY METHOD 12/24/2024 11:09 AM EST [facility] Blood Venous blood specimen / Unknown Venipuncture / Unknown 12/24/2024 5:48 AM EST 12/24/2024 8:47 AM EST Shelley Beard MD LAB BLOOD ORDERABLES Fin al Result [facility] [address] [place] [address], [place] [phone] * Thyroid stimulating hormone with reflex to free t4 and free t3 (12/24/2024 5:48 AM EST) [facility] TSH 1.63 0.40 - 4.00 mcIU/mL LAB CHEMISTRY METHOD 12/24/2024 10:54 AM EST [facility] Blood Venous blood specimen / Unknown Venipuncture / Unknown 12/24/2024 5:48 AM EST 12/24/2024 8:47 AM EST Shelley Beard MD LAB BLOOD ORDERABLES Fin al Result [facility] [address] [place] [address], [place] [phone] * (ABNORMAL) Comprehensive metabolic panel (12/24/2024 5:48 AM EST) Pathologist [facility] Sodium 139 133 - 145 mmol/L LAB CHEMISTRY METHOD 12/24/2024 10:46 AM [facility] Potassium 4.6 3.5 - 5.5 mmol/L LAB CHEMISTRY METHOD 12/24/2024 10:46 AM [facility] Chloride 101 96 - 110 mmol/L LAB CHEMISTRY METHOD 12/24/2024 10:46 AM [facility] CO2 33(H) 21 - 32 mmol/L LAB CHEMISTRY METHOD 12/24/2024 10:46 AM [facility] Anion Gap 5 3 - 11 LAB CHEMISTRY METHOD 12/24/2024 10:46 AM [facility] Glucose 93 70 - 100 mg/dL LAB CHEMISTRY METHOD 12/24/2024 10:46 AM [facility] BUN 18 5 - 25 mg/dL LAB CHEMISTRY METHOD 12/24/2024 10:46 AM [facility] Creatinine 1.30(H) 0.50 - 1.10 mg/dL LAB CHEMISTRY METHOD 12/24/2024 10:46 AM [facility] eGFR 44(L) >=60 mL/min/1. 73m2 LAB CHEMISTRY METHOD 12/24/2024 10:46 AM [facility] Comment:Calculation based on the Chronic Kidney Disease Epidemiology Collaboration (CKD-EPI) equation refit without adjustment for race. BUN/Creatinine Ratio 13.8 LAB CHEMISTRY METHOD 12/24/2024 10:46 AM EST [facility] Calcium 9.1 8.5 - 10.5 mg/dL LAB CHEMISTRY METHOD 12/24/2024 10:46 AM [facility] AST (SGOT) 41 10 - 42 unit/L LAB CHEMISTRY METHOD 12/24/2024 10:46 AM [facility] ALT (SGPT) 25 10 - 60 unit/L LAB CHEMISTRY METHOD 12/24/2024 10:46 AM [facility] Alkaline Phosphatase 81 42 - 121 unit/L LAB CHEMISTRY METHOD 12/24/2024 10:46 AM [facility] Total Protein 6.2 6.0 - 8.0 g/dL LAB CHEMISTRY METHOD 12/24/2024 10:46 AM [facility] Albumin 2.7(L) 3.2 - 5.0 g/dL LAB CHEMISTRY METHOD 12/24/2024 10:46 AM [facility] Total Bilirubin 0.5 0.0 - 1.4 mg/dL LAB CHEMISTRY METHOD 12/24/2024 10:46 AM [facility] Blood Venous blood specimen / Unknown Venipuncture / Unknown 12/24/2024 5:48 AM EST 12/24/2024 8:47 AM EST us Shelley Beard MD LAB BLOOD ORDERABLES Fin al Result [facility] [address] [place] [address], * (ABNORMAL) Complete blood count (12/24/2024 5:48 AM EST) WBC 8.8 4.8 - 10.8 K/mcL LAB HEMETOLOGY METHOD 12/24/2024 10:13 AM [facility] RBC 4.20 3.80 - 4.80 M/mcL LAB HEMETOLOGY METHOD 12/24/2024 10:13 AM [facility] Hemoglobin 10.9(L) 11.5 - 16.0 g/dL LAB HEMETOLOGY METHOD 12/24/2024 10:13 AM [facility] Hematocrit 36.3 35.0 - 47.0 % LAB HEMETOLOGY METHOD 12/24/2024 10:13 AM [facility] MCV 85.8 79.0 - 98.0 FL LAB HEMETOLOGY METHOD 12/24/2024 10:13 AM [facility] MCH 25.8(L) 27.0 - 32.0 pcg LAB HEMETOLOGY METHOD 12/24/2024 10:13 AM [facility] MCHC 30.0(L) 32.0 - 37.0 g/dL LAB HEMETOLOGY METHOD 12/24/2024 10:13 AM [facility] RDW 15.2(H) 11.0 - 15.0 % LAB HEMETOLOGY METHOD 12/24/2024 10:13 AM [facility] Platelets 204 130 - 400 K/mcL LAB HEMETOLOGY METHOD 12/24/2024 10:13 AM [facility] MPV 11.5(H) 7.0 - 11.0 FL LAB HEMETOLOGY METHOD 12/24/2024 10:13 AM [facility] NRBC 0.0 <1.0 % LAB HEMETOLOGY METHOD 12/24/2024 10:13 AM [facility] NRBC Absolute 0.00 <0.10 K/mcL LAB HEMETOLOGY METHOD 12/24/2024 10:13 AM [facility] Blood Venous blood specimen / Unknown Venipuncture / Unknown 12/24/2024 5:48 AM EST 12/24/2024 8:47 AM EST Shelley Beard MD LAB BLOOD ORDERABLES Fin al Result [facility] LAB [address] [place] [address], documented in this encounter Visit Diagnoses Diagnosis Unspecified fall, subsequent encounter Weakness Other malaise and fatigue documented in this encounter Care Teams Compressor Station Chief Engineer Relationship Specialty Start Date End Date Shelley Beard MD [address] [address] PCP - General Family Medicine 12/31/24 documented as of this encounter
--- OUTSIDE RECORDS SUMMARY | 2025-06-13 09:20 | XMS_ITS | Clinical Summary ---
Author Organization [facility] Address [address] [place] [address] Care Team Providers Care File Keeper Name Role Phone NehaAntionette munroe Mariah Primary Care Provider [phone] Allergies Active Allergy Reactions Criticality Noted Date [...] topic Insurance MEDICAID HUSKY D Care Teams File Keeper Relationship Specialty Start Date End Date Antionette Payne [address] [place] [id number] PCP - General 07/31/18
--- OUTSIDE RECORDS SUMMARY | 2025-06-13 09:20 | XMS_ITS | Clinical Summary ---
Author Organization [facility] Address [address] [place] [address] Care Team Providers Care Staff Cytotechnologist Name Role Phone Obinna Gannon MD Primary Care Provider [phone] Allergies Active Allergy Reactions Criticality Noted Date [...] by mouth. 0 03/29/2019 Active Fe-Succ Ac-B Jvmdy-A-Jr-FA (IROSPAN 17/05) MISC Take by mouth. 0 [...] age to complete this topic Care Teams Staff Cytotechnologist Relationship Specialty Start Date End Date Obinna Gannon MD 4 [facility] [place] [address] PCP - General Family Medicine 01/06/20
--- OUTSIDE RECORDS SUMMARY | 2025-06-13 09:20 | XMS_ITS | Patient Health Record ---
Author Organization [employer]. Address [address] [facility] [id number] [place] [address] Care Team Providers Care Vice President Client Services Name Role Phone Amanda Foley Primary Care Provider [phone] ALLERGIES Allergen (clinical drug ingredient) Drug/Non Drug [...] Code Notes Problem Sliver (T14.8XXA) Active confirmed [id number] PLAN OF TREATMENT No Information Insurance Providers Payer Name Payer Address Payer Phone Subscriber Number Group Number Insured Name Patient Relationship to Insured Coverage Start Date Coverage End Date JUD JANG [address] [place] [address] [id number] Jacqui Kasper Self - patient is the insured MEDICAL (GENERAL) HISTORY Medical History History ICD Code neuropathy seizure disorder (last seizure 45 years ago) HTN depression low back pain (5 % disability) venous insuffiency right leg stage 3 kidney disease hx of DVT right leg November 2016
== END 2025-06-13 09:06 | disposition home or self-care (01) ==
LOC: HO.MAMMO 09:05
PROVIDERS: PCP Nurse Practitioner Family; Visit Provider Nurse Practitioner Family
DX: Z12.31 Encounter for screening mammogram for malignant neoplasm of breast (principal)
CPT/HCPCS: 77063; 77067

== ENCOUNTER 2025-07-08 14:18 | Outpatient (AMB) | payer MEDICARE, SELFPAY ==
--- OUTSIDE RECORDS SUMMARY | 2025-07-08 14:20 | XMS_ITS | Encounter Summary ---
Author Organization [facility] Address [address] [place] [address] Care Team Providers Care Build Master Name Role Phone Unknown Primary Care Provider [phone] Jaspreet Fortune APRN Primary Care Provider Arminda Arita MD Unavailable Obinna Gannon MD Primary Care Provider [phone] Octavio Alejandre MD Unavailable Unavailable Breezy Crisostomo MD Unavailable [phone] Encounter Details Date Type Department Care Team (Late st Contact Info) Description 06/19/2018 Scanned Document [facility] [address] [place] [address] Derick Guerra, [place] [address] [address] Social History Tobacco Use Types Packs/Day Years [...] on filedocumented in this encounter Care Teams Build Master Relationship Specialty Start Date End Date Unknown Unknow Provider Address PCP - General 12/30/18 02/03/19 Jaspreet Fortune APRN [address] [facility] [place] [address] PCP - General Internal Medicine 02/04/19 07/14/19 Obinna Gannon MD [address] [place] [address] PCP - General Internal Medicine 07/15/19 Arminda Arita MD [address] [place] [address] Referring Provider Cardiovascular Disease 05/26/19 Octavio Alejandre MD [address] [place] [address] Neurology 08/05/19 Breezy Crisostomo MD 281 [facility] [address] [place] [address] Physician Nephrology 08/09/19 documented as of this encounter
--- OUTSIDE RECORDS SUMMARY | 2025-07-08 14:21 | XMS_ITS | Clinical Summary ---
Author Organization [facility] Address [address] [place] [address] Care Team Providers Care Corrugator Operator Name Role Phone NehaAntionette munroe Mariah Primary Care Provider [phone] Allergies Active Allergy Reactions Criticality Noted Date [...] topic Insurance MEDICAID HUSKY D Care Teams Corrugator Operator Relationship Specialty Start Date End Date Antionette Payne [address] [place] [address] PCP - General 07/31/18
--- OUTSIDE RECORDS SUMMARY | 2025-07-08 14:21 | XMS_ITS | Patient Health Record ---
Author Organization [employer] Address [address] [facility] [id number] [place] [address] Care Team Providers Care Curb Setter Helper Name Role Phone Amanda Foley Primary Care [...] Code Notes Problem Sliver (T14.8XXA) Active confirmed [id number] PLAN OF TREATMENT No Information Insurance Providers Payer Name Payer Address Payer Phone Subscriber Number Group Number Insured Name Patient Relationship to Insured Coverage Start Date Coverage End Date JUD JANG [address] [place] [address] [id number] Jacqui Kasper Self - patient is the insured MEDICAL (GENERAL) HISTORY Medical History History ICD Code neuropathy seizure disorder (last seizure 45 years ago) HTN depression low back pain (5 % disability) venous insuffiency right leg stage 3 kidney disease hx of DVT right leg November 2016
--- OUTSIDE RECORDS SUMMARY | 2025-07-08 14:21 | XMS_ITS | Encounter Summary ---
Author Organization [facility] Address [address] [place] [address] Care Team Providers Care Bass Mechanism Maker Name Role Phone Shelley Beard MD Primary Care Provider + Encounter Details Date Type Department Care Team (Late st Contact Info) Description 12/24/2024 Lab Requisition [facility] - Main Lab [address] [facility] [place] [address] Shelley Beard MD [address] [facility] 1 [place], [place] [id number] Unspecified fall, subsequent encounter; Weakness Social History [...] * Folate (12/24/2024 5:48 AM EST) Pathologist [facility] Folate 3.9 2.8 - 17.0 ng/ml LAB CHEMISTRY METHOD 12/24/2024 11:09 AM EST [facility] Blood Venous blood specimen / Unknown Venipuncture / Unknown 12/24/2024 5:48 AM EST 12/24/2024 8:47 AM EST Shelley Beard MD LAB BLOOD ORDERABLES Fin al Result Performing Organization Address City/[facility]/ZIP Co de Phone Number [facility] [address] [place] [address], [place] [phone] * Vitamin B12 (12/24/2024 5:48 AM EST) [facility] Vitamin B-12 289 250 - 900 pcg/mL LAB CHEMISTRY METHOD 12/24/2024 11:09 AM EST [facility] Blood Venous blood specimen / Unknown Venipuncture / Unknown 12/24/2024 5:48 AM EST 12/24/2024 8:47 AM EST Shelley Beard MD LAB BLOOD ORDERABLES Fin al Result [facility] [address] [place] [address], [place] [phone] * Thyroid stimulating hormone with reflex to free t4 and free t3 (12/24/2024 5:48 AM EST) [facility] TSH 1.63 0.40 - 4.00 mcIU/mL LAB CHEMISTRY METHOD 12/24/2024 10:54 AM EST [facility] Blood Venous blood specimen / Unknown Venipuncture / Unknown 12/24/2024 5:48 AM EST 12/24/2024 8:47 AM EST Shelley Beard MD LAB BLOOD ORDERABLES Fin al Result [facility] [address] [place] [address], [place] [phone] * (ABNORMAL) Comprehensive metabolic panel (12/24/2024 5:48 AM EST) Pathologist [facility] Sodium 139 133 - 145 mmol/L LAB CHEMISTRY METHOD 12/24/2024 10:46 AM [facility] Potassium 4.6 3.5 - 5.5 mmol/L LAB CHEMISTRY METHOD 12/24/2024 10:46 AM [facility] Chloride 101 96 - 110 mmol/L LAB CHEMISTRY METHOD 12/24/2024 10:46 AM [facility] CO2 33(H) 21 - 32 mmol/L LAB CHEMISTRY METHOD 12/24/2024 10:46 AM [facility] Anion Gap 5 3 - 11 LAB CHEMISTRY METHOD 12/24/2024 10:46 AM [facility] Glucose 93 70 - 100 mg/dL LAB CHEMISTRY METHOD 12/24/2024 10:46 AM [facility] BUN 18 5 - 25 mg/dL LAB CHEMISTRY METHOD 12/24/2024 10:46 AM [facility] Creatinine 1.30(H) 0.50 - 1.10 mg/dL LAB CHEMISTRY METHOD 12/24/2024 10:46 AM [facility] eGFR 44(L) >=60 mL/min/1. 73m2 LAB CHEMISTRY METHOD 12/24/2024 10:46 AM [facility] Comment:Calculation based on the Chronic Kidney Disease Epidemiology Collaboration (CKD-EPI) equation refit without adjustment for race. BUN/Creatinine Ratio 13.8 LAB CHEMISTRY METHOD 12/24/2024 10:46 AM EST [facility] Calcium 9.1 8.5 - 10.5 mg/dL LAB CHEMISTRY METHOD 12/24/2024 10:46 AM [facility] AST (SGOT) 41 10 - 42 unit/L LAB CHEMISTRY METHOD 12/24/2024 10:46 AM [facility] ALT (SGPT) 25 10 - 60 unit/L LAB CHEMISTRY METHOD 12/24/2024 10:46 AM [facility] Alkaline Phosphatase 81 42 - 121 unit/L LAB CHEMISTRY METHOD 12/24/2024 10:46 AM [facility] Total Protein 6.2 6.0 - 8.0 g/dL LAB CHEMISTRY METHOD 12/24/2024 10:46 AM [facility] Albumin 2.7(L) 3.2 - 5.0 g/dL LAB CHEMISTRY METHOD 12/24/2024 10:46 AM [facility] Total Bilirubin 0.5 0.0 - 1.4 mg/dL LAB CHEMISTRY METHOD 12/24/2024 10:46 AM [facility] Blood Venous blood specimen / Unknown Venipuncture / Unknown 12/24/2024 5:48 AM EST 12/24/2024 8:47 AM EST us Shelley Beard MD LAB BLOOD ORDERABLES Fin al Result [facility] [address] [place] [address], * (ABNORMAL) Complete blood count (12/24/2024 5:48 AM EST) WBC 8.8 4.8 - 10.8 K/mcL LAB HEMETOLOGY METHOD 12/24/2024 10:13 AM [facility] RBC 4.20 3.80 - 4.80 M/mcL LAB HEMETOLOGY METHOD 12/24/2024 10:13 AM [facility] Hemoglobin 10.9(L) 11.5 - 16.0 g/dL LAB HEMETOLOGY METHOD 12/24/2024 10:13 AM [facility] Hematocrit 36.3 35.0 - 47.0 % LAB HEMETOLOGY METHOD 12/24/2024 10:13 AM [facility] MCV 85.8 79.0 - 98.0 FL LAB HEMETOLOGY METHOD 12/24/2024 10:13 AM [facility] MCH 25.8(L) 27.0 - 32.0 pcg LAB HEMETOLOGY METHOD 12/24/2024 10:13 AM [facility] MCHC 30.0(L) 32.0 - 37.0 g/dL LAB HEMETOLOGY METHOD 12/24/2024 10:13 AM [facility] RDW 15.2(H) 11.0 - 15.0 % LAB HEMETOLOGY METHOD 12/24/2024 10:13 AM [facility] Platelets 204 130 - 400 K/mcL LAB HEMETOLOGY METHOD 12/24/2024 10:13 AM [facility] MPV 11.5(H) 7.0 - 11.0 FL LAB HEMETOLOGY METHOD 12/24/2024 10:13 AM [facility] NRBC 0.0 <1.0 % LAB HEMETOLOGY METHOD 12/24/2024 10:13 AM [facility] NRBC Absolute 0.00 <0.10 K/mcL LAB HEMETOLOGY METHOD 12/24/2024 10:13 AM [facility] Blood Venous blood specimen / Unknown Venipuncture / Unknown 12/24/2024 5:48 AM EST 12/24/2024 8:47 AM EST Shelley Beard MD LAB BLOOD ORDERABLES Fin al Result [facility] [address] [place] [address], documented in this encounter Visit Diagnoses Diagnosis Unspecified fall, subsequent encounter Weakness Other malaise and fatigue documented in this encounter Care Teams Bass Mechanism Maker Relationship Specialty Start Date End Date Shelley Beard MD [address] [address] PCP - General Family Medicine 12/31/24 documented as of this encounter
--- OUTSIDE RECORDS SUMMARY | 2025-07-08 14:21 | XMS_ITS | Clinical Summary ---
Author Organization [facility] Address [address] [place] [address] Care Team Providers Care Stationary Engineer Supervisor Name Role Phone Obinna Gannon MD Primary Care Provider [phone] Allergies Active Allergy Reactions Criticality Noted Date [...] by mouth. 0 03/29/2019 Active Fe-Succ Ac-B [id number]-T-[id number]-FA (IROSPAN 17/05) MISC Take by mouth. 0 [...] age to complete this topic Care Teams Stationary Engineer Supervisor Relationship Specialty Start Date End Date Obinna Gannon MD [address] [facility] [place] [address] PCP - General Family Medicine 01/06/20
[2025-07-08 14:22] VITALS: BP 135/86; PULSE 76; TEMP 36.9; O2SAT 95; BMI 41.3
--- NOTE | 2025-07-08 14:22 | MHC.OFFWIV ---
Intake Vital Signs 07/08/25 14:22 Height 5 ft 6.5 in Weight 260 lb BMI 41.3 BP 135/86 Blood Pressure Location Lt brachial Position Sitting Pulse 76 Pulse Source Pulse Oximeter Temp 98.5 F Temp Source Oral Pulse Oximetry (%) 95 Oxygen Delivery Method Room Air Intake Visit Reasons: EP-dizziness Intake Note: Patient fell about an hour ago states that she it her head on the cement Patient Tobacco Use Status: Never used Tobacco Dye Padder Operator Required: No Is last menstrual period known: No Post menopausal: Yes Patient : No Allergies esomeprazole (From Vimovo) Allergy (Mild, Verified 07/08/25 14:25) Headache naproxen (From Vimovo) Allergy (Mild, Verified 07/08/25 14:25) Headache codeine Adverse Reaction (Mild, Verified 07/08/25 14:25) Unknown phenobarbital Adverse Reaction (Mild, Verified 07/08/25 14:25) Unknown Do you need a note to return to daycare/school/sports/work: No HPI HPI Comments History of Present Illness Details This is a 70-year-old female with a past medical history of peripheral neuropathy, hypertension, chronic kidney disease, hyperlipidemia, anxiety and depression presenting for evaluation of injuries sustained in a fall approximately 1 hour prior to arrival. Patient states her peripheral neuropathy she tripped over a curb in the parking lot where she lives. Patient fell and hit the right side of her forehead on the cement. There was no loss of consciousness and the patient's was present and assisted her off the ground. Patient denies having a headache, visual changes, neck pain, lightheadedness, nausea or vomiting. Patient states she has pain in her right upper back. She has not taken any medication for treatment of her discomfort. Patient states that she falls frequently however her last fall to the ground was in March 2025. [facility] Medical History Axonal sensorimotor neuropathy Periodic limb movement Hx of hiatal hernia FH: total knee replacement Chronic kidney disease Seizure Surgical History Hx of tonsillectomy Hx of shoulder surgery H/O: hysterectomy Hx of appendectomy Hx of total knee replacement Family History Father Cirrhosis Lung cancer Mental health disorder Substance use disorder Mother Lung cancer Social History Household Members: Spouse Housing: Apartment Alcohol intake: current Alcohol intake frequency: holidays/special occasions only Alcohol type: wine Patient Tobacco Use Status: Never used Tobacco e-Cigarette/Vaping Use: Never Used Patient : No service: No Current occupational status: retired Cognitive needs: No Hearing needs: No Vision needs: No Review of Systems Const All systems reviewed & are unremarkable except as noted in HPI and below Reports no additional complaints, Denies fatigue, Denies fever(s), Reports frequent falls, Denies headache(s) and Denies weakness ENT Denies vertigo, Denies dizziness, Denies headache(s) and Denies neck pain Card Denies chest pain Resp Reports no additional complaints GI Reports no additional complaints Reports no additional complaints Musc Reports back pain, Denies muscle weakness, Denies neck pain, Denies numbness and Denies tingling Skin/Breast Reports system reviewed and no additional complaints, except as documented Neuro Reports no additional complaints, Denies confusion, Denies vertigo, Denies dizziness, Reports frequent falls, Denies headache(s), Denies numbness, Denies tingling and Denies weakness Psych Denies confusion Endo Denies fatigue Physical Exam Vital Signs: Last Vital Signs Temp 98.5 F 07/08/25 14:22 Pulse 76 07/08/25 14:22 BP 135/86 07/08/25 14:22 Pulse Ox 95 07/08/25 14:22 Oxygen Delivery Method Room Air 07/08/25 14:22 BMI result Body Mass Index 41.3 Const Other: Patient is well-appearing, appropriate and interactive with interview and examination. Patient's has accompanied her to this appointment and has no concerns about her behavior or mentation. General: cooperative, comfortable, no acute distress, well developed, alert, awake and Physically active; No acute distress, confusion, ill appearing, lethargic or patient obtunded Nutritional Appearance: obese Orientation/consciousness: patient oriented x3, No confusion, No patient obtunded and No lethargic Limitations: no limitations HEENT Head: Yes normal to inspection and Yes normocephalic Eyes General: appearance normal, both eyes and all related structures Visual Foreman: normal visual foreman by confrontation Alignment and Position: alignment normal Periorbital: periorbital findings normal Pupils: Equal, round and reactive pupils present EOM: EOMs intact bilaterally and No Nystagmus present Direct Ophthalmoscopy: no photophobia Neck Neck: Yes normal visual inspection and Yes full ROM Resp Auscultation: clear to auscultation bilaterally Cardio Rate: regular rate Rhythm: regular rhythm Back/Spine/Pelvis Cervical Spine: normal cervical lordosis, No cervical muscular tenderness, No pain with cervical ROM and No Cervical spine tenderness Thoracic/Lumbar Spine: thoracic and lumbar spine normal to inspection, No pain with thoraco-lumbar ROM, paraspinal muscle tenderness on the right in the upper thoracic, No thoracic spinal tenderness and No lumbar spinal tenderness Skin Other: surface abrasion right upper posterior trunk overlying the superior aspect of the right lateral scapula, no tenderness to direct examination, no active bleeding Neuro General: patient oriented x3, CN's II-XI intact bilaterally, No confusion and No patient obtunded Cranial nerves: Yes Equal, round and reactive pupils present and No Nystagmus present Cognition (Neuro): normal cognition Gait exam (Neuro): not ataxic Motor exam (neuro): 5/5 motor strength present throughout Psych Appearance: grossly normal Mental Status: mental status grossly normal Insight: Good insight present (Psych) Judgement: Good judgement present (Psych) Assessment & Plan Assessment & Plan (1) Head injury: Comment: Patient is neurologically intact, in no acute distress and her has no concerns about her behavior or mentation. The patient's states that he is able to be with her over the next 24 hours for further observation. Code(s): S09.90XA - Unspecified injury of head, initial encounter Qualifiers: Encounter type: initial encounter Qualified Code(s): S09.90XA - Unspecified injury of head, initial encounter Plan: Tylenol OTC as needed for discomfort, increase clear fluids daily, follow up in the ED for any mental status changes. (2) Contusion of right back wall of thorax, initial encounter: Comment: There is no bony pain upon examination and therefore imaging is deferred at this time. Code(s): S20.221A - Contusion of right back wall of thorax, initial encounter Plan: Tylenol OTC as needed for discomfort; heating pad as needed for comfort. Coding Level of Care Code Est Pt Level 3 (87395) Diagnoses Injury of head, initial encounter S09.90XA Encounter type: initial encounter Contusion of right back wall of thorax, initial encounter S20.221A Time Spent (min) 20
== END 2025-07-08 15:25 | disposition home or self-care (01) ==
PROVIDERS: PCP Nurse Practitioner Family; Visit Provider Physician Assistant
DX: S09.90XA Unspecified injury of head, initial encounter (principal); S20.221A Contusion of right back wall of thorax, initial encounter

== ENCOUNTER → 2025-07-08 14:18 | Outpatient (BNVA) | payer MEDICARE, SELFPAY | PROVIDERS: PCP Nurse Practitioner Family; Visit Provider Physician Assistant | DX: S20.221A Contusion of right back wall of thorax, initial encounter (principal); S09.90XA Unspecified injury of head, initial encounter; R42 Dizziness and giddiness; G62.9 Polyneuropathy, unspecified; I12.9 Hypertensive chronic kidney disease with stage 1 through stage 4 chronic kidney disease, or unspecified chronic kidney disease; N18.9 Chronic kidney disease, unspecified; E78.5 Hyperlipidemia, unspecified; F41.9 Anxiety disorder, unspecified; F32.A Depression, unspecified; W18.09XA Striking against other object with subsequent fall, initial encounter; Y93.9 Activity, unspecified; Y92.9 Unspecified place or not applicable; Y99.9 Unspecified external cause status | CPT/HCPCS: 99212 ==

== ENCOUNTER 2025-07-12 08:46 | Outpatient (REF) | payer MEDICARE, SELFPAY ==
--- NOTE | ~2025-07-12 | XR_ITS ---
EXAMINATION: XR RIBS, RIGHT CLINICAL INFORMATION: R07.81 - Pleurodynia COMPARISON: None available. TECHNIQUE: Oblique views, right hemithorax. FINDINGS: No gross acute cortical disruption within the ribs of the right hemithorax. No gross lytic or blastic lesions. Multilevel thoracolumbar spondylosis. There is sclerotic deformity of the proximal diaphysis of the right humerus. Osteopenia versus osteoporosis. XR/XR ribs RT 2V IMPRESSION: Probable old traumatic deformity, proximal diaphysis right humerus. If clinical concern recommend dedicated right humerus x-ray hand underlying fracture cannot be excluded. No acute displaced rib fracture, right hemithorax. Multilevel thoracolumbar spondylosis., Moderate to severe. Electronically signed by: Agus Moncada MD 07/12/2025 09:23 AM EDT
--- NOTE | ~2025-07-12 | XR_ITS ---
EXAMINATION: XR CERVICAL SPINE CLINICAL INFORMATION: M54.6 - Pain in thoracic spine COMPARISON: None available. TECHNIQUE: AP and lateral views FINDINGS: Craniocervical junction is intact. Marginal osteophyte formation and endplate sclerosis and decreased intervertebral disc height at C5-6 and C6-7 levels. Questionable grade 1 anterolisthesis C6-7. No acute cortical disruption. No lytic or blastic lesions. Focal calcification in the nuchal ligament at C6-7 level. Upper airway is patent. XR/XR cervical spine 2V IMPRESSION: Cervical spondylosis C6-7 and to a lesser extent C5-6 with questionable grade 1 anterolisthesis C6-7. Electronically signed by: Agus Moncada MD 07/12/2025 09:20 AM EDT
--- NOTE | ~2025-07-12 | XR_ITS ---
EXAMINATION: XR THORACIC SPINE CLINICAL INFORMATION: M54.6 - Pain in thoracic spine COMPARISON: Correlated to MRI dated March 13, 2024. TECHNIQUE: AP and lateral views FINDINGS: Multilevel marginal osteophyte formation and endplate sclerosis with decreased intervertebral disc height throughout the axial skeleton. Calcification of the anterior longitudinal ligament. No gross malalignment. Osteopenia versus osteoporosis. XR/XR thoracic spine 2V IMPRESSION: Multilevel thoracolumbar spondylosis, moderate to severe. Electronically signed by: Agus Moncada MD 07/12/2025 09:18 AM EDT
--- OUTSIDE RECORDS SUMMARY | 2025-07-12 09:32 | XMS_ITS | Clinical Summary ---
Author Organization [facility] Address [address] [place] [place] [address] Care Team Providers Care Fermenter Helper Name Role Phone NehaAntionette murnoe Mariah Primary Care Provider [phone] Allergies Active Allergy Reactions Criticality Noted Date [...] topic Insurance MEDICAID HUSKY D Care Teams Fermenter Helper Relationship Specialty Start Date End Date Antionette Payne [address] [place] [address] PCP - General 07/31/18
--- OUTSIDE RECORDS SUMMARY | 2025-07-12 09:32 | XMS_ITS | Encounter Summary ---
Author Organization [facility] Address [address] [place] [address] Care Team Providers Care Grades 9 12 Tutor Name Role Phone Unknown Primary Care Provider [phone] Jaspreet Fortune APRN Primary Care Provider [phone] Arminda Arita MD Unavailable Obinna Gannon MD Primary Care Provider [phone] Octavio Alejandre MD Unavailable Unavailable Breezy Crisostomo MD Unavailable [phone] Encounter Details Date Type Department Care Team (Late st Contact Info) Description 06/19/2018 Scanned Document [facility] [address] [place] [address] Derick Guerra, [place] [address] [address] Social History Tobacco Use Types Packs/Day Years [...] on filedocumented in this encounter Care Teams Grades 9 12 Tutor Relationship Specialty Start Date End Date Unknown Unknow Provider Address PCP - General 12/30/18 02/03/19 Jaspreet Fortune APRN [address] [facility] [address] PCP - General Internal Medicine 02/04/19 07/14/19 Obinna Gannon MD [address] [place] [address] PCP - General Internal Medicine 07/15/19 Arminda Arita MD [address] [place] [address] Referring Provider Cardiovascular Disease 05/26/19 Octavio Alejandre MD [address] [place] [address] Neurology 08/05/19 Breezy Crisostomo MD 281 [facility] [address] [place] [address] Physician Nephrology 08/09/19 documented as of this encounter
--- OUTSIDE RECORDS SUMMARY | 2025-07-12 09:32 | XMS_ITS | Patient Health Record ---
Author Organization [employer] 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
--- OUTSIDE RECORDS SUMMARY | 2025-07-12 09:32 | XMS_ITS | Clinical Summary ---
Author Organization [facility] Address [address] [place] [address] Care Team Providers Care Picker And Sorter Load And Unload Name Role Phone Obinna Gannon MD Primary Care Provider [phone] Allergies Active Allergy Reactions Criticality Noted Date [...] by mouth. 0 03/29/2019 Active Fe-Succ Ac-B Jptpn-V-Ig-FA (IROSPAN 17/05) MISC Take by mouth. 0 [...] age to complete this topic Care Teams Picker And Sorter Load And Unload Relationship Specialty Start Date End Date Obinna Gannon MD [address] [facility] [place] [address] PCP - General Family Medicine 01/06/20
--- OUTSIDE RECORDS SUMMARY | 2025-07-12 09:33 | XMS_ITS | Encounter Summary ---
Author Organization [facility] Address [address] [place] [address] Care Team Providers Care Patrol Lady Name Role Phone Shelley Beard MD Primary Care Provider + Encounter Details Date Type Department Care Team (Late st Contact Info) Description 12/24/2024 Lab Requisition [facility] - Main Lab [address] [place] [address] Shelley Beard MD [address] [facility] 1 [place], [place] [id number] Unspecified fall, subsequent encounter; Weakness Social History [...] * Folate (12/24/2024 5:48 AM EST) Pathologist [facility] Folate 3.9 2.8 - 17.0 ng/ml LAB CHEMISTRY METHOD 12/24/2024 11:09 AM EST [facility] Blood Venous blood specimen / Unknown Venipuncture / Unknown 12/24/2024 5:48 AM EST 12/24/2024 8:47 AM EST Shelley Beard MD LAB BLOOD ORDERABLES Fin al Result Performing Organization Address City/[facility]/ZIP Co de Phone Number [facility] [address] [place] [address], [place] [phone] * Vitamin B12 (12/24/2024 5:48 AM EST) [facility] Vitamin B-12 289 250 - 900 pcg/mL LAB CHEMISTRY METHOD 12/24/2024 11:09 AM EST [facility] Blood Venous blood specimen / Unknown Venipuncture / Unknown 12/24/2024 5:48 AM EST 12/24/2024 8:47 AM EST Shelley Beard MD LAB BLOOD ORDERABLES Fin al Result [facility] [address] [place] [address], [place] [phone] * Thyroid stimulating hormone with reflex to free t4 and free t3 (12/24/2024 5:48 AM EST) [facility] TSH 1.63 0.40 - 4.00 mcIU/mL LAB CHEMISTRY METHOD 12/24/2024 10:54 AM EST [facility] Blood Venous blood specimen / Unknown Venipuncture / Unknown 12/24/2024 5:48 AM EST 12/24/2024 8:47 AM EST Shelley Beard MD LAB BLOOD ORDERABLES Fin al Result [facility] [address] [place] [address], [place] [phone] * (ABNORMAL) Comprehensive metabolic panel (12/24/2024 5:48 AM EST) Pathologist [facility] Sodium 139 133 - 145 mmol/L LAB CHEMISTRY METHOD 12/24/2024 10:46 AM [facility] Potassium 4.6 3.5 - 5.5 mmol/L LAB CHEMISTRY METHOD 12/24/2024 10:46 AM [facility] Chloride 101 96 - 110 mmol/L LAB CHEMISTRY METHOD 12/24/2024 10:46 AM [facility] CO2 33(H) 21 - 32 mmol/L LAB CHEMISTRY METHOD 12/24/2024 10:46 AM [facility] Anion Gap 5 3 - 11 LAB CHEMISTRY METHOD 12/24/2024 10:46 AM [facility] Glucose 93 70 - 100 mg/dL LAB CHEMISTRY METHOD 12/24/2024 10:46 AM [facility] BUN 18 5 - 25 mg/dL LAB CHEMISTRY METHOD 12/24/2024 10:46 AM [facility] Creatinine 1.30(H) 0.50 - 1.10 mg/dL LAB CHEMISTRY METHOD 12/24/2024 10:46 AM [facility] eGFR 44(L) >=60 mL/min/1. 73m2 LAB CHEMISTRY METHOD 12/24/2024 10:46 AM [facility] Comment:Calculation based on the Chronic Kidney Disease Epidemiology Collaboration (CKD-EPI) equation refit without adjustment for race. BUN/Creatinine Ratio 13.8 LAB CHEMISTRY METHOD 12/24/2024 10:46 AM EST [facility] Calcium 9.1 8.5 - 10.5 mg/dL LAB CHEMISTRY METHOD 12/24/2024 10:46 AM [facility] AST (SGOT) 41 10 - 42 unit/L LAB CHEMISTRY METHOD 12/24/2024 10:46 AM [facility] ALT (SGPT) 25 10 - 60 unit/L LAB CHEMISTRY METHOD 12/24/2024 10:46 AM [facility] Alkaline Phosphatase 81 42 - 121 unit/L LAB CHEMISTRY METHOD 12/24/2024 10:46 AM [facility] Total Protein 6.2 6.0 - 8.0 g/dL LAB CHEMISTRY METHOD 12/24/2024 10:46 AM [facility] Albumin 2.7(L) 3.2 - 5.0 g/dL LAB CHEMISTRY METHOD 12/24/2024 10:46 AM [facility] Total Bilirubin 0.5 0.0 - 1.4 mg/dL LAB CHEMISTRY METHOD 12/24/2024 10:46 AM [facility] Blood Venous blood specimen / Unknown Venipuncture / Unknown 12/24/2024 5:48 AM EST 12/24/2024 8:47 AM EST us Shelley Beard MD LAB BLOOD ORDERABLES Fin al Result [facility] [address] [place] [address], * (ABNORMAL) Complete blood count (12/24/2024 5:48 AM EST) WBC 8.8 4.8 - 10.8 K/mcL LAB HEMETOLOGY METHOD 12/24/2024 10:13 AM [facility] RBC 4.20 3.80 - 4.80 M/mcL LAB HEMETOLOGY METHOD 12/24/2024 10:13 AM [facility] Hemoglobin 10.9(L) 11.5 - 16.0 g/dL LAB HEMETOLOGY METHOD 12/24/2024 10:13 AM [facility] Hematocrit 36.3 35.0 - 47.0 % LAB HEMETOLOGY METHOD 12/24/2024 10:13 AM [facility] MCV 85.8 79.0 - 98.0 FL LAB HEMETOLOGY METHOD 12/24/2024 10:13 AM [facility] MCH 25.8(L) 27.0 - 32.0 pcg LAB HEMETOLOGY METHOD 12/24/2024 10:13 AM [facility] MCHC 30.0(L) 32.0 - 37.0 g/dL LAB HEMETOLOGY METHOD 12/24/2024 10:13 AM [facility] RDW 15.2(H) 11.0 - 15.0 % LAB HEMETOLOGY METHOD 12/24/2024 10:13 AM [facility] Platelets 204 130 - 400 K/mcL LAB HEMETOLOGY METHOD 12/24/2024 10:13 AM [facility] MPV 11.5(H) 7.0 - 11.0 FL LAB HEMETOLOGY METHOD 12/24/2024 10:13 AM [facility] NRBC 0.0 <1.0 % LAB HEMETOLOGY METHOD 12/24/2024 10:13 AM [facility] NRBC Absolute 0.00 <0.10 K/mcL LAB HEMETOLOGY METHOD 12/24/2024 10:13 AM [facility] Blood Venous blood specimen / Unknown Venipuncture / Unknown 12/24/2024 5:48 AM EST 12/24/2024 8:47 AM EST Shelley Beard MD LAB BLOOD ORDERABLES Fin al Result [facility] [address] [place] [address], documented in this encounter Visit Diagnoses Diagnosis Unspecified fall, subsequent encounter Weakness Other malaise and fatigue documented in this encounter Care Teams Patrol Lady Relationship Specialty Start Date End Date Shelley Beard MD [address] [address] PCP - General Family Medicine 12/31/24 documented as of this encounter
== END 2025-07-12 08:47 | disposition home or self-care (01) ==
LOC: HO.HMGCX 08:46
PROVIDERS: PCP Nurse Practitioner Family; Visit Provider Nurse Practitioner Family
DX: R07.81 Pleurodynia (principal); M54.6 Pain in thoracic spine; M54.2 Cervicalgia
CPT/HCPCS: 71100; 72040; 72070

== ENCOUNTER → 2025-07-12 08:51 | Outpatient (BNV) | payer MEDICARE, SELFPAY | PROVIDERS: PCP Nurse Practitioner Family; Visit Provider Radiology Diagnostic Radiology | DX: M50.322 Other cervical disc degeneration at C5-C6 level (principal); M47.25 Other spondylosis with radiculopathy, thoracolumbar region | CPT/HCPCS: 71100; 72040; 72070 ==

== ENCOUNTER 2025-11-09 14:56 | Outpatient (AMB) | payer MEDICARE, SELFPAY ==
--- NOTE | 2025-11-09 15:00 | A.OFFVIS_ITS ---
Vital Signs 11/09/25 15:01 Height 5 ft 6.5 in Weight 265 lb 2 oz BMI 42.1 BP 142/90 H Blood Pressure Location Rt brachial Position Sitting Pulse 81 Pulse Source Pulse Oximeter Pulse Oximetry (%) 96 Oxygen Delivery Method Room Air Intake Visit Reasons: 6mon follow-up Intake Note: Follow up Axonal sensorimotor neuropathy ? likely related to chronic exposure to phenytoin Ion Implant Machine Operator Required: No Accompanied by: Spouse Allergies esomeprazole (From Vimovo) Allergy (Mild, Verified 11/09/25 15:01) Headache naproxen (From Vimovo) Allergy (Mild, Verified 11/09/25 15:01) Headache codeine Adverse Reaction (Mild, Verified 11/09/25 15:01) Unknown phenobarbital Adverse Reaction (Mild, Verified 11/09/25 15:01) Unknown Medication List - Last Reconciled 11/09/25 by Lenore Tay MD aspirin 81 mg PO DAILY bupropion HCl XL 150 mg PO QAM calcium carbonate 600 mg PO BID cholecalciferol (vitamin D3) 25 mcg PO BID duloxetine 60 mg PO DAILY ferrous sulfate (Feosol) 325 mg PO Q OTHER DAY folic acid 1 mg PO DAILY gabapentin 1,200 mg (4 x 300 mg) PO DAILY 90 days hydroxyzine pamoate 25 mg PO BID PRN ketoconazole 2% 1 appl topical DAILY nystatin 1 appl topical BID-TID trazodone 50 mg PO BEDTIME PRN HPI Comments Details: 70y/o female with multiple medical issues comes for 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 she could not use CPAP in the past and returned her equipment. Labs were normal except for low folate Now she reports daily headaches started about 2-3 mths ago - frontal and parietal -pounding , pressure, with light and noise senistivity . No nausea . she denies neck pain. she takes acetaminophen 1 gm to 3 gm per day and takes it almost everyday. In Nov 2024 she had a mild head injury but her headaches started 2 mths ago. History from initial visit- ( 05/2025) she was diagnosed with neuropathy 15-20 years ago - Neurologist from [place]. She has h/o seizure ( last seizure was at age 16) and was treated with primidone and was on Dilantin for many years. She started having numbness and tingling in LE - had EMG showed neuropathy and was told it was due to chronic dilantin use. Dilantin was switched to gabapentin 15 years ago. she still has numbness and tingling in her feet and lower leg. she denies pain. she has some weakness in her feet and has trouble with activities like putting on shoes because of numbness. she denies any restless legs like symptoms. she has chronic back pain. she describes gen tremors or shaking when she stands up lasting few seconds or 1min. she was diagnosed with sleep apnea- could not use CPAP. No h/o diabetes , no alcohol use, no exposure to heavy metals or chemicals. [facility] Medical History Chronic daily headache Cervicalgia Axonal sensorimotor neuropathy Periodic limb movement Hx of hiatal hernia FH: total knee replacement Chronic kidney disease Seizure Surgical History Hx of tonsillectomy Hx of shoulder surgery H/O: hysterectomy Hx of appendectomy Hx of total knee replacement Family History Father Cirrhosis Lung cancer Mental health disorder Substance use disorder Mother Lung cancer Social History Household Members: Spouse Housing: Apartment Alcohol intake: current Alcohol intake frequency: holidays/special occasions only Alcohol type: wine Patient Tobacco Use Status: Never used Tobacco e-Cigarette/Vaping Use: Never Used service: No Current occupational status: retired Cognitive needs: No Hearing needs: No Vision needs: No Physical Exam Vital Signs: Last Vital Signs Pulse 81 11/09/25 15:01 BP 142/90 H 11/09/25 15:01 Pulse Ox 96 11/09/25 15:01 Oxygen Delivery Method Room Air 11/09/25 15:01 BMI result Body Mass Index 42.1 Const General: cooperative, comfortable and no acute distress Nutritional Appearance: obese Orientation/consciousness: patient oriented x3 Eyes Pupils: Equal, round and reactive pupils present Neuro Other: mild dysconjugate gaze - left eye deviated up - since childhood Decreased light touch , PIN prick in yariel LE upto below knee General: patient oriented x3, moves all extremities and no focal motor deficits Cranial nerves: Yes Facial sensation intact/muscles of mastication intact, Yes Equal, round and reactive pupils present, Yes Bilaterally intact EOM present, Yes Nystagmus not present, Yes Normal facial strength present and Yes Midline tongue present Cognition (Neuro): normal cognition Gait exam (Neuro): Antalgic gait present Motor exam (neuro): 5/5 motor strength present throughout and Normal motor muscle tone present throughout Coordination: [id number] test normal Assessment & Plan Assessment & Plan (1) Axonal sensorimotor neuropathy: Comment: Nadyaley related to chronic exposure to phenytoin Code(s): G62.89 - Other specified polyneuropathies Category: Medical (2) Chronic daily headache: Comment: cervicogenic , untreated sleep apnea, chronic migraines Code(s): R51.9 - Headache, unspecified Category: Medical (3) Cervicalgia: Code(s): M54.2 - Cervicalgia Category: Medical Plan I will trial her on magnesium 400mg qhs Vit B 2 400mg qam Limit tylenol use to no more than 1 gm 3 times a week PT neck for neck pain Foalte 1 mg qd - might be worsening her neuropathy Discussed about PAP treatmentlm - patient declines will refer to Pulmonary to assess for OHS Orders: Orders PT Evaluation and Treatment 11/09/25 M54.2 - Cervicalgia Referrals Pulmonology Referral R09.02 - Hypoxemia Medications: New folic acid 1 mg PO DAILY 30 tabs 6RF magnesium oxide 420 mg PO BEDTIME 30 tabs 6RF riboflavin (vitamin B2) 400 mg PO QAM 30 tabs 6RF Coding Level of Care Code Est Pt Level 4 (99301) Add On Problem Visit Only Diagnoses Axonal sensorimotor neuropathy G62.89 Chronic daily headache R51.9 Cervicalgia M54.2
[2025-11-09 15:01] VITALS: BP 142/90; PULSE 81; O2SAT 96; BMI 42.1
--- OUTSIDE RECORDS SUMMARY | 2025-11-09 19:55 | XMS_ITS | Encounter Summary ---
Author Organization [facility] Address [address] [place] [address] Care Team Providers Care Warrant Clerk Name Role Phone Jaspreet Fortune APRN Primary Care Provider [phone] Arminda Arita MD Unavailable Obinna Gannon MD Primary Care Provider [phone] Octavio Alejandre MD Unavailable Unavailable Breezy Crisostomo MD Unavailable [phone] Encounter Details Date Type Department Care Team (Late st Contact Info) Description 03/02/2019 Scanned Document [facility] Neuroscience [facility] 85 [facility] [address] [place] [address] Octavio Alejandre MD Social History Tobacco [...] on filedocumented in this encounter Care Teams Warrant Clerk Relationship Specialty Start Date End Date Jaspreet Fortune APRN [address] [place] [id number] PCP - General Internal Medicine 02/04/19 07/14/19 Obinna Gannon MD [address] [place] [phone] PCP - General Internal Medicine 07/15/19 Arminda Arita MD [address] [phone] Referring Provider Cardiovascular Disease 05/26/19 Octavio Alejandre MD [address] [place] [address] Neurology 08/05/19 Breezy Crisostomo MD 281 [facility] [address] [place], [place] [address] Physician Nephrology 08/09/19 documented as of this encounter
--- OUTSIDE RECORDS SUMMARY | 2025-11-09 19:55 | XMS_ITS | Encounter Summary ---
Author Organization [facility] Address [address] [place] [address] Care Team Providers Care Registered Nurse Renal Name Role Phone Shelley Beard MD Primary Care Provider + Encounter Details Date Type Department Care Team (Late st Contact Info) Description 01/05/2025 Lab Requisition [facility] - Main Lab [address] [place] [address] Shelley Beard MD [address] [id number] Weakness Social History Tobacco Use Types Packs/Day [...] LAB CHEMISTRY METHOD 01/06/2025 10:09 AM EST [facility] Potassium 4.3 3.5 - 5.5 mmol/L LAB CHEMISTRY METHOD 01/06/2025 10:09 AM [facility] Chloride 102 96 - 110 mmol/L LAB CHEMISTRY METHOD 01/06/2025 10:09 AM [facility] CO2 34(H) 21 - 32 mmol/L LAB CHEMISTRY METHOD 01/06/2025 10:09 AM [facility] Anion Gap 3 3 - 11 LAB CHEMISTRY METHOD 01/06/2025 10:09 AM [facility] Glucose 92 70 - 100 mg/dL LAB CHEMISTRY METHOD 01/06/2025 10:09 AM [facility] BUN 25 5 - 25 mg/dL LAB CHEMISTRY METHOD 01/06/2025 10:09 AM [facility] Creatinine 1.30(H) 0.50 - 1.10 mg/dL LAB CHEMISTRY METHOD 01/06/2025 10:09 AM [facility] eGFR 44(L) >=60 mL/min/1. 73m2 LAB CHEMISTRY METHOD 01/06/2025 10:09 AM [facility] Comment:Calculation based on the Chronic Kidney Disease Epidemiology Collaboration (CKD-EPI) equation refit without adjustment for race. BUN/Creatinine Ratio 19.2 LAB CHEMISTRY METHOD 01/06/2025 10:09 AM [facility] Calcium 9.1 8.5 - 10.5 mg/dL LAB CHEMISTRY METHOD 01/06/2025 10:09 AM [facility] Blood Venous blood specimen / Unknown Venipuncture / Unknown 01/06/2025 6:09 AM EST 01/06/2025 9:20 AM EST us Shelley Beard MD LAB BLOOD ORDERABLES Fin al Result [facility] [address] [place] [address], * (ABNORMAL) Complete blood count (01/06/2025 6:09 AM EST) [facility] WBC 6.9 4.8 - 10.8 K/mcL LAB HEMETOLOGY METHOD 01/06/2025 9:45 AM [facility] RBC 4.20 3.80 - 4.80 M/mcL LAB HEMETOLOGY METHOD 01/06/2025 9:45 AM [facility] Hemoglobin 10.9(L) 11.5 - 16.0 g/dL LAB HEMETOLOGY METHOD 01/06/2025 9:45 AM [facility] Hematocrit 36.3 35.0 - 47.0 % LAB HEMETOLOGY METHOD 01/06/2025 9:45 AM [facility] MCV 87.1 79.0 - 98.0 FL LAB HEMETOLOGY METHOD 01/06/2025 9:45 AM [facility] MCH 26.1(L) 27.0 - 32.0 pcg LAB HEMETOLOGY METHOD 01/06/2025 9:45 AM [facility] MCHC 30.0(L) 32.0 - 37.0 g/dL LAB HEMETOLOGY METHOD 01/06/2025 9:45 AM [facility] RDW 16.0(H) 11.0 - 15.0 % LAB HEMETOLOGY METHOD 01/06/2025 9:45 AM [facility] Platelets 252 130 - 400 K/mcL LAB HEMETOLOGY METHOD 01/06/2025 9:45 AM [facility] MPV 10.6 7.0 - 11.0 FL LAB HEMETOLOGY METHOD 01/06/2025 9:45 AM [facility] NRBC 0.0 <1.0 % LAB HEMETOLOGY METHOD 01/06/2025 9:45 AM [facility] NRBC Absolute 0.00 <0.10 K/mcL LAB HEMETOLOGY METHOD 01/06/2025 9:45 AM EST [facility] Blood Venous blood specimen / Unknown Venipuncture / Unknown 01/06/2025 6:09 AM EST 01/06/2025 9:20 AM EST us Shelley Beard MD LAB BLOOD ORDERABLES Fin al Result [facility] [address] [place] [address], documented in this encounter Visit Diagnoses Diagnosis Weakness Other malaise and fatigue documented in this encounter Care Teams Registered Nurse Renal Relationship Specialty Start Date End Date Shelley Beard MD [address] [place] [id number] PCP - General Family Medicine 12/31/24 documented as of this encounter
--- OUTSIDE RECORDS SUMMARY | 2025-11-09 19:55 | XMS_ITS | Clinical Summary ---
Author Organization [facility] Prior to 04/23/25 Address [address] [place] [address] Care Team Providers Care Banbury Operator Name Role Phone Obinna Gannon MD Primary Care Provider [phone] Allergies Active Allergy Reactions Criticality Noted Date [...] by mouth. 0 03/29/2019 Active Fe-Succ Ac-B [id number]-Ip-[id number] (IROSPAN 17/05) MISC Take by mouth. 0 [...] - PCV) 2019 BMI Counseling 09/01/2021 09/01/2020, 0607/2020, 04/07/2020, Additional history exists COVID-19 Vaccine (2 - season) 2025 02/12/2021 Influenza Vaccine (#1) 2025 RSV Adult > 60+ Yrs or (1 - 1-dose 75+ series) 2029 Hepatitis B Vaccines Aged Out No long er eligible based on patient's age to complete this topic RSV Ped < 20 months Aged Out No longe r eligible based on patient's age to complete this topic Care Teams Banbury Operator Relationship Specialty Start Date End Date Obinna Gannon MD [address] [facility] [place] [address] PCP - General Family Medicine 01/06/20
--- OUTSIDE RECORDS SUMMARY | 2025-11-09 19:55 | XMS_ITS | Encounter Summary ---
Author Organization [facility] Address [address] [place] [address] Care Team Providers Care Bevel Mill Operator Name Role Phone Shelley Beard MD Primary Care Provider + Encounter Details Date Type Department Care Team (Late st Contact Info) Description 12/26/2024 Lab Requisition [facility] - Main Lab [address] [place] [address] Shleley Beard MD [address] [phone] Weakness Social History Tobacco Use Types Packs/Day [...] LAB CHEMISTRY METHOD 12/27/2024 1:11 PM EST [facility] Potassium 4.6 3.5 - 5.5 mmol/L LAB CHEMISTRY METHOD 12/27/2024 1:11 PM [facility] Chloride 98 96 - 110 mmol/L LAB CHEMISTRY METHOD 12/27/2024 1:11 PM [facility] CO2 32 21 - 32 mmol/L LAB CHEMISTRY METHOD 12/27/2024 1:11 PM [facility] Anion Gap 7 3 - 11 LAB CHEMISTRY METHOD 12/27/2024 1:11 PM [facility] Glucose 89 70 - 100 mg/dL LAB CHEMISTRY METHOD 12/27/2024 1:11 PM [facility] BUN 26(H) 5 - 25 mg/dL LAB CHEMISTRY METHOD 12/27/2024 1:11 PM [facility] Creatinine 1.53(H) 0.50 - 1.10 mg/dL LAB CHEMISTRY METHOD 12/27/2024 1:11 PM [facility] eGFR 36(L) >=60 mL/min/1. 73m2 LAB CHEMISTRY METHOD 12/27/2024 1:11 PM [facility] Comment:Calculation based on the Chronic Kidney Disease Epidemiology Collaboration (CKD-EPI) equation refit without adjustment for race. BUN/Creatinine Ratio 17.0 LAB CHEMISTRY METHOD 12/27/2024 1:11 PM [facility] Calcium 9.3 8.5 - 10.5 mg/dL LAB CHEMISTRY METHOD 12/27/2024 1:11 PM [facility] Blood Venous blood specimen / Unknown Venipuncture / Unknown 12/27/2024 7:29 AM EST 12/27/2024 11:09 AM EST us Shelley Beard MD LAB BLOOD ORDERABLES Fin al Result [facility] [address] [place] [address], * (ABNORMAL) Complete blood count (12/27/2024 7:29 AM EST) [facility] WBC 10.4 4.8 - 10.8 K/mcL LAB HEMETOLOGY METHOD 12/27/2024 11:35 AM [facility] RBC 4.60 3.80 - 4.80 M/mcL LAB HEMETOLOGY METHOD 12/27/2024 11:35 AM [facility] Hemoglobin 12.0 11.5 - 16.0 g/dL LAB HEMETOLOGY METHOD 12/27/2024 11:35 AM [facility] Hematocrit 39.2 35.0 - 47.0 % LAB HEMETOLOGY METHOD 12/27/2024 11:35 AM [facility] MCV 84.5 79.0 - 98.0 FL LAB HEMETOLOGY METHOD 12/27/2024 11:35 AM [facility] MCH 25.9(L) 27.0 - 32.0 pcg LAB HEMETOLOGY METHOD 12/27/2024 11:35 AM [facility] MCHC 30.6(L) 32.0 - 37.0 g/dL LAB HEMETOLOGY METHOD 12/27/2024 11:35 AM [facility] RDW 15.6(H) 11.0 - 15.0 % LAB HEMETOLOGY METHOD 12/27/2024 11:35 AM [facility] Platelets 294 130 - 400 K/mcL LAB HEMETOLOGY METHOD 12/27/2024 11:35 AM [facility] MPV 11.1(H) 7.0 - 11.0 FL LAB HEMETOLOGY METHOD 12/27/2024 11:35 AM [facility] NRBC 0.0 <1.0 % LAB HEMETOLOGY METHOD 12/27/2024 11:35 AM [facility] NRBC Absolute 0.00 <0.10 K/mcL LAB HEMETOLOGY METHOD 12/27/2024 11:35 AM EST [facility] Blood Venous blood specimen / Unknown Venipuncture / Unknown 12/27/2024 7:29 AM EST 12/27/2024 11:08 AM EST us Shelley Beard MD LAB BLOOD ORDERABLES Fin al Result [facility] [address] [place] [address], documented in this encounter Visit Diagnoses Diagnosis Weakness Other malaise and fatigue documented in this encounter Care Teams Bevel Mill Operator Relationship Specialty Start Date End Date Shelley Beard MD [address] [place] [address] PCP - General Family Medicine 12/31/24 documented as of this encounter
--- OUTSIDE RECORDS SUMMARY | 2025-11-09 19:55 | XMS_ITS | Clinical Summary ---
Author Organization [address] Address [address] [place] [address] Phone Care Team Providers Care Application Support Developer Name Role Phone Elder, Shelley Voss MD Primary Care Provider + Surgical History Surgery Date Site/Laterality Comments APPENDECTOMY [...] on file Sexual Orientation Not on file Plan of Treatment Health Maintenance Due Date Last Done Comments Breast Cancer Screening 1955 Colorectal Cancer Screening: Colonoscopy 1955 DTaP,Tdap,and Td Vaccines (1 - Tdap) 1973 Hepatitis A Vaccines (1 of 2 - Risk 2-dose series) 1973 Pneumococcal Vaccine: 50+ Years (1 of 1 - PCV) 2004 RSV Immunization Adult Patients (1 - Risk 50-74 years 1-dose series) 2004 Zoster Vaccines (1 of 2) 2004 Hepatitis B Vaccines (1 of 3 - Risk 3-dose series) 2014 Cholesterol Screening (Lipid Panel) 10/22/2022 Falls Risk Assessment 10/22/2022 Hepatitis C Screening 10/22/2022 Medicare Annual Wellness Visit 10/22/2022 Osteoporosis Screening (Bone Density Screening) 10/22/2022 Social Influencers of Health Screening 10/22/2022 Depression Screening 11/24/2024 COVID-19 Vaccine (2 - season) 2025 02/12/2021 Influenza Vaccine (#1) 2025 Hypertension/CHF/CAD Annual BMP Blood Test 01/13/2026 [...] PANEL Routine 01/13/2025 7:06 AM EST Weakness from Last 3 Months or Most Recently Relevant to Health Maintenance Results * (ABNORMAL) Basic metabolic panel (01/13/2025 7:06 AM EST) Sodium 140 133 - 145 mmol/L LAB CHEMISTRY METHOD 01/13/2025 12:36 PM EST [facility] Potassium 4.7 3.5 - 5.5 mmol/L LAB CHEMISTRY METHOD 01/13/2025 12:36 PM EST [facility] Chloride 103 96 - 110 mmol/L LAB CHEMISTRY METHOD 01/13/2025 12:36 PM [facility] CO2 31 21 - 32 mmol/L LAB CHEMISTRY METHOD 01/13/2025 12:36 PM [facility] Anion Gap 6 3 - 11 LAB CHEMISTRY METHOD 01/13/2025 12:36 PM [facility] Glucose 88 70 - 100 mg/dL LAB CHEMISTRY METHOD 01/13/2025 12:36 PM [facility] BUN 28(H) 5 - 25 mg/dL LAB CHEMISTRY METHOD 01/13/2025 12:36 PM [facility] Creatinine 1.32(H) 0.50 - 1.10 mg/dL LAB CHEMISTRY METHOD 01/13/2025 12:36 PM [facility] eGFR 44(L) >=60 mL/min/1. 73m2 LAB CHEMISTRY METHOD 01/13/2025 12:36 PM [facility] Comment:Calculation based on the Chronic Kidney Disease Epidemiology Collaboration (CKD-EPI) equation refit without adjustment for race. BUN/Creatinine Ratio 21.2 LAB CHEMISTRY METHOD 01/13/2025 12:36 PM [facility] Calcium 9.0 8.5 - 10.5 mg/dL LAB CHEMISTRY METHOD 01/13/2025 12:36 PM [facility] Blood Venous blood specimen / Unknown Venipuncture / Unknown 01/13/2025 7:06 AM EST 01/13/2025 11:21 AM EST us Shelley Beard MD LAB BLOOD ORDERABLES Fin al Result [facility] [address] [place] [address], from Last 3 Months or Most Recently Relevant to Health Maintenance Insurance [employer] MEDICARE ADVANTAGE [place] Care Teams Application Support Developer Relationship Specialty Start Date End Date Shelley Beard MD [address] [address] PCP - General Family Medicine 12/31/24
--- OUTSIDE RECORDS SUMMARY | 2025-11-09 19:55 | XMS_ITS | Encounter Summary ---
Author Organization [facility] Address [address] [place] [address] Care Team Providers Care Loan Collector Name Role Phone Shelley Beard MD Primary Care Provider + Encounter Details Date Type Department Care Team (Late st Contact Info) Description 01/16/2025 Lab Requisition [facility] - Main Lab [address] [facility] [place] [address] Shelley Beard MD [address] [place] [phone] Weakness Social History Tobacco Use Types Packs/Day [...] fatigue documented in this encounter Care Teams Loan Collector Relationship Specialty Start Date End Date Shelley Beard MD [address] [phone] PCP - General Family Medicine 12/31/24 documented as of this encounter
--- OUTSIDE RECORDS SUMMARY | 2025-11-09 19:55 | XMS_ITS | Encounter Summary ---
Author Organization [facility] Address [address] [place] [address] Care Team Providers Care Meal Cooker Name Role Phone Unknown Primary Care Provider [phone] Jaspreet Fortune APRN Primary Care Provider [phone] Arminda Arita MD Unavailable Obinna Gannon MD Primary Care Provider [phone] Octavio Alejandre MD Unavailable Unavailable Breezy Crisostomo MD Unavailable [phone] Encounter Details Date Type Department Care Team (Late st Contact Info) Description 06/19/2018 Scanned Document [facility] Neuroscience [facility] [address] [place] [address] Derick Guerra, [place] [address] [address] Social History Tobacco Use Types Packs/Day Years [...] on filedocumented in this encounter Care Teams Meal Cooker Relationship Specialty Start Date End Date Unknown Unknow Provider Address PCP - General 12/30/18 02/03/19 Jaspreet Fortune APRN [address] [facility] [place] [address] PCP - General Internal Medicine 02/04/19 07/14/19 Obinna Gannon MD [address] [place] [address] PCP - General Internal Medicine 07/15/19 Arminda Arita MD [address] [place] [address] Referring Provider Cardiovascular Disease 05/26/19 Octavio Alejandre MD [address] [place] [address] Neurology 08/05/19 Breezy Crisostomo MD [address] [facility] [address] [place] [address] Physician Nephrology 08/09/19 documented as of this encounter
--- OUTSIDE RECORDS SUMMARY | 2025-11-09 19:55 | XMS_ITS | Patient Health Record ---
Author Organization [facility] Address [address] [facility] [id number] [place] [address] Care Team Providers Care Shoe Planner Name Role Phone Amanda F[place] Primary Care Provider [phone] ALLERGIES Allergen (clinical drug ingredient) Drug/Non [...] Code Notes Problem Sliver (T14.8XXA) Active confirmed [id number] PLAN OF TREATMENT No Information Insurance Providers Payer Name Payer Address Payer Phone Subscriber Number Group Number Insured Name Patient Relationship to Insured Coverage Start Date Coverage End Date JUD JANG [address] [place] [address] [id number] Jacqui Kasper Self - patient is the insured MEDICAL (GENERAL) HISTORY Medical History History ICD Code neuropathy seizure disorder (last seizure 45 years ago) HTN depression low back pain (5 % disability) venous insuffiency right leg stage 3 kidney disease hx of DVT right leg November 2016
--- OUTSIDE RECORDS SUMMARY | 2025-11-09 19:55 | XMS_ITS | Encounter Summary ---
Author Organization [facility] Address [address] [place] [address] Care Team Providers Care Shoulder Joiner Name Role Phone Shelley Beard MD Primary Care Provider + Encounter Details Date Type Department Care Team (Late st Contact Info) Description 01/12/[address] [facility] - Main Lab [address] [place] [address] Shelley Beard MD [address] [phone] Weakness Social History Tobacco Use Types Packs/Day [...] LAB CHEMISTRY METHOD 01/13/2025 12:36 PM EST [facility] Potassium 4.7 3.5 - 5.5 mmol/L LAB CHEMISTRY METHOD 01/13/2025 12:[address] [facility] Chloride 103 96 - 110 mmol/L LAB CHEMISTRY METHOD 01/13/2025 12:[address] [facility] CO2 31 21 - 32 mmol/L LAB CHEMISTRY METHOD 01/13/2025 12:[address] [facility] Anion Gap 6 3 - 11 LAB CHEMISTRY METHOD 01/13/2025 12:[address] [facility] Glucose 88 70 - 100 mg/dL LAB CHEMISTRY METHOD 01/13/2025 12:[address] [facility] BUN 28(H) 5 - 25 mg/dL LAB CHEMISTRY METHOD 01/13/2025 12:[address] [facility] Creatinine 1.32(H) 0.50 - 1.10 mg/dL LAB CHEMISTRY METHOD 01/13/2025 12:[address] [facility] eGFR 44(L) >=60 mL/min/1. 73m2 LAB CHEMISTRY METHOD 01/13/2025 12:[address] [facility] Comment:Calculation based on the Chronic Kidney Disease Epidemiology Collaboration (CKD-EPI) equation refit without adjustment for race. BUN/Creatinine Ratio 21.2 LAB CHEMISTRY METHOD 01/13/2025 12:[address] [facility] Calcium 9.0 8.5 - 10.5 mg/dL LAB CHEMISTRY METHOD 01/13/2025 12:[address] [facility] Blood Venous blood specimen / Unknown Venipuncture / Unknown 01/13/2025 7:06 AM EST 01/13/2025 11:21 AM EST us Shelley Beard MD LAB BLOOD ORDERABLES Fin al Result [facility] [address] [place] [address], * (ABNORMAL) Complete blood count (01/13/2025 7:06 AM EST) [facility] WBC 8.0 4.8 - 10.8 K/mcL LAB HEMETOLOGY METHOD 01/13/2025 12:[address] [facility] RBC 4.40 3.80 - 4.80 M/mcL LAB HEMETOLOGY METHOD 01/13/2025 12:[address] [facility] Hemoglobin 11.3(L) 11.5 - 16.0 g/dL LAB HEMETOLOGY METHOD 01/13/2025 12:[address] [facility] Hematocrit 38.3 35.0 - 47.0 % LAB HEMETOLOGY METHOD 01/13/2025 12:[address] [facility] MCV 86.7 79.0 - 98.0 FL LAB HEMETOLOGY METHOD 01/13/2025 12:[address] [facility] MCH 25.6(L) 27.0 - 32.0 pcg LAB HEMETOLOGY METHOD 01/13/2025 12:[address] [facility] MCHC 29.5(L) 32.0 - 37.0 g/dL LAB HEMETOLOGY METHOD 01/13/2025 12:[address] [facility] RDW 15.9(H) 11.0 - 15.0 % LAB HEMETOLOGY METHOD 01/13/2025 12:[address] [facility] Platelets 242 130 - 400 K/mcL LAB HEMETOLOGY METHOD 01/13/2025 12:[address] [facility] MPV 11.2(H) 7.0 - 11.0 FL LAB HEMETOLOGY METHOD 01/13/2025 12:[address] [facility] NRBC 0.0 <1.0 % LAB HEMETOLOGY METHOD 01/13/2025 12:[address] [facility] NRBC Absolute 0.00 <0.10 K/mcL LAB HEMETOLOGY METHOD 01/13/2025 12:56 PM EST [facility] Blood Venous blood specimen / Unknown Venipuncture / Unknown 01/13/2025 7:06 AM EST 01/13/2025 11:23 AM EST us Shelley Beard MD LAB BLOOD ORDERABLES Fin al Result [facility] [address] [place] [address], documented in this encounter Visit Diagnoses Diagnosis Weakness Other malaise and fatigue documented in this encounter Care Teams Shoulder Joiner Relationship Specialty Start Date End Date Shelley Beard MD [address] [place] [address] PCP - General Family Medicine 12/31/24 documented as of this encounter
--- OUTSIDE RECORDS SUMMARY | 2025-11-09 19:55 | XMS_ITS | Encounter Summary ---
Author Organization [facility] Address [address] [place] [address] Care Team Providers Care Licensed Certified Orthotist Name Role Phone Arminda Arita MD Unavailable Obinna Gannon MD Primary Care Provider [phone] Octavio Alejandre MD Unavailable Unavailable Breezy Crisostomo MD Unavailable [phone] Encounter Details Date Type Department Care Team (Late st Contact Info) Description 08/31/2019 Scanned Document [facility] Neuroscience [facility] [address] [facility] [address] [place] [address] Irvin Thakkar PA [address] [address] Social History Tobacco Use Types Packs/Day Years [...] on filedocumented in this encounter Care Teams Licensed Certified Orthotist Relationship Specialty Start Date End Date Obinna Gannon MD [address] [place] [address] PCP - General Internal Medicine 07/15/19 Arminda Arita MD [address] [place] [address] Referring Provider Cardiovascular Disease 05/26/19 Octavio Alejandre MD [address] [place] [address] Neurology 08/05/19 Breezy Crisostomo MD 281 [facility] 210 [place] [address] Physician Nephrology 08/09/19 documented as of this encounter
--- OUTSIDE RECORDS SUMMARY | 2025-11-09 19:55 | XMS_ITS | Clinical Summary ---
Author Organization [facility] Address [address] [place] [address] Care Team Providers Care Wood Drilling Machine Operator Name Role Phone NehaAntionette munroe Mariah Primary Care Provider [phone] Allergies Active Allergy Reactions Criticality Noted Date [...] of 2) 2004 COVID-19 Vaccine (1 - 2024-2 6 season) 2025 Influenza Vaccine (#1) 2025 HPV Vaccines Aged Out No longer eligi ble based on patient's age to complete this topic Hepatitis A Vaccines Aged Out No long er eligible based on patient's age to complete this topic Meningococcal Vaccine Aged Out No matt nickie eligible based on patient's age to complete this topic Insurance MEDICAID HUSKY D Care Teams Wood Drilling Machine Operator Relationship Specialty Start Date End Date Antionette Payne [address] [place] [phone] PCP - General 07/31/18
--- OUTSIDE RECORDS SUMMARY | 2025-11-09 19:55 | XMS_ITS | Encounter Summary ---
Author Organization [facility] Address [address] [place] [address] Care Team Providers Care Esl Tutor Name Role Phone Shelley Beard MD Primary Care Provider + Encounter Details Date Type Department Care Team (Late st Contact Info) Description 12/29/2024 Lab Requisition [facility] - Main Lab [address] [place] [address] Shelley Beard MD [address] [phone] Weakness Social History Tobacco Use Types Packs/Day [...] refit without adjustment for race. BUN/Creatinine Ratio 19.5 LAB [...] al Result [facility] [address] [place] [address], * (ABNORMAL) Complete blood count (12/30/2024 6:50 AM EST) [facility] WBC 7.8 4.8 - 10.8 K/mcL [...] al Result [facility] [address] [place] [address], documented in this encounter Visit Diagnoses Diagnosis Weakness Other malaise and fatigue documented in this encounter Care Teams Esl Tutor Relationship Specialty Start Date End Date Shelley Beard MD [address] [place] [address] PCP - General Family Medicine 12/31/24 documented as of this encounter
--- OUTSIDE RECORDS SUMMARY | 2025-11-09 19:55 | XMS_ITS | Encounter Summary ---
Author Organization [facility] Address [address] [place] [address] Care Team Providers Care Coiled Tubing Supervisor Name Role Phone Shelley Beard MD Primary Care Provider + Encounter Details Date Type Department Care Team (Late st Contact Info) Description 12/31/2024 Lab Requisition [facility] - Main Lab [address] [place] [address] Shelley Beard MD [address] [phone] Weakness Social History Tobacco Use Types Packs/Day [...] mmol/L LAB CHEMISTRY METHOD 01/03/2025 10:55 AM [facility] Chloride 104 96 - 110 mmol/L LAB CHEMISTRY METHOD 01/03/2025 10:55 AM [facility] CO2 32 21 - 32 mmol/L LAB CHEMISTRY METHOD 01/03/2025 10:55 AM [facility] Anion Gap 6 3 - 11 LAB CHEMISTRY METHOD 01/03/2025 10:55 AM [facility] Glucose 93 70 - 100 mg/dL LAB CHEMISTRY METHOD 01/03/2025 10:55 AM [facility] BUN 26(H) 5 - 25 mg/dL LAB CHEMISTRY METHOD 01/03/2025 10:55 AM [facility] Creatinine 1.38(H) 0.50 - 1.10 mg/dL LAB CHEMISTRY METHOD 01/03/2025 10:55 AM [facility] eGFR 41(L) >=60 mL/min/1. 73m2 LAB CHEMISTRY METHOD 01/03/2025 10:55 AM [facility] Comment:Calculation based on the Chronic Kidney Disease Epidemiology Collaboration (CKD-EPI) equation refit without adjustment for race. BUN/Creatinine Ratio 18.8 LAB CHEMISTRY METHOD 01/03/2025 10:55 AM [facility] Calcium 8.9 8.5 - 10.5 mg/dL LAB CHEMISTRY METHOD 01/03/2025 10:55 AM [facility] Blood Venous blood specimen / Unknown Venipuncture / Unknown 01/03/2025 7:12 AM EST 01/03/2025 10:06 AM EST us Shelley Beard MD LAB BLOOD ORDERABLES Fin al Result [facility] [address] [place] [address], * (ABNORMAL) Complete blood count (01/03/2025 7:12 AM EST) [facility] WBC 7.6 4.8 - 10.8 K/mcL LAB HEMETOLOGY METHOD 01/03/2025 10:31 AM [facility] RBC 4.30 3.80 - 4.80 M/mcL LAB HEMETOLOGY METHOD 01/03/2025 10:31 AM [facility] Hemoglobin 10.8(L) 11.5 - 16.0 g/dL LAB HEMETOLOGY METHOD 01/03/2025 10:31 AM [facility] Hematocrit 37.7 35.0 - 47.0 % LAB HEMETOLOGY METHOD 01/03/2025 10:31 AM [facility] MCV 87.5 79.0 - 98.0 FL LAB HEMETOLOGY METHOD 01/03/2025 10:31 AM [facility] MCH 25.1(L) 27.0 - 32.0 pcg LAB HEMETOLOGY METHOD 01/03/2025 10:31 AM [facility] MCHC 28.6(L) 32.0 - 37.0 g/dL LAB HEMETOLOGY METHOD 01/03/2025 10:31 AM [facility] RDW 15.7(H) 11.0 - 15.0 % LAB HEMETOLOGY METHOD 01/03/2025 10:31 AM [facility] Platelets 279 130 - 400 K/mcL LAB HEMETOLOGY METHOD 01/03/2025 10:31 AM [facility] MPV 10.7 7.0 - 11.0 FL LAB HEMETOLOGY METHOD 01/03/2025 10:31 AM [facility] NRBC 0.0 <1.0 % LAB HEMETOLOGY METHOD 01/03/2025 10:31 AM [facility] NRBC Absolute 0.00 <0.10 K/mcL LAB HEMETOLOGY METHOD 01/03/2025 10:31 AM EST [facility] Blood Venous blood specimen / Unknown Venipuncture / Unknown 01/03/2025 7:12 AM EST 01/03/2025 10:07 AM EST us Shelley Beard MD LAB BLOOD ORDERABLES Fin al Result [facility] [address] [place] [address], documented in this encounter Visit Diagnoses Diagnosis Weakness Other malaise and fatigue documented in this encounter Care Teams Coiled Tubing Supervisor Relationship Specialty Start Date End Date Shelley Beard MD [address] [place] [address] PCP - General Family Medicine 12/31/24 documented as of this encounter
--- OUTSIDE RECORDS SUMMARY | 2025-11-09 19:55 | XMS_ITS | Encounter Summary ---
Author Organization [facility] Address [address] [place] [address] Care Team Providers Care Second Worker Name Role Phone Shelley Beard MD Primary Care Provider + Encounter Details Date Type Department Care Team (Late st Contact Info) Description 12/24/2024 Lab Requisition [facility] - Main Lab 299 [facility] [place] [address] Shelley Beard MD 819 [facility] 1 [place], [place] [phone] Unspecified fall, subsequent encounter; Weakness Social History [...] Folate (12/24/2024 5:48 AM EST) Pathologist [facility] Folate 3.9 2.8 - 17.0 ng/ml LAB CHEMISTRY METHOD 12/24/2024 11:09 AM EST [facility] Blood Venous blood specimen / Unknown Venipuncture / Unknown 12/24/2024 5:48 AM EST 12/24/2024 8:47 AM EST Shelley Beard MD LAB BLOOD ORDERABLES Fin al Result Performing Organization Address City/[facility]/ZIP Co de Phone Number [facility] [address] [place] [address], [place] [phone] * Vitamin B12 (12/24/2024 5:48 AM EST) [facility] Vitamin B-12 289 250 - 900 pcg/mL LAB CHEMISTRY METHOD 12/24/2024 11:09 AM EST [facility] Blood Venous blood specimen / Unknown Venipuncture / Unknown 12/24/2024 5:48 AM EST 12/24/2024 8:47 AM EST Shelley Beard MD LAB BLOOD ORDERABLES Fin al Result [facility] [address] [place] [address], [place] [phone] * Thyroid stimulating hormone with reflex to free t4 and free t3 (12/24/2024 5:48 AM EST) [facility] TSH 1.63 0.40 - 4.00 mcIU/mL LAB CHEMISTRY METHOD 12/24/2024 10:54 AM EST [facility] Blood Venous blood specimen / Unknown Venipuncture / Unknown 12/24/2024 5:48 AM EST 12/24/2024 8:47 AM EST Shelley Beard MD LAB BLOOD ORDERABLES Fin al Result [facility] [address] [place] [address], [place] [phone] * (ABNORMAL) Comprehensive metabolic panel (12/24/2024 5:48 AM EST) Pathologist [facility] Sodium 139 133 - 145 mmol/L LAB [...] LAB CHEMISTRY METHOD 12/24/2024 10:46 AM EST [facility] Calcium 9.1 8.5 [...] Result [facility] [address] [place] [address], * (ABNORMAL) Complete blood count (12/24/2024 5:48 [...] ORDERABLES Fin al Result [facility] [address] [place] [address], documented in this encounter Visit Diagnoses Diagnosis Unspecified fall, subsequent encounter Weakness Other malaise and fatigue documented in this encounter Care Teams Second Worker Relationship Specialty Start Date End Date Shelley Beard MD [address] [address] PCP - General Family Medicine 12/31/24 documented as of this encounter
--- OUTSIDE RECORDS SUMMARY | 2025-11-09 19:55 | XMS_ITS | Clinical Summary ---
Author Organization [facility] Address [address] [place] [address] Care Team Providers Care First Officer And Flight Instructor Name Role Phone Arminda Arita MD Unavailable Obinna Gannon MD Primary Care Provider [phone] Octavio Alejandre MD Unavailable Unavailable Breezy Crisostomo MD Unavailable [phone] Allergies Active Allergy Reactions Criticality Noted Date [...] 74 05/23/2021 5:52 PM EDT Temperature 36.6 C (97.8 F) 05/23/2021 5:52 PM EDT Respiratory Rate 18 09/05/2019 2:54 PM EDT Oxygen Saturation 95% 05/23/2021 5:52 PM EDT Inhaled Oxygen Concentration - - Weight 109 kg (240 lb) 05/23/2021 5:52 PM EDT Height 167.6 cm (5' 6 ) 05/23/2021 5:52 PM EDT Body Mass Index 38.74 05/23/2021 5:52 PM EDT Plan of Treatment Health Maintenance Due Date Last Done Comments Advance Care Planning 1954 Hepatitis C Virus Screening 1954 DTaP/Tdap/Td Vaccines (1 - Tdap) 1973 Mammogram 1994 Colonoscopy 1999 Pneumococcal Vaccines 50+ (1 of 1 - PCV) 2004 RSV Vaccine 50 years and older and Patients (1 - Risk 50-74 years 1-dose series) 2004 Zoster (Shingles) Vaccine (1 of 2) 2004 DXA Bone Density (Females,Ages 65 and older) 2019 Influenza Vaccine 06/24/2025 11/11/2017, , 09/03/2007, Additional history exists COVID-19 Vaccine ( season) 2025 11/07/2021, 03/22/2021, 02/12/2021 Hepatitis B Vaccines Aged Out No long er eligible based on patient's age to complete this topic Medical Devices Implanted Type Area Group Care Worker Device Identifier Shelf Expiration Date Model / Serial / Lot 5531-G-309 Insert Tibial 3 9mm Knee X3 Cndrl Stab Trthln - [id number] Implanted:Qty : 1 on 08/26/2019 by Garfield Coyne MD at [facility] Joint Prosthesis Right: Knee [employer] - DIV STR [id number] 10/26/2023 5531-G-3 09 / / [id number]-F-302 Component Femoral 3 Knee Right Crcte Rtn Bead Trthln Pa - [id number] Implanted:Qty : 1 on 08/26/2019 by Garfield Coyne MD at [facility] Joint Prosthesis Right: Knee [employer] ASH [id number] 06/11/2024 5517-F-3 02 / / [id number] 5536-B-300 Baseplate Tibial Triath[employer]on Tritanium 3 L44 Mm L67 Mm Steril - [id number] Implanted:Qty : 1 on 08/26/2019 by Garfield Coyne MD at [facility] Joint Prosthesis Right: Knee [employer] - DIV STR [id number] 06/09/2024 5536-B-3 00 / / [id number] [facility] Advance Directives * Full Code (Latest Code Status on File) Date Activated Date Inactivated Comments 08/26/2019 3:14 PM * Full Code Date Activated Date Inactivated Comments 08/26/2019 7:28 AM 08/26/2019 3:14 PM Care Teams First Officer And Flight Instructor Relationship Specialty Start Date End Date Obinna Gannon MD [address] [place] [address] PCP - General Internal Medicine 07/15/19 Arminda Arita MD [address] [place] [address] Referring Provider Cardiovascular Disease 05/26/19 Octavio Alejandre MD [address] [place] [address] Neurology 08/05/19 Breezy Crisostomo MD [address] [id number] Physician Nephrology 08/09/19
--- OUTSIDE RECORDS SUMMARY | 2025-11-09 19:55 | XMS_ITS | Encounter Summary ---
Author Organization [facility] Address [address] [place] [address] Care Team Providers Care Ultrasound Specialist Name Role Phone Shelley Beard MD Primary Care Provider + Encounter Details Date Type Department Care Team (Late st Contact Info) Description 01/07/2025 Lab Requisition [facility] - Main Lab [address] [place] [address] Shelley Beard MD [address] [phone] Weakness Social History Tobacco Use Types Packs/Day [...] LAB CHEMISTRY METHOD 01/10/2025 12:55 PM EST [facility] Potassium 4.6 3.5 - 5.5 mmol/L LAB CHEMISTRY METHOD 01/10/2025 12:55 PM [facility] Chloride 104 96 - 110 mmol/L LAB CHEMISTRY METHOD 01/10/2025 12:55 PM [facility] CO2 30 21 - 32 mmol/L LAB CHEMISTRY METHOD 01/10/2025 12:55 PM [facility] Anion Gap 7 3 - 11 LAB CHEMISTRY METHOD 01/10/2025 12:55 PM [facility] Glucose 90 70 - 100 mg/dL LAB CHEMISTRY METHOD 01/10/2025 12:55 PM [facility] BUN 23 5 - 25 mg/dL LAB CHEMISTRY METHOD 01/10/2025 12:55 PM [facility] Creatinine 1.37(H) 0.50 - 1.10 mg/dL LAB CHEMISTRY METHOD 01/10/2025 12:55 PM [facility] eGFR 42(L) >=60 mL/min/1. 73m2 LAB CHEMISTRY METHOD 01/10/2025 12:55 PM [facility] Comment:Calculation based on the Chronic Kidney Disease Epidemiology Collaboration (CKD-EPI) equation refit without adjustment for race. BUN/Creatinine Ratio 16.8 LAB CHEMISTRY METHOD 01/10/2025 12:55 PM [facility] Calcium 9.1 8.5 - 10.5 mg/dL LAB CHEMISTRY METHOD 01/10/2025 12:55 PM [facility] Blood Venous blood specimen / Unknown Venipuncture / Unknown 01/10/2025 7:21 AM EST 01/10/2025 11:46 AM EST us Shelley Beard MD LAB BLOOD ORDERABLES Fin al Result [facility] [address] [place] [address], * (ABNORMAL) Complete blood count (01/10/2025 7:21 AM EST) [facility] WBC 6.6 4.8 - 10.8 K/mcL LAB HEMETOLOGY METHOD 01/10/2025 1:00 PM [facility] RBC 4.40 3.80 - 4.80 M/mcL LAB HEMETOLOGY METHOD 01/10/2025 1:00 PM [facility] Hemoglobin 11.3(L) 11.5 - 16.0 g/dL LAB HEMETOLOGY METHOD 01/10/2025 1:00 PM [facility] Hematocrit 37.9 35.0 - 47.0 % LAB HEMETOLOGY METHOD 01/10/2025 1:00 PM [facility] MCV 86.9 79.0 - 98.0 FL LAB HEMETOLOGY METHOD 01/10/2025 1:00 PM [facility] MCH 25.9(L) 27.0 - 32.0 pcg LAB HEMETOLOGY METHOD 01/10/2025 1:00 PM [facility] MCHC 29.8(L) 32.0 - 37.0 g/dL LAB HEMETOLOGY METHOD 01/10/2025 1:00 PM [facility] RDW 15.9(H) 11.0 - 15.0 % LAB HEMETOLOGY METHOD 01/10/2025 1:00 PM [facility] Platelets 238 130 - 400 K/mcL LAB HEMETOLOGY METHOD 01/10/2025 1:00 PM [facility] MPV 11.1(H) 7.0 - 11.0 FL LAB HEMETOLOGY METHOD 01/10/2025 1:00 PM [facility] NRBC 0.0 <1.0 % LAB HEMETOLOGY METHOD 01/10/2025 1:00 PM [facility] NRBC Absolute 0.00 <0.10 K/mcL LAB HEMETOLOGY METHOD 01/10/2025 1:00 PM EST [facility] Blood Venous blood specimen / Unknown Venipuncture / Unknown 01/10/2025 7:21 AM EST 01/10/2025 11:46 AM EST us Shelley Beard MD LAB BLOOD ORDERABLES Fin al Result [facility] [address] [place] [address], documented in this encounter Visit Diagnoses Diagnosis Weakness Other malaise and fatigue documented in this encounter Care Teams Ultrasound Specialist Relationship Specialty Start Date End Date Shelley Beard MD [address] [place] [address] PCP - General Family Medicine 12/31/24 documented as of this encounter
== END 2025-11-09 15:27 | disposition home or self-care (01) ==
LOC: HO.HSMS 14:57
PROVIDERS: PCP Nurse Practitioner Family; Visit Provider Psychiatry & Neurology Neurology
DX: G62.89 Other specified polyneuropathies (principal); R51.9 Headache, unspecified; M54.2 Cervicalgia
CPT/HCPCS: 99214; G2211

== ENCOUNTER → 2025-11-09 14:56 | Outpatient (BNVA) | payer MEDICARE, SELFPAY | PROVIDERS: PCP Nurse Practitioner Family; Visit Provider Psychiatry & Neurology Neurology | DX: G62.89 Other specified polyneuropathies (principal); M54.2 Cervicalgia; R51.9 Headache, unspecified | CPT/HCPCS: 99212 ==

== ENCOUNTER 2025-11-22 12:00 | Outpatient (REF) | payer MEDICARE, SELFPAY ==
[2025-11-22 12:48] LABS: Appearance Urine Cloudy; Glucose Urine UA Negative (Negative); PH 6.5 (5.0-9.0); Specific Gravity - Urine 1.015 (1.005-1.025); UMIC TRIGGER UA YES
[2025-11-22 13:12] LABS: Anion Gap 11 (12-20); Blood Urea Nitrogen 17 mg/dL (9-16); Calcium 9.2 mg/dL (8.4-10.2); Carbon Dioxide 32 mmol/L (22-29); Chloride 102 mmol/L (96-108); Cholesterol 146 mg/dL (<200); Estimated Glomerular Filt Rate 36; HDL Cholesterol 47 mg/dL (>40); Potassium 4.3 mmol/L (3.3-5.1); Sodium 141 mmol/L (135-145); Triglycerides 97 mg/dL (<150)
[2025-11-22 13:53] LABS: Total Protein Urine Random 68 mg/dL (<12)
--- OUTSIDE RECORDS SUMMARY | 2025-11-22 16:04 | XMS_ITS | Encounter Summary ---
Author Organization [facility] Address [address] [place] [address] Care Team Providers Care Montessori Toddler Teacher Name Role Phone Unknown Primary Care Provider [phone] Jaspreet Fortune APRN Primary Care Provider [phone] Arminda Arita MD Unavailable Obinna Gannon MD Primary Care Provider [phone] Octavio Alejandre MD Unavailable Unavailable Breezy Crisostomo MD Unavailable [phone] Encounter Details Date Type Department Care Team (Late st Contact Info) Description 06/19/2018 Scanned Document [facility] [address] [place] [address] Derick Guerra, [place] [address] [address] Social History Tobacco Use Types Packs/Day Years [...] on filedocumented in this encounter Care Teams Montessori Toddler Teacher Relationship Specialty Start Date End Date Unknown Unknow Provider Address PCP - General 12/30/18 02/03/19 Jaspreet Fortune APRN [address] [facility] [place] [address] PCP - General Internal Medicine 02/04/19 07/14/19 Obinna Gannon MD [address] [place] [address] PCP - General Internal Medicine 07/15/19 Arminda Arita MD [address] [place] [address] Referring Provider Cardiovascular Disease 05/26/19 Octavio Alejandre MD [address] [place] [address] Neurology 08/05/19 Breezy Crisostomo MD 281 [facility] [address] [place] [address] Physician Nephrology 08/09/19 documented as of this encounter
--- OUTSIDE RECORDS SUMMARY | 2025-11-22 16:04 | XMS_ITS | Clinical Summary ---
Author Organization [facility] Prior to 04/23/25 Address [address] [place] [address] Care Team Providers Care Ship Keeper Name Role Phone Obinna Gannon MD Primary Care Provider [phone] Allergies Active Allergy Reactions Criticality Noted Date [...] by mouth. 0 03/29/2019 Active Fe-Succ Ac-B [id number] (IROSPAN 17/05) MISC Take by mouth. 0 [...] age to complete this topic Care Teams Ship Keeper Relationship Specialty Start Date End Date Oibnna Gannon MD [address] [facility] [place] [address] PCP - General Family Medicine 01/06/20
--- OUTSIDE RECORDS SUMMARY | 2025-11-22 16:04 | XMS_ITS | Encounter Summary ---
Author Organization [facility] Address [address] [place] [address] Care Team Providers Care Shop Lead Name Role Phone Jaspreet Fortune APRN Primary Care Provider [phone] Arminda Arita MD Unavailable Obinna Gannon MD Primary Care Provider [phone] Octavio Alejandre MD Unavailable Unavailable Breezy Crissotomo MD Unavailable [phone] Encounter Details Date Type Department Care Team (Late st Contact Info) Description 03/02/2019 Scanned Document [facility] [address] [facility] [place] 8[address] [place] [address] Octavio Alejandre MD Social History [...] on filedocumented in this encounter Care Teams Shop Lead Relationship Specialty Start Date End Date Jaspreet Fortune APRN [address] [place] [address] PCP - General Internal Medicine 02/04/19 07/14/19 Obinna Gannon MD [address] [place] [phone] PCP - General Internal Medicine 07/15/19 Arminda Arita MD [address] [place] [phone] Referring Provider Cardiovascular Disease 05/26/19 Octavio Alejandre MD [address] [place] [address] Neurology 08/05/19 Breezy Crisostomo MD 281 [facility] [address] [place], [place] [address] Physician Nephrology 08/09/19 documented as of this encounter
--- OUTSIDE RECORDS SUMMARY | 2025-11-22 16:04 | XMS_ITS | Encounter Summary ---
Author Organization [facility] Address [address] [place] [address] Care Team Providers Care Slab Off Mill Tender Name Role Phone Arminda Arita MD Unavailable Obinna Gannon MD Primary Care Provider [phone] Octavio Alejandre MD Unavailable Unavailable Breezy Crisostomo MD Unavailable [phone] Encounter Details Date Type Department Care Team (Late st Contact Info) Description 08/31/2019 Scanned Document [facility] [address] [facility] [address] [place] [address] Irvin Thakkar PA [address] [address] Social History Tobacco Use Types Packs/Day Years [...] on filedocumented in this encounter Care Teams Slab Off Mill Tender Relationship Specialty Start Date End Date Obinna Gannon MD [address] [place] [address] PCP - General Internal Medicine 07/15/19 Arminda Arita MD [address] [place] [address] Referring Provider Cardiovascular Disease 05/26/19 Octavio Alejandre MD [address] [place] [address] Neurology 08/05/19 Berezy Crisostomo MD 281 [facility] [address] [place] [address] Physician Nephrology 08/09/19 documented as of this encounter
--- OUTSIDE RECORDS SUMMARY | 2025-11-22 16:04 | XMS_ITS | Clinical Summary ---
Author Organization [facility] Address [address] [place] [address] Care Team Providers Care Career Specialist Name Role Phone NehaAntionette munroe Mariah Primary Care Provider [phone] Allergies Active Allergy Reactions Criticality Noted Date [...] topic Insurance MEDICAID [place]USKY D Care Teams Career Specialist Relationship Specialty Start Date End Date Antionette Payne [address] [place] [address] PCP - General 07/31/18
--- OUTSIDE RECORDS SUMMARY | 2025-11-22 16:05 | XMS_ITS | Encounter Summary ---
Author Organization [facility] Address [address] [place] [address] Care Team Providers Care Sandwich Hand Name Role Phone Shelley Beard MD Primary Care Provider + Encounter Details Date Type Department Care Team (Late st Contact Info) Description 12/29/2024 Lab Requisition [facility] - Main Lab [address] [place] [address] Shelley Beard MD [address] [phone] Weakness Social History Tobacco Use Types Packs/Day [...] LAB CHEMISTRY METHOD 12/30/2024 11:37 AM EST [facility] Potassium 4.5 3.5 - 5.5 [...] [facility] Comment:Calculation based on the [...] al Result [facility] [address] [place] [address], * (ABNORMAL) Complete blood count (12/30/2024 6:50 AM EST) [facility] WBC 7.8 4.8 - 10.8 K/mcL LAB [...] LAB HEMETOLOGY METHOD 12/30/2024 11:35 AM EST [facility] Blood Venous blood specimen / Unknown Venipuncture / Unknown 12/30/2024 6:50 AM EST 12/30/2024 10:46 AM EST us Shelley Beard MD LAB BLOOD ORDERABLES Fin al Result [facility] [address] [place] [address], documented in this encounter Visit Diagnoses Diagnosis Weakness Other malaise and fatigue documented in this encounter Care Teams Sandwich Hand Relationship Specialty Start Date End Date Shelley Beard MD [address] [place] [address] PCP - General Family Medicine 12/31/24 documented as of this encounter
--- OUTSIDE RECORDS SUMMARY | 2025-11-22 16:05 | XMS_ITS | Encounter Summary ---
Author Organization [facility] Address [address] [place] [address] Care Team Providers Care Blood Bank Calendar Control Clerk Name Role Phone Shelley Beard MD Primary Care Provider + Encounter Details Date Type Department Care Team (Late st Contact Info) Description 12/26/2024 Lab Requisition [facility] - Main Lab [address] [place] [address] Shelley Beard MD [address] [phone] Weakness Social History Tobacco Use Types Packs/Day [...] LAB CHEMISTRY METHOD 12/27/2024 1:11 PM EST [facility] Potassium 4.6 3.5 - 5.5 mmol/L LAB CHEMISTRY METHOD 12/27/2024 1:11 PM [facility] Chloride 98 96 - 110 mmol/L LAB CHEMISTRY METHOD 12/27/2024 1:11 PM [facility] CO2 32 21 - 32 mmol/L LAB CHEMISTRY METHOD 12/27/2024 1:11 PM [facility] Anion Gap 7 3 - 11 LAB CHEMISTRY METHOD 12/27/2024 1:11 PM [facility] Glucose 89 70 - 100 mg/dL LAB CHEMISTRY METHOD 12/27/2024 1:11 PM [facility] BUN 26(H) 5 - 25 mg/dL LAB CHEMISTRY METHOD 12/27/2024 1:11 PM [facility] Creatinine 1.53(H) 0.50 - 1.10 mg/dL LAB CHEMISTRY METHOD 12/27/2024 1:11 PM [facility] eGFR 36(L) >=60 mL/min/1. 73m2 LAB CHEMISTRY METHOD 12/27/2024 1:11 PM [facility] Comment:Calculation based on the Chronic Kidney Disease Epidemiology Collaboration (CKD-EPI) equation refit without adjustment for race. BUN/Creatinine Ratio 17.0 LAB CHEMISTRY METHOD 12/27/2024 1:11 PM [facility] Calcium 9.3 8.5 - 10.5 mg/dL LAB CHEMISTRY METHOD 12/27/2024 1:11 PM [facility] Blood Venous blood specimen / Unknown Venipuncture / Unknown 12/27/2024 7:29 AM EST 12/27/2024 11:09 AM EST us Shelley Beard MD LAB BLOOD ORDERABLES Fin al Result [facility] [address] [place] [address], * (ABNORMAL) Complete blood count (12/27/2024 7:29 AM EST) [facility] WBC 10.4 4.8 - 10.8 K/mcL LAB HEMETOLOGY METHOD 12/27/2024 11:35 AM [facility] RBC 4.60 3.80 - 4.80 M/mcL LAB HEMETOLOGY METHOD 12/27/2024 11:35 AM [facility] Hemoglobin 12.0 11.5 - 16.0 g/dL LAB HEMETOLOGY METHOD 12/27/2024 11:35 AM [facility] Hematocrit 39.2 35.0 - 47.0 % LAB HEMETOLOGY METHOD 12/27/2024 11:35 AM [facility] MCV 84.5 79.0 - 98.0 FL LAB HEMETOLOGY METHOD 12/27/2024 11:35 AM [facility] MCH 25.9(L) 27.0 - 32.0 pcg LAB HEMETOLOGY METHOD 12/27/2024 11:35 AM [facility] MCHC 30.6(L) 32.0 - 37.0 g/dL LAB HEMETOLOGY METHOD 12/27/2024 11:35 AM [facility] RDW 15.6(H) 11.0 - 15.0 % LAB HEMETOLOGY METHOD 12/27/2024 11:35 AM [facility] Platelets 294 130 - 400 K/mcL LAB HEMETOLOGY METHOD 12/27/2024 11:35 AM [facility] MPV 11.1(H) 7.0 - 11.0 FL LAB HEMETOLOGY METHOD 12/27/2024 11:35 AM [facility] NRBC 0.0 <1.0 % LAB HEMETOLOGY METHOD 12/27/2024 11:35 AM [facility] NRBC Absolute 0.00 <0.10 K/mcL LAB HEMETOLOGY METHOD 12/27/2024 11:35 AM EST [facility] Blood Venous blood specimen / Unknown Venipuncture / Unknown 12/27/2024 7:29 AM EST 12/27/2024 11:08 AM EST us Shelley Beard MD LAB BLOOD ORDERABLES Fin al Result [facility] [address] [place] [address], documented in this encounter Visit Diagnoses Diagnosis Weakness Other malaise and fatigue documented in this encounter Care Teams Blood Bank Calendar Control Clerk Relationship Specialty Start Date End Date Shelley Beard MD [address] [place] [address] PCP - General Family Medicine 12/31/24 documented as of this encounter
--- OUTSIDE RECORDS SUMMARY | 2025-11-22 16:05 | XMS_ITS | Encounter Summary ---
Author Organization [facility] Address [address] [place] [address] Care Team Providers Care Sugarcane Planter Name Role Phone Shelley Berad MD Primary Care Provider + Encounter Details Date Type Department Care Team (Late st Contact Info) Description 12/31/2024 Lab Requisition [facility] - Main Lab [address] [place] [address] Shelley Beard MD [address] [phone] Weakness Social History Tobacco Use Types Packs/Day [...] LAB CHEMISTRY METHOD 01/03/2025 10:55 AM EST [facility] Potassium 4.4 3.5 - 5.5 mmol/L LAB CHEMISTRY METHOD 01/03/2025 10:55 AM [facility] Chloride 104 96 - 110 mmol/L LAB CHEMISTRY METHOD 01/03/2025 10:55 AM [facility] CO2 32 21 - 32 mmol/L LAB CHEMISTRY METHOD 01/03/2025 10:55 AM [facility] Anion Gap 6 3 - 11 LAB CHEMISTRY METHOD 01/03/2025 10:55 AM [facility] Glucose 93 70 - 100 mg/dL LAB CHEMISTRY METHOD 01/03/2025 10:55 AM [facility] BUN 26(H) 5 - 25 mg/dL LAB CHEMISTRY METHOD 01/03/2025 10:55 AM [facility] Creatinine 1.38(H) 0.50 - 1.10 mg/dL LAB CHEMISTRY METHOD 01/03/2025 10:55 AM [facility] eGFR 41(L) >=60 mL/min/1. 73m2 LAB CHEMISTRY METHOD 01/03/2025 10:55 AM [facility] Comment:Calculation based on the Chronic Kidney Disease Epidemiology Collaboration (CKD-EPI) equation refit without adjustment for race. BUN/Creatinine Ratio 18.8 LAB CHEMISTRY METHOD 01/03/2025 10:55 AM [facility] Calcium 8.9 8.5 - 10.5 mg/dL LAB CHEMISTRY METHOD 01/03/2025 10:55 AM [facility] Blood Venous blood specimen / Unknown Venipuncture / Unknown 01/03/2025 7:12 AM EST 01/03/2025 10:06 AM EST us Shelley Beard MD LAB BLOOD ORDERABLES Fin al Result [facility] [address] [place] [address], * (ABNORMAL) Complete blood count (01/03/2025 7:12 AM EST) [facility] WBC 7.6 4.8 - 10.8 K/mcL LAB HEMETOLOGY METHOD 01/03/2025 10:31 AM [facility] RBC 4.30 3.80 - 4.80 M/mcL LAB HEMETOLOGY METHOD 01/03/2025 10:31 AM [facility] Hemoglobin 10.8(L) 11.5 - 16.0 g/dL LAB HEMETOLOGY METHOD 01/03/2025 10:31 AM [facility] Hematocrit 37.7 35.0 - 47.0 % LAB HEMETOLOGY METHOD 01/03/2025 10:31 AM [facility] MCV 87.5 79.0 - 98.0 FL LAB HEMETOLOGY METHOD 01/03/2025 10:31 AM [facility] MCH 25.1(L) 27.0 - 32.0 pcg LAB HEMETOLOGY METHOD 01/03/2025 10:31 AM [facility] MCHC 28.6(L) 32.0 - 37.0 g/dL LAB HEMETOLOGY METHOD 01/03/2025 10:31 AM [facility] RDW 15.7(H) 11.0 - 15.0 % LAB HEMETOLOGY METHOD 01/03/2025 10:31 AM [facility] Platelets 279 130 - 400 K/mcL LAB HEMETOLOGY METHOD 01/03/2025 10:31 AM [facility] MPV 10.7 7.0 - 11.0 FL LAB HEMETOLOGY METHOD 01/03/2025 10:31 AM [facility] NRBC 0.0 <1.0 % LAB HEMETOLOGY METHOD 01/03/2025 10:31 AM [facility] NRBC Absolute 0.00 <0.10 K/mcL LAB HEMETOLOGY METHOD 01/03/2025 10:31 AM EST [facility] Blood Venous blood specimen / Unknown Venipuncture / Unknown 01/03/2025 7:12 AM EST 01/03/2025 10:07 AM EST us Shelley Beard MD LAB BLOOD ORDERABLES Fin al Result [facility] [address] [place] [address], documented in this encounter Visit Diagnoses Diagnosis Weakness Other malaise and fatigue documented in this encounter Care Teams Sugarcane Planter Relationship Specialty Start Date End Date Shelley Beard MD [address] [place] [address] PCP - General Family Medicine 12/31/24 documented as of this encounter
--- OUTSIDE RECORDS SUMMARY | 2025-11-22 16:05 | XMS_ITS | Encounter Summary ---
Author Organization [facility] Address [address] [place] [address] Care Team Providers Care Renovator Machine Operator Name Role Phone Shelley Beard MD Primary Care Provider + Encounter Details Date Type Department Care Team (Late st Contact Info) Description 01/16/2025 Lab Requisition [facility] - Main Lab 299 [facility] [place] [address] Shelley Beard MD [address] [place] [address] Weakness Social History Tobacco Use Types Packs/Day [...] fatigue documented in this encounter Care Teams Renovator Machine Operator Relationship Specialty Start Date End Date Shelley Beard MD [address] [phone] PCP - General Family Medicine 12/31/24 documented as of this encounter
--- OUTSIDE RECORDS SUMMARY | 2025-11-22 16:05 | XMS_ITS | Encounter Summary ---
Author Organization [facility] Address [address] [place] [address] Care Team Providers Care Spinner Cap Frame Name Role Phone Shelley Beard MD Primary Care Provider + Encounter Details Date Type Department Care Team (Late st Contact Info) Description 01/12/2025 Lab Requisition [facility] - Main Lab [address] [place] [address] Shelley Beard MD [address] [phone] Weakness Social History Tobacco Use Types Packs/Day [...] LAB CHEMISTRY METHOD 01/13/2025 12:[address] [facility] Potassium 4.7 3.5 - 5.5 mmol/L LAB CHEMISTRY METHOD 01/13/2025 12:36 PM [facility] Chloride 103 96 - 110 mmol/L LAB CHEMISTRY METHOD 01/13/2025 12:36 PM [facility] CO2 31 21 - 32 mmol/L LAB CHEMISTRY METHOD 01/13/2025 12:36 PM [facility] Anion Gap 6 3 - 11 LAB CHEMISTRY METHOD 01/13/2025 12:36 PM [facility] Glucose 88 70 - 100 mg/dL LAB CHEMISTRY METHOD 01/13/2025 12:36 PM [facility] BUN 28(H) 5 - 25 mg/dL LAB CHEMISTRY METHOD 01/13/2025 12:36 PM [facility] Creatinine 1.32(H) 0.50 - 1.10 mg/dL LAB CHEMISTRY METHOD 01/13/2025 12:36 PM [facility] eGFR 44(L) >=60 mL/min/1. 73m2 LAB CHEMISTRY METHOD 01/13/2025 12:36 PM [facility] Comment:Calculation based on the Chronic Kidney Disease Epidemiology Collaboration (CKD-EPI) equation refit without adjustment for race. BUN/Creatinine Ratio 21.2 LAB CHEMISTRY METHOD 01/13/2025 12:36 PM [facility] Calcium 9.0 8.5 - 10.5 mg/dL LAB CHEMISTRY METHOD 01/13/2025 12:36 PM [facility] Blood Venous blood specimen / Unknown Venipuncture / Unknown 01/13/2025 7:06 AM EST 01/13/2025 11:21 AM EST us Shelley Beard MD LAB BLOOD ORDERABLES Fin al Result [facility] [address] [place] [address], * (ABNORMAL) Complete blood count (01/13/2025 7:06 AM EST) [facility] WBC 8.0 4.8 - 10.8 K/mcL LAB HEMETOLOGY METHOD 01/13/2025 12:56 PM [facility] RBC 4.40 3.80 - 4.80 M/mcL LAB HEMETOLOGY METHOD 01/13/2025 12:56 PM [facility] Hemoglobin 11.3(L) 11.5 - 16.0 g/dL LAB HEMETOLOGY METHOD 01/13/2025 12:56 PM [facility] Hematocrit 38.3 35.0 - 47.0 % LAB HEMETOLOGY METHOD 01/13/2025 12:56 PM [facility] MCV 86.7 79.0 - 98.0 FL LAB HEMETOLOGY METHOD 01/13/2025 12:56 PM [facility] MCH 25.6(L) 27.0 - 32.0 pcg LAB HEMETOLOGY METHOD 01/13/2025 12:56 PM [facility] MCHC 29.5(L) 32.0 - 37.0 g/dL LAB HEMETOLOGY METHOD 01/13/2025 12:56 PM [facility] RDW 15.9(H) 11.0 - 15.0 % LAB HEMETOLOGY METHOD 01/13/2025 12:56 PM [facility] Platelets 242 130 - 400 K/mcL LAB HEMETOLOGY METHOD 01/13/2025 12:56 PM [facility] MPV 11.2(H) 7.0 - 11.0 FL LAB HEMETOLOGY METHOD 01/13/2025 12:56 PM [facility] NRBC 0.0 <1.0 % LAB HEMETOLOGY METHOD 01/13/2025 12:56 PM [facility] NRBC Absolute 0.00 <0.10 K/mcL LAB HEMETOLOGY METHOD 01/13/2025 12:[address] [facility] Blood Venous blood specimen / Unknown Venipuncture / Unknown 01/13/2025 7:06 AM EST 01/13/2025 11:23 AM EST us Shelley Beard MD LAB BLOOD ORDERABLES Fin al Result [facility] [address] [place] [address], documented in this encounter Visit Diagnoses Diagnosis Weakness Other malaise and fatigue documented in this encounter Care Teams Spinner Cap Frame Relationship Specialty Start Date End Date Shelley Beard MD [address] [place] [id number] PCP - General Family Medicine 12/31/24 documented as of this encounter
--- OUTSIDE RECORDS SUMMARY | 2025-11-22 16:05 | XMS_ITS | Encounter Summary ---
Author Organization [facility] Address [address] [place] [address] Care Team Providers Care Anesthesiologist And Critical Care Name Role Phone Shelley Beard MD Primary Care Provider + Encounter Details Date Type Department Care Team (Late st Contact Info) Description 01/05/2025 Lab Requisition [facility] - Main Lab [address] [place] [address] Shelley Beard MD [address] [phone] Weakness Social History Tobacco Use Types Packs/Day [...] LAB CHEMISTRY METHOD 01/06/2025 10:09 AM EST [facility] Potassium 4.3 3.5 - 5.5 mmol/L LAB CHEMISTRY METHOD 01/06/2025 10:09 AM [facility] Chloride 102 96 - 110 mmol/L LAB CHEMISTRY METHOD 01/06/2025 10:09 AM [facility] CO2 34(H) 21 - 32 mmol/L LAB CHEMISTRY METHOD 01/06/2025 10:09 AM [facility] Anion Gap 3 3 - 11 LAB CHEMISTRY METHOD 01/06/2025 10:09 AM [facility] Glucose 92 70 - 100 mg/dL LAB CHEMISTRY METHOD 01/06/2025 10:09 AM [facility] BUN 25 5 - 25 mg/dL LAB CHEMISTRY METHOD 01/06/2025 10:09 AM [facility] Creatinine 1.30(H) 0.50 - 1.10 mg/dL LAB CHEMISTRY METHOD 01/06/2025 10:09 AM [facility] eGFR 44(L) >=60 mL/min/1. 73m2 LAB CHEMISTRY METHOD 01/06/2025 10:09 AM [facility] Comment:Calculation based on the Chronic Kidney Disease Epidemiology Collaboration (CKD-EPI) equation refit without adjustment for race. BUN/Creatinine Ratio 19.2 LAB CHEMISTRY METHOD 01/06/2025 10:09 AM [facility] Calcium 9.1 8.5 - 10.5 mg/dL LAB CHEMISTRY METHOD 01/06/2025 10:09 AM [facility] Blood Venous blood specimen / Unknown Venipuncture / Unknown 01/06/2025 6:09 AM EST 01/06/2025 9:20 AM EST us Shelley Beard MD LAB BLOOD ORDERABLES Fin al Result [facility] [address] [place] [address], * (ABNORMAL) Complete blood count (01/06/2025 6:09 AM EST) [facility] WBC 6.9 4.8 - 10.8 K/mcL LAB HEMETOLOGY METHOD 01/06/2025 9:45 AM [facility] RBC 4.20 3.80 - 4.80 M/mcL LAB HEMETOLOGY METHOD 01/06/2025 9:45 AM [facility] Hemoglobin 10.9(L) 11.5 - 16.0 g/dL LAB HEMETOLOGY METHOD 01/06/2025 9:45 AM [facility] Hematocrit 36.3 35.0 - 47.0 % LAB HEMETOLOGY METHOD 01/06/2025 9:45 AM [facility] MCV 87.1 79.0 - 98.0 FL LAB HEMETOLOGY METHOD 01/06/2025 9:45 AM [facility] MCH 26.1(L) 27.0 - 32.0 pcg LAB HEMETOLOGY METHOD 01/06/2025 9:45 AM [facility] MCHC 30.0(L) 32.0 - 37.0 g/dL LAB HEMETOLOGY METHOD 01/06/2025 9:45 AM [facility] RDW 16.0(H) 11.0 - 15.0 % LAB HEMETOLOGY METHOD 01/06/2025 9:45 AM [facility] Platelets 252 130 - 400 K/mcL LAB HEMETOLOGY METHOD 01/06/2025 9:45 AM [facility] MPV 10.6 7.0 - 11.0 FL LAB HEMETOLOGY METHOD 01/06/2025 9:45 AM [facility] NRBC 0.0 <1.0 % LAB HEMETOLOGY METHOD 01/06/2025 9:45 AM [facility] NRBC Absolute 0.00 <0.10 K/mcL LAB HEMETOLOGY METHOD 01/06/2025 9:45 AM EST [facility] Blood Venous blood specimen / Unknown Venipuncture / Unknown 01/06/2025 6:09 AM EST 01/06/2025 9:20 AM EST us Shelley Beard MD LAB BLOOD ORDERABLES Fin al Result [facility] [address] [place] [address], documented in this encounter Visit Diagnoses Diagnosis Weakness Other malaise and fatigue documented in this encounter Care Teams Anesthesiologist And Critical Care Relationship Specialty Start Date End Date Shelley Beard MD [address] [place] [phone] PCP - General Family Medicine 12/31/24 documented as of this encounter
--- OUTSIDE RECORDS SUMMARY | 2025-11-22 16:05 | XMS_ITS | Clinical Summary ---
Author Organization [facility] Address [address] [place] [address] Care Team Providers Care Warehouse Lead Name Role Phone Arminda Arita MD Unavailable Obinna Gannon MD Primary Care Provider [phone] Octavio Alejandre MD Unavailable Unavailable Breezy Crisostomo MD Unavailable [phone] Allergies Active Allergy Reactions Criticality Noted Date [...] this topic Medical Devices Implanted Type Area Clear Coat Sprayer Device Identifier Shelf Expiration Date Model / Serial / Lot 5531-G-309 Insert Tibial 3 9mm Knee X3 Cndrl Stab Trthln - [id number] Implanted:Qt y: 1 on 08/26/2019 by Garfield Coyne MD at [facility] Joint Prosthesis Right: Knee [employer] - [id number] 10/26/2023 5531-G- 309 / / [id number] 5517-F-302 Component Femoral 3 Knee Right Crcte Rtn Bead Trthln Pa - [id number] Implanted:Qt y: 1 on 08/26/2019 by Garfield Coyne MD at [facility] Joint Prosthesis Right: Knee [employer] ASH [id number] 06/11/2024 5517-F- 302 / / [id number] 5536-B-300 Baseplate Tibial Triathalon Tritanium 3 L44 Mm L67 Mm Steril - [id number] Implanted:Qt y: 1 on 08/26/2019 by Garfield Coyne MD at [facility] Joint Prosthesis Right: Knee [employer] - [id number] 06/09/2024 5536-B- 300 / / [id number] Insurance [facility] MGD MEDICARE [facility] Advance Directives * Full Code (Latest Code Status on File) Date Activated Date Inactivated Comments 08/26/2019 3:14 PM * Full Code Date Activated Date Inactivated Comments 08/26/2019 7:28 AM 08/26/2019 3:14 PM Care Teams Warehouse Lead Relationship Specialty Start Date End Date Obinna Gannon MD [address] [place] [address] PCP - General Internal Medicine 07/15/19 Arminda Arita MD [address] [place] [address] Referring Provider Cardiovascular Disease 05/26/19 Octavio Alejandre MD [address] [place] [address] Neurology 08/05/19 Breezy Crisostomo MD [address] [address] Physician Nephrology 08/09/19
--- OUTSIDE RECORDS SUMMARY | 2025-11-22 16:05 | XMS_ITS | Clinical Summary ---
Author Organization [address] Address [address] [place] [phone] Phone Care Team Providers Care Tax Associate Name Role Phone Elder, Shelley Voss MD [...] LAB CHEMISTRY METHOD 01/13/2025 12:36 PM EST [facility] Potassium 4.7 3.5 - 5.5 mmol/L LAB CHEMISTRY METHOD 01/13/2025 12:36 PM EST [facility] Chloride 103 96 - 110 mmol/L LAB CHEMISTRY METHOD 01/13/2025 12:36 PM [facility] CO2 31 21 - 32 mmol/L LAB CHEMISTRY METHOD 01/13/2025 12:36 PM [facility] Anion Gap 6 3 - 11 LAB CHEMISTRY METHOD 01/13/2025 12:36 PM [facility] Glucose 88 70 - 100 mg/dL LAB CHEMISTRY METHOD 01/13/2025 12:36 PM [facility] BUN 28(H) 5 - 25 mg/dL LAB CHEMISTRY METHOD 01/13/2025 12:36 PM [facility] Creatinine 1.32(H) 0.50 - 1.10 mg/dL LAB CHEMISTRY METHOD 01/13/2025 12:36 PM [facility] eGFR 44(L) >=60 mL/min/1. 73m2 LAB CHEMISTRY METHOD 01/13/2025 12:36 PM [facility] Comment:Calculation based on the Chronic Kidney Disease Epidemiology Collaboration (CKD-EPI) equation refit without adjustment for race. BUN/Creatinine Ratio 21.2 LAB CHEMISTRY METHOD 01/13/2025 12:36 PM [facility] Calcium 9.0 8.5 - 10.5 mg/dL LAB CHEMISTRY METHOD 01/13/2025 12:36 PM [facility] Blood Venous blood specimen / Unknown Venipuncture / Unknown 01/13/2025 7:06 AM EST 01/13/2025 11:21 AM EST us Shelley Beard MD LAB BLOOD ORDERABLES Fin al Result [facility] [address] [place] [address], from Last 3 Months or Most Recently Relevant to Health Maintenance Insurance [employer] MEDICARE [employer] Care Teams Tax Associate Relationship Specialty Start Date End Date Shelley Beard MD [address] [address] PCP - General Family Medicine 12/31/24
--- OUTSIDE RECORDS SUMMARY | 2025-11-22 16:05 | XMS_ITS | Encounter Summary ---
Author Organization [facility] Address [address] [place] [address] Care Team Providers Care Overlay Plastician Name Role Phone Shelley Beard MD Primary Care Provider + Encounter Details Date Type Department Care Team (Late st Contact Info) Description 01/07/[address] [facility] - Main Lab [address] [place] [address] Shelley Beard MD [address] [phone] Weakness Social History Tobacco Use Types Packs/Day [...] [facility] Comment:Calculation based on the Chronic [...] Fin al Result [facility] [address] [place] [address], * (ABNORMAL) Complete blood count (01/10/2025 7:21 AM EST) [facility] WBC 6.6 4.8 - 10.8 K/mcL LAB [...] Fin al Result [facility] [address] [place] [address], documented in this encounter Visit Diagnoses Diagnosis Weakness Other malaise and fatigue documented in this encounter Care Teams Overlay Plastician Relationship Specialty Start Date End Date Shelley Beard MD [address] [place] [phone] PCP - General Family Medicine 12/31/24 documented as of this encounter
--- OUTSIDE RECORDS SUMMARY | 2025-11-22 16:05 | XMS_ITS | Encounter Summary ---
Author Organization [facility] Address [address] [place] [address] Care Team Providers Care Property Underwriter Name Role Phone Shelley Beard MD Primary Care Provider + Encounter Details Date Type Department Care Team (Late st Contact Info) Description 12/24/2024 Lab Requisition [facility] - Main Lab [address] [facility] [place] [address] Shelley Beard MD [address] [facility] [address] [place], [place] [phone] Unspecified fall, subsequent encounter; Weakness Social History [...] LAB CHEMISTRY METHOD 12/24/2024 11:09 AM EST [facility] Blood Venous blood specimen / Unknown Venipuncture / Unknown 12/24/2024 5:48 AM EST 12/24/2024 8:47 AM EST Shelley Beard MD LAB BLOOD ORDERABLES Fin al Result Performing Organization Address City/[facility]/ZIP Co de Phone Number [facility] [address] [place] [address], [place] [phone] * Vitamin B12 (12/24/2024 5:48 AM EST) [facility] Vitamin B-12 289 250 - 900 pcg/mL LAB CHEMISTRY METHOD 12/24/2024 11:09 AM EST [facility] Blood Venous blood specimen / Unknown Venipuncture / Unknown 12/24/2024 5:48 AM EST 12/24/2024 8:47 AM EST Shelley Beard MD LAB BLOOD ORDERABLES Fin al Result [facility] [address] [place] [address], [place] [phone] * Thyroid stimulating hormone with reflex to free t4 and free t3 (12/24/2024 5:48 AM EST) [facility] TSH 1.63 0.40 - 4.00 mcIU/mL LAB CHEMISTRY METHOD 12/24/2024 10:54 AM EST [facility] Blood Venous blood specimen / Unknown Venipuncture / Unknown 12/24/2024 5:48 AM EST 12/24/2024 8:47 AM EST Shelley Beard MD LAB BLOOD ORDERABLES Fin al Result [facility] [address] [place] [address], [place] [phone] * (ABNORMAL) Comprehensive metabolic panel (12/24/2024 5:48 [...] LAB CHEMISTRY METHOD 12/24/2024 10:46 AM EST [facility] Calcium 9.1 8.5 - [...] al Result [facility] [address] [place] [address], * (ABNORMAL) Complete blood count (12/24/2024 5:48 [...] [facility] [address] [place] [address], documented in this encounter Visit Diagnoses Diagnosis Unspecified fall, subsequent encounter Weakness Other malaise and fatigue documented in this encounter Care Teams Property Underwriter Relationship Specialty Start Date End Date Shelley Beard MD [address] [address] PCP - General Family Medicine 12/31/24 documented as of this encounter
== END 2025-11-22 12:01 | disposition home or self-care (01) ==
LOC: HO.LAB 12:00
PROVIDERS: Absent Provider Nurse Practitioner Family; PCP Nurse Practitioner Family; Visit Provider Internal Medicine Hypertension Specialist
DX: I10 Essential (primary) hypertension (principal); E78.1 Pure hyperglyceridemia
CPT/HCPCS: 36415; 80048; 80061; 81001; 82570; 84156